=== PATIENT | male | born 1950 | race Caucasian/White ===

== ENCOUNTER 2019-08-01 14:54 | Emergency (ER) | payer MEDICARE, SELFPAY ==
[~2019-08-01] VITALS: Ht 182.9 cm; Wt 76.7 kg
--- OUTSIDE RECORDS SUMMARY | ~2019-08-01 | XMS | Encounter Summary ---
Demographics + + + | Address | [address] | | | [place] [address] | + + + | Home Phone | | + + + | Preferred Language | Unknown | + + + | Marital Status | | + + + | Latter Day Affiliation | Unknown | + + + | Race | Unknown | + + + | Ethnic Group | Unknown | + + + Author + + + | Author | [facility] | | | and Izaiahana | + + + | Organization | [facility] | | | and [place]za[place] | + + + | Address | Unknown | + + + | Phone | Unavailable | + + + Support + + +---------+ + | Name | Relationship | Address | Phone | + + +---------+ + | Elizabeth Hernández | ECON | Unknown | | + + +---------+ + Care Team Providers + +------+ + | Care Shipfitter Apprentice Name | Role | Phone | + +------+ + | Garland Caputo MD | PCP | | + +------+ + Encounter Details +--------+ + + + + | Date | Type | Department | Care Team | Description | +--------+ + + + + | 03/24/ | Documentati | [facility] | Rasheed Bello DO | | | 2019 | on | [facility] | [address] | | | | | [facility] CL[facility] [address] | [place] | | | | | [address] | [address] | | | | | [place] [address] | | | | | | [phone] | | | +--------+ + + + + Social History + +-------+ +--------+ + | Tobacco Use | Types | Packs/Day | Years | Date | | | | | Used | | + +-------+ +--------+ + | Former Smoker | | 1 | 41 | Quit: 2008 | + +-------+ +--------+ + + +---+---+---+ | Smokeless Tobacco: | | | | | Never Used | | | | + +---+---+---+ + + +---------+ + | Alcohol Use | Drinks/Week | oz/Week | Comments | + + +---------+ + | No | 0 Standard drinks | 0.0 | Drank 12 pk/wk from | | | or equivalent | | 5512-7438 | + + +---------+ + + + + | Sex Assigned at | Date Recorded | | | | + + + | Not on file | | + + + + + + + | Job Start Date | Occupation | Industry | + + + + | Not on file | Not on file | Not on file | + + + + + + + + | Travel History | Travel Start | Travel End | + + + + + + | No recent travel history available. | + + documented as of this encounter Progress Notes Alayna Strickland RN - 03/24/2019 3:42 PM PDTFormatting of this note might be different fro m the original. 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 Intent: Curative Treatment Technique: VMAT Treatment Site: Pancreas Prescription and Treatment Summary: Course: Abdomen Plan ID Energy Fractions Dose per Fraction (cGy) Dose Correction (cGy) Total Dose Delivered (cGy) Elapsed Days PTV 5040 6X 3 / 3 180 0 540 4 PTV_4500 6X 180 0 1,800 13 PTV45(15fxs) 6X 15 / 15 180 0 2,700 20 Chemotherapy: Concurrent systemic therapy Assessment: Anastacio Hernández completed the planned course of course of external beam radiation th erapy without without any unexpected complications or breaks. Treatment tolerance: Well overall. Disease response to treatment: No change in disease status and/or disease related symptoms . Disposition: 1. Follow-up in our clinic: as needed with care being returned to his primary medical oncol zainab byrnes. Labs: none b. Imaging: per Dr. Castro 2. Follow-up with Dr. Castro. Coordination of care will be arranged between providers for future visits. Anastacio Hernández was encouraged to call our clinic with any further questions or con cerns. Thank you for allowing me to participate in his care. If you should have any questio ns regarding this treatment summary, please do not hesitate to contact me. Rasheed Bello DO Radiation Oncologist Department of Radiation Oncology [facility] documented in this enco unter Plan of Treatment Not on filedocumented as of this encounter Visit Diagnoses Not on filedocumented in this encounter"
--- OUTSIDE RECORDS SUMMARY | ~2019-08-01 | XMS | Encounter Summary ---
Demographics + + + | Address | [address] | | | [place] [address] | + + + | Home Phone | | + + + | Preferred Language | Unknown | + + + | Marital Status | | + + + | Temple Affiliation | Unknown | + + + | Race | Unknown | + + + | Ethnic Group | Unknown | + + + Author + + + | Author | [facility] | | | and [place]zaiahana | + + + | Organization | [facility] | | | and [place]ana | [...] Team Providers + +------+ + | Care Guest Relations Executive Name | Role | Phone | + +------+ + | Garland Caputo MD | PCP | | + +------+ + Reason for Visit + + + | Reason | Comments | + + + | Medication Refill | | + + + Encounter Details +--------+--------+ + + + | Date | Type | Department | Care Team | Description | +--------+--------+ + + + | 03/14/ | Refill | [facility] | Gloria, | Medication Refill | | 2019 | | [facility] | Logan Madrid MD [address] | | | | | [facility] [facility] [address] | [address] [place] | | | | | [address] [place] | [place] [address] | | | | | [place] [address] | [phone] | | | | | [phone] | | | +--------+--------+ + + + Social History + +-------+ [...] | | | or equivalent | | 3694-7908 | + + +---------+ + + + [...] + + documented as of this encounter Plan of Treatment Not on filedocumented as of this encounter Visit Diagnoses + + | Diagnosis | + + | Malignant neoplasm of body of pancreas (HCC) - Primary Malignant neoplasm of body of | | pancreas | + + documented in this encounter"
--- OUTSIDE RECORDS SUMMARY | ~2019-08-01 | XMS | Encounter Summary ---
Demographics + + + | Address | [address] | | | [place] [address] | + + + | Home Phone | | + + + | Preferred Language | Unknown | + + + | Marital Status | | + + + | Zoroastrianism Affiliation | Unknown | + + + | Race | Unknown | + + + | Ethnic Group | Unknown | + + + Author + + + | Author | [facility] | | | and [place]zaiahana | + + + | Organization | [facility] | | | and [place]ana | [...] Team Providers + +------+ + | Care Senior Copywriter Name | Role | Phone | + +------+ + | Garland Caputo MD | PCP | | + +------+ + Reason for Visit +--------+ + | Reason | Comments | +--------+ + | Other | offered med | +--------+ + Encounter Details +--------+ + + + + | Date | Type | Department | Care Team | Description | +--------+ + + + + | 04/26/ | Telephone | [facility] | Dirk Saldivar MD | Other (offered med) | | 2016 | | GASTROENTEROLOGY | [address], [place] | | | | | [address] [place] | [address] [place], [place] | | | | | [address] [place], [place] | [address] | | | | | [address] | | | | | | [phone] | | | +--------+ + + + + Social History + +-------+ +--------+------+ | Tobacco Use | Types | Packs/Day | Years | Date | | | | | Used | | + +-------+ +--------+------+ | Former Smoker | | | | | + +-------+ +--------+------+ + +---+---+---+ | Smokeless Tobacco: | | | | | Never Used | | | | + +---+---+---+ + + +---------+ + | Alcohol Use | Drinks/Week | oz/Week | Comments | + + +---------+ + | No | 0 Standard drinks | 0.0 | | | | or equivalent | | | + + +---------+ + + + [...]
--- OUTSIDE RECORDS SUMMARY | ~2019-08-01 | XMS | Clinical Summary ---
Demographics + + + | Address | [address] | | | [place] [address] | + + + | Home Phone | | + + + | Preferred Language | Unknown | + + + | Marital Status | | + + + | Bahai Affiliation | Unknown | + + + | Race | Unknown | + + + | Ethnic Group | Unknown | + + + Author + + + | Author | [facility] (Historical as of | | | 05-02-19) | + + + | Organization | [facility] (Historical as of | | | 05-02-19) | + + + | Address | Unknown | + + + | Phone | Unavailable | + + + Support + + +---------+ + | Name | Relationship | Address | Phone | + + +---------+ + | Sarah Hernández | ECON | Unknown | | + + +---------+ + Care Team Providers + +------+ + | Care Aquarium Specialist Name | Role | Phone | + +------+ + | Garland Caputo MD | PP | | + +------+ + Allergies + + + + + + | Active Allergy | Reactions | Severity | Noted | Comments | | | | | Date | | + + + + + + | Penicillins | Rash | Medium | 02/18/20 | | | | | | 16 | | + + + + + + Current Medications + + +-------+---------+------+------+-------+ | Prescription | Sig. | Disp. | Refills | Star | End | Statu | | | | | | t | Date | s | | | | | | Date | | | + + +-------+---------+------+------+-------+ | GABAPENTIN, | Take by mouth. | | | | | Activ | | ONCE-DAILY, PO | | | | | | e | + + +-------+---------+------+------+-------+ Active Problems Not on file Social History + +-------+ +--------+------+ | Tobacco Use | Types | Packs/Day | Years | Date | | | | | Used | | + +-------+ +--------+------+ | Never Assessed | | | | | + +-------+ +--------+------+ + + + | Sex Assigned at | Date Recorded | | | | + + + | Not on file | | + + + Last Filed Vital Signs + + + + | Vital Sign | Reading | Time Taken | + + + + | Blood Pressure | 135/79 | 02/18/2016 11:41 PM PDT | + + + + | Pulse | 69 | 02/18/2016 11:41 PM PDT | + + + + | Temperature | 36.2 C (97.2 F) | 02/18/2016 11:41 PM PDT | + + + + | Respiratory Rate | 18 | 02/18/2016 11:41 PM PDT | + + + + | Oxygen Saturation | 98% | 02/18/2016 11:41 PM PDT | + + + + | Inhaled Oxygen | - | - | | Concentration | | | + + + + | Weight | 90.8 kg (200 lb 2.8 | 02/18/2016 10:23 PM PDT | | | oz) | | + + + + | Height | - | - | + + + + | Body Mass Index | - | - | + + + + Plan of Treatment Not on file Results Not on filefrom Last 3 Months Insurance +---------+--------+ +------+-------+ + | Payer | Benefi | Subscriber | Type | Phone | Address | | | t Plan | ID | | | | | | / | | | | | | | Group | | | | | +---------+--------+ +------+-------+ + | [employer]MER[employer] | PREMER | [id number] | | | [address] [address] | | | A | [address] | | | [place], [place] | | | [place] | | | | [address] | | | [place] | | | | | [place] | | | | | +---------+--------+ +------+-------+ + + +--------+ +--------+ + + | Guarantor Name | Accoun | Relation to | Date | Phone | Billing Address | | | t Type | Patient | of | | | | | | | | | | + +--------+ +--------+ + + | ANASTACIO HERNÁNDEZ | Person | Self [birth year] Home: | [address] | | | [place] | | 1950 | [phone] | [place] | | | [place] | | | [phone] | + +--------+ +--------+ + +"
--- OUTSIDE RECORDS SUMMARY | ~2019-08-01 | XMS | Encounter Summary ---
Demographics + + + | Address | [address] | | | [place] [address] | + + + | Home Phone | | + + + | Preferred Language | Unknown | + + + | Marital Status | | + + + | Anabaptism Affiliation | Unknown | + + + | Race | Unknown | + + + | Ethnic Group | Unknown | + + + Author + + + | Author | [facility] | | | and Izaiahana | + + + | Organization | [facility] | | | and Izaiahana [...] Team Providers + +------+ + | Care Mortician Supplies Sales Representative Name | Role | Phone | + +------+ + | Garland Caputo MD | PCP | | + +------+ + Reason for Visit Auth/Cert +--------+--------+ + + + + | Status | Reason | Specialty | Diagnoses / | Referred By | Referred To | | | | | Procedures | Contact | Contact | +--------+--------+ + + + + | | | | Diagnoses | | Renny, | | | | | Biliary | | Joaquin Ayala, | | | | | obstruction | | [address] | | | | | Migration | | [address] | | | | | of biliary | | [place], | | | | | stent, | | [place] [address] | | | | | subsequent | | Phone: | | | | | encounter | | [phone] | | | | | Procedures | | Fax: | | | | | [place] | | [phone] | | | | | ESOPHAGOSCOP | | | | | | | Y FLEXIBLE | | | | | | | GUIDE WIRE | | | | | | | DILATION UT | | | | | | | ERCP DX | | | | | | | COLLECTION | | | | | | | SPECIMEN | | | | | | | BRUSHING/WAS | | | | | | | GERI UT | | | | | | | ANESTHESIA | | | | | | | UPPER GI | | | | | | | ENDOSCOPIC | | | | | | | PX ERCP | | | | | | | ERCP | | | +--------+--------+ + + + + Encounter Details +--------+---------+ + + + | Date | Type | Department | Care Team | Description | +--------+---------+ + + + | 01/29/ | Surgery | [facility] | Joaquin [place]amo | ERCP | | 2018 | | [facility] OP | MD Jamie [address] | | | | | [address] | [facility] | | | | | [place] | [place] [address] | | | | | [address] | [phone] | | | | | [phone] | | | +--------+---------+ + + + Social History + +-------+ [...] | | | or equivalent | | [phone] | + + +---------+ + + + [...] + + documented as of this encounter Last Filed Vital Signs + + + + + | Vital Sign | Reading | Time Taken | Comments | + + + + + | Blood Pressure | 121/71 | 01/29/2019 12:15 PM | | | | | PDT | | + + + + + | Pulse | 79 | 01/29/2019 12:34 PM | | | | | PDT | | + + + + + | Temperature | 36.7 C (98.1 F) | 01/29/2019 10:30 AM | | | | | PDT | | + + + + + | Respiratory Rate | 15 | 01/29/2019 12:15 PM | | | | | PDT | | + + + + + | Oxygen Saturation | 96% | 01/29/2019 12:35 PM | | | | | PDT | | + + + + + | Inhaled Oxygen | - | - | | | Concentration | | | | + + + + + | Weight | 77.6 kg (171 lb 1.2 | 01/29/2019 8:03 AM | | | | oz) | PDT | | + + + + + | Height | 182.9 cm (6') | 01/29/2019 8:03 AM | | | | | PDT | | + + + + + | Body Mass Index | 23.2 | 01/29/2019 8:03 AM | | | | | PDT | | + + + + + documented in this encounter Discharge Instructions Instructions Maria D Jc RN - 01/29/2019Formatting of this note might be different fro m the original. Recovery After Procedural Sedation (Adult) You have been given medicine by vein to make you sleep during your procedure. This may have included both a pain medicine and sleeping medicine. Most of the effects have worn off. But you may still have some drowsiness for the next 6 to 8 hours. Home care Follow these guidelines when you get home: For the next 8 hours, you should be watched by a responsible adult. This person should m jemima sure your condition is not getting worse. Don't drink any alcoholfor the next [address], operate dangerous machinery,make important business or personal decisions , or sign legal documentsduring the next 24 hours. Note: Your healthcare provider may tell you not to take any medicine by mouth for pain or s leep in the next 4 hours. These medicines may react with the medicines you were given in the hospital. This could cause a much stronger response than usual. Follow-up care Follow up with your healthcare provider if you are not alert and back to your usual level o f activity within 12 hours. When to seek medical advice Call your healthcare provider right away if any of these occur: Drowsiness gets worse Weakness or dizziness gets worse Repeated vomiting You can't be awakened Date Last Reviewed: 07/03/201619999686-6162 [employer]. [address] [place] [address], [place] [address]. All righ ts reserved. This information is not intended as a substitute for professional medical care. Always follow your healthcare professional's instructions. ERCP (Endoscopic Retrograde Cholangiopancreatography) A balloon at the tip of a catheter opens above the stone. The stone is pulled out of the du ct and leaves your body through stool. ERCP stands forendoscopic retrograde cholangiopancreatography.This procedure is used to view the biliary and pancreatic ducts. It is used to evaluate diseases that affect the biliary and pancreaticducts andto help locate and treat blockages that may be present. How do I get ready for ERCP? Talk with your healthcare provider about any health problems or allergies you have. Ask your healthcare provider about the risks of ERCP, which include pancreatitis, infect ion, bleeding, and tearing the bowel. You may be asked to take antibiotics ahead of time. Avoid blood-thinning medicinesbefore ERCP,as recommended by your provider. Don't eat or drink for 8 to 12hours before ERCP. Have someone ready to take you home. Be sure your healthcare provider knows about all medicines you take. You may be told to stop taking some or all of them before the test. This includes: ? All prescription medicines ? Cpaf-bfw-wwmwctj medicines that don t need a prescription ? Any street drugs you may use ? Herbs, vitamins, kelp, seaweed, cough syrups, and other supplements What happens during the procedure? You may be given medicine through an IV to help you relax. Your throat is numbed. A thin tube (endoscope) is placed into your throat. It is advanced from the throat throu gh the upper digestive tract, to the common bile duct opening. The endoscope lets the health care providersee the common bile and pancreatic ductson a video screen. A cut may be made where the common bile duct opens to the duodenum to make it easier to remove stones. As blockages are located and removed, X-rays are taken. Contrast dye is injected through a catheter to make the duct show up better on the X-ray s. An imaging technique that uses X-rays to obtain real-time moving images of internal orga ns is called fluoroscopy. It is used to watch and guide progress of the procedure. In some cases, a plastic tube (stent) is placed to hold the ducts open. This stent may b e replaced or removed in 6 to 8weeks. Or it may be left to fall out on its own and be pass ed in the stool. What happens after ERCP? Your healthcare provider may discuss the test results right away or a return visit may be s cheduled.Depending on your medical condition and the test results,you may go home the day or spend the night in the hospital.If you are discharged home,follow theseguide lines: Unless told otherwise by your healthcare provider,you can return to a normal routine t he day after the ERCP. If a cut was made in the duct, avoid blood-thinning medicines such as aspirin for 5 to 7 days,or as advised by your healthcare provider. Call your healthcare provider right away if you have a fever or abdominal pain. These ma y be signs of an infection or torn bowel. Date Last Reviewed: 06/16/201719990991-8874 [employer]. [address] [place] [address]. All righ ts reserved. This information is not intended as a substitute for professional medical care. Always follow your healthcare professional's instructions. documented in this encounter Medications at Time of Discharge + + + +---------+ + + | Medication | Sig | Dispensed | Refills | Start | End Date | | | | | | Date | | + + + +---------+ + + | hydrOXYzine | Take 50 mg by mouth | | 0 | 07/24/20 | | | (VISTARIL) 50 MG | as needed. | | | 18 | | | capsule | | | | | | + + + +---------+ + + | metFORMIN | Take 1,000 mg by | | 0 | | | | (GLUCOPHAGE) 500 mg | mouth 2 times daily | | | | | | tablet | (with breakfast & | | | | | | | dinner). | | | | | + + + +---------+ + + | OLANZapine | Take 1 tablet by | | 4 | 12/04/19 | | | (ZYPREXA) 5 mg | mouth. 1 tab daily | | | 19 | | | tablet | for three days after | | | | | | | chemo | | | | | + + + +---------+ + + | ondansetron | Take 1 tablet by | 40 | 3 | 08/11/20 | | | (ZOFRAN) 8 MG tablet | mouth every 8 hours | tablet | | 18 | | | | as needed for | | | | | | | Nausea. May take | | | | | | | twice daily for two | | | | | | | days after chemo; or | | | | | | | one tab every eight | | | | | | | hours as needed for | | | | | | | nausea | | | | | + + + +---------+ + + | SENNOSIDES PO | Take 1 tablet by | | 0 | | | | | mouth as needed. | | | | | + + + +---------+ + + | tamsulosin | Take 0.4 mg by mouth | | 0 | 07/31/20 | | | (FLOMAX) 0.4 mg CAPS | Daily. | | | 18 | | + + + +---------+ + + | ciprofloxacin | Take 1 tablet by | 10 | 0 | 01/30/20 | | | (CIPRO) 500 mg | mouth 2 times daily | tablet | | 19 | 9 | | tablet | for 5 days. | | | | | + + + +---------+ + + | Docusate Calcium | Take by mouth as | | 0 | | | | (STOOL SOFTENER PO) | needed. | | | | 9 | + + + +---------+ + + | fentaNYL | Place 1 patch onto | | 0 | 08/25/20 | | | (DURAGESIC) 100 | the skin every 72 | | | 18 | 9 | | mcg/hr | hours. | | | | | + + + +---------+ + + | LORazepam (ATIVAN) | Take 1 mg by mouth | | 0 | 08/11/20 | | | 1 mg tablet | every 6 hours as | | | 18 | 9 | | | needed. | | | | | + + + +---------+ + + | oxyCODONE 20 MG | 1-2 tabs every four | 240 | 0 | 12/26/19 | | | TABS | hours as needed for | tablet | | 19 | 9 | | | pain | | | | | + + + +---------+ + + documented as of this encounter Plan of Treatment Not on filedocumented as of this encounter Procedures + +--------+ + + + | Procedure Name | Priori | Date/Time | Associated Diagnosis | Comments | | | ty | | | | + +--------+ + + + | FL ERCP | Routin | 01/29/2019 | | Results for this | | | e | 10:37 AM | | procedure are in the | | | | PDT | | results section. | + +--------+ + + + | ERCP | | 01/29/2019 | Biliary | | | | | 9:40 AM | obstruction | | | | | PDT | Migration of biliary | | | | | | stent, subsequent | | | | | | encounter | | + +--------+ + + + | ERCP | Routin | 01/29/2019 | | Results for this | | | e | 9:39 AM | | procedure are in the | | | | PDT | | results section. | + +--------+ + + + | PROTIME INR | STAT | 01/29/2019 | | Results for this | | | | 8:30 AM | | procedure are in the | | | | PDT | | results section. | + +--------+ + + + | CBC NO DIFFERENTIAL | STAT | 01/29/2019 | | Results for this | | | | 8:30 AM | | procedure are in the | | | | PDT | | results section. | + +--------+ + + + | COMPREHENSIVE | STAT | 01/29/2019 | | Results for this | | METABOLIC PANEL | | 8:30 AM | | procedure are in the | | | | PDT | | results section. | + +--------+ + + + documented in this encounter Results FL ERCP (01/29/2019 10:37 AM PDT) + + | Specimen | + + | | + + + + + | Narrative | Performed At | + + + | [place] ERCP 01/29/2019 10:37 AM HISTORY: intra op. COMPARISON: | [facility] | | None. FINDINGS: Multiple fluoroscopic images from an ERCP were | | | obtained. IMPRESSION - ERCP images. Please see the operative | | | report for further information. Dictated and Signed by: Dani | | | MD Talon Electronically signed: 01/29/2019 1:10 PM | | + + + + + | Procedure Note | + + | Servando Hoover Results In - 01/29/2019 1:14 PM PDT [place] ERCP 01/29/2019 10:37 AM | | | | HISTORY: intra op. | | | | COMPARISON: None. | | | | FINDINGS: | | Multiple fluoroscopic images from an ERCP were obtained. | | | | IMPRESSION - | | ERCP images. | | | | Please see the operative report for further information. | | | | Dictated and Signed by: Dani Hanley MD | | Electronically signed: 01/29/2019 1:10 PM | + + + +---------+ + + | Performing | Address | City/State/Zipcode | Phone Number | | Organization | | | | + +---------+ + + | [facility] | | | | + +---------+ + + ERCP (01/29/2019 9:39 AM PDT) + + | Specimen | + + | | + + + + -+ | Narrative | Performed At | + + -+ | | [facility] | | GastroenterologyPatient Name: Anastacio Micaela Date: 01/29/2019 | [facility] | | 9:39 AMMRN: [id number] #: [id number] of : | | | 1Admit Type: AmbulatoryAge: 68[place] [facility] [place]Gender: MaleNote | | | Status: FinalizedAttending MD: JOAQUIN ALAMO [facility]: | | | ERCPIndications: Jaundice, Elevated bilirubin, | | | Malignant tumor of the head of pancreas, | | | dislodged biliary stentProviders: JOAQUIN ALAMO MD, | | | Aimee Reece RN, Beau Avila RN, | | | Olimpia Jimenez, Urban Anthropologist, Alec | | | MD Chivo (Anesthesia Staff)Referring MD: Rasheed Bello | | | (Referring MD)Medicines: General Anesthesia, Indomethacin | | | 100 mg UT, Cipro 400 mg IVComplications: No immediate | | | complications.Procedure: Pre-Anesthesia Assessment: - | | | Prior to the procedure, a History and Physical was performed, and | | | patient medications and allergies were reviewed. The patient is | | | competent. The risks and benefits of the procedure and the | | | sedation options and risks were discussed with the patient. All | | | questions were answered and informed consent was obtained. | | | Patient identification and proposed procedure were verified by | | | the physician, the nurse and the anesthesiologist in the | | | pre-procedure area in the procedure room. Mental Status | | | Examination: alert and oriented. Airway Examination: Mallampati | | | Class II (the uvula but not tonsillar pillars visualized). | | | Respiratory Examination: clear to auscultation. CV Examination: | | | normal. Prophylactic Antibiotics: The patient does not require | | | prophylactic antibiotics. Prior Anticoagulants: The patient | | | has taken no previous anticoagulant or antiplatelet agents. ASA | | | Grade Assessment: III - A patient with severe systemic | | | disease. After reviewing the risks and benefits, the patient | | | was deemed in satisfactory condition to undergo the procedure. The | | | anesthesia plan was to use general anesthesia. Immediately prior | | | to administration of medications, the patient was re-assessed | | | for adequacy to receive sedatives. The heart rate, respiratory | | | rate, oxygen saturations, blood pressure, adequacy of pulmonary | | | ventilation, and response to care were monitored throughout | | | the procedure. The physical status of the patient was | | | re-assessed after the procedure. After obtaining informed | | | consent, the scope was passed under direct vision. Throughout | | | the procedure, the patient's blood pressure, pulse, and oxygen | | | saturations were monitored continuously. The endoscope was | | | introduced through the mouth, and advanced to the duodenum and used to | | | inject contrast into the bile duct. The ERCP was accomplished | | | without difficulty. The patient tolerated the procedure | | | well.Findings: A psychologist personnel film of the abdomen was obtained. | | | Surgical clips, consistent with a previous cholecystectomy, | | | were seen in the area of the right upper quadrant of the | | | abdomen. There was no biliary stent on the psychologist personnel film. The | | | esophagus was successfully intubated under direct vision. The | | | scope was advanced to the major papilla in the descending duodenum | | | without detailed examination of the pharynx, larynx and associated | | | structures, and upper GI tract. There was retained gastric | | | contents but not obvious gastric outlet obstruction. The | | | ampulla was grossly abnormal, it looks like there the is | | | extension of the malignancy around the ampulla. He had | | | previously had a sphincterotomy in Nov. Cannulation was | | | straightforward. The bile duct was deeply cannulated with the | | | short-nosed traction sphincterotome and 0.035" hydrawire on the first | | | touch and without the use of contrast. A pancreatogram was | | | neither attempted nor obtained. Contrast was injected. I | | | personally interpreted the bile duct images. There was brisk | | | flow of contrast through the ducts. Image quality was | | | excellent. Contrast extended to the entire biliary tree. The | | | distal common bile duct contained a single severe shelf like | | | stenosis 5 mm in length. The common bile duct, common hepatic | | | duct and left and right hepatic ducts and all intrahepatic branches | | | were markedly dilated, secondary to a stricture. The largest | | | diameter was 13 mm. A cholecystectomy had been performed. In | | | accordance with the preprocedure discussion with the patient, I | | | proceeded with metal stent placement. One 10 mm by 6 cm fully | | | covered metal stent was advanced across the stricture without | | | difficulty under endoscopic and fluoroscopic visualization. The | | | stent was then successfully deployed under endoscopic and | | | fluoroscopic visualization on the first attempt. Clear fluid | | | and pus flowed through the stent. There was excellent drainage | | | as seen endoscopically and fluoroscopically. The stent was in | | | excellent position. At this point the procedure was | | | complete.Impression: - The previously placed 10mm x 4cm covered | | | metal stent has passed. - A single severe biliary stricture was | | | found in the common bile duct. The stricture was malignant | | | appearing. - The left and right hepatic ducts and all | | | intrahepatic branches, common bile duct and common hepatic duct | | | were markedly dilated, secondary to a stricture. - The | | | patient has had a cholecystectomy. - One 10mm x 6cm covered | | | metal stent was placed into the common bile duct. - Pus | | | was seen draining from the bile duct consistent with cholangitis. | | | - Malignant appearing infiltration of the ampulla.Recommendation: | | | - The patient will be observed post-procedure, until all | | | discharge criteria are met. - Clear liquid diet for 1 | | | day, then advance as tolerated to resume previous diet. - | | | Cipro (ciprofloxacin) 500 mg PO BID for 5 days. - Return to | | | referring physician. - The findings and recommendations were | | | discussed with the patient's family. - Repeat ERCP in 6 | | | months to exchange stent.JOAQUIN ALAMO MD01/29/2019 10:41:59 | | | AMThis report has been signed electronically.Number of Addenda: 0Note | | | Initiated On: 01/29/2019 9:39 AMScope In: 9:58:40 AMScope Out: 10:20:59 | | | AM [facility], [address] [facility] [address] [facility] | | | [place] [address] | | | - Return to referring physician. | | | - The findings and recommendations were discussed with the patient's | | | family. | | | - Repeat ERCP in 6 months to exchange stent. | | |JOAQUIN ALAMO MD | | |01/29/2019 10:41:59 AM | | |This report has been signed electronically. | | |Number of Addenda: 0 | | |Note Initiated On: 01/29/2019 9:39 AM | | |Scope In: 9:58:40 AM | | |Scope Out: 10:20:59 AM | | | [facility], [address] [facility], [place] | | | [address] | | + + -+ + +---------+ + + | Performing | Address | City/State/Zipcode | Phone Number | | Organization | | | | + +---------+ + + | [facility] | | | | + +---------+ + + Martaime INR (01/29/2019 8:30 AM PDT) + + + + + + | Component | Value | Ref Range | Performed | Pathologist | | | | | At | Signature | + + + + + + | Prothrombin | 14.1 (H) | 11.3 - 13.9 | [facility] | | | Time | | seconds | [facility] | | | | | | MEDICAL | | | | | | CENTER - | | | | | | LABORATORY | | + + + + + + | INR | 1.1Comment: Usual Oral | 0.9 - 1.1 | [facility] | | | | Anticoagulation Range: | | [facility] | | | | 2.0 - 3.0High | | MEDICAL | | | | Level Oral | | CENTER - | | | | Anticoagulation Range: | | LABORATORY | | | | 2.5 - 3.5 | | | | + + + + + + + + | Specimen | + + | Blood | + + + + + + + | Performing | Address | City/State/Zipcode | Phone Number | | Organization | | | | + + + + + | [facility] | [address] | [place], [place] | [phone] | | [facility] | | [address] | | | - LABORATORY | | | | + + + + + Comprehensive Metabolic Panel (01/29/2019 8:30 AM PDT) + + + + + + | Component | Value | Ref Range | Performed | Pathologist | | | | | At | Signature | + + + + + + | Na | 137 | 136 - 145 | [facility] | | | | | mmol/L | [facility] | | | | | | MEDICAL | | | | | | CENTER - | | | | | | LABORATORY | | + + + + + + | K | 3.5 | 3.4 - 5.1 | [facility] | | | | | mmol/L | [facility] | | | | | | MEDICAL | | | | | | CENTER - | | | | | | LABORATORY | | + + + + + + | Cl | 102 | 98 - 107 mmol/L | [facility] | | | | | | [facility] | | | | | | MEDICAL | | | | | | CENTER - | | | | | | LABORATORY | | + + + + + + | CO2 | 28 | 20 - 31 mmol/L | [facility] | | | | | | [facility] | | | | | | MEDICAL | | | | | | CENTER - | | | | | | LABORATORY | | + + + + + + | Anion Gap | 7 | 3 - 16 mmol/L | [facility] | | | | | | [facility] | | | | | | MEDICAL | | | | | | CENTER - | | | | | | LABORATORY | | + + + + + + | Glucose | 119 (H) | 60 - 106 mg/dL | [facility] | | | | | | [facility] | | | | | | MEDICAL | | | | | | CENTER - | | | | | | LABORATORY | | + + + + + + | BUN | 10 | 9 - 23 mg/dL | [facility] | | | | | | [facility] | | | | | | MEDICAL | | | | | | CENTER - | | | | | | LABORATORY | | + + + + + + | Creatinine | 0.78 | 0.70 - 1.30 | [facility] | | | | | mg/dL | [facility] | | | | | | MEDICAL | | | | | | CENTER - | | | | | | LABORATORY | | + + + + + + | eGFR if not | >60Comment: GLOMERULAR | >=60 | [facility] | | | | FILTRATION | mL/min/1.73m2 | [facility] | | | THAI | RATE,ESTIMATED | | MEDICAL | | | | mL/min/1.52b0Nsjr than | | CENTER - | | | | 60 Chronic kidney | | LABORATORY | | | | disease,if found over a | | | | | | 3-month period.Less than | | | | | | 15 Kidney failureFor | | | | | | | | | | | | Americans,multiply the | | | | | | calculated GFR by 1.21. | | | | | | | | | | + + + + + + | Calcium | 9.0 | 8.7 - 10.4 | [facility] | | | | | mg/dL | [facility] | | | | | | MEDICAL | | | | | | CENTER - | | | | | | LABORATORY | | + + + + + + | Albumin | 3.4 | 3.2 - 4.8 g/dL | [facility] | | | | | | [facility] | | | | | | MEDICAL | | | | | | CENTER - | | | | | | LABORATORY | | + + + + + + | Bilirubin | 14.7 (H) | 0.3 - 1.2 mg/dL | [facility] | | | Total | | | [facility] | | | | | | MEDICAL | | | | | | CENTER - | | | | | | LABORATORY | | + + + + + + | Total | 6.4 | 5.7 - 8.2 g/dL | [facility] | | | Protein | | | [facility] | | | | | | MEDICAL | | | | | | CENTER - | | | | | | LABORATORY | | + + + + + + | AST | 100 (H) | 0 - 34 U/L | [facility] | | | | | | [facility] | | | | | | MEDICAL | | | | | | CENTER - | | | | | | LABORATORY | | + + + + + + | ALT | 64 (H) | 10 - 49 U/L | [facility] | | | | | | [facility] | | | | | | MEDICAL | | | | | | CENTER - | | | | | | LABORATORY | | + + + + + + | Alkaline | 947 (H) | 46 - 116 U/L | [facility] | | | Phosphatase | | | [facility] | | | | | | MEDICAL | | | | | | CENTER - | | | | | | LABORATORY | | + + + + + + | Globulin | 3.0 | 2.1 - 3.8 g/dL | [facility] | | | | | | [facility] | | | | | | MEDICAL | | | | | | CENTER - | | | | | | LABORATORY | | + + + + + + | Albumin/Sonia | 1.1 | 0.8 - 1.9 | [facility] | | | bulin Ratio | | | [facility] | | | | | | MEDICAL | | | | | | CENTER - | | | | | | LABORATORY | | + + + + + + | BUN/Creatin | 12.8 | | [facility] | | | ine Ratio | | | [facility] | | | | | | MEDICAL | | | | | | CENTER - | | | | | | LABORATORY | | + + + + + + + + | Specimen | + + | Blood | + + + + + + + | Performing | Address | City/State/Zipcode | Phone Number | | Organization | | | | + + + + + | [facility] | [address] | [place] | [phone] | | [facility] | | [address] | | | - LABORATORY | | | | + + + + + CBC no Differential (01/29/2019 8:30 AM PDT) + + + + + + | Component | Value | Ref Range | Performed | Pathologist | | | | | At | Signature | + + + + + + | WBC | 9.5 | 4.0 - 11.0 K/uL | [facility] | | | | | | [facility] | | | | | | MEDICAL | | | | | | CENTER - | | | | | | LABORATORY | | + + + + + + | RBC | 3.62 (L) | 4.30 - 5.70 | [facility] | | | | | M/uL | [facility] | | | | | | [facility] | | | | | | CENTER - | | | | | | LABORATORY | | + + + + + + | Hemoglobin | 11.0 (L) | 13.5 - 18.0 | [facility] | | | | | g/dL | [facility] | | | | | | [facility] | | | | | | CENTER - | | | | | | LABORATORY | | + + + + + + | Hematocrit | 31.2 (L) | 40.0 - 51.0 % | [facility] | | | | | | [facility] | | | [facility] | | [facility] | | | | | | CENTER - | | | | | | LABORATORY | | + + + + + + | MCV | 86.2 | 83.0 - 101.0 fL | [facility] | | | | | | [facility] | [facility] | [facility] | | | | | | CENTER - | | | | | | LABORATORY | | + + + + + + | MCH | 30.4 | 28.0 - 35.0 pg | [facility] | | | | | | [facility] | | | | | | [facility]ICAL | | | | | | CENTER - | | | | | | LABORATORY | | + + + + + + | MCHC | 35.3 | 32.0 - 36.0 | [facility] | | | | | g/dL | [facility] | | | | | | MEDICAL | | | | | | CENTER - | | | | | | LABORATORY | | + + + + + + | RDW-CV | 22.2 (H) | <15.0 % | [facility] | | | | | | [facility] | | | | | | [facility]ICAL | | | | | | CENTER - | | | | | | LABORATORY | | + + + + + + | RDW-SD | 67.2 (H) | 35.1 - 46.3 fL | [facility] | | | | | | [facility] | | | | | | MEDICAL | | | | | | CENTER - | | | | | | LABORATORY | | + + + + + + | Platelet | 389 | 140 - 440 K/uL | [facility] | | | Count | | | [facility] | | | | | | MEDICAL | | | | | | CENTER - | | | | | | LABORATORY | | + + + + + + | MPV | 11.5 | 6.5 - 12.4 fL | [facility] | | | | | | [facility] | | | | | | [facility] | | | | | | CENTER - | | | | | | LABORATORY | | + + + + + + | % nRBC | 0 | 0 - 2 per 100 | [facility] | | | | | WBCs | [facility] | | | | | | MEDICAL | | | | | | CENTER - | | | | | | LABORATORY | | + + + + + + | Absolute | 0.00 | 0.00 - 0.01 | [facility] | | | nRBC | | K/uL | [facility] | | | | | | MEDICAL | | | | | | CENTER - | | | | | | LABORATORY | | + + + + + + + + | Specimen | + + | Blood | + + + + + + + | Performing | Address | City/State/Zipcode | Phone Number | | Organization | | | | + + + + + | [facility] | [address] | [place], [place] | [phone] | | [facility] | | [address] | | | - LABORATORY | | | | + + + + + documented in this encounter Visit Diagnoses + + | Diagnosis | + + | Biliary obstruction Obstruction of bile duct | + + | Migration of biliary stent, subsequent encounter | + + documented in this encounter Admitting Diagnoses + + | Diagnosis | + + | Biliary obstruction Obstruction of bile duct | + + | Migration of biliary stent, subsequent encounter | + + documented in this encounter Administered Medications + +--------+---------+------+------+------+ | Medication Order | MAR | Action | Dose | Rate | Site | | | Action | Date | | | | + +--------+---------+------+------+------+ + +---+ | albuterol-ipratropium 2.5-0.5 | | | mg/3 mL nebulizer solution 3 mL | | | 3 mL, Nebulization, ONCE PRN, | | | Wheezing, Starting [facility] 01/29/19 at | | | 0815, For 1 dose, Pre-op | | + +---+ | | | + +---+ | albuterol-ipratropium 2.5-0.5 | | | mg/3 mL nebulizer solution 3 mL | | | 3 mL, Nebulization, ONCE PRN, | | | Wheezing, Shortness of Breath, | | | Starting [facility] 01/29/19 at 1014, For | | | 1 dose, Recovery/Phase I | | + +---+ | | | + +---+ + +---------+ +--------+-------+---+ | ciprofloxacin in dextrose | New Bag | 01/30/20 | 400 mg | 200 | | | (CIPRO) IVPB 400 mg 400 mg, | | 19 11:26 | | mL/hr | | | Intravenous, Administer over 1 | | AM PDT | | | | | Hours, ONCE, [facility] 01/29/19 at 1115, | | | | | | | For 1 dose, Recovery/Phase I, | | | | | | | Indications: Biliary Tract | | | | | | | Infection | | | | | | + +---------+ +--------+-------+---+ + +---+ | | | + +---+ | dextrose 50% injection 12.5-25 | | | g 12.5-25 g, Intravenous, EVERY | | | 15 MIN PRN, Low Blood Sugar, Give | | | 12.5g (25 mL) IV if blood | | | glucose 50-69 mg/dL. Give 25g | | | (50 mL) IV if blood glucose < 50, | | | Starting [facility] 01/29/19 at 0815, | | | Repeat in 15 min if blood glucose | | | remains < 70 mg/dL. Repeat | | | blood glucose in 30 min once | | | blood glucose > 70., Pre-op | | + +---+ | | | + +---+ | dextrose 50% injection 12.5-25 | | | g 12.5-25 g, Intravenous, EVERY | | | 15 MIN PRN, Low Blood Sugar, For | | | hypoglycemia. Give 12.5g (25ml) | | | IV if blood glucose 50-69 | | | mg/dL. Give 25g (50ml) IV if | | | blood glucose < 50, Starting [facility] | | | 01/29/19 at 1014, Give over 2 min. | | | Repeat in 15 min if blood | | | glucose remains < 70 mg/dL. | | | Repeat blood glucose in 30 min | | | once blood glucose > 70., | | | Recovery/Phase I | | + +---+ | | | + +---+ | ePHEDrine 50 mg/mL injection 5 | | | mg 5 mg, Intravenous, EVERY 5 | | | MIN PRN, if SBP <90., Starting | | | [facility] 01/29/19 at 1014, Hold if HR > | | | 100. Maximum total dose 20mg., | | | Recovery/Phase I | | + +---+ | | | + +---+ | fentaNYL (PF) injection 25-50 | | | mcg 25-50 mcg, Intravenous, | | | EVERY 5 MIN PRN, Pain, Starting | | | [facility] 01/29/19 at 1014, Maximum | | | total dose 250 mcg. PACU IV | | | Narcotic Priority: Only use | | | fentanyl for immediate post-op | | | pain (one dose) or breakthrough | | | pain when any other IV narcotics | | | ordered have been ineffective (if | | | ordered). If both morphine and | | | hydromorphone are ordered, use | | | morphine first, and use | | | hydromorphone if morphine | | | ineffective., Recovery/Phase I | | + +---+ | | | + +---+ | glycopyrrolate (ROBINUL) | | | injection 0.2 mg 0.2 mg, | | | Intravenous, PRN, Bradycardia, | | | For HR <50, Starting [facility] 01/29/19 | | | at 1014, For 2 doses, May repeat | | | one time after 1min, | | | Recovery/Phase I | | + +---+ | | | + +---+ | hydrALAZINE (APRESOLINE) | | | injection 5 mg 5 mg, | | | Intravenous, EVERY 20 MINUTES | | | PRN, For SBP > 180, DBP > 100, | | | Starting [facility] 01/29/19 at 1014, | | | Hold if HR > 100. Maximum total | | | dose 40 mg. Use labetalol first | | | if available., Recovery/Phase I | | + +---+ | | | + +---+ | HYDROmorphone (DILAUDID) | | | injection 0.2-0.5 mg 0.2-0.5 mg, | | | Intravenous, EVERY 5 MIN PRN, | | | Pain, Starting [facility] 01/29/19 at | | | 1014, Maximum total dose 4 mg. | | | PACU IV Narcotic Priority: Only | | | use fentanyl for immediate | | | post-op pain (one dose) or | | | breakthrough pain when any other | | | IV narcotics ordered have been | | | ineffective (if ordered). If | | | both morphine and hydromorphone | | | are ordered, use morphine first, | | | and use hydromorphone if morphine | | | ineffective., Recovery/Phase I | | + +---+ | | | + +---+ | labetalol (TRANDATE) 5 mg/mL | | | injection 5 mg 5 mg, | | | Intravenous, EVERY 5 MIN PRN, For | | | SBP > 180, DBP > 100, Starting | | | [facility] 01/29/19 at 1014, Hold if HR < | | | 60. Maximum total dose 300mg. | | | Notify anesthesia if patient | | | requires more than 50mg., | | | Recovery/Phase I | | + +---+ | | | + +---+ | lactated ringers (LR) infusion | | | at 100 mL/hr, Intravenous, | | | CONTINUOUS, Starting [facility] 01/29/19 | | | at 0845, Pre-op | | + +---+ | | | + +---+ + +---------+ +---+---+---+ | lactated ringers (LR) infusion | New Bag | 01/30/20 | | | | | at 10-100 mL/hr, Intravenous, | | 19 7:30 | | | | | CONTINUOUS, Starting [facility] 01/29/19 | | AM PDT | | | | | at 0845, TKO. Use unless patient | | | | | | | is on dialysis., Pre-op | | | | | | + +---------+ +---+---+---+ + +---+ | | | + +---+ | ondansetron (ZOFRAN) injection | | | 4 mg 4 mg, Intravenous, ONCE | | | PRN, Nausea, Starting [facility] 01/29/19 | | | at 1014, For 1 dose, | | | Recovery/Phase I | | + +---+ | | | + +---+ | sodium chloride 0.9% (NS) | | | infusion at 10-100 mL/hr, | | | Intravenous, CONTINUOUS, Starting | | | [facility] 01/29/19 at 0845, TKO. Use | | | this instead of LR if patient is | | | on dialysis., Pre-op | | + +---+ | | | + +---+ documented in this encounter
--- OUTSIDE RECORDS SUMMARY | ~2019-08-01 | XMS | Encounter Summary ---
Demographics + + + | Address | [address] | | | [place] [address] | + + + | Home Phone | | + + + | Preferred Language | Unknown | + + + | Marital Status | | + + + | Anabaptist Affiliation | Unknown | + + + | Race | Unknown | + + + | Ethnic Group | Unknown | + + + Author + + + | Author | [facility] | | | and Izaiahana | + + + | Organization | [facility] | | | and Izaiahana | + + + | Address | Unknown | + + + | Phone | Unavailable | + + + Support + + +---------+ + | Name | Relationship | Address | Phone | + + +---------+ + | Elizabeth Galvez | ECON | Unknown | | + + +---------+ + Care Team Providers + +------+ + | Care Hospital Account Liaison Name | Role | Phone | + +------+ + | Garland Caputo MD | PCP | | + +------+ + Reason for Visit + + + | Reason | Comments | + + + | Follow-up | | + + + Encounter Details +--------+ + + + + | Date | Type | Department | Care Team | Description | +--------+ + + + + | 02/26/ | Hospital [facility] | Gloria, | Malignant neoplasm | | 2019 | Encounter | [facility] | Logan Madrid MD [address] | of head of pancreas | | | | [facility] [address] [place] | (HCC) | | | | [address] [place] | [place] [address] | | | | | [place] [address] | [phone] | | | | | [phone] | | | +--------+ + + + [...] | | | or equivalent | | [phone] | + + +---------+ + + + [...] + + + | Blood Pressure | 128/75 | 02/26/2019 3:41 PM | | | | | PDT | | + + + + + | Pulse | 89 | 02/26/2019 3:41 PM | | | | | PDT | | + + + + + | Temperature | 37.3 C (99.1 F) | 02/26/2019 3:41 PM | | | | | PDT | | + + + + + | Respiratory Rate | 18 | 02/26/2019 3:41 PM | | | | | PDT | | + + + + + | Oxygen Saturation | 97% | 02/26/2019 3:41 PM | | | | | PDT | | + + + + + | Inhaled Oxygen | - | - | | | Concentration | | | | + + + + + | Weight | 76 kg (167 lb 8.8 | 02/26/2019 3:41 PM | | | | oz) | PDT | | + + + + + | Height | - | - | | + + + + + | Body Mass Index | 22.72 | 01/29/2019 8:03 AM | | | | | PDT | | + + + + + documented in this encounter Medications at Time [...] ondansetron | Take 1 tablet by | 12 | 0 | 02/27/20 | | | (ZOFRAN ODT) 8 mg | mouth every 8 hours | tablet | | 19 | | | disintegrating | as needed for | | | | | | tabletIndications: | Nausea. | | | | | | Malignant neoplasm | | | | | | | of head of pancreas | | | | | | | (HCC) | | | | | | + [...] + + + +---------+ + + | CAPECITABINE PO | Take by mouth. | | 0 | | | | | | | | | 9 | + [...] + +---------+ + + | fentaNYL | Apply skin patch | 10 | 0 | 02/20/20 | | | (DURAGESIC) 25 | every three days | patch | | 19 | 9 | | mcg/hr | with a 100 mcg/hr | | | | | | | patch for 125 | | | | | | | mcg/hour | | | | | + + + +---------+ + + | LORazepam (ATIVAN) | One tablet orally | 90 | 0 | 02/27/20 | | | 1 mg tablet | ever four hours as | tablet | | 19 | 9 | | | needed for nausea, | | | | | | | anxiety or | | | | | | | restlessness | | | | | + + + +---------+ + + | oxyCODONE 20 MG | 1-2 tabs every four | 240 | 0 | 02/13/20 | | | TABS | hours as needed for | tablet | | 19 | 9 | | | pain | | | | | + + + +---------+ + + documented as of this encounter Progress Notes Logan Castro MD - 02/26/2019 3:46 PM PDTFormatting of this note might be differe nt from the original. Hematology/Oncology Progress Note [facility] RICKI Lee Pt. Name/Age/: Anastacio Galvez 68 y.o. 1950 [facility]. Record Number: [id number] Date of admission: 02/26/2019 The patient's primary care provider is Garland Caputo MD. Identifying Statement: Anastacio Galvez is a 68 y.o. male from [address] [place] [address] with Stage IIA Pancreatic Cancer. The patient chart and medications were reviewed in detail and the patient was seen and exam ined. History of Present Illnesses, their Current Assessments and Plans: Problem List Malignant neoplasm of head of pancreas Overview ACTIVE DIAGNOSIS: Endoscopic stage IIA Pancreatic Cancer, deleterious germline PALB2 muta tion positive. The patient presented with upper abdominal pain which radiated to the upper back in a bandl lady distribution, jaundice and 40 pound weight loss in June 2018. CT scan of the abdomen/pelvis without contrast June 27, [address] [facility] demonstrated a 5 cm pancreatic mass in the uncinate process associated with a 12 mm retro-caval lymph node. Tumor marker CA 19-9 was 816.5 units per milliliter (upper limits of normal 37 units per milliliter). Surgical consultation with Dr. Mami Mcnamara ([facility]) on July 03, 2018. CT of the chest/abdomen/pelvis with contrast at [facility] on July 10, 2018 demonstrated a 3.3 cm x 3.7 cm x 5.17 m mass in the pancreatic head/uncina te process. The mass encases a few branches of the superior mesenteric artery arising supervisor frame assembly iorly and demonstrates slightly less than 180 of encasement of the superior mesenteric art daniel proper. Enlarged 1.1 cm lymph node inferior to the mass. Endoscopic ultrasound with biopsy and stent (10 mm x 40 mm metal ) placement July 25 (Dr. Leonel Song, [place], [place]): Pancreatic/uncinate mass, 4.5 cm close to but n ot touching major vessels, without endoscopic evidence of regional lymphadenopathy, PT3, PN0 , M0 stage IIA. Biopsy specimen # [id number] ([facility], [facility]). Fine-needle aspiration; adenocarcinoma. Biliary brushings; adenocarcinoma. Neoadjuvant therapy with Abraxane/Gemcitabine on August 15, 2018 through October 24, 2018 . 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 Repeat CT abdomen/pelvis on October 31, 2018 demonstrated a 60% volumetric reduction in pa ncreatic head mass. Consultation with Dr. Mami Mcnamara, [facility] on November 06, 2018; disease remains unresectable, continue with chemotherapy. Resume neoadjuvant Abraxane/gemcitabine on November 26, 2018. CT abdomen with contrast on January 14, 2019; grossly stable appearance of the 2.7 cm pancreatic head/uncinate process mass which demonstrates a similar degree of superior mesenteric arter y and vein abutment with persistent encasement of several superior mesenteric artery branche s. Consultation with Dr. Mami Mcnamara, [facility], who determined that the disease st ill remains unresectable, cross over to combined modality radiation + chemotherapy. Cross over to capecitabine 1500 mg orally twice a day, continuous, with daily radiation the [facility], Saturday-Saturday, on February 12, 2019. Current Assessment & Plan Anastacio Galvez returned to clinic on 02/26/2019 with his , Jamila for follow up and treatment of locally advanced pancreatic cancer. Interval history is notable for the fact lkuasz Anastacio crossed over to continuous capecitabine with external beam radiation on February 12, 2019. Review of systems is notable for nausea with one bout of emesis in the last week. Generally , upper abdominal pain is better. Clinical exam is notable for 2 kilogram weight gain. Laboratory exam is notable for progressive decrease in tumor marker CA15-3. There is grade 1 myelosuppression. Assessment; Anastacio's performance status has generally improved with combined modality therap y. Plan; continue capecitabine 1500 mg orally twice daily, continuous. Review of Systems: Constitutional: Reports ongoing nausea, taking prns. Vomiting last on Saturday. Reports poor activity tolerance, fatigue. Occasional night sweats. Denies high fevers, shaking chills, an orexia, nausea, vomiting, weight loss, or night sweats. Appetite without changes. Ear, Nose, Mouth, Throat: Denies odynophagia or dysphagia. Unchanged tinnitus. Cardiovascular: Reports SOB and CUELLO w/ walking. Reports unsteadiness w/ sitting to standing . Denies chest pain, palpitations or orthopnea. Respiratory: Denies cough, hemoptysis, or sputum production. Gastrointestinal: Reports semi-loose BMs. Reports occasional ABD pain. Denies constipation, melena, or bright red blood per rectum. Genitourinary: Reports urine color returning to normal. Denies hematuria or dysuria. Musculoskeletal: Reports ongoing knee joint pain. Neurologic: Reports R foot numbness. Denies headache, visual changes, or numbness/tingling of the extremities. Endocrine: Denies heat/cold intolerance. Reports R ankle edema, "about the same." Hematologic: Denies spontaneous bruising or bleeding. Integumentary: Denies rash, wounds or other skin concerns. Pain: Reports ongoing knee joint pain. Reports occasional ABD pain. Reports adequate pain c ontrol "this week." Note: here for labs and follow-up w/ Dr Castro My chart: Declined Scheduled Medications: Current Outpatient Medications Medication Sig Dispense Refill CAPECITABINE PO Take by mouth. Docusate Calcium (STOOL SOFTENER PO) Take by mouth as needed. fentaNYL (DURAGESIC) 100 mcg/hr Place 1 patch onto the skin every 72 hours. fentaNYL (DURAGESIC) 25 mcg/hr Apply skin patch every three days with a 100 mcg/hr patc h for 125 mcg/hour 10 patch 0 hydrOXYzine (VISTARIL) 50 MG capsule Take 50 mg by mouth as needed. LORazepam (ATIVAN) 1 mg tablet One tablet orally ever four hours as needed for nausea, anxiety or restlessness 90 tablet 0 metFORMIN (GLUCOPHAGE) 500 mg tablet Take 1,000 mg by mouth 2 times daily (with breakfa st & dinner). OLANZapine (ZYPREXA) 5 mg tablet Take 1 tablet by mouth. 1 tab daily for three days aft er chemo 4 ondansetron (ZOFRAN ODT) 8 mg disintegrating tablet Take 1 tablet by mouth every 8 hour s as needed for Nausea. 12 tablet 0 ondansetron (ZOFRAN) 8 MG tablet Take 1 tablet by mouth every 8 hours as needed for Lonnie sea. May take twice daily for two days after chemo; or one tab every eight hours as needed f or nausea 40 tablet 3 oxyCODONE 20 MG TABS 1-2 tabs every four hours as needed for pain 240 tablet 0 SENNOSIDES PO Take 1 tablet by mouth as needed. tamsulosin (FLOMAX) 0.4 mg CAPS Take 0.4 mg by mouth Daily. No current facility-administered medications for this encounter. Allergies: Allergy: Allergies Allergen Reactions Penicillins Rash Mom told me that from when I was a little kid Past Medical and Surgical History, Social History and Problems: Past Medical History: Diagnosis Date Abdominal pain, unspecified abdominal location Anxiety Back pain Colon polyp Depression Diabetes (HCC) Gastritis GERD (gastroesophageal reflux disease) High blood pressure High cholesterol Irritable bowel syndrome (IBS) Pancreas cancer (HCC) Weight loss Past Surgical History: Procedure Laterality Date APPENDECTOMY CATARACT REMOVAL Bilateral 2007 at [facility] CHOLECYSTECTOMY EGD AND COLONOSCOPY ERCP N/A 01/29/2019 Procedure: ERCP; Surgeon: Joaquin Lawson MD; Location: [facility] MAIN OR HERNIA REPAIR inguinal LAPAROSCOPY NASAL SEPTUM SURGERY TONSILLECTOMY torn cartilage Right [facility] Social History Socioeconomic History Marital status: Spouse name: Not on file Number of children: Not on file Years of education: Not on file Highest education level: Not on file Social Needs Financial resource strain: Not on file Food insecurity - worry: Not on file Food insecurity - inability: Not on file Transportation needs - medical: Not on file Transportation needs - non-medical: Not on file Occupational History Not on file Tobacco Use Smoking status: Former Smoker Packs/day: 1.00 Years: 40.00 Pack years: 40.00 Last attempt to quit: 2009 Years since quittin.4 Smokeless tobacco: Never Used Substance and Sexual Activity Alcohol use: No Alcohol/week: 0.0 oz Comment: Drank 12 pk/wk from [id number] Drug use: No Comment: 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 and quite in 1979 Sexual activity: Not on file Other Topics Concern Not on file Social History Narrative Not on file Patient Active Problem List Diagnosis Malignant neoplasm of head of pancreas Malignant neoplasm of head of pancreas Chronic anxiety Gastroesophageal reflux disease Hyperlipidemia Inguinal pain Osteoarthritis of spine with myelopathy, thoracic region Sensory neuropathy Type 2 diabetes mellitus Weight loss, abnormal Jaundice Biliary obstruction Migration of biliary stent, subsequent encounter Family History Problem Relation Age of Onset Broken bones Sister Cancer Child lymphoma Cancer Sister breast cancer Cancer Sister breast cancer Objectives: Temp: 37.3 C (99.1 F) BP: 128/75 Pulse: 89 Resp: 18 SpO2: 97 % on Min/Max Temp past 24 hours:No data recorded No intake or output data in the 24 hours ending 03/03/191946 Wt. Admission: Weight: 76 kg (167 lb 8.8 oz) Wt. Current: Weight: 76 kg (167 lb 8.8 oz) Wt Readings from Last 3 Encounters: 02/26/19 76 kg (167 lb 8.8 oz) 02/26/19 76 kg (167 lb 8.8 oz) 02/19/19 74 kg (163 lb 2.3 oz) Body mass index is 22.72 kg/m. Physical Exam: General: The patient is alert and oriented. No acute distress. Eyes: Conjunctiva clear. Sclera anicteric. ENMT: Oropharynx fee of lesions, mucous membranes moist. Cardiovascular: Regular rate and rhythm, no rubs, gallops, or murmurs. Lungs: Clear to auscultation and percussion. Chest: Patient does not have a port-a-cath. Abdomen: Soft, nontender, no hepatospenomegaly. No palpable masses. Bowel sounds present. Extremities: Nontender, no erythema, no edema. Skin: No rashes, bruising, or petechiae. Lymph: No palpable nodes in the neck, supraclavicular fossa, axilla or groin. Neurological: Cranial nerves are intact. Normal sensory and motor function, No focal defi cits noted. Muscular/Skeletal: No acute bony tenderness. No evidence of sarcopenia. Psychiatric: Depressed affect. ECOG Performance Status [] 0 [x] 1 [] 2 []3 [] 4 ECOG PERFORMANCE STATUS* Grade ECOG Karnofsky 0 Fully active, able to carry on all pre-disease performance without restriction. 90 - 100 1 Restricted in physically strenuous activity but ambulatory and able to carry out work of a light or sedentary nature, e.g., light house work, office work 70 - 80 2 Ambulatory and capable of all selfcare but unable to carry out any work activ ities. Up and about more than 50% of waking hours 50 - 60 3 Capable of only limited selfcare, confined to bed or chair more than 50% of w aking hours 30 - 40 4 Completely disabled. Cannot carry on any selfcare. Totally confined to bed or chair 10 - 20 * As published in Am. J. Clin. Oncol.: Meryl Montero., Trace Blancas., Partha Guido., Hedy Brizuela, Homar Ríos., Roslyn Khan., Yaquelin, P .P.: Toxicity And Response Criteria Of The Eastern Cooperative Oncology Group. Am J Clin Onc ol 5:649-655, 1982. The ECOG Performance Status is in the public domain therefore available for public use. To duplicate the scale, please cite the reference above and credit the Eastern Cooperative Onco logy Group, Logan Hernandez M.D., Group Chair Diagnostic studies: Available data and images were reviewed personally. See reports. Significant results and findings are addressed here or in the Assessment and Plan. Results for ANASTACIO GALVEZ ( ) as of 03/03/2019 19:40 Ref. Range 02/26/2019 14:48 WBC Latest Ref Range: 4.0 - 11.0 K/uL 3.2 (L) RBC COUNT Latest Ref Range: 4.30 - 5.70 M/uL 3.66 (L) Hemoglobin Latest Ref Range: 13.5 - 18.0 g/dL 11.3 (L) Hematocrit Latest Ref Range: 40.0 - 51.0 % 34.8 (L) MCV Latest Ref Range: 83.0 - 101.0 fL 95.1 MCH Latest Ref Range: 28.0 - 35.0 pg 30.9 MCHC Latest Ref Range: 32.0 - 36.0 g/dL 32.5 RDW-CV Latest Ref Range: <15.0 % 16.3 (H) RDW-SD Latest Ref Range: 35.1 - 46.3 fL 57.1 (H) Platelet Count Latest Ref Range: 140 - 440 K/uL 231 MPV Latest Ref Range: 6.5 - 12.4 fL 10.0 % nRBC Latest Ref Range: 0 - 2 per 100 WBCs 0 Absolute nRBC Latest Ref Range: 0.00 - 0.01 K/uL 0.00 Absolute Neutrophils Latest Ref Range: 1.80 - 8.50 K/uL 1.85 Absolute Lymphocytes Latest Ref Range: 0.60 - 3.20 K/uL 0.74 Absolute Monocytes Latest Ref Range: 0.00 - 1.00 K/uL 0.51 Absolute Eosinophils Latest Ref Range: 0.00 - 0.40 K/uL 0.10 Absolute Basophils Latest Ref Range: 0.00 - 0.10 K/uL 0.01 Absolute Immature Granulocytes Latest Ref Range: 0.00 - 0.03 K/uL 0.01 % Neutrophils Latest Ref Range: 45.0 - 82.0 % 57.5 % Lymphocytes Latest Ref Range: 20.0 - 45.0 % 23.0 % Monocytes Latest Ref Range: 4.0 - 12.0 % 15.8 (H) % Eosinophils Latest Ref Range: 0.0 - 5.0 % 3.1 % Basophils Latest Ref Range: 0.0 - 1.0 % 0.3 % Immature Granulocytes Latest Ref Range: 0.0 - 0.4 % 0.3 Na Latest Ref Range: 136 - 145 mmol/L 138 K Latest Ref Range: 3.4 - 5.1 mmol/L 3.8 Chloride Latest Ref Range: 98 - 107 mmol/L 103 Carbon dioxide Latest Ref Range: 20 - 31 mmol/L 30 Anion Gap Latest Ref Range: 3 - 16 mmol/L 5 Glucose Latest Ref Range: 60 - 106 mg/dL 240 (H) BUN Latest Ref Range: 9 - 23 mg/dL 8 (L) Creatinine Latest Ref Range: 0.70 - 1.30 mg/dL 0.76 BUN/Creatinine Ratio Unknown 10.5 Albumin Latest Ref Range: 3.2 - 4.8 g/dL 3.5 Albumin/Globulin Ratio Latest Ref Range: 0.8 - 1.9 1.5 Total Protein Latest Ref Range: 5.7 - 8.2 g/dL 5.9 EGFR IF NOT Latest Ref Range: >=60 mL/min/1.73m2 >60 Calcium Latest Ref Range: 8.7 - 10.4 mg/dL 8.7 ALK PHOS Latest Ref Range: 46 - 116 U/L 178 (H) ALT (SGPT) (REF) Latest Ref Range: 10 - 49 U/L 21 AST (SGOT) (REF) Latest Ref Range: 0 - 34 U/L 25 LDH TOTAL Latest Ref Range: 120 - 246 U/L 156 Bilirubin Total (Calculated) Latest Ref Range: 0.3 - 1.2 mg/dL 1.7 (H) Globulin Latest Ref Range: 2.1 - 3.8 g/dL 2.4 CA 19-9 Latest Ref Range: 0 - 35 U/mL 181 (H) Pharmacovigilance: Palliative Care: Patient's Medications New Prescriptions ONDANSETRON (ZOFRAN ODT) 8 MG DISINTEGRATING TABLET Take 1 tablet by mouth every 8 hour s as needed for Nausea. Modified Medications Modified Medication Previous Medication LORAZEPAM (ATIVAN) 1 MG TABLET LORazepam (ATIVAN) 1 mg tablet One tablet orally ever four hours as needed for nausea, anxiety or restlessness Take 1 tablet by mouth every 6 hours as needed. Discontinued Medications No medications on file Procedure: Logan Castro MD Portions of this chart may have been created with cafegive voice recognition software. Occasi onal wrong-word or sound-alike substitutions may have occurred due to the inherent trejo itations of voice recognition software. Please read the chart carefully and recognize, using context, where these substitutions have occurred. documented in this encounter Plan of Treatment Not on filedocumented as of this encounter Procedures + +--------+ + + + | Procedure Name | Priori | Date/Time | Associated Diagnosis | Comments | | | ty | | | | + +--------+ + + + | CBC W/AUTO | STAT | 02/26/2019 | Malignant neoplasm | Results for this | | DIFFERENTIAL | | 2:48 PM | of head of pancreas | procedure are in the | | | | PDT | ([facility]) | results section. | + +--------+ + + + | CA 19-9, QUANT | STAT | 02/26/2019 | Malignant neoplasm | Results for this | | | | 2:48 PM | of head of pancreas | procedure are in the | | | | PDT | ([facility]) | results section. | + +--------+ + + + | LACTATE | STAT | 02/26/2019 | Malignant neoplasm | Results for this | | DEHYDROGENASE | | 2:48 PM | of head of pancreas | procedure are in the | | | | PDT | ([facility]) | results section. | + +--------+ + + + | COMPREHENSIVE | STAT | 02/26/2019 | Malignant neoplasm | Results for this | | METABOLIC PANEL | | 2:48 PM | of head of pancreas | procedure are in the | | | | PDT | ([facility]) | results section. | + +--------+ + + + documented in this encounter Results CA 19-9, Quant (03/05/2019 12:56 PM PDT) + + + + + + | Component | Value | Ref Range | Performed | Pathologist | | | | | At | Signature | + + + + + + | CA 19-9 | 168 (H)Comment: Vik | 0 - 35 U/mL | REFERENCE | | | | Diagnostics | | LAB [facility] | | | | Electrochemiluminescence | | - [facility]KR | | | | Immunoassay | | | | | | (ECLIA)Values obtained | | | | | | with different assay | | | | | | methods or kits cannot | | | | | | beused interchangeably. | | | | | | Results cannot be | | | | | | interpreted as | | | | | | absoluteevidence of the | | | | | | presence or absence of | | | | | | malignant disease. | | | | + + + + + + + + | Specimen | + + | Blood | + + + + + | Narrative | Performed At | + + + | Performed at: [address] - [facility] [place] [address], | REFERENCE LAB | | [place], [place] [id number] Public Health Teacher: Evert Scanlon MD, Phone: | [facility] | | [phone] | | + + + + + + + + | Performing | Address | City/State/Zipcode | Phone Number | | Organization | | | | + + + + + | REFERENCE LAB | [address] | [place] [address] | [phone] | | [facility] | [address] | | | + + + + + Lactate Dehydrogenase (03/05/2019 12:56 PM PDT) + +-------+ + + + | Component | Value | Ref Range | Performed | Pathologist | | | | | At | Signature | + +-------+ + + + | LDH TOTAL | 181 | 120 - 246 U/L | [facility] | | | | | | [facility] | | | | | | [facility]ICAL | | | | | | CENTER - | | | | | | LABORATORY | | + +-------+ + + + + + | Specimen | + + | Blood | + + + + + + + | Performing | Address | City/State/Zipcode | Phone Number | | Organization | | | | + + + + + | [facility] | [address] | [place] | [phone] | | [facility] | | [address] | | | - LABORATORY | | | | + + + + + Comprehensive Metabolic Panel (03/05/2019 12:56 PM PDT) + + + + + + | Component | Value | Ref Range | Performed | Pathologist | | | | | At | Signature | + + + + + + | Na | 140 | 136 - 145 | [facility] | | | | | mmol/L | [facility] | | | | | | MEDICAL | | | | | | CENTER - | | | | | | LABORATORY | | + + + + + + | K | 3.7 | 3.4 - 5.1 | [facility] | | | | | mmol/L | [facility] | | | | | | MEDICAL | | | | | | CENTER - | | | | | | LABORATORY | | + + + + + + | Cl | 105 | 98 - 107 mmol/L | [facility] | | | | | | [facility] | | | | | | MEDICAL | | | | | | CENTER - | | | | | | LABORATORY | | + + + + + + | CO2 | 33 (H) | 20 - 31 mmol/L | [facility] | | | | | | [facility] | | | | | | MEDICAL | | | | | | CENTER - | | | | | | LABORATORY | | + + + + + + | Anion Gap | 2 (L) | 3 - 16 mmol/L | [facility] | | | | | | [facility] | | | | | | [facility] | | | | | | CENTER - | | | | | | LABORATORY | | + + + + + + | Glucose | 147 (H) | 60 - 106 mg/dL | [facility] | | | | | | [facility] | | | | | | [facility] | | | | | | CENTER - | | | | | | LABORATORY | | + + + + + + | BUN | 7 (L) | 9 - 23 mg/dL | [facility] | | | | | | [facility] | | | | | | MEDICAL | | | | | | CENTER - | | | | | | LABORATORY | | + + + + + + | Creatinine | 0.71 | 0.70 - 1.30 | [facility] | | | | | mg/dL | [facility] | | | | | | MEDICAL | | | | | | CENTER - | | | | | | LABORATORY | | + + + + + + | eGFR if not | >60Comment: GLOMERULAR | >=60 | [facility] | | | | FILTRATION | mL/min/1.73m2 | [facility] | | | [facility] | RATE,ESTIMATED | | MEDICAL | | | | mL/min/1.44u0Gspq than | | CENTER - | | [...] + + + + | Calcium | 8.9 | 8.7 - 10.4 | [facility] | | | | | mg/dL | [facility] | | | | | | MEDICAL | | | | | | CENTER - | | | | | | LABORATORY | | + + + + + + | Albumin | 3.5 | 3.2 - 4.8 g/dL | [facility] | | | | | | [facility] | | | | | | MEDICAL | | | | | | CENTER - | | | | | | LABORATORY | | + + + + + + | Bilirubin | 1.4 (H) | 0.3 - 1.2 mg/dL | [facility] | | | Total | | | [facility] | | | | | | MEDICAL | | | | | | CENTER - | | | | | | LABORATORY | | + + + + + + | Total | 5.8 | 5.7 - 8.2 g/dL | [facility] | | | Protein | | | [facility] | | | | | | MEDICAL | | | | | | CENTER - | | | | | | LABORATORY | | + + + + + + | AST | 25 | 0 - 34 U/L | [facility] | | | | | | [facility] | | | | | | MEDICAL | | | | | | CENTER - | | | | | | LABORATORY | | + + + + + + | ALT | 17 | 10 - 49 U/L | [facility] | | | | | | [facility] | | | | | | [facility] | | | | | | CENTER - | | | | | | LABORATORY | | + + + + + + | Alkaline | 147 (H) | 46 - 116 U/L | [facility] | | | Phosphatase | | | [facility] | | | | | | MEDICAL | | | | | | CENTER - | | | | | | LABORATORY | | + + + + + + | Globulin | 2.3 | 2.1 - 3.8 g/dL | [facility] | | | | | | [facility] | | | | | | [facility]ICAL | | | | | | CENTER - | | | | | | LABORATORY | | + + + + + + | Albumin/Sonia | 1.5 | 0.8 - 1.9 | [facility] | | | bulin Ratio | | | [facility] | | | | | | [facility] | | | | | | [facility] - | | | | | | LABORATORY | | + + + + + + | BUN/Creatin | 9.9 | | [facility] | | | ine [...] + | [facility] | [address] | [place] | [phone] | | [facility] | | [address] | | | - LABORATORY | | | | + + + + + CBC w/ Auto Differential (03/05/2019 12:56 PM PDT) + + + + + + | Component | Value | Ref Range | Performed | Pathologist | | | | | At | Signature | + + + + + + | WBC | 3.4 (L) | 4.0 - 11.0 K/uL | [facility] | | | | | | [facility] | | | | | | [facility] | | | | | | CENTER - | | | | | | LABORATORY | | + + + + + + | RBC | 3.91 (L) | 4.30 - 5.70 | [facility] | | | | | M/uL | [facility] | | | | | | [facility]ICAL | | | | | | CENTER - | | | | | | LABORATORY | | + + + + + + | Hemoglobin | 12.2 (L) | 13.5 - 18.0 | [facility] | | | | | g/dL | [facility] | | | | | | [facility]ICAL | | | | | | CENTER - | | | | | | LABORATORY | | + + + + + + | Hematocrit | 37.1 (L) | 40.0 - 51.0 % | [facility] | | | | | | [facility] | | | | | | [facility]ICAL | | | | | | CENTER - | | | | | | LABORATORY | | + + + + + + | MCV | 94.9 | 83.0 - 101.0 fL | [facility] | | | | | | [facility] | | | | | | [facility] | | | | | | CENTER - | | | | | | LABORATORY | | + + + + + + | MCH | 31.2 | 28.0 - 35.0 pg | [facility] | | | | | | [facility] | | | | | | [facility]ICAL | | | | | | CENTER - | | | | | | LABORATORY | | + + + + + + | MCHC | 32.9 | 32.0 - 36.0 | [facility] | | | | | g/dL | [facility] | | | | | | MEDICAL | | | | | | CENTER - | | | | | | LABORATORY | | + + + + + + | RDW-CV | 16.4 (H) | <15.0 % | [facility] | | | | | | [facility] | | | | | | [facility]ICAL | | | | | | CENTER - | | | | | | LABORATORY | | + + + + + + | RDW-SD | 57.6 (H) | 35.1 - 46.3 fL | [facility] | | | | | | [facility] | | | | | | [facility]ICAL | | | | | | CENTER - | | | | | | LABORATORY | | + + + + + + | Platelet | 209 | 140 - 440 K/uL | [facility] | | | Count | | | [facility] | | | | | | MEDICAL | | | | | | CENTER - | | | | | | LABORATORY | | + + + + + + | MPV | 9.6 | 6.5 - 12.4 fL | [facility] | | | | | | [facility] | | | | | | [facility]ICAL | | | | | | CENTER - | | | | | | LABORATORY | | + + + + + + | % | 60.1 | 45.0 - 82.0 % | [facility] | | | Neutrophils | | | [facility] | | | | | | MEDICAL | | | | | | CENTER - | | | | | | LABORATORY | | + + + + + + | % | 20.4 | 20.0 - 45.0 % | [facility] | | | Lymphocytes | | | [facility] | | | | | | MEDICAL | | | | | | CENTER - | | | | | | LABORATORY | | + + + + + + | % Monocytes | 14.2 (H) | 4.0 - 12.0 % | [facility] | | | | | | [facility] | | | | | | MEDICAL | | | | | | CENTER - | | | | | | LABORATORY | | + + + + + + | % | 4.7 | 0.0 - 5.0 % | [facility] | | | Eosinophils | | | [facility] | | | | | | MEDICAL | | | | | | CENTER - | | | | | | LABORATORY | | + + + + + + | % Basophils | 0.3 | 0.0 - 1.0 % | [facility] | | | | | | [facility] | | | | | | [facility]ICAL | | | | | | CENTER - | | | | | | LABORATORY | | + + + + + + | % Immature | 0.3 | 0.0 - 0.4 % | [facility] | | | Granulocyte | | | [facility] | | | s | | | MEDICAL | | | | | | CENTER - | | | | | | LABORATORY | | + + + + + + | Absolute | 2.03 | 1.80 - 8.50 | [facility] | | | Neutrophils | | K/uL | [facility] | | | | | | MEDICAL | | | | | | CENTER - | | | | | | LABORATORY | | + + + + + + | Absolute | 0.69 | 0.60 - 3.20 | [facility] | | | Lymphocytes | | K/uL | [facility] | | | | | | MEDICAL | | | | | | CENTER - | | | | | | LABORATORY | | + + + + + + | Absolute | 0.48 | 0.00 - 1.00 | [facility] | | | Monocytes | | K/uL | [facility] | | | | | | [facility]ICAL | | | | | | CENTER - | | | | | | LABORATORY | | + + + + + + | Absolute | 0.16 | 0.00 - 0.40 | [facility] | | | Eosinophils | | K/uL | [facility] | | | | | | MEDICAL | | | | | | CENTER - | | | | | | LABORATORY | | + + + + + + | Absolute | 0.01 | 0.00 - 0.10 | [facility] | | | Basophils | | K/uL | [facility] | | | | | | MEDICAL | | | | | | CENTER - | | | | | | LABORATORY | | + + + + + + | Absolute | 0.01 | 0.00 - 0.03 | [facility] | | | Immature | | K/uL | [facility] | | | Granulocyte | | | MEDICAL | | | s | | | CENTER - | | | | | | LABORATORY | | + + + + + + | % nRBC | 0 | 0 - 2 per 100 | [facility] | | | | | WBCs | [facility] | | | | | | MEDICAL | | | | | | CENTER - | | | | | | LABORATORY | | + + + + + + | Absolute | 0.00 | 0.00 - 0.01 | [facility] | | | nRBC | | K/uL | [facility] | | | | [...] | + + + + + | [facility] | [address] | [place] | [phone] | | [facility] | | [address] | | | - LABORATORY | | | | + + + + + Lactate Dehydrogenase (02/26/2019 2:48 PM PDT) + +-------+ + + + | Component | Value | Ref Range | Performed | Pathologist | | | | | At | Signature | + +-------+ + + + | LDH TOTAL | 156 | 120 - 246 U/L | [facility] | | | | | | [facility] | | | | | | MEDICAL | | | | | | CENTER - | | | | | | LABORATORY | | + +-------+ + + + + + | Specimen | + + | Blood | + + + + + + + | Performing | Address | City/State/Zipcode | Phone Number | | Organization | | | | + + + + + | [facility] | [address] | [place] | [phone] | | [facility] | | [address] | | | - LABORATORY | | | | + + + + + Comprehensive Metabolic Panel (02/26/2019 2:48 PM PDT) + + + + + + | Component | Value | Ref Range | Performed | Pathologist | | | | | At | Signature | + + + + + + | Na | 138 | 136 - 145 | [facility] | | | | | mmol/L | [facility] | | | | | | MEDICAL | | | | | | CENTER - | | | | | | LABORATORY | | + + + + + + | K | 3.8 | 3.4 - 5.1 | [facility] | | | | | mmol/L | [facility] | | | | | | MEDICAL | | | | | | CENTER - | | | | | | LABORATORY | | + + + + + + | Cl | 103 | 98 - 107 mmol/L | [facility] | | | | | | [facility] | | | | | | MEDICAL | | | | | | CENTER - | | | | | | LABORATORY | | + + + + + + | CO2 | 30 | 20 - 31 mmol/L | [facility] | | | | | | [facility] | | | | | | MEDICAL | | | | | | CENTER - | | | | | | LABORATORY | | + + + + + + | Anion Gap | 5 | 3 - 16 mmol/L | [facility] | | | | | | [facility] | | | | | | MEDICAL | | | | | | CENTER - | | | | | | LABORATORY | | + + + + + + | Glucose | 240 (H) | 60 - 106 mg/dL | [facility] | | | | | | [facility] | | | | | | MEDICAL | | | | | | CENTER - | | | | | | LABORATORY | | + + + + + + | BUN | 8 (L) | 9 - 23 mg/dL | [facility] | | | | | | [facility] | | | | | | MEDICAL | | | | | | CENTER - | | | | | | LABORATORY | | + + + + + + | Creatinine | 0.76 | 0.70 - 1.30 | [place] | | | | | mg/dL | [facility] | | | | | | MEDICAL | | | | | | CENTER - | | | | | | LABORATORY | | + + + + + + | eGFR if not | >60Comment: GLOMERULAR | >=60 | [facility] | | | | FILTRATION | mL/min/1.73m2 | [facility] | | | DJIBOUTIAN | RATE,ESTIMATED | | MEDICAL | | | | mL/min/1.16e4Mvqv than | | CENTER - | | [...] + + + + | Calcium | 8.7 | 8.7 - 10.4 | [facility] | | | | | mg/dL | [facility] | | | | | | MEDICAL | | | | | | CENTER - | | | | | | LABORATORY | | + + + + + + | Albumin | 3.5 | 3.2 - 4.8 g/dL | [facility] | | | | | | [facility] | | | | | | MEDICAL | | | | | | CENTER - | | | | | | LABORATORY | | + + + + + + | Bilirubin | 1.7 (H) | 0.3 - 1.2 mg/dL | [facility] | | | Total | | | [facility] | | | | | | MEDICAL | | | | | | CENTER - | | | | | | LABORATORY | | + + + + + + | Total | 5.9 | 5.7 - 8.2 g/dL | [facility] | | | Protein | | | [facility] | | | | | | MEDICAL | | | | | | CENTER - | | | | | | LABORATORY | | + + + + + + | AST | 25 | 0 - 34 U/L | [facility] | | | | | | [facility] | | | | | | MEDICAL | | | | | | CENTER - | | | | | | LABORATORY | | + + + + + + | ALT | 21 | 10 - 49 U/L | [facility] | | | | | | [facility] | | | | | | MEDICAL | | | | | | CENTER - | | | | | | LABORATORY | | + + + + + + | Alkaline | 178 (H) | 46 - 116 U/L | [facility] | | | Phosphatase | | | [facility] | | | | | | MEDICAL | | | | | | CENTER - | | | | | | LABORATORY | | + + + + + + | Globulin | 2.4 | 2.1 - 3.8 g/dL | [facility] | | | | | | [facility] | | | | | | MEDICAL | | | | | | CENTER - | | | | | | LABORATORY | | + + + + + + | Albumin/Sonia | 1.5 | 0.8 - 1.9 | [facility] | | | bulin Ratio | | | [facility] | | | | | | MEDICAL | | | | | | CENTER - | | | | | | LABORATORY | | + + + + + + | BUN/Creatin | 10.5 | | [facility] | | | ine [...] | + + + + + | [facility] | [address] | [place] | [phone] | | [facility] | | [address] | | | - LABORATORY | | | | + + + + + CBC w/ Auto Differential (02/26/2019 2:48 PM PDT) + + + + + + | Component | Value | Ref Range | Performed | Pathologist | | | | | At | Signature | + + + + + + | WBC | 3.2 (L) | 4.0 - 11.0 K/uL | [facility] | | | | | | [facility] | | | | | | MEDICAL | | | | | | CENTER - | | | | | | LABORATORY | | + + + + + + | RBC | 3.66 (L) | 4.30 - 5.70 | [facility] | | | | | M/uL | [facility] | | | | | | MEDICAL | | | | | | CENTER - | | | | | | LABORATORY | | + + + + + + | Hemoglobin | 11.3 (L) | 13.5 - 18.0 | [facility] | | | | | g/dL | [facility] | | | | | | MEDICAL | | | | | | CENTER - | | | | | | LABORATORY | | + + + + + + | Hematocrit | 34.8 (L) | 40.0 - 51.0 % | [facility] | | | | | | [facility] | | | | | | MEDICAL | | | | | | CENTER - | | | | | | LABORATORY | | + + + + + + | MCV | 95.1 | 83.0 - 101.0 fL | [facility] | | | | | | [facility] | | | | | | MEDICAL | | | | | | CENTER - | | | | | | LABORATORY | | + + + + + + | MCH | 30.9 | 28.0 - 35.0 pg | [facility] | | | | | | [facility] | | | | | | MEDICAL | | | | | | CENTER - | | | | | | LABORATORY | | + + + + + + | MCHC | 32.5 | 32.0 - 36.0 | [facility] | | | | | g/dL | [facility] | | | | | | MEDICAL | | | | | | CENTER - | | | | | | LABORATORY | | + + + + + + | RDW-CV | 16.3 (H) | <15.0 % | [facility] | | | | | | [facility] | | | | | | MEDICAL | | | | | | CENTER - | | | | | | LABORATORY | | + + + + + + | RDW-SD | 57.1 (H) | 35.1 - 46.3 fL | [facility] | | | | | | [facility] | | | | | | MEDICAL | | | | | | CENTER - | | | | | | LABORATORY | | + + + + + + | Platelet | 231 | 140 - 440 K/uL | [facility] | | | Count | | | [facility] | | | | | | MEDICAL | | | | | | CENTER - | | | | | | LABORATORY | | + + + + + + | MPV | 10.0 | 6.5 - 12.4 fL | [facility] | | | | | | [facility] | | | | | | MEDICAL | | | | | | CENTER - | | | | | | LABORATORY | | + + + + + + | % | 57.5 | 45.0 - 82.0 % | [facility] | | | Neutrophils | | | [facility] | | | | | | MEDICAL | | | | | | CENTER - | | | | | | LABORATORY | | + + + + + + | % | 23.0 | 20.0 - 45.0 % | [facility] | | | Lymphocytes | | | [facility] | | | | | | MEDICAL | | | | | | CENTER - | | | | | | LABORATORY | | + + + + + + | % Monocytes | 15.8 (H) | 4.0 - 12.0 % | [facility] | | | | | | [facility] | | | | | | MEDICAL | | | | | | CENTER - | | | | | | LABORATORY | | + + + + + + | % | 3.1 | 0.0 - 5.0 % | [facility] | | | Eosinophils | | | [facility] | | | | | | MEDICAL | | | | | | CENTER - | | | | | | LABORATORY | | + + + + + + | % Basophils | 0.3 | 0.0 - 1.0 % | [facility] | | | | | | [facility] | | | | | | MEDICAL | | | | | | CENTER - | | | | | | LABORATORY | | + + + + + + | % Immature | 0.3 | 0.0 - 0.4 % | [facility] | | | Granulocyte | | | [facility] | | | s | | | MEDICAL | | | | | | CENTER - | | | | | | LABORATORY | | + + + + + + | Absolute | 1.85 | 1.80 - 8.50 | [facility] | | | Neutrophils | | K/uL | [facility] | | | | | | MEDICAL | | | | | | CENTER - | | | | | | LABORATORY | | + + + + + + | Absolute | 0.74 | 0.60 - 3.20 | [facility] | | | Lymphocytes | | K/uL | [facility] | | | | | | MEDICAL | | | | | | CENTER - | | | | | | LABORATORY | | + + + + + + | Absolute | 0.51 | 0.00 - 1.00 | [facility] | | | Monocytes | | K/uL | [facility] | | | | | | MEDICAL | | | | | | CENTER - | | | | | | LABORATORY | | + + + + + + | Absolute | 0.10 | 0.00 - 0.40 | [facility] | | | Eosinophils | | K/uL | [facility] | | | | | | MEDICAL | | | | | | CENTER - | | | | | | LABORATORY | | + + + + + + | Absolute | 0.01 | 0.00 - 0.10 | [facility] | | | Basophils | | K/uL | [facility] | | | | | | MEDICAL | | | | | | CENTER - | | | | | | LABORATORY | | + + + + + + | Absolute | 0.01 | 0.00 - 0.03 | [facility] | | | Immature | | K/uL | [facility] | | | Granulocyte | | | MEDICAL | | | s | | | CENTER - | | | | | | LABORATORY | | + + + + + + | % nRBC | 0 | 0 - 2 per 100 | [facility] | | | | | WBCs | [facility] | | | | | | MEDICAL | | | | | | CENTER - | | | | | | LABORATORY | | + + + + + + | Absolute | 0.00 | 0.00 - 0.01 | [facility] | | | nRBC | | K/uL | [facility] | | | | [...] | + + + + + | [facility] | [address] | [place] | [phone] | | [facility] | | [address] | | | - LABORATORY | | | | + + + + + CA 19-9, Quant (02/26/2019 2:48 PM PDT) + + + + + + | Component | Value | Ref Range | Performed | Pathologist | | | | | At | Signature | + + + + + + | [place] 19-9 | 181 (H)Comment: Vik | 0 - 35 U/mL | [facility] | | | | Diagnostics | | LAB [facility] | | | | Electrochemiluminescence | | - BKR | | | | Immunoassay | | | | | | (ECLIA)Values obtained | | | | | | with different assay | | | | | | methods or kits cannot | | | | | | beused interchangeably. | | | | | | Results cannot be | | | | | | interpreted as | | | | | | absoluteevidence of the | | | | | | presence or absence of | | | | | | malignant disease. | | | | + + + + + + + + | Specimen | + + | Blood | + + + + + | Narrative | Performed At | + + + | Performed at: 01 - [facility] [place] [address], | REFERENCE LAB | | [place], [place] [id number] Public Health Teacher: Evert Scanlon MD, Phone: | [place]JAY MARTINEZ | | [phone] | | + + + + + + + + | Performing | Address | City/State/Zipcode | Phone Number | | Organization | | | | + + + + + | REFERENCE LAB | [address] | [place] [address] | [phone] | | [facility] | [address] | | | + + + + + documented in this encounter Visit Diagnoses + + | Diagnosis | + + | Malignant neoplasm of head of pancreas (HCC) Malignant neoplasm of head of pancreas | + + documented in this encounter
--- OUTSIDE RECORDS SUMMARY | ~2019-08-01 | XMS | Encounter Summary ---
Demographics + + + | Address | [address] | | | [place] [address] | + + + | Home Phone | | + + + | Preferred Language | Unknown | + + + | Marital Status | | + + + | Episcopalian Affiliation | Unknown | + + + | Race | Unknown | + + + | Ethnic Group | Unknown | + + + Author + + + | Author | [facility] | | | and Izaiahana | + + + | Organization | [facility] | | | and Izaiahana [...] Team Providers + +------+ + | Care Embedded Nurse Name | Role | Phone | + +------+ + | Garland Caputo MD | PCP | | + +------+ + Reason for Visit + + + | Reason | Comments | + + + | Under Treatment | | + + + Encounter Details +--------+ + + + + | Date | Type | Department | Care Team | Description | +--------+ + + + + | 03/05/ | Hospital | [facility] | Rasheed Bello DO | Malignant neoplasm | | 2019 | Encounter | [facility] | [address] | of head of pancreas | | | | ON[facility] CLIN[facility] [address] | [place], [place] | (HCC) (Primary Dx) | | | | [address] | [address] | | | | | [place] [address] | | | | | | [phone] | | | +--------+ + + + [...] | | | or equivalent | | 2305-8830 | + + +---------+ + + + [...] + + + | Blood Pressure | 122/74 | 03/05/2019 1:21 PM | | | | | PDT | | + + + + + | Pulse | 76 | 03/05/2019 1:21 PM | | | | | PDT | | + + + + + | Temperature | 36.8 C (98.2 F) | 03/05/2019 1:21 PM | | | | | PDT | | + + + + + | Respiratory Rate | 18 | 03/05/2019 1:21 PM | | | | | PDT | | + + + + + | Oxygen Saturation | 97% | 03/05/2019 1:21 PM | | | | | PDT | | + + + + + | Inhaled Oxygen | - | - | | | Concentration | | | | + + + + + | Weight | 75 kg (165 lb 5.5 | 03/05/2019 1:21 PM | | | | oz) | PDT | | + + + + + | Height | - | - | | + + + + + | Body Mass Index | 22.42 | 01/29/2019 8:03 AM | | | [...] + + | oxyCODONE 20 MG | 1-3 tabs every four | 280 | 0 | 03/05/20 | | | TABS | hours as needed for | tablet | | 19 | | | | pain | | | [...] + + + +---------+ + + | capecitabine | Take 3 tablets | 84 | 0 | 03/12/20 | | | (XELODA) 500 mg | (1,500 mg total) by | tablet | | 19 | 9 | | tablet | mouth 2 times daily | | | | | | | for 14 days. | | | | | + [...] documented as of this encounter Progress Notes Rasheed Bello DO - 03/05/2019 1:23 PM PDT Radiation Oncology Weekly On Treatment Note Diagnosis: ICD-10-CM ICD-9-CM 1. Malignant neoplasm of head of pancreas (HCC) C25.0 157.0 Reason for visit: On treatment evaluation Radiation technical factors: Dose Delivered Dose Planned Fractions Delivered 1980 cGy 0 cGy 4500 cGy 540 cGy 08/10 0 Images were reviewed this week and results of the review have been recorded in [facility]. Corre ctions were applied as necessary. Allergies Allergen Reactions Penicillins Rash Mom told me that from when I was a little kid Current Outpatient Medications on File Prior to Encounter Medication Sig Dispense Refill [START ON 03/12/2019] capecitabine (XELODA) 500 mg tablet Take 3 tablets (1,500 mg total ) by mouth 2 times daily for 14 days. 84 tablet 0 fentaNYL (DURAGESIC) 100 mcg/hr Place 1 patch [...] 40 tablet 3 oxyCODONE 20 MG TABS 1-3 tabs every four hours as needed for pain 280 tablet 0 SENNOSIDES PO Take 1 tablet by mouth as needed. tamsulosin (FLOMAX) 0.4 mg CAPS Take 0.4 mg by mouth Daily. No current facility-administered medications on file prior to encounter. Pain assessment: Location: stomach Pain Level: PAIN PROG PAIN LEVEL: 2 Pain Quality: Current pain regimen: fentanyl patch Wt Readings from Last 3 Encounters: 03/05/19 75 kg (165 lb 5.5 oz) 03/05/19 75.6 kg (166 lb 10.7 oz) 02/26/19 76 kg (167 lb 8.8 oz) Vitals: 03/05/19 1321 BP: 122/74 Pulse: 76 Resp: 18 Temp: 36.8 C (98.2 F) TempSrc: Temporal SpO2: 97% Weight: 75 kg (165 lb 5.5 oz) Physical Exam Constitutional: He is oriented to person, place, and time. Vital signs are normal. He appea rs well-developed and well-nourished. No distress. HENT: Head: Normocephalic and atraumatic. Eyes: EOM are normal. No scleral icterus. Cardiovascular: Normal rate. Pulmonary/Chest: Effort normal and breath sounds normal. No accessory muscle usage. No resp iratory distress. Musculoskeletal: Normal range of motion. Neurological: He is oriented to person, place, and time. He has normal strength. No cranial nerve deficit. Coordination normal. Psychiatric: He has a normal mood and affect. His behavior is normal. Cognition and memory are normal. Nursing note and vitals reviewed. Physician Assessment: Overall, he is tolerating treatment well. Nausea control has improved over the past week a nd weight is now stable. He uses Zofran 8 mg ODT every 12 hours when necessary with good ef fect. This week his overall appearance is improved over baseline. He will continue combine d modality treatment as planned. Toxicities reviewed in nursing note. Disposition: Continue radiation treatment as planned. Rasheed Bello DO Radiation Oncologist Alayna Miranda RN - 0 03/05/2019 1:23 PM PDT 03/05/19 1322 Gastrointestinal Diarrhea 1 - Grade 1 Nausea 0 - Grade 0 Vomiting 0 - Grade 0 Metabolism and Nutrition Anorexia 1 - Grade 1 Performance Status Karnofsky Performance Score 80% documented in this en counter Plan of Treatment Not on filedocumented as of this encounter Visit Diagnoses + + | Diagnosis | + + | Malignant neoplasm of head of pancreas (HCC) - Primary Malignant neoplasm of head of | | pancreas | + + documented in this encounter"
--- OUTSIDE RECORDS SUMMARY | ~2019-08-01 | XMS | Encounter Summary ---
Demographics + + + | Address | [address] | | | [place] [address] | + + + | Home Phone | | + + + | Preferred Language | Unknown | + + + | Marital Status | | + + + | Taoism Affiliation | Unknown | + + + | Race | Unknown | + + + | Ethnic Group | Unknown | + + + Author + + + | Author | [facility] | | | and Izaiahana | + + + | Organization | [facility] | | | and Izaiahana [...] Team Providers + +------+ + | Care Asphalt Patcher Name | Role | Phone | + +------+ + PCP | Unavailable | + +------+ + Encounter Details +--------+ + + + + | Date | Type | Department | Care Team | Description | +--------+ + + + + | 06/30/ | Hospital | [facility] | [facility] | | | 2009 | Encounter | HOSPITAL BUSINESS | [address] | | | | | OFF[address] | [address] | | | | | [address] | [place] [address] | | | | | [address] | [phone] | | | | | [phone] | | | +--------+ + + + [...]
--- OUTSIDE RECORDS SUMMARY | ~2019-08-01 | XMS | Encounter Summary ---
Demographics + + + | Address | [address] | | | [place] [address] | + + + | Home Phone | | + + + | Preferred Language | Unknown | + + + | Marital Status | | + + + | Orthodoxy Affiliation | Unknown | + + + | Race | Unknown | + + + | Ethnic Group | Unknown | + + + Author + + + | Author | [facility] | | | and Izaiahana | + + + | Organization | [facility] | | | and Izaiahana [...] Team Providers + +------+ + | Care Set Builder Name | Role | Phone | + [...] | | | stent, | | [place] [address] | | | | | subsequent | | Phone: | | | | | encounter | | [phone] | | | | | Procedures | | Fax: | | | | | [place] | | [phone] | | | | | ESOPHAGOSCOP | | | | | | | Y FLEXIBLE | | | | | | | GUIDE WIRE | | | | | | | DILATION [place] | | | | | | | ERCP DX | | | | | | | COLLECTION | | | | | | | SPECIMEN | | | | | | | BRUSHING/WAS | | | | | | | GERI [place] | | | | | | | ANESTHESIA | | | | | | | UPPER GI | | | | | | | ENDOSCOPIC | | | | | | | PX ERCP | | | | | | | ERCP | | | +--------+--------+ + + + + Encounter Details +--------+ + + + + | Date | Type | Department | Care Team | Description | +--------+ + + + + | 01/29/ | Hospital | [facility] | Joaquin Lawson | | | 2019 | Encounter | MED CTR XRAY [address] | MD Jamie [address] | | | | | [place] | [address] | | | | | [place] [address] | [place] [address] | | | | | [phone] | [phone] | | | | | | | | +--------+ + + + [...] + + documented as of this encounter Medications at Time of Discharge [...] | | | + +---------+ + + documented in this encounter Visit Diagnoses Not on filedocumented in this encounter"
--- OUTSIDE RECORDS SUMMARY | ~2019-08-01 | XMS | Encounter Summary ---
Demographics + + + | Address | [address] | | | [place] [address] | + + + | Home Phone | | + + + | Preferred Language | Unknown | + + + | Marital Status | | + + + | Faith Affiliation | Unknown | + + + | Race | Unknown | + + + | Ethnic Group | Unknown | + + + Author + + + | Author | [facility] | | | and [place] | + + + | Organization | [facility] | | | and [place] [...] Team Providers + +------+ + | Care Solderer Name | Role | Phone | + +------+ + | Garland Caputo MD | PCP | | + +------+ + Encounter Details +--------+ + + + + | Date | Type | Department | Care Team | Description | +--------+ + + + + | 02/19/ | [facility] | [facility] | Rasheed Bello DO | | | 2019 | Encounter | MED CTR RADIATION | [address] | | | | | ONCOLOGY [address] | [place] | | | | | [place], | [address] | | | | | [place] [address] | | | | | | [phone] | | | +--------+ + + + [...] | | | or equivalent | | [phone] | + + +---------+ + + + [...] + | LORazepam (ATIVAN) | Take 1 tablet by | 90 | 0 | 02/06/20 | | | 1 mg tablet | mouth every 6 hours | tablet | | 19 | 9 | | | as needed. | | | | | [...]
--- OUTSIDE RECORDS SUMMARY | ~2019-08-01 | XMS | Encounter Summary ---
Demographics + + + | Address | [address] | | | [place] [address] | + + + | Home Phone | | + + + | Preferred Language | Unknown | + + + | Marital Status | | + + + | Congregational Affiliation | Unknown | + + + | Race | Unknown | + + + | Ethnic Group | Unknown | + + + Author + + + | Author | [facility] | | | and [place] | + + + | Organization | [facility] | | | and [place]za[place]ana [...] Team Providers + +------+ + | Care Forensic Medical Examiner Name | Role | Phone | + +------+ + | Garland Caputo MD | PCP | | + +------+ + Encounter Details +--------+ + + + + | Date | Type | Department | Care Team | Description | +--------+ + + + + | 04/12/ | Abstract | [facility] | Dirk Saldivar MD | | | 2015 | | GASTROENTEROLOGY | [address], [place] | | | | | [address] [place] | [address] | | | | | [address] [place], [place] | [address] | | | | | [address] | | | | | | [phone] | | | +--------+ + + + + Social History + +-------+ +--------+------+ | Tobacco Use | Types | Packs/Day | Years | Date | | | | | Used | | + +-------+ +--------+------+ | Former Smoker | | | | | + +-------+ +--------+------+ + + +---------+ + | Alcohol Use [...] | + +--------+ + + + | EXTERNAL LAB: NORM | Routin | 02/11/2016 | | Results for this | | | e | | | procedure are in the | | | | | | results section. | + +--------+ + + + | EXTERNAL LAB: | Routin | 02/11/2016 | | Results for this | | GLUCOSE | e | | | procedure are in the | | | | | | results section. | + +--------+ + + + | EXTERNAL LAB: MILIND | Routin | 02/11/2016 | | Results for this | | | e | | | procedure are in the | | | | | | results section. | + +--------+ + + + | EXTERNAL LAB: ALT | Routin | 02/11/2016 | | Results for this | | | e | | | procedure are in the | | | | | | results section. | + +--------+ + + + | EXTERNAL LAB: AST | Routin | 02/11/2016 | | Results for this | | | e | | | procedure are in the | | | | | | results section. | + +--------+ + + + | EXTERNAL LAB: | Routin | 02/11/2016 | | Results for this | | ALKALINE PHOSPHATASE | e | | | procedure are in the | | | | | | results section. | + +--------+ + + + | EXTERNAL LAB: | Routin | 02/11/2016 | | Results for this | | BILIRUBIN, TOTAL | e | | | procedure are in the | | | | | | results section. | + +--------+ + + + | EXTERNAL LAB: | Routin | 02/11/2016 | | Results for this | | ALBUMIN | e | | | procedure are in the | | | | | | results section. | + +--------+ + + + | EXTERNAL LAB: | Routin | 02/11/2016 | | Results for this | | PROTEIN, TOTAL | e | | | procedure are in the | | | | | | results section. | + +--------+ + + + | EXTERNAL LAB: | Routin | 02/11/2016 | | Results for this | | CALCIUM | e | | | procedure are in the | | | | | | results section. | + +--------+ + + + | EXTERNAL LAB: CARBON | Routin | 02/11/2016 | | Results for this | | DIOXIDE | e | | | procedure are in the | | | | | | results section. | + +--------+ + + + | EXTERNAL LAB: | Routin | 02/11/2016 | | Results for this | | CHLORIDE | e | | | procedure are in the | | | | | | results section. | + +--------+ + + + | EXTERNAL LAB: | Routin | 02/11/2016 | | Results for this | | POTASSIUM | e | | | procedure are in the | | | | | | results section. | + +--------+ + + + | EXTERNAL LAB: SODIUM | Routin | 02/11/2016 | | Results for this | | | e | | | procedure are in the | | | | | | results section. | + +--------+ + + + | EXTERNAL LAB: CBC | Routin | 02/11/2016 | | Results for this | | | e | | | procedure are in the | | | | | | results section. | + +--------+ + + + | EXTERNAL LAB: EGFR | Routin | 02/11/2016 | | Results for this | | | e | | | procedure are in the | | | | | | results section. | + +--------+ + + + | EXTERNAL LAB: | Routin | 02/11/2016 | | Results for this | | CREATININE | e | | | procedure are in the | | | | | | results section. | + +--------+ + + + | CBC WITH | Routin | 02/11/2016 | | Results for this | | DIFFERENTIAL | e | | | procedure are in the | | | | | | results section. | + +--------+ + + + | HEMOGLOBIN A1C | Routin | 02/11/2016 | | Results for this | | | e | | | procedure are in the | | | | | | results section. | + +--------+ + + + | COMPREHENSIVE | Routin | 02/11/2016 | | Results for this | | METABOLIC PANEL | e | | | procedure are in the | | | | | | results section. | + +--------+ + + + | H. PYLORI ANTIBODY | Routin | 12/13/2015 | | Results for this | | SCREEN | e | | | procedure are in the | | | | | | results section. | + +--------+ + + + | CELIAC PANEL, IGA | Routin | 12/13/2015 | | Results for this | | AND IGG | e | | | procedure are in the | | | | | | results section. | + +--------+ + + + documented in this encounter Results Comprehensive Metabolic Panel (02/11/2016) + +-------+ + + + | Component | Value | Ref Range | Performed | Pathologist | | | | | At | Signature | + +-------+ + + + | BUN/Creatin | 14.9 | 6 - 28.6 | [facility] | | | ine Ratio | | | [facility] | | | | | [facility] | | | | | | [facility] - | | | | | | LABORATORY | | + +-------+ + + + | Anion Gap | 17 | 7 - 21 mmol/L | [facility] | | | | | | [facility] | | | | | | [facility] | | | | | | [facility] - | | | | | | LABORATORY | | + +-------+ + + + | Globulin | 2.5 | 1.8 - 3.5 | [facility] | | | | | | [facility] | | | | | | [facility] | | | | | | [facility] - | | | | | | LABORATORY | | + +-------+ + + + | Albumin/Sonia | 1.6 | 1.1 - 2.4 | [facility] | | | bulin Ratio | | | [facility] | | | | | | [facility]ICAL | | | | | | CENTER - | | | | | | LABORATORY | | + +-------+ + + + + + | Specimen | + + | Blood specimen | | (specimen) | + + + + + + + | Performing | Address | City/State/Zipcode | Phone Number | | Organization | | | | + + + + + | [facility] | [address] | [place] | [phone] | | [facility] | | [address] | | | - LABORATORY | | | | + + + + + CBC with Differential (02/11/2016) + +-------+ + + + | Component | Value | Ref Range | Performed | Pathologist | | | | | At | Signature | + +-------+ + + + | MCH | 30.0 | 26.0 - 33.0 pg | | | + +-------+ + + + | MCHC | 33.0 | 31.0 - 37.0 % | | | + +-------+ + + + | % Basophils | 0.3 | 1.0 % | | | + +-------+ + + + + + | Specimen | + + | Blood specimen | | (specimen) | + + Hemoglobin A1C (02/11/2016) + +-------+ + + + | Component | Value | Ref Range | Performed | Pathologist | | | | | At | Signature | + +-------+ + + + | Hemoglobin | 5.8 | 4.4 - 6.5 | EXTERNAL | | | A1c, | | | LAB | | | external | | | | | + +-------+ + + + + + | Specimen | + + | Blood specimen | | (specimen) | + + + + | Resulting Agency Comment | + + | [facility] | + + + +---------+ + + | Performing | Address | City/State/Zipcode | Phone Number | | Organization | | | | + +---------+ + + | EXTERNAL LAB | | | | + +---------+ + + External Lab: NORM (02/11/2016) + +-------+ + + + | Component | Value | Ref Range | Performed | Pathologist | | | | | At | Signature | + +-------+ + + + | BUN, | 14 | 6 - 23 | EXTERNAL | | | External | | | LAB | | + +-------+ + + + + + | Resulting Agency Comment | + + | [facility] | + + + +---------+ + + | Performing | Address | City/State/Zipcode | Phone Number | | Organization | | | | + +---------+ + + | EXTERNAL LAB | | | | + +---------+ + + External Lab: Glucose (02/11/2016) + +---------+ + + + | Component | Value | Ref Range | Performed | Pathologist | | | | | At | Signature | + +---------+ + + + | Glucose, | 114 (A) | 70 - 100 | EXTERNAL | | | External | | | LAB | | + +---------+ + + + + + | Resulting Agency Comment | + + | [facility] | + + + +---------+ + + | Performing | Address | City/State/Zipcode | Phone Number | | Organization | | | | + +---------+ + + | EXTERNAL LAB | | | | + +---------+ + + External Lab: PSA (02/11/2016) + +-------+ + + + | Component | Value | Ref Range | Performed | Pathologist | | | | | At | Signature | + +-------+ + + + | PSA, | 0.617 | 0 - 4 | EXTERNAL | | | External | | | LAB | | + +-------+ + + + + + | Resulting Agency Comment | + + | [facility] | + + + +---------+ + + | Performing | Address | City/State/Zipcode | Phone Number | | Organization | | | | + +---------+ + + | EXTERNAL LAB | | | | + +---------+ + + External Lab: ALT (02/11/2016) + +-------+ + + + | Component | Value | Ref Range | Performed | Pathologist | | | | | At | Signature | + +-------+ + + + | ALT, | 20 | 7 - 52 | EXTERNAL | | | External | | | LAB | | + +-------+ + + + + + | Resulting Agency Comment | + + | [facility] | + + + +---------+ + + | Performing | Address | City/State/Zipcode | Phone Number | | Organization | | | | + +---------+ + + | EXTERNAL LAB | | | | + +---------+ + + External Lab: AST (02/11/2016) + +-------+ + + + | Component | Value | Ref Range | Performed | Pathologist | | | | | At | Signature | + +-------+ + + + | AST, | 18 | 13 - 39 | EXTERNAL | | | External | | | LAB | | + +-------+ + + + + + | Resulting Agency Comment | + + | [facility] | + + + +---------+ + + | Performing | Address | City/State/Zipcode | Phone Number | | Organization | | | | + +---------+ + + | EXTERNAL LAB | | | | + +---------+ + + External Lab: Alkaline Phosphatase (02/11/2016) + +-------+ + + + | Component | Value | Ref Range | Performed | Pathologist | | | | | At | Signature | + +-------+ + + + | ALP, | 52 | 30 - 128 | EXTERNAL | | | External | | | LAB | | + +-------+ + + + + + | Resulting Agency Comment | + + | [facility] | + + + +---------+ + + | Performing | Address | City/State/Zipcode | Phone Number | | Organization | | | | + +---------+ + + | EXTERNAL LAB | | | | + +---------+ + + External Lab: Bilirubin, Total (02/11/2016) + +-------+ + + + | Component | Value | Ref Range | Performed | Pathologist | | | | | At | Signature | + +-------+ + + + | Bilirubin, | 0.6 | 0 - 1.2 | EXTERNAL | | | Total, | | | LAB | | | External | | | | | + +-------+ + + + + + | Resulting Agency Comment | + + | [facility] | + + + +---------+ + + | Performing | Address | City/State/Zipcode | Phone Number | | Organization | | | | + +---------+ + + | EXTERNAL LAB | | | | + +---------+ + + External Lab: Albumin (02/11/2016) + +-------+ + + + | Component | Value | Ref Range | Performed | Pathologist | | | | | At | Signature | + +-------+ + + + | Albumin, | 3.9 | 3.5 - 5 | EXTERNAL | | | External | | | LAB | | + +-------+ + + + + + | Resulting Agency Comment | + + | [facility] | + + + +---------+ + + | Performing | Address | City/State/Zipcode | Phone Number | | Organization | | | | + +---------+ + + | EXTERNAL LAB | | | | + +---------+ + + External Lab: Protein, Total (02/11/2016) + +-------+ + + + | Component | Value | Ref Range | Performed | Pathologist | | | | | At | Signature | + +-------+ + + + | Protein, | 6.4 | 6 - 8 | EXTERNAL | | | Total, | | | LAB | | | External | | | | | + +-------+ + + + + + | Resulting Agency Comment | + + | [facility] | + + + +---------+ + + | Performing | Address | City/State/Zipcode | Phone Number | | Organization | | | | + +---------+ + + | EXTERNAL LAB | | | | + +---------+ + + External Lab: Calcium (02/11/2016) + +-------+ + + + | Component | Value | Ref Range | Performed | Pathologist | | | | | At | Signature | + +-------+ + + + | Calcium, | 9.9 | 8.4 - 10.2 | EXTERNAL | | | External | | | LAB | | + +-------+ + + + + + | Resulting Agency Comment | + + | [facility] | + + + +---------+ + + | Performing | Address | City/State/Zipcode | Phone Number | | Organization | | | | + +---------+ + + | EXTERNAL LAB | | | | + +---------+ + + External Lab: Carbon Dioxide (02/11/2016) + +-------+ + + + | Component | Value | Ref Range | Performed | Pathologist | | | | | At | Signature | + +-------+ + + + | Carbon | 24 | 19 - 31 | EXTERNAL | | | Dioxide, | | | LAB | | | External | | | | | + +-------+ + + + + + | Resulting Agency Comment | + + | [facility] | + + + +---------+ + + | Performing | Address | City/State/Zipcode | Phone Number | | Organization | | | | + +---------+ + + | EXTERNAL LAB | | | | + +---------+ + + External Lab: Chloride (02/11/2016) + +-------+ + + + | Component | Value | Ref Range | Performed | Pathologist | | | | | At | Signature | + +-------+ + + + | Chloride, | 103 | 95 - 112 | EXTERNAL | | | External | | | LAB | | + +-------+ + + + + + | Resulting Agency Comment | + + | [facility] | + + + +---------+ + + | Performing | Address | City/State/Zipcode | Phone Number | | Organization | | | | + +---------+ + + | EXTERNAL LAB | | | | + +---------+ + + External Lab: Potassium (02/11/2016) + +-------+ + + + | Component | Value | Ref Range | Performed | Pathologist | | | | | At | Signature | + +-------+ + + + | Potassium, | 4.4 | 3.6 - 5.1 | EXTERNAL | | | External | | | LAB | | + +-------+ + + + + + | Resulting Agency Comment | + + | [facility] | + + + +---------+ + + | Performing | Address | City/State/Zipcode | Phone Number | | Organization | | | | + +---------+ + + | EXTERNAL LAB | | | | + +---------+ + + External Lab: Sodium (02/11/2016) + +-------+ + + + | Component | Value | Ref Range | Performed | Pathologist | | | | | At | Signature | + +-------+ + + + | Sodium, | 140 | 132 - 143 | EXTERNAL | | | External | | | LAB | | + +-------+ + + + + + | Resulting Agency Comment | + + | [facility] | + + + +---------+ + + | Performing | Address | City/State/Zipcode | Phone Number | | Organization | | | | + +---------+ + + | EXTERNAL LAB | | | | + +---------+ + + External Lab: CBC (02/11/2016) + +-------+ + + + | Component | Value | Ref Range | Performed | Pathologist | | | | | At | Signature | + +-------+ + + + | WBC, | 6.4 | 4.5 - 11 | EXTERNAL | | | External | | | LAB | | + +-------+ + + + | HGB, | 15.5 | 13.5 - 18 | EXTERNAL | | | External | | | LAB | | + +-------+ + + + | HCT, | 47.4 | 41 - 50 | EXTERNAL | | | External | | | LAB | | + +-------+ + + + | PLT, | 191 | 140 - 440 | EXTERNAL | | | External | | | LAB | | + +-------+ + + + | Neutrophils | 44.7 | 39 - 80 | EXTERNAL | | | %, | | | LAB | | | External | | | | | + +-------+ + + + | Lymphocytes | 44 | 24 - 44 | EXTERNAL | | | %, | | | LAB | | | External | | | | | + +-------+ + + + | Monocytes | 10.2 | 0 - 12 | EXTERNAL | | | %, External | | | LAB | | + +-------+ + + + | Eosinophils | 0.8 | 0 - 6 | EXTERNAL | | | %, | | | LAB | | | External | | | | | + +-------+ + + + | Neutrophils | 2.86 | 2 - 6.9 | EXTERNAL | | | , Absolute, | | | LAB | | | External | | | | | + +-------+ + + + | Lymphocytes | 2.82 | 0.6 - 3.4 | EXTERNAL | | | , Absolute, | | | LAB | | | External | | | | | + +-------+ + + + | Monocytes, | 0.65 | 0 - 1.1 | EXTERNAL | | | Absolute, | | | LAB | | | External | | | | | + +-------+ + + + | Eosinophils | 0.05 | 0 - 0.7 | EXTERNAL | | | , Absolute | | | LAB | | + +-------+ + + + | Basophils, | 0.02 | 0 - 0.2 | EXTERNAL | | | Absolute | | | LAB | | + +-------+ + + + | RBC, | 5.2 | 4.3 - 5.7 | EXTERNAL | | | External | | | LAB | | + +-------+ + + + | MCV, | 91 | 81 - 99 | EXTERNAL | | | External | | | LAB | | + +-------+ + + + | RDW, | 12.7 | 10.5 - 15 | EXTERNAL | | | External | | | LAB | | + +-------+ + + + + + | Resulting Agency Comment | + + | [facility] | + + + +---------+ + + | Performing | Address | City/State/Zipcode | Phone Number | | Organization | | | | + +---------+ + + | EXTERNAL LAB | | | | + +---------+ + + External Lab: eGFR (02/11/2016) + +-------+ + + + | Component | Value | Ref Range | Performed | Pathologist | | | | | At | Signature | + +-------+ + + + | eGFR, | 81 | 60 - 99,999 | EXTERNAL | | | External | | | LAB | | + +-------+ + + + + + | Specimen | + + | Blood specimen | | (specimen) | + + + + | Resulting Agency Comment | + + | [facility] | + + + +---------+ + + | Performing | Address | City/State/Zipcode | Phone Number | | Organization | | | | + +---------+ + + | EXTERNAL LAB | | | | + +---------+ + + External Lab: Creatinine (02/11/2016) + +-------+ + + + | Component | Value | Ref Range | Performed | Pathologist | | | | | At | Signature | + +-------+ + + + | Creatinine, | 0.94 | 0.7 - 1.25 | EXTERNAL | | | External | | | LAB | | + +-------+ + + + + + | Specimen | + + | Blood specimen | | (specimen) | + + + + | Resulting Agency Comment | + + | [facility] | + + + +---------+ + + | Performing | Address | City/State/Zipcode | Phone Number | | Organization | | | | + +---------+ + + | EXTERNAL LAB | | | | + +---------+ + + H. pylori Antibody Screen (12/13/2015) + + + + + + | Component | Value | Ref Range | Performed | Pathologist | | | | | At | Signature | + + + + + + | H. pylori | 0.5 | | [facility] | | | IgM | | | [facility] | | | | | | [facility]ICAL | | | | | | CENTER - | | | | | | LABORATORY | | + + + + + + | H PYLORI | 4.79 | | [facility] | | | AB,IGG | | | [facility] | | | | | | MEDICAL | | | | | | CENTER - | | | | | | LABORATORY | | + + + + + + | Results: | NOT DETECTEDComment: H | | [facility] | | | | [id number] | | [facility] | | | | | | MEDICAL | | | | | | CENTER - | | | | | | LABORATORY | | + + + + + + + + | Specimen | + + | Blood specimen | | (specimen) | + + + + + + + | Performing | Address | City/State/Zipcode | Phone Number | | Organization | | | | + + + + + | [facility] | [address] | [place] | [phone] | | [facility] | | [address] | | | - LABORATORY | | | | + + + + + Celiac Panel, IgA and IgG (12/13/2015) + +-------+ + + + | Component | Value | Ref Range | Performed | Pathologist | | | | | At | Signature | + +-------+ + + + | Anti | 1.3 | 0 - 7 | [facility] | | | Gliadin Ab, | | | [facility] | | | IgA | | | MEDICAL | | | | | | CENTER - | | | | | | LABORATORY | | + +-------+ + + + | Anti | 1.1 | 0 - 7 | [facility] | | | Gliadin Ab, | | | [facility] | | | IgG | | | MEDICAL | | | | | | CENTER - | | | | | | LABORATORY | | + +-------+ + + + | Tissue | 0.4 | 0 - 7 | [facility] | | | Transglutam | | | [facility] | | | inase IgA | | | MEDICAL | | | | | | CENTER - | | | | | | LABORATORY | | + +-------+ + + + + + | Specimen | + + | Blood specimen | | (specimen) | + + + + + + + | Performing | Address | City/State/Zipcode | Phone Number | | Organization | | | | + + + + + | [facility] | [address] | [place] | [phone] | | [facility] | | [address] | | | - LABORATORY | | | | + + + + + documented in this encounter Visit Diagnoses Not on filedocumented in this encounter"
--- OUTSIDE RECORDS SUMMARY | ~2019-08-01 | XMS | Encounter Summary ---
Demographics + + + | Address | [address] | | | [place] [address] | + + + | Home Phone | | + + + | Preferred Language | Unknown | + + + | Marital Status | | + + + | Hoahaoism Affiliation | Unknown | + + + | Race | Unknown | + + + | Ethnic Group | Unknown | + + + Author + + + | Author | [facility] | | | and [place] | + + + | Organization | [facility] | | | and [place] [...] Team Providers + +------+ + | Care Laser Beam Cutter Name | Role | Phone | + +------+ + | Garland Caputo MD | PCP | | + +------+ + Reason for Visit +--------+ + | Reason | Comments | +--------+ + | Other | | +--------+ + Encounter Details +--------+ + + + + | Date | Type | Department | Care Team | Description | +--------+ + + + + | 12// | Telephone | [facility] | [place], | Other | | 2018 | | [facility] | Logan Madrid MD [address] | | | | | [facility] [facility] [place] | | | | | [address] [place] | [place] [address] | | | | | [place] [address] | [phone] | | | | | [phone] | | | +--------+ + + + [...] | | | or equivalent | | 9580-4195 | + + +---------+ + + + [...]
--- OUTSIDE RECORDS SUMMARY | ~2019-08-01 | XMS | Encounter Summary ---
Demographics + + + | Address | [address] | | | [place] [address] | + + + | Home Phone | | + + + | Preferred Language | Unknown | + + + | Marital Status | | + + + | Hindu Affiliation | Unknown | + + + | Race | Unknown | + + + | Ethnic Group | Unknown | + + + Author + + + | Author | [facility] | | | and [place] | + + + | Organization | [facility] | | | and [place] | [...] Team Providers + +------+ + | Care Hand Alterations Seamstress Name | Role | Phone | + [...] | +--------+ + + + + | 05/05/ | Telephone | [facility] | [place], | Medication Refill | | 2019 | | [facility] | Logan Madrid MD [address] | | | | | [address] | [address] [place] | | | | | [address] [place] | [place] [address] | | | | | [place] [address] | [phone] | | | | | [phone] | | | +--------+ + + + [...] | | | or equivalent | | 2702-0753 | + + +---------+ + + + [...]
--- OUTSIDE RECORDS SUMMARY | ~2019-08-01 | XMS | Encounter Summary ---
Demographics + + + | Address | [address] | | | [place] [address] | + + + | Home Phone | | + + + | Preferred Language | Unknown | + + + | Marital Status | | + + + | Confucianism Affiliation | Unknown | + + + | Race | Unknown | + + + | Ethnic Group | Unknown | + + + Author + + + | Author | [facility] | | | and [place] | + + + | Organization | [facility] | | | and [place] [...] Team Providers + +------+ + | Care Host Name | Role | Phone | + +------+ + | Garland Caputo MD | PCP | | + +------+ + Encounter Details +--------+ + + + + | Date | Type | Department | Care Team | Description | +--------+ + + + + | 02/19/ | [facility] | [facility] | Rasheed Bello DO | | | 2019 | Encounter | [facility] | [address] | | | | | [address]OGY [address] | [place] | | | | | [place], | [address] | | | | | [place] [address] | | | | | | [phone] | | | +--------+ + + + [...] | | | or equivalent | | 5352-2539 | + + +---------+ + + + [...]
--- OUTSIDE RECORDS SUMMARY | ~2019-08-01 | XMS | Encounter Summary ---
Demographics + + + | Address | [address] | | | [place] [address] | + + + | Home Phone | | + + + | Preferred Language | Unknown | + + + | Marital Status | | + + + | Congregational Affiliation | Unknown | + + + | Race | Unknown | + + + | Ethnic Group | Unknown | + + + Author + + + | Author | [facility] | | | and [place] | + + + | Organization | [facility] | | | and [place] [...] Team Providers + +------+ + | Care Composite Boat Builder Name | Role | Phone | + +------+ + | Garland Caputo MD | PCP | | + +------+ + Reason for Visit + + + | Reason | Comments | + + + | Procedure | Urgent ERCP | + + + Encounter Details +--------+ + + + + | Date | Type | Department | Care Team | Description | +--------+ + + + + | 01/26/ | Telephone | [facility] | Joaquin Lawson | Procedure (Urgent | | 2019 | | GASTROENTEROLOGY | MD Jamie [address] | ERCP) | | | | [address] [place] | [address] [place] | | | | | [address] [place], [place] | [place] [address] | | | | | [address] | [phone] | | | | | [phone] | | | +--------+ + + + [...] | | | or equivalent | | 4835-6752 | + + +---------+ + + + [...] Diagnosis | + + | Biliary obstruction - Primary Obstruction of bile duct | + + | Migration of biliary stent, subsequent encounter | + + documented in this encounter"
--- OUTSIDE RECORDS SUMMARY | ~2019-08-01 | XMS | Encounter Summary ---
Demographics + + + | Address | [address] | | | [place] [address] | + + + | Home Phone | | + + + | Preferred Language | Unknown | + + + | Marital Status | | + + + | Faith Affiliation | Unknown | + + + | Race | Unknown | + + + | Ethnic Group | Unknown | + + + Author + + + | Author | [facility] | | | and Izaiahana | + + + | Organization | [facility] | | | and Izaiahana | [...] Team Providers + +------+ + | Care Classroom Monitor Name | Role | Phone | + +------+ + | Garland Caputo MD | PCP | | + +------+ + Encounter Details +--------+ + + + + | Date | Type | Department | Care Team | Description | +--------+ + + + + | 12/25/ | [facility] | [facility] | Rasheed Bello DO | | | 2019 | Encounter | [facility] | [address] | | | | | [address]COLOGY [address] | [place] | | | | | [place], | [address] | | | | | [place] [address] | | | | | | [phone] | | | +--------+ + + + [...] | | | or equivalent | | 6258-7901 | + + +---------+ + + + [...] + + + +---------+ + + | insulin glargine | Inject 5 Units under | | 0 | 07/24/20 | | | (YAW DONALDSONOSTAR) | the skin Daily. | | | 18 | 9 | | 300 units/mL | | | | | | | concentrated | | | | | | | injection (pen) | | | | | | + + + +---------+ + + | LORazepam (ATIVAN) | Take 1 mg by mouth | | 0 | 08/11/20 | | | 1 mg tablet | every 6 hours as | | | 18 | 9 | | | needed. | | | | | + + + +---------+ + + | lubiprostone | Take 24 mcg by mouth | | 0 | | | | (AMITIZA) 24 mcg | 2 times daily. | | | | 9 | | capsule | | | | [...] + + | oxyCODONE 20 MG | Take 1-2 tablets by | | 0 | 07/31/20 | | | TABS | mouth every 4 hours | | | 18 | 9 | | | as needed. | | | | | + + + +---------+ + + | sucralfate | Take 1 g by mouth 4 | | 0 | | | | (CARAFATE) 1 g | times daily. | | | | 9 | | tablet | | | | | | + + + +---------+ + + documented as of this encounter Plan of Treatment Not on filedocumented as of this encounter Visit Diagnoses Not on filedocumented in this encounter"
--- OUTSIDE RECORDS SUMMARY | ~2019-08-01 | XMS | Encounter Summary ---
Demographics + + + | Address | [address] | | | [place] [address] | + + + | Home Phone | | + + + | Preferred Language | Unknown | + + + | Marital Status | | + + + | Confucianism Affiliation | Unknown | + + + | Race | Unknown | + + + | Ethnic Group | Unknown | + + + Author + + + | Author | [facility] | | | and [place]zaiahana | + + + | Organization | [facility] | | | and [...] Team Providers + +------+ + | Care Metal Shaping Machine Operator Name | Role | Phone | + [...] | +--------+ + + + + | 03/12/ | Hospital | [facility] | Rasheed Bello DO | Malignant neoplasm | | 2019 | Encounter | MED CTR RADIATION | [address] | of head of pancreas | | | | ONCOLOGY CLINIC [address] | [place], [place] | (HCC) (Primary Dx) | | | | [address] | [address] | | | | | [place] [address] | | | | | | [phone] | | | +--------+ + + + [...] | | | or equivalent | | 5563-5541 | + + +---------+ + + + [...] + + + | Blood Pressure | 131/67 | 03/12/2019 3:27 PM | | | | | PDT | | + + + + + | Pulse | 76 | 03/12/2019 3:27 PM | | | | | PDT | | + + + + + | Temperature | 37.5 C (99.5 F) | 03/12/2019 3:27 PM | | | | | PDT | | + + + + + | Respiratory Rate | 16 | 03/12/2019 3:27 PM | | | | | PDT | | + + + + + | Oxygen Saturation | 99% | 03/12/2019 3:27 PM | | | | | PDT | | + + + + + | Inhaled Oxygen | - | - | | | Concentration | | | | + + + + + | Weight | 75.1 kg (165 lb 9.1 | 03/12/2019 3:27 PM | | | | oz) | PDT | | + + + + + | Height | - | - | | + + + + + | Body Mass Index | 22.45 | 01/29/2019 8:03 AM | | | [...] | | | | | | | ([facility]) | | | | | | + [...] encounter Progress Notes Rasheed Bello DO - 03/12/2019 3:33 PM PDT Radiation Oncology Weekly On Treatment Note Diagnosis: ICD-10-CM ICD-9-CM 1. Malignant neoplasm of head of pancreas (HCC) C25.0 157.0 Reason for visit: On treatment evaluation Radiation technical factors: Dose Delivered Dose Planned Fractions Delivered 3780 cGy 0 cGy 4500 cGy 540 cGy 0 Images were reviewed this week and results of the review have been recorded in [facility]. Corre ctions were applied as necessary. Allergies Allergen Reactions Penicillins Rash Mom told me that from when I was a little kid Current Outpatient Medications on File Prior to Encounter Medication Sig Dispense Refill capecitabine (XELODA) 500 mg tablet Take 3 tablets (1,500 mg total) by mouth 2 times da jose angel for 14 days. 84 tablet 0 fentaNYL [...] file prior to encounter. Pain assessment: Location: NA Pain Level: PAIN PROG PAIN LEVEL: 0 Wt Readings from Last 3 Encounters: 03/12/19 75.1 kg (165 lb 9.1 oz) 03/05/19 75 kg (165 lb 5.5 oz) 03/05/19 75.6 kg (166 lb 10.7 oz) Vitals: 03/12/19 1527 BP: 131/67 Pulse: 76 Resp: 16 Temp: 37.5 C (99.5 F) TempSrc: Temporal SpO2: 99% Weight: 75.1 kg (165 lb 9.1 oz) Physical Exam Constitutional: He is oriented to person, place, and time. He appears well-developed. No di stress. HENT: Head: Normocephalic. Eyes: No scleral icterus. Pulmonary/Chest: Effort normal. He has no wheezes. Neurological: He is alert and oriented to person, place, and time. Psychiatric: He has a normal mood and affect. His behavior is normal. Nursing note and vitals reviewed. Nurse Assessment and Toxicity Grading: Toxicity Flowsheet 03/12/2019 Diarrhea 1 - Grade 1 Nausea 0 - Grade 0 Vomiting 0 - Grade 0 Fatigue 2 - Grade 2 Anorexia 1 - Grade 1 Karnofsky Performance Score 70% Patient states that he has not had too much of an issue with diarrhea, states that sh e has noticed a change, and thinks he is having a lot more issues with diarrhea than reporte d. Anti-diarrheal medications discussed, currently not taking. Physician Assessment: Overall, he is tolerating chemoradiotherapy for pancreatic cancer very well. He states lukasz t he had an episode of diarrhea after eating approximately 2 pounds of cherries recently but otherwise has infrequent loose bowel movements. Weight is stable this week and his appetit e remains adequate. Toxicities of treatment were discussed. He will continue treatment as planned. Disposition: Continue radiation treatment as planned. Rasheed Bello DO Radiation Oncologist documented in this enco unter Plan of Treatment Not on filedocumented as of this encounter Visit Diagnoses + + | Diagnosis | + + | Malignant neoplasm of head of pancreas (HCC) - Primary Malignant neoplasm of head of | | pancreas | + + documented in this encounter"
--- OUTSIDE RECORDS SUMMARY | ~2019-08-01 | XMS | Encounter Summary ---
Demographics + + + | Address | [address] | | | [place] [address] | + + + | Home Phone | | + + + | Preferred Language | Unknown | + + + | Marital Status | | + + + | Cheondoism Affiliation | Unknown | + + + | Race | Unknown | + + + | Ethnic Group | Unknown | + + + Author + + + | Author | [facility] | | | and [place] | + + + | Organization | [facility] | | | and [...] Team Providers + +------+ + | Care Circulation Director Name | Role | Phone | + [...] | +--------+ + + + + | 03/18/ | Hospital | [facility] | Rasheed Bello DO | Malignant neoplasm | | 2019 | Encounter | MED CTR RAD[facility]ATION | [address] | of head of pancreas | | | | ONCOLOGY CLINIC [address] | [place], [place] | (HCC) (Primary Dx) | | | | [address] | [address] | | | | | [place] [address] | | | | | | [phone] | | | +--------+ + + + [...] | | | or equivalent | | 6149-3637 | + + +---------+ + + + [...] + + + | Blood Pressure | 104/70 | 03/18/2019 1:50 PM | | | | | PDT | | + + + + + | Pulse | 93 | 03/18/2019 1:50 PM | | | | | PDT | | + + + + + | Temperature | 37.1 C (98.8 F) | 03/18/2019 1:50 PM | | | | | PDT | | + + + + + | Respiratory Rate | 16 | 03/18/2019 1:50 PM | | | | | PDT | | + + + + + | Oxygen Saturation | 96% | 03/18/2019 1:50 PM | | | | | PDT | | + + + + + | Inhaled Oxygen | - | - | | | Concentration | | | | + + + + + | Weight | 73.3 kg (161 lb 9.6 | 03/18/2019 1:50 PM | | | | oz) | PDT | | + + + + + | Height | - | - | | + + + + + | Body Mass Index | 21.92 | 01/29/2019 8:03 AM | | | [...] | | | | | | | ([facility]) | | | | | | + [...] encounter Progress Notes Rasheed Bello DO - 03/18/2019 1:51 PM PDT Radiation Oncology Weekly On Treatment Note Diagnosis: ICD-10-CM ICD-9-CM 1. Malignant neoplasm of head of pancreas (HCC) C25.0 157.0 Reason for visit: On treatment evaluation Radiation technical factors: Dose Delivered Dose Planned Fractions Delivered 1800 cGy 0 cGy 4500 cGy 540 cGy 25/ 0/ Images were reviewed this week and results [...] 0 Wt Readings from Last 3 Encounters: 03/18/19 73.3 kg (161 lb 9.6 oz) 03/12/19 75.1 kg (165 lb 9.1 oz) 03/05/19 75 kg (165 lb 5.5 oz) Vitals: 03/18/19 1350 BP: 104/70 Pulse: 93 Resp: 16 Temp: 37.1 C (98.8 F) TempSrc: Temporal SpO2: 96% Weight: 73.3 kg (161 lb 9.6 oz) Physical Exam Constitutional: He is oriented [...] Nurse Assessment and Toxicity Grading: Toxicity Flowsheet 03/18/2019 Diarrhea 0 - Grade 0 Nausea 0 - Grade 0 Vomiting 0 - Grade 0 Fatigue 2 - Grade 2 Anorexia 2 - Grade 2 Karnofsky Performance Score 70% Patient states that he has not had too much of an issue with diarrhea, states that sh e has noticed a change, and thinks he is having a lot more issues with diarrhea than reporte d. Anti-diarrheal medications discussed, currently not taking. Physician Assessment: Overall, he is tolerating chemoradiotherapy for pancreatic cancer very well. Weight is sli ghtly decreased this week and his appetite remains adequate. Tumor boost sequence to begin on Saturday and he will complete treatment otherwise as planned on Saturday next week. Toxicit ies of treatment were discussed. He will continue [...]
--- OUTSIDE RECORDS SUMMARY | ~2019-08-01 | XMS | Encounter Summary ---
Demographics + + + | Address | [address] | | | [place] [address] | + + + | Home Phone | | + + + | Preferred Language | Unknown | + + + | Marital Status | | + + + | Sikh Affiliation | Unknown | + + + | Race | Unknown | + + + | Ethnic Group | Unknown | + + + Author + + + | Author | [facility] | | | and Izaiahana | + + + | Organization | [facility] | | | and Izaiahana [...] Team Providers + +------+ + | Care Cryogenics Repairer Name | Role | Phone | + +------+ + | Garland Caputo MD | PCP | | + +------+ + Reason for Visit Evaluate & Treat (Routine) +--------+--------+ + + + + | Status | Reason | Specialty | Diagnoses / | Referred By | Referred To | | | | | Procedures | Contact | Contact | +--------+--------+ + + + + | Closed | | Medical | Diagnoses | Naima | | | | | Oncology / | | Thai | Gloria | | | | Oncology | Adenocarcino | MD Ramona | Logan Madrid MD | | | | | vanessa (HCC) | [address] | [address] | | | | | URGENT | [address] | [address] [place] | | | | | Consult/Addy | [address] | [place], [place] | | | | | ocarcinoma/B | [place], [place] | [address] Phone: | | | | | fidencio, | [address] | [phone] | | | | | [place] | Phone: | Fax: | | | | | Clinic | [phone] | [phone] | | | | | (requested) | Fax: | | | | | | Procedures | [phone] | | | | | | PA OFFICE | | | | | | | OUTPATIENT | | | | | | | VISIT 40 | | | | | | | MINUTES [facility] | | | | | | | MED ONC NEW | | | | | | | PATIENT | | | +--------+--------+ + + + + Encounter Details +--------+ + + + + | Date | Type | Department | Care Team | Description | +--------+ + + + + | 08/11/ | Hospital | [facility] | [place], | Malignant neoplasm | | 2018 | Encounter | [facility] | Logan Madrid MD [address] | of head of pancreas | | | | ONCOLOGY CLINIC [address] | (HCC) | | | | [address] [place] | [place] [address] | | | | | [place] [address] | [phone] | | | | | [phone] | | | +--------+ + + + [...] + + + | Blood Pressure | 117/73 | 08/11/2018 3:28 PM | | | | | PST | | + + + + + | Pulse | 83 | 08/11/2018 3:28 PM | | | | | PST | | + + + + + | Temperature | 37.1 C (98.8 F) | 08/11/2018 3:28 PM | | | | | PST | | + + + + + | Respiratory Rate | 20 | 08/11/2018 3:28 PM | | | | | PST | | + + + + + | Oxygen Saturation | 95% | 08/11/2018 3:28 PM | | | | | PST | | + + + + + | Inhaled Oxygen | - | - | | | Concentration | | | | + + + + + | Weight | 83.8 kg (184 lb 11.9 | 08/11/2018 3:28 PM | | | | oz) | PST | | + + + + + | Height | 182.9 cm (6') | 08/11/2018 3:28 PM | | | | | PST | | + + + + + | Body Mass Index | 25.06 | 08/11/2018 3:28 PM | | | | | PST | | + + + + + [...] 1 patch onto | | 0 | 07/31/20 | | | (DURAGESIC) 25 | the skin every 72 | | | 18 | 9 | | mcg/hr | hours. | | | | | + + + +---------+ + + | HYDROmorphone | Take 1-2 tablets by | | 0 | 08/01/20 | | | (DILAUDID) 4 MG | mouth Daily. | | | 18 | 9 | | tablet | | | | | | + + + +---------+ + + | insulin glargine | Inject 5 Units under | | 0 | 07/24/20 | | | (TOLUCIANO SOLOSTAR) | the skin Daily. | | | [...] (ATIVAN) | Take 1 tablet by | 50 | 3 | 08/11/20 | | | 1 mg tablet | mouth every 6 hours | tablet | | 18 | 9 | | | as needed for | | | | | | | Anxiety (take for | | | | | | | either anxiety, | | | | | | | nauseas or sleep). | | | | | + + + +---------+ + + | lubiprostone | Take 24 mcg by mouth | | 0 | | | | (AMITIZA) 24 mcg | 2 times daily. | | | | 9 | | capsule | | | | | | + + + +---------+ + + | ondansetron | Take 4 mg by mouth | | 0 | 07/31/20 | | | (ZOFRAN ODT) 4 mg | as needed. | | | 18 | 9 | | disintegrating | | | | | | | tablet | | | | [...] documented as of this encounter Progress Notes Pattie Machado RN - 08/12/2018 10:05 AM PSTSpoke with Miguelina at [facility]. nidhi verifies that he is currently scheduled on Wednesday 08/15 for abraxane/gemzar. Electronicall y signed by Pattie Machado RN at 08/12/2018 10:06 AM Logan Perry MD - 07/18 2:59 PM PST REVIEW OF SYSTEMS Hematology/Oncology Progress Note [facility] [place] Pt. Name/Age/: Anastacio Hernández 67 y.o. 1950 Med. Record Number: [id number] Date of admission: 08/11/2018 The patient's primary care provider is Garland Caputo MD. Identifying Statement: Anastacio Hernández is a 67 y.o. male from [address] [facility] [address] with Stage IIA Pancreatic Cancer. The patient chart and medications were reviewed in detail and the patient was seen and exam ined. History of Present Illnesses, their Current Assessments and Plans: Problem List Malignant neoplasm of head of pancreas Overview ACTIVE DIAGNOSIS: Endoscopic stage IIA Pancreatic Cancer. 1. Presentation with upper abdominal pain which radiated to the upper back in a band-like d istribution, jaundice and 40 pound weight loss. 2. CT abdomen/pelvis without contrast on June 27, 2018 at [place], [place] demonstrate d 5 cm pancreatic mass in the uncinate process associated with a 12 mm retrocaval lymph node . CA 19-9 is 816.5 (ULN 37). 3. Surgical Consultation with Thai Mcneil ([facility]) July 03, 2018. 4. CT chest/abdomen/pelvis with contrast [place], [place]: 3.3 cm x 3.7 cm x 5.1 cm mass in the pancreatic head/uncinate process. The mass encases a few branches of the superior mes enteric artery arising posteriorly and demonstrates slightly less than 180 degrees of contac t with the SMA. Enlarged 1.1 cm lymph node inferior to the mass. 5. EUS, stent (10 mm x 40 mm metal) and biopsy July 25, 2018 (Leonel Song, [facility]). Pancreatic/uncinate mass, 4.5 cm close but not touching major vessels, without end oscopic evidence ro regional lymphadenopathy, pT3, pN0, M0. Specimen # [id number] ([facility], [place], [place]). Fine needle aspiration; adenocarcinoma. Biliary brushing s; adenocarcinoma. Current Assessment & Plan Anastacio Hernández is referred by Thai Mcnamara Md [address] [address] [place] [address] for consideration of neoadjuvant chemotherapy for borderline resect able Stage IIA pancreatic cancer. Review of systems is notable for progressive upper abdominal pain which radiates to the leyda k in a band-like distribution. Current pain management regimen is topical fentanyl 25 mcg/hr , oral oxycodone 20 mg and oral hydromorphone [address] Caputo. Clinical exam is notable for resolution of jaundice. Laboratory testing is in process. Assessment; Borderline resectable Stage IIA pancreatic cancer. There is limited evidence to support a specific neoadjuvant protocol. I recommended neoadju vant gemcitabine/Abraxane at 1000 mg/m and 100 mg/m respectively on days 1,8 and 15 ever y 28 days for four cycles followed by [address] with pancreas protocol and if favorable, proceeding with Whipple procedure with Dr. Mcnamara. INFORMED CONSENT: The nature and character of the proposed treatment with neoadjuvant gemci tabine and Abraxane chemotherapy for pancreatic cancer and the anticipated results of the pr oposed treatment with neoadjuvant gemcitabine and Abraxane chemotherapy for pancreatic cance r ;recognized alternative forms of treatment, including non-treatment; the risks benefits, a nd side effects of proposed treatment, alternative treatments and non-treatment were discuss ed with the patient who consents to proceed with treatment with neoadjuvant gemcitabine and Abraxane chemotherapy for pancreatic cancer . The treating provider has examined the patient and reviewed the diagnostic data, including laboratory data, and deems that it is safe and appropriate to proceed with treatment with neoadjuvant gemcitabine and Abraxane chemotherapy for pancreatic cancer. Anastacio is anxious to initiate therapy promptly, and therefore will follow up with me at [facility] in [place] on August 15, 2018 for cycle #1, day #1 of therapy. Given the strong family history of cancer; one sister with breast cancer at 30, another sis ter with breast cancer age 50 and his daughter with Hodgkin's Lymphoma, consider referral fo r BRCA 1/2 testing. Pancreas cancer Review of Systems: Constitutional: Reports energy level has been low for a few months. Reports night sweats a few nights ago. Reports approximately 18 lbs in the last 2-3 weeks. States over the last 6 m onths he has lost over 30 lbs. Reports nausea/vomiting. States comes and goes. Vomiting is n ew over the last few weeks. Reports low appetite, states recently has started to gain some o f this back. Denies high fevers, shaking chills, anorexia. Ear, Nose, Mouth, Throat: Denies odynophagia, dysphagia. Tinnitus is ongoing. Cardiovascular: Reports shortness of breath when bending over or with exertion. Reports pal pitations on occasion. Denies chest pain or orthopnea. Respiratory: Denies cough, hemoptysis, or sputum production. Gastrointestinal: Reports mid-abdominal pain, there most of the time, will decrease at time s. Reports constipation, takes stool softeners, prunes and amitzia. Reports bright red blood on paper after bowel movements at times. Denies diarrhea, melena. Genitourinary: Reports dark urine. Denies hematuria or dysuria. Musculoskeletal: Reports back ache. Denies joint pain or tenderness. Neurologic: Denies headache, visual changes, or numbness/tingling of the extremities. Endocrine: Denies peripheral edema or heat/cold intolerance. Hematologic: Denies spontaneous bruising or bleeding. Integumentary: Reports generalized itching. Denies rash, wounds or other skin concerns. Pain: 4/10 pain in mid- abdomen and back. Took percocet and hydromorphone today, makes this tolerable. Also has fentanyl patch. Note: Here for consultation with Dr. Castro, referred by Dr. Mcnamara. My chart: Pending Review of systems as above otherwise negative Scheduled Medications: Current Outpatient Prescriptions Medication Sig Dispense Refill Docusate Calcium (STOOL SOFTENER PO) Take by mouth as needed. fentaNYL (DURAGESIC) 25 mcg/hr Place 1 patch onto the skin every 72 hours. 0 HYDROmorphone (DILAUDID) 4 MG tablet Take 1-2 tablets by mouth Daily. hydrOXYzine (VISTARIL) 50 MG capsule Take 50 mg by mouth as needed. insulin glargine (TOUJEO SOLOSTAR) 300 units/mL concentrated injection (pen) Inject 5 U nits under the skin Daily. LORazepam (ATIVAN) 1 mg tablet Take 1 tablet by mouth every 6 hours as needed for Anxie ty (take for either anxiety, nauseas or sleep). 50 tablet 3 lubiprostone (AMITIZA) 24 mcg capsule Take 24 mcg by mouth 2 times daily. metFORMIN (GLUCOPHAGE) 500 mg tablet Take 500 mg by mouth 2 times daily (with breakfast & dinner). ondansetron (ZOFRAN ODT) 4 mg disintegrating tablet Take 4 mg by mouth as needed. ondansetron (ZOFRAN) 8 MG tablet Take 1 tablet by mouth every 8 hours as needed for Lonnie sea. May take twice daily for two days after chemo; or one tab every eight hours as needed f or nausea 40 tablet 3 oxyCODONE 20 MG TABS Take 1-2 tablets by mouth every 4 hours as needed. 0 SENNOSIDES PO Take by mouth. sucralfate (CARAFATE) 1 g tablet Take 1 g by mouth 4 times daily. tamsulosin (FLOMAX) 0.4 mg CAPS Take 0.4 mg by mouth Daily. No current facility-administered medications for this encounter. Allergies: Allergy: Allergies Allergen Reactions Penicillins Other (See Comments) unknown Past Medical and Surgical History, Social History and Problems: Past Medical History: Diagnosis Date Abdominal pain, unspecified abdominal location Anxiety Back pain Colon polyp Depression Diabetes (HCC) Gastritis GERD (gastroesophageal reflux disease) High blood pressure High cholesterol Irritable bowel syndrome (IBS) Pancreas cancer (HCC) Weight loss Past Surgical History: Procedure Laterality Date APPENDECTOMY CATARACT REMOVAL Bilateral 2007 at [facility] CHOLECYSTECTOMY EGD AND COLONOSCOPY HERNIA REPAIR inguinal LAPAROSCOPY NASAL SEPTUM SURGERY TONSILLECTOMY torn cartilage Right [facility] Social History Social History Marital status: Spouse name: N/A Number of children: N/A Years of education: N/A Occupational History Not on file. 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 Admission: Weight: 83.8 kg (184 lb 11.9 oz) Wt. Current: Weight: 83.8 kg (184 lb 11 .9 oz) Wt Readings from Last 3 Encounters: 08/11/18 83.8 kg (184 lb 11.9 oz) 04/16/16 88 kg (194 lb) Body mass index is 25.06 kg/m. Physical Exam: General: The patient is [...] bony tenderness. No evidence of sarcopenia. Psychiatric: Labile affect, with several episode of crying spells during the encounter. ECOG Performance Status [] 0 [x] 1 [...] in Am. J. Clin. Oncol.: Meryl Montero., Yonny, RRaheemH., Partha Guido., Patricio Brizuela., Michoacano TNaga., Bill, E.T., Yaquelin, P .P.: Toxicity And Response Criteria [...] here or in the Assessment and Plan. Pharmacovigilance: Palliative Care: Patient's Medications New Prescriptions LORAZEPAM (ATIVAN) 1 MG TABLET Take 1 tablet by mouth every 6 hours as needed for Anxie ty (take for either anxiety, nauseas or sleep). ONDANSETRON (ZOFRAN) 8 MG TABLET Take 1 tablet by mouth every 8 hours as needed for Lonnie sea. May take twice daily for two days after chemo; or one tab every eight hours as needed f or nausea Modified Medications No medications on file Discontinued Medications ASPIRIN 81 MG EC TABLET Take 81 mg by mouth Daily. GABAPENTIN (NEURONTIN) 100 MG CAPSULE Take 100-300 mg by mouth nightly as needed. NORTRIPTYLINE (PAMELOR) 50 MG CAPSULE Take 1 capsule by mouth nightly. OMEPRAZOLE (PRILOSEC) 20 MG CAPSULE Take 20 mg by mouth every morning (before breakfast ). OXYCODONE-ACETAMINOPHEN (PERCOCET) 7.5-325 MG PER TABLET Take 1 tablet by mouth every 6 hours as needed for Pain. PANTOPRAZOLE (PROTONIX) 40 MG TABLET Take 40 mg by mouth every morning (before breakfas t). Procedure: Day 1, Cycle 1 (28-day cycle) Planned for 08/15/2018 Other Chemotherapy Pre-Authorization Order Details OrderHistory Labs Comprehensive Metabolic Panel STAT, ONE TIME Starting when released OrderHistory CBC with Differential STAT, ONE TIME Starting when released OrderHistory Nursing Orders Treatment Decision Verify lab results prior to initiation of chemotherapy. Contact provider if conditions sage luated in ordered labs are not met. Ok to treat if: ANC greater than or equal to 1500/uL Platelets greater than or equal to 100,000/uL Hgb greater than or equal to 8 g/dL Serum creatinine less than 1.5 mg/dL T bili less than or equal to 1.5 times the ULN (upper limit of normal) AST and ALT less than 3 times ULN OrderHistory IV Flush SODIUM CHLORIDE 0.9 % IV BOLUS 250 mL, Intravenous, PRN, Flush before and after IV medication(s) and as needed with NS, S tarting when released, Until Discontinued OrderHistory HEPARIN LOCK FLUSH 100 UNIT/ML IV SOLN 5 mL, Intracatheter, PRN, Line Care, Starting when released, Until Discontinued OrderH istory Pre-Medications Premedication Selection Communication This treatment plan contains a premedication group. From Actions button on the right, javierbrooks verónica 'Add Orders' to access group and select desired medications. OrderHistory DEXAMETHASONE 4 MG PO TABS 12 mg, Oral, ONCE, Starting at treatment start time Administer prior to chemotherapy. OrderHistory CHEMOTHERAPY PACLITAXEL (PROTEIN BOUND) CHEMO INFUSION 125 mg/m2, Intravenous, Administer over 30 Minutes, ONCE, Starting at treatment start time Chemotherapy: Use appropriate handling precautions. Do not filter. OrderHistory GEMCITABINE CHEMO INFUSION 1,000 mg/m2, Intravenous, Administer over 30 Minutes, ONCE, Starting 30 minutes after darrel tment start time Chemotherapy: Use appropriate handling precautions. Do not refrigerate. OrderHistory Infusion Reaction Orders Stop infusion if: MILD REACTION: Localized pruitis, rhinitis, localized rash, fever greater than 38 degrees C. 1. Stop infusion and maintain IV access with NS line. 2. Notify MD of symptoms and infusion reaction orders initiated. MODERATE REACTION: Generalized pruritis, generalized flushing, rash, back pain, mild dyspne a, chills, hypotension with SBP less than 90 mmHg or greater than 20% decrease in SBP. 1. Stop infusion of chemotherapy/biotherapy, but do not discard infusion bag/bottl e unless instructed by MD that therapy is to be discontinued. 2. Maintain IV access with NS line. 3. Place patient in a supine position with lower extremities elevated unless respi ratory distress or nausea/vomiting. 4. Maintain airway. SEVERE REACTION: Respiratory distress (bronchospasm, stridor, wheezing, persistent cough, r espiratory depression, cardiac arrhythmia, chest pain, generalized urticaria (hives), syncop e, gastrointestinal symptoms (abdominal pain, N/V, diarrhea), hypotension SBP less than 80mm Hg, face/throat/tongue swelling, shock, loss of consciousness. 1. Stop infusion of chemotherapy/biotherapy, but do not discard bag/bottle unless instructed by MD that therapy is to be discontinued. 2. Stay with patient and have another nurse notify MD of symptoms and infusion conor ction orders initated. 3. Place patient in supine position with lower extremities elevated unless respira tory distress or nausea/vomiting. 4. Maintain airway. 5. Maintain IV access with NS line. 6. Inpatients: Activate code blue for loss of blood pressure, pulse or consciousne ss. OrderHistory Check vital signs FOR MILD REACTION: Monitor vital signs every 5 minutes until back to baseline, then every 15 minutes until resolution of symptoms. FOR MODERATE or SEVERE REACTION: Monitor vital signs every 2 minutes until patient is stabl e, then every 5 minutes for 30 minutes, then every 15 minutes until back to baseline. Orde rHistory EPINEPHRINE 1 MG/ML IJ SOLN (WRAPPER) 0.3 mg, Intramuscular, EVERY 5 MIN PRN, Anaphylaxis, Starting when released, for 3 doses Administer in the anterior lateral thigh using 1 - 1.5 inch needle for airway obstruction s ymptoms and/or hypotension. OrderHistory SODIUM CHLORIDE 0.9 % IV SOLN at 500 mL/hr, Intravenous, PRN, Anaphylaxis, Starting when released, Until Discontinued Run wide open to gravity. OrderHistory Start oxygen FOR SEVERE REACTION: Start continuous pulse oximetry. Administer 6 to 8 liters per minute (LPM) via face mask, or up to 100% oxygen to maintain oxygen saturation greater than 90%. OrderHistory DIPHENHYDRAMINE HCL 50 MG/ML IJ SOLN 25 mg, Intravenous, EVERY 15 MIN PRN, infusion reaction, may repeat x1, for 2 doses Orde rHistory METHYLPREDNISOLONE SODIUM SUCC 125 MG IJ SOLR 125 mg, Intravenous, ONCE PRN, Infusion reaction, Starting when released, for 1 dose Mix with 2 mL provided diluent to make 62.5 mg/mL. OrderHistory ALBUTEROL SULFATE HFA 108 (90 BASE) MCG/ACT IN AERS 2 puff, Inhalation, ONCE PRN, Bronchospasm or hypoxemia, Starting when released, Until Dis continued Shake well. May repeat x 1. OrderHistory FAMOTIDINE 20 MG/2ML IV SOLN 20 mg, Intravenous, ONCE PRN, Anaphylaxis, Starting when released, Until Discontinued Dilute 2 mL of famotidine with 8 mL of normal saline to a final concentration of 2 mg/mL. A dminister ordered dose over a period of at least 2 minutes. OrderHistory Resume infusion if: MILD REACTION: 1. Resume infusion when symptoms resolve at rate instructed by MD. 2. Notify MD for signs of recurrent infusion reaction for further instructions. MODERATE OR SEVERE REACTION: 1. Resume infusion when symptoms resolve at rate instructed by . 2. Monitor for signs and symptoms reaction closely, and monitor vital signs recomme nded as per the specific agent. 3. Notify MD for signs of recurrent infusion reactions for further instructions. Logan Castro MD Portions of this chart may have been created with Fredio recognition software. Occasi onal wrong-word or sound-alike [...] | + +--------+ + + + | LABS - EXTERNAL SCAN | | 08/20/2018 | | Results for this | | | | 12:00 AM | | procedure are in the | | | | PST | | results section. | + +--------+ + + + | PATHOLOGY - EXTERNAL | | 07/25/2018 | | Results for this | | SCAN | | 12:00 AM | | procedure are in the | | | | PST | | results section. | + +--------+ + + + | DIAGNOSTIC REPORT - | | 07/25/2018 | | Results for this | | EXTERNAL SCAN | | 12:00 AM | | procedure are in the | | | | PST | | results section. | + +--------+ + + + | IMAGING REPORT - | | 07/10/2018 | | Results for this | | EXTERNAL SCAN | | 12:00 AM | | procedure are in the | | | | PDT | | results section. | + +--------+ + + + | IMAGING REPORT - | | 06/27/2018 | | Results for this | | EXTERNAL SCAN | | 12:00 AM | | procedure are in the | | | | PDT | | results section. | + +--------+ + + + | IMAGING REPORT - | | 06/06/2018 | | Results for this | | EXTERNAL SCAN | | 12:00 AM | | procedure are in the | | | | PDT | | results section. | + +--------+ + + + | IMAGING REPORT - | | 03/13/2016 | | Results for this | | EXTERNAL SCAN | | 12:00 AM | | procedure are in the | | | | PDT | | results section. | + +--------+ + + + | IMAGING REPORT - | | 02/28/2016 | | Results for this | | EXTERNAL SCAN | | 12:00 AM | | procedure are in the | | | | PDT | | results section. | + +--------+ + + + | IMAGING REPORT - | | 02/26/2016 | | Results for this | | EXTERNAL SCAN | | 12:00 AM | | procedure are in the | | | | PDT | | results section. | + +--------+ + + + | IMAGING REPORT - | | 02/25/2016 | | Results for this | | EXTERNAL SCAN | | 12:00 AM | | procedure are in the | | | | PDT | | results section. | + +--------+ + + + | IMAGING REPORT - | | 01/16/2016 | | Results for this | | EXTERNAL SCAN | | 12:00 AM | | procedure are in the | | | | PDT | | results section. | + +--------+ + + + | IMAGING REPORT - | | 12/30/2014 | | Results for this | | EXTERNAL SCAN | | 12:00 AM | | procedure are in the | | | | PDT | | results section. | + +--------+ + + + | IMAGING REPORT - | | 10/05/2014 | | Results for this | | EXTERNAL SCAN | | 12:00 AM | | procedure are in the | | | | PST | | results section. | + +--------+ + + + documented in this encounter Results CBC with Differential (02/05/2019 12:05 PM PDT) + + + + + + | Component | Value | Ref Range | Performed | Pathologist | | | | | At | Signature | + + + + + + | WBC | 7.5 | 4.0 - 11.0 K/uL | [facility] | | | | | | [facility] | | [facility] - | | | | | | [facility]ORY | | + + + + + + | RBC | 3.74 (L) | 4.30 - 5.70 | [facility] | | | | | M/uL | [facility] | | | | | | [facility] | | | | | | [facility] - | | | | | | LABORATORY | | + + + + + + | Hemoglobin | 11.4 (L) | 13.5 - 18.0 | [facility] | | | | | g/dL | [facility] | | | | | | [facility] | | | | | | [facility] - | | | | | | LABORATORY | | + + + + + + | Hematocrit | 34.5 (L) | 40.0 - 51.0 % | [facility] | | | | | | [facility] | | | | | | [facility] | | | | | [facility] - | | | | | | LABORATORY | | + + + + + + | MCV | 92.2 | 83.0 - 101.0 fL | [facility] | | | | | | [facility] | | | | | | [facility] | | | | | [facility] - | | | | | | LABORATORY | | + + + + + + | MCH | 30.5 | 28.0 - 35.0 pg | [facility] | | | | | | [facility] | | | | | | [facility] | | | | | [facility] - | | | | | | LABORATORY | | + + + + + + | MCHC | 33.0 | 32.0 - 36.0 | [facility] | | | | | g/dL | [facility] | | | | | | [facility] | | | [facility] | | [facility] - | | | | | | LABORATORY | | + + + + + + | RDW-CV | 20.8 (H) | <15.0 % | [facility] | | | | | | [facility] | | [facility] | [facility] | | | | | | CENTER - | | | | | | LABORATORY | | + + + + + + | RDW-SD | 70.4 (H) | 35.1 - 46.3 fL | [facility] | | | | | | [facility] | | | | | | [facility]ICAL | | | | | | CENTER - | | | | | | LABORATORY | | + + + + + + | Platelet | 301 | 140 - 440 K/uL | [facility] | | | Count | | | [facility] | | | | | | [facility]ICAL | | | | | | CENTER - | | | | | | LABORATORY | | + + + + + + | MPV | 10.4 | 6.5 - 12.4 fL | [facility] | | | | | | [facility] | | | | | | [facility] | | | | | | CENTER - | | | | | | LABORATORY | | + + + + + + | % | 51.5 | 45.0 - 82.0 % | [facility] | | | Neutrophils | | | [facility] | | | | | | [facility]ICAL | | | | | | CENTER - | | | | | | LABORATORY | | + + + + + + | % | 32.5 | 20.0 - 45.0 % | [facility] | | | Lymphocytes | | | [facility] | | | | | | MEDICAL | | | | | | CENTER - | | | | | | LABORATORY | | + + + + + + | % Monocytes | 10.5 | 4.0 - 12.0 % | [facility] | | | | | | [facility] | | | | | | [facility]ICAL | | | | | | CENTER - | | | | | | LABORATORY | | + + + + + + | % | 5.0 | 0.0 - 5.0 % | [facility] | | | Eosinophils | | | [facility] | | | | | | MEDICAL | | | | | | CENTER - | | | | | | LABORATORY | | + + + + + + | % Basophils | 0.4 | 0.0 - 1.0 % | [facility] | | | | | | [facility] | | | | | | [facility] | | | | | | CENTER - | | | | | | LABORATORY | | + + + + + + | % Immature | 0.1 | 0.0 - 0.4 % | [facility] | | | Granulocyte | | | [facility] | | | s | | | MEDICAL | | | | | | CENTER - | | | | | | LABORATORY | | + + + + + + | Absolute | 3.88 | 1.80 - 8.50 | [facility] | | | Neutrophils | | K/uL | [facility] | | | | | | [facility]ICAL | | | | | | CENTER - | | | | | | LABORATORY | | + + + + + + | Absolute | 2.45 | 0.60 - 3.20 | [facility] | | | Lymphocytes | | K/uL | [facility] | | | | | | MEDICAL | | | | | | CENTER - | | | | | | LABORATORY | | + + + + + + | Absolute | 0.79 | 0.00 - 1.00 | [facility] | | | Monocytes | | K/uL | [facility] | | | | | | MEDICAL | | | | | | CENTER - | | | | | | LABORATORY | | + + + + + + | Absolute | 0.38 | 0.00 - 0.40 | [facility] | | | Eosinophils | | K/uL | [facility] | | | | | | MEDICAL | | | | | | CENTER - | | | | | | LABORATORY | | + + + + + + | Absolute | 0.03 | 0.00 - 0.10 | [facility] | [...] ST. | [address] | [place] | [phone] | | [facility] | | [address] | | | - LABORATORY | | | | + + + + + CA 19-9, Quant (02/05/2019 12:05 PM PDT) + + + + + + | Component | Value | Ref Range | Performed | Pathologist | | | | | At | Signature | + + + + + + | CA 19-9 | 602 (H)Comment: Vik | 0 - 35 U/mL [...] + + | Performed at: [address] [address], | REFERENCE LAB | | [place], [place] [id number] Sleeve Maker: Evert Scanlon MD, Phone: | VIJAY - JUAN | | [phone] | | + + + + + + + + | Performing | Address | City/State/Zipcode | Phone Number | | Organization | | | | + + + + + | REFERENCE LAB | [address] | [place] [address] | [phone] | | [facility] | [facility] | | | + + + + + Lactate Dehydrogenase (02/05/2019 12:05 PM PDT) + +-------+ + + + | Component | Value | Ref Range | Performed | Pathologist | | | | | At | Signature | + +-------+ + + + | LDH TOTAL | 187 | 120 - 246 U/L | [facility] | | | | [...] + | [facility] | [address] | [place] | [phone] | | [facility] | | [address] | | | - LABORATORY | | | | + + + + + Comprehensive Metabolic Panel (02/05/2019 12:05 PM PDT) + + + + + + | Component | Value | Ref Range | Performed | Pathologist | | | | | At | Signature | + + + + + + | Na | 138 | 136 - 145 | [facility] | | | | | mmol/L | [facility] | | | | [...] + + + + | Cl | 104 | 98 - 107 mmol/L | [facility] | | | | | | [facility] | | | | | | MEDICAL | | | | | | CENTER - | | | | | | LABORATORY | | + + + + + + | CO2 | 29 | 20 - 31 mmol/L | [facility] [...] + + + + | Glucose | 177 (H) | 60 - 106 mg/dL | [facility] | | | | | | [facility] | | | | | | MEDICAL | | | | | | CENTER - | | | | | | LABORATORY | | + + + + + + | BUN | 14 | 9 - 23 mg/dL | [facility] | | | | | | [facility] | | | | | | MEDICAL | | | | | | CENTER - | | | | | | LABORATORY | | + + + + + + | Creatinine | 0.69 (L) | 0.70 - 1.30 | [facility] | [...] mL/min/1.73m2 | [facility] | | | [place] | RATE,ESTIMATED | | MEDICAL | | | | mL/min/1.00h2Ssfi than | | CENTER - | | [...] 3.5 | 3.2 - 4.8 g/dL | [facility] | | | | | | [facility] | | | | | | MEDICAL | | | | | | CENTER - | | | | | | LABORATORY | | + + + + + + | Bilirubin | 4.9 (H) | 0.3 - 1.2 mg/dL | [facility] | | | Total | | | [facility] | | | | | | MEDICAL | | | | | | CENTER - | | | | | | LABORATORY | | + + + + + + | Total | 6.3 | 5.7 - 8.2 g/dL | [facility] | | | Protein | | | [facility] | | | | | | MEDICAL | | | | | | CENTER - | | | | | | LABORATORY | | + + + + + + | AST | 76 (H) | 0 - 34 U/L | [facility] | | | | | | [facility] | | | | | | MEDICAL | | | | | | CENTER - | | | | | | LABORATORY | | + + + + + + | ALT | 57 (H) | 10 - 49 U/L | [facility] | | | | | | [facility] | | | | | | MEDICAL | | | | | | CENTER - | | | | | | LABORATORY | | + + + + + + | Alkaline | 695 (H) | 46 - 116 U/L | [facility] | | | Phosphatase | | | [facility] | | | | | | MEDICAL | | | | | | CENTER - | | | | | | LABORATORY | | + + + + + + | Globulin | 2.8 | 2.1 - 3.8 g/dL | [facility] | | | | | | [facility] | | | | | | MEDICAL | | | | | | CENTER - | | | | | | LABORATORY | | + + + + + + | Albumin/Sonia | 1.3 | 0.8 - 1.9 | [facility] | | | bulin Ratio | | | [facility] | | | | | | MEDICAL | | | | | | CENTER - | | | | | | LABORATORY | | + + + + + + | BUN/Creatin | 20.3 | | [facility] | | | ine [...] + + + + + | [facility] | [address] | [place] | [phone] | | [facility] | | [address] | | | - LABORATORY | | | | + + + + + LABS - EXTERNAL SCAN (08/20/2018 12:00 AM PST) + + + | Narrative | Performed At | + + + | Ordered by an | | | unspecified provider. | | + + + DIAGNOSTIC REPORT - EXTERNAL SCAN (07/25/2018 12:00 AM PST) + + + | Narrative | Performed At | + + + | Ordered by an | | | unspecified provider. | | + + + PATHOLOGY - EXTERNAL SCAN (07/25/2018 12:00 AM PST) + + + | Narrative | Performed At | + + + | Ordered by an | | | unspecified provider. | | + + + IMAGING REPORT - EXTERNAL SCAN (07/10/2018 12:00 AM PDT) + + + | Narrative | Performed At | + + + | Ordered by an | | | unspecified provider. | | + + + IMAGING REPORT - EXTERNAL SCAN (06/27/2018 12:00 AM PDT) + + + | Narrative | Performed At | + + + | Ordered by an | | | unspecified provider. | | + + + IMAGING REPORT - EXTERNAL SCAN (06/06/2018 12:00 AM PDT) + + + | Narrative | Performed At | + + + | Ordered by an | | | unspecified provider. | | + + + IMAGING REPORT - EXTERNAL SCAN (03/13/2016 12:00 AM PDT) + + + | Narrative | Performed At | + + + | Ordered by an | | | unspecified provider. | | + + + IMAGING REPORT - EXTERNAL SCAN (02/28/2016 12:00 AM PDT) + + + | Narrative | Performed At | + + + | Ordered by an | | | unspecified provider. | | + + + IMAGING REPORT - EXTERNAL SCAN (02/26/2016 12:00 AM PDT) + + + | Narrative | Performed At | + + + | Ordered by an | | | unspecified provider. | | + + + IMAGING REPORT - EXTERNAL SCAN (02/25/2016 12:00 AM PDT) + + + | Narrative | Performed At | + + + | Ordered by an | | | unspecified provider. | | + + + IMAGING REPORT - EXTERNAL SCAN (01/16/2016 12:00 AM PDT) + + + | Narrative | Performed At | + + + | Ordered by an | | | unspecified provider. | | + + + IMAGING REPORT - EXTERNAL SCAN (12/30/2014 12:00 AM PDT) + + + | Narrative | Performed At | + + + | Ordered by an | | | unspecified provider. | | + + + IMAGING REPORT - EXTERNAL SCAN (10/05/2014 12:00 AM PST) + + + | Narrative | Performed At | + + + | Ordered by an | | | unspecified provider. | | + + + documented in this encounter Visit Diagnoses + + | Diagnosis | + + | Malignant neoplasm of head of pancreas (HCC) Malignant neoplasm of head of pancreas | + + documented in this encounter"
--- OUTSIDE RECORDS SUMMARY | ~2019-08-01 | XMS | Encounter Summary ---
Demographics + + + | Address | [address] | | | [place] [address] | + + + | Home Phone | | + + + | Preferred Language | Unknown | + + + | Marital Status | | + + + | Baptism Affiliation | Unknown | + + + | Race | Unknown | + + + | Ethnic Group | Unknown | + + + Author + + + | Author | [facility] | | | and Izaiahana | + + + | Organization | [facility] | | | and Izaihaana | + + + | Address | Unknown | + + + | Phone | Unavailable | + + + Support + + +---------+ + | Name | Relationship | Address | Phone | + + +---------+ + | Elizabeth Hernández | ECON | Unknown | | + + +---------+ + Care Team Providers + +------+ + | Care Work Ticket Distributor Name | Role | Phone | + [...] + + + + | 02/19/ | Hospital | [facility] | Rasheed Bello DO | Malignant neoplasm | | 2019 | Encounter | [facility] | [address] | of head of pancreas | | | | [facility] [address] | [place], [place] | (HCC) (Primary Dx) | | | | [address] | [address] | | | | | [place] [address] | | | | | | [phone] | | | +--------+ + + + [...] | | | or equivalent | | 6317-1159 | + + +---------+ + + + [...] + + + | Blood Pressure | 108/69 | 02/19/2019 1:58 PM | | | | | PDT | | + + + + + | Pulse | 83 | 02/19/2019 1:58 PM | | | | | PDT | | + + + + + | Temperature | 37.2 C (99 F) | 02/19/2019 1:58 PM | | | | | PDT | | + + + + + | Respiratory Rate | 18 | 02/19/2019 1:58 PM | | | | | PDT | | + + + + + | Oxygen Saturation | 98% | 02/19/2019 1:58 PM | | | | | PDT | | + + + + + | Inhaled Oxygen | - | - | | | Concentration | | | | + + + + + | Weight | 74 kg (163 lb 2.3 | 02/19/2019 1:58 PM | | | | oz) | PDT | | + + + + + | Height | - | - | | + + + + + | Body Mass Index | 22.13 | 01/29/2019 8:03 AM | | | [...] encounter Progress Notes Rasheed Bello DO - 02/19/2019 2:01 PM PDT Radiation Oncology Weekly On Treatment Note Diagnosis: ICD-10-CM ICD-9-CM 1. Malignant neoplasm of head of pancreas (HCC) C25.0 157.0 Reason for visit: On treatment evaluation Radiation technical factors: Dose Delivered Dose Planned Fractions Delivered 1080 cGy 0 cGy 4500 cGy 540 cGy 03/10 0 Images were reviewed this week and results of the review have been recorded in [facility]. Corre ctions were applied as necessary. Allergies Allergen Reactions Penicillins Rash Mom told me that from when I was a little kid Current Outpatient Medications on File Prior to Encounter Medication Sig Dispense Refill CAPECITABINE PO Take by mouth. Docusate Calcium (STOOL SOFTENER PO) Take by mouth as needed. fentaNYL (DURAGESIC) 100 mcg/hr Place 1 patch onto the skin every 72 hours. hydrOXYzine (VISTARIL) 50 MG capsule Take 50 mg by mouth as needed. LORazepam (ATIVAN) 1 mg tablet Take 1 tablet by mouth every 6 hours as needed. 90 table t 0 metFORMIN (GLUCOPHAGE) 500 mg tablet Take 1,000 mg by mouth 2 times daily (with breakfa st & dinner). OLANZapine (ZYPREXA) 5 mg tablet Take 1 tablet by mouth. 1 tab daily for three days aft er chemo 4 ondansetron (ZOFRAN) 8 MG tablet Take 1 [...] file prior to encounter. Pain assessment: Location: back Pain Level: PAIN PROG PAIN LEVEL: 2 Pain Quality: Throbbing Current pain regimen: fentanyl patch Wt Readings from Last 3 Encounters: 02/19/19 74 kg (163 lb 2.3 oz) 02/17/19 71.7 kg (158 lb 1.1 oz) 02/12/19 73.9 kg (162 lb 14.7 oz) Vitals: 02/19/19 1358 BP: 108/69 Pulse: 83 Resp: 18 Temp: 37.2 C (99 F) TempSrc: Temporal SpO2: 98% Weight: 74 kg (163 lb 2.3 oz) Physical Exam Constitutional: He is oriented to person, place, and time. Vital signs are normal. He appea rs well-developed and well-nourished. No distress. HENT: Head: Normocephalic and atraumatic. Eyes: Conjunctivae and EOM are normal. No scleral icterus. Neck: Trachea normal. Cardiovascular: Normal rate. Pulmonary/Chest: Effort normal and [...] Assessment: Overall, he is tolerating treatment well. Anti-emetic timing discussed and he is currentl y having excellent control of his nausea symptoms that were precipitated by noncompliance at the onset of treatment. This week his overall appearance is improved also with improved we ight. He will continue combined modality treatment as planned. Toxicities reviewed in nursing note. Disposition: Continue radiation treatment as planned. Rasheed Bello DO Radiation Oncologist Alayna Miranda RN - 0 02/19/2019 2:00 PM PDT 02/19/19 1359 Gastrointestinal Constipation 0 - Grade 0 Diarrhea 0 - Grade 0 Nausea 1 - Grade 1 Vomiting 0 - Grade 0 General Disorders and Administration Site Conditions Fatigue 2 - Grade 2 Performance Status Karnofsky Performance Score 60% documented in this en counter Plan of Treatment Not on filedocumented as of this encounter Visit Diagnoses + + | Diagnosis | + + | Malignant neoplasm of head of pancreas (HCC) - Primary Malignant neoplasm of head of | | pancreas | + + documented in this encounter"
--- OUTSIDE RECORDS SUMMARY | ~2019-08-01 | XMS | Encounter Summary ---
Demographics + + + | Address | [address] | | | [place] [address] | + + + | Home Phone | | + + + | Preferred Language | Unknown | + + + | Marital Status | | + + + | Spiritism Affiliation | Unknown | + + + | Race | Unknown | + + + | Ethnic Group | Unknown | + + + Author + + + | Author | [facility] | | | and Izaiahana | + + + | Organization | [facility] | | | and Izaiahana [...] Team Providers + +------+ + | Care Electrician Front Name | Role | Phone | + +------+ + | Garland Caputo MD | PCP | | + +------+ + Reason for Visit + + + | Reason | Comments | + + + | Gastroesophageal | | | Reflux | | + + + | Abdominal Pain | | + + + Evaluate & Treat (Routine) +--------+--------+ + + + + | Status | Reason | Specialty | Diagnoses / | Referred By | Referred To | | | | | Procedures | Contact | Contact | +--------+--------+ + + + + | Closed | | Gastroenterol | Diagnoses | [place], | [facility] | | | [facility] | GERD | Christopher | Gastroenterol | | | | | (gastroesoph | MD [address] | [address] | | | | | ageal reflux | [address] | [address] | | | | | disease) | [address] | [address] [place] | | | | | Unspecified | [place], | [place], [place] | | | | | abdominal | [place] | [address] | | | | | pain | [address] | Phone: | | | | | Abnormal | Phone: | [phone] | | | | | weight loss | [phone] | Fax: | | | | | | Fax: | [phone] | | | | | | [phone] | | +--------+--------+ + + + + Encounter Details +--------+---------+ + + + | Date | Type | Department | Care Team | Description | +--------+---------+ + + + | 04/16/ | Office | [facility] [place] | Dirk Saldivar MD | Chronic abdominal | | 2016 | Visit | GASTROENTEROLOGY | [address], [place] | pain (Primary Dx); | | | | [address] [place] | [address] [place], [place] | Irritable bowel | | | | [address] [place], [place] | [address] | syndrome without | | | | [address] | | diarrhea; Weight | | | | [phone] | | loss, | | | | | | non-intentional | +--------+---------+ + + + Social History [...] + + + | Blood Pressure | 114/72 | 04/16/2016 4:16 PM | | | | | PDT | | + + + + + | Pulse | 74 | 04/16/2016 4:16 PM | | | | | PDT | | + + + + + | Temperature | - | - | | + + + + + | Respiratory Rate | 16 | 04/16/2016 4:16 PM | | | | | PDT | | + + + + + | Oxygen Saturation | 97% | 04/16/2016 4:16 PM | | | | | PDT | | + + + + + | Inhaled Oxygen | - | - | | | Concentration | | | | + + + + + | Weight | 88 kg (194 lb) | 04/16/2016 4:16 PM | | | | | PDT | | + + + + + | Height | 182.9 cm (6') | 04/16/2016 4:16 PM | | | | | PDT | | + + + + + | Body Mass Index | 26.31 | 04/16/2016 4:16 PM | | | | | PDT | | + + + + + documented in this encounter Progress Notes Dirk Saldivar MD - 04/18/2016 6:31 AM PDT Subjective: Patient ID: Anastacio Hernández is a 65 y.o. male. HPI Comments: The patient is seen for evaluation of abdominal symptoms. Outside records tanvi terrell reviewed although incomplete a ship brings multiple procedure and radiographic reports whi ch are reviewed Patient reports that beginning in September 2015 he began to have abdominal symptoms. The carlie yen does not remember specifically the precipitating symptoms H. pylori serum antibody te st was positive. He was treated with unknown type of antibiotics and apparently by breath t est H. pylori was cleared. The patient since that time has had abdominal pain which seems t o be migrating. It's in the right mid section of his back underneath both ribs and in the r ight and left rib cage. It's a crampy pain. It seems to migrate from the upper abdomen to the lower abdomen. He complains of constant belching with or without by mouth intake. He h ears increased borigmy within his stomach. Patient has a retrosternal burning sensation in the epigastric area. Patient denies dysphagia or odontaphagia. He has had a weight loss of 50 pounds in 5 months but his weight according to him has been recently maintained. The pa yovana reports that he is fearful of eating due to the fact that it may precipitate his abdom inal symptoms The patient's who accompanies the patient states that his symptoms really began in 2010 when he had a right inguinal hernia repair. He has continued to have pain in the right lower quadrant and in the testicular area. Apparently evaluation by urologist [facility] ultrasounds have been negative. The patient cannot report any precipitating cause of his pain except he moved to wash her in September and there was pressure on his lower chest area. The patient denies any blood or mucus in the stool denies any alternation between constipa tion or diarrhea has been on an acid simulation tech and Carafate for presumed reflux. Workup has been extensive and thorough and unrevealing. Plain films and right rib films we re negative in January 2016 small bowel follow-through negative gastric emptying study within no rmal limits in February. CT scan 02/25/2016 by report is normal. Ultrasound of the aorta negativ e TTG antibody negative CBC and profile normal in January. Upper endoscopy 02/26/2016 showed a s mall hiatal hernia without endoscopic evidence of esophagitis apparently biopsy ofthe ampull a was done which was normal. Colonoscopy was within normal limits done 02/26 when he was ho spitalized in [place]. Patient recently underwent laparoscopy with appendectomy with norm al pathology. Patient is status post cholecystectomy in 2009. Colonoscopy done 2012 was negative except for 3 small polyps. Patient has noticed no improvement on a FODMAP diet. T he patient gets some relief with oxycodone. Has noticed no improvement of his symptoms on P rilosec pantoprazole sucralfate. The patient denies any previous gastrointestinal tract sym ptomatology, denies prior pyschological difficulties The patient and his are obviously frustrated with his continued symptoms failure to r espond to various medications and negative workup and in fact both became tearful during the interview. Gastroesophageal Reflux Associated symptoms include anxiety, arthralgias and constipation. His past medical history is significant for GERD. Abdominal Pain Associated symptoms include arthralgias and constipation. His past medical history is signi ficant for GERD. Filed Vitals: 04/16/16 1616 BP: 114/72 Pulse: 74 Resp: 16 PainSc: 0 - No pain Allergies Allergen Reactions Penicillins Other (See Comments) unknown Past Medical History Diagnosis Date GERD (gastroesophageal reflux disease) Abdominal pain, unspecified abdominal location Weight loss Gastritis High blood pressure Past Surgical History Procedure Laterality Date Cholecystectomy Laparoscopy Egd and colonoscopy Appendectomy Hernia repair inguinal Family History Problem Relation Age of Onset Broken bones Sister Breast cancer Other History Social History Marital Status: Spouse Name: N/A Number of Children: N/A Years of Education: N/A Social History Main Topics Smoking status: Former Smoker Smokeless tobacco: Never Used Alcohol Use: No Drug Use: No Sexual Activity: Not on file Other Topics Concern None Social History Narrative Review of Systems Constitutional: Positive for unexpected weight change. HENT: Positive for hearing loss. Gastrointestinal: Positive for abdominal pain and constipation. Musculoskeletal: Positive for back pain and arthralgias. Neurological: Positive for numbness. Psychiatric/Behavioral: Positive for dysphoric mood. The patient is nervous/anxious. All other systems reviewed and are negative. Objective: Physical Exam Constitutional: He is oriented to person, place, and time. He appears well-developed and we ll-nourished. No distress. Anxious at times almost tearful middle-aged male HENT: Head: Normocephalic and atraumatic. Right Ear: External ear normal. Left Ear: External ear normal. Nose: Nose normal. Mouth/Throat: Oropharynx is clear and moist. No oropharyngeal exudate. Eyes: Conjunctivae and EOM are normal. Pupils are equal, round, and reactive to light. Righ t eye exhibits no discharge. Left eye exhibits no discharge. No scleral icterus. Neck: Normal range of motion. Neck supple. No JVD present. No tracheal deviation present. Cardiovascular: Normal rate, regular rhythm, normal heart sounds and intact distal pulses. Exam reveals no gallop and no friction rub. No murmur heard. Pulmonary/Chest: Effort normal and breath sounds normal. No stridor. No respiratory distres s. He has no wheezes. He has no rales. He exhibits no tenderness. Abdominal: Soft. Bowel sounds are normal. He exhibits no distension and no mass. There is n o tenderness. There is no rebound and no guarding. Tympany to percussion in the upper abdomen no abdominal bruits heard Musculoskeletal: Normal range of motion. He exhibits no edema or tenderness. Lymphadenopathy: He has no cervical adenopathy. Neurological: He is alert and oriented to person, place, and time. No cranial nerve deficit . He exhibits normal muscle tone. Coordination normal. Skin: Skin is warm and dry. No rash noted. He is not diaphoretic. No erythema. No pallor. Psychiatric: His behavior is normal. Judgment and thought content normal. Anxious appearing depressed Nursing note and vitals reviewed. Assessment: Migratory abdominal pains with extensive and thorough negative workup suspect GI motility d isturbance with strong central component Involuntary weight loss secondary to the same stabilized Frustration and depression given continued symptoms Errudication probably due to air swallowing given tympany to percussion on physical exam in the upper abdomen Plan: The patient and his were reassured that given the extensive negative workup that we dangelo ve no evidence for an ongoing malignant process. I suspect that the migratory pains that he is feeling is increased visceral sensation of normal peristaltic activity which may be heig htened by by mouth intake and strong central component As the patient has noticed no improvement on acid reductive therapy and sucralfate and no o bjective evidence of esophagitis was noted on EGD discontinuation of those medications would be appropriate and desired by the patient Hugo discussion was held with the patient and the patient's . They have multiple conc erns about possible ongoing disease process outside of the gastrointestinal tract contributi ng to the patient's symptoms. He was told that I'm certainly not an expert with respect to the same but they're specific concerns about MS I feel do not really fit the patient's sympt omatology. Due to the thorough negative evaluation, continued symptomatology I recommended referral to a tertiary center with where concerns about other disease processes can be addressed more r eadily as I feel both the patient and the patient's are both uncomfortable with the di agnosis of simply a gastrointestinal motility disorder. Begin the patient on nortriptyline 50 mg at bedtime to help with presumed GI motility disor rubio depression. Side effects were discussed with the patient and the patient's . If th at is unsuccessful in controlling the patient's symptoms perhaps SSRIs would be appropriate next therapeutic maneuver. Portions of this report were transcribed using voice recognition software. Every effort wa s made to ensure accuracy; however, inadvertent computerized shop director errors may be pre sent. documented in this enc ounter Plan of Treatment Not on filedocumented as of this encounter Visit Diagnoses + + | Diagnosis | + + | Chronic abdominal pain - Primary Abdominal pain, unspecified site | + + | Irritable bowel syndrome without diarrhea Irritable bowel syndrome | + + | Weight loss, non-intentional Loss of weight | + + documented in this encounter"
--- OUTSIDE RECORDS SUMMARY | ~2019-08-01 | XMS | Encounter Summary ---
Demographics + + + | Address | [address] | | | [place] [address] | + + + | Home Phone | | + + + | Preferred Language | Unknown | + + + | Marital Status | | + + + | Synagogue Affiliation | Unknown | + + + | Race | Unknown | + + + | Ethnic Group | Unknown | + + + Author + + + | Author | [facility] | | | and Izaiahana | + + + | Organization | [facility] | | | and Izaiahana [...] Team Providers + +------+ + | Care Fsr Name | Role | Phone | + +------+ + | Garland Caputo MD | PCP | | + +------+ + Encounter Details +--------+ + + + + | Date | Type | Department | Care Team | Description | +--------+ + + + + | 06/19/ | Transcribed | [facility] | Thai Mcnamara | Mass of pancreas | | 2019 | Orders | [facility] | MD [address] | (Primary Dx) | | | | [address] [place] | [address] | | | | | [place] | [place], [place] | | | | | [address] | [address] | | | | | [phone] | [phone] | | | | | | | [...] | | | or equivalent | | 4669-2175 | + + +---------+ + + + [...] Not on filedocumented as of this encounter Results Creatinine (06/25/2019 1:21 PM PDT) + + + + + + | Component | Value | Ref Range | Performed | Pathologist | | | | | At | Signature | + + + + + + | Creatinine | 0.90 | 0.70 - 1.30 | [facility] | [...] mL/min/1.73m2 | [facility] | | | [facility] | RATE,ESTIMATED | | MEDICAL | | | | mL/min/1.17i8Yaye than | | CENTER - | | [...] + | [facility] | [address] | [place] | [phone] | | [facility] | | [address] | | | - LABORATORY | | | | + + + + + BUN (06/25/2019 1:21 PM PDT) + +-------+ + + + | Component | Value | Ref Range | Performed | Pathologist | | | | | At | Signature | + +-------+ + + + | BUN | 10 | 9 - 23 mg/dL | [facility] | | | | | | [facility] | | | | | [...] + + | [facility] | [address] | [place] | [phone] | | [facility] | | [address] | | | - LABORATORY | | | | + + + + + documented in this encounter Visit Diagnoses + + | Diagnosis | + + | Mass of pancreas - Primary Unspecified disease of pancreas | + + documented in this encounter"
--- OUTSIDE RECORDS SUMMARY | ~2019-08-01 | XMS | Encounter Summary ---
Demographics + + + | Address | [address] | | | [place] [address] | + + + | Home Phone | | + + + | Preferred Language | Unknown | + + + | Marital Status | | + + + | Anabaptism Affiliation | Unknown | + + + | Race | Unknown | + + + | Ethnic Group | Unknown | + + + Author + + + | Author | [facility] | | | and Izaiahana | + + + | Organization | [facility] | | | and Izaiahana | [...] Team Providers + +------+ + | Care Laboratory Tech Name | Role | Phone | + +------+ + | Garland Caputo MD | PCP | | + +------+ + Encounter Details +--------+ + + + + | Date | Type | Department | Care Team | Description | +--------+ + + + + | 08/05/ | Imaging | [facility] | Provider, | | | 2018 | Exam | [facility] | MD [address] | | | | | IMAGING | [place] | | | | | [phone] | [place] [address] | | +--------+ + + + + [...] | + +--------+ + + + | US EXTREMITY | Routin | 10/05/2014 | | Results for this | | NONVASCULAR LIMITED | e | 1:05 PM | | procedure are in the | | LEFT | | PST | | results section. | + +--------+ + + + documented in this encounter Results US Extremity Nonvascular Limited Left (10/05/2014 1:05 PM PST) + + | Specimen | + + | | + + + + + | Narrative | Performed At | + + + | External films for comparison only | [facility] | | | | | No results will be in the chart. | | + + + + +---------+ + + | Performing | Address | City/State/Zipcode | Phone Number | | Organization | | | | + +---------+ + + | [facility] | | | | + +---------+ + + documented in this encounter Visit Diagnoses Not on filedocumented in this encounter"
--- OUTSIDE RECORDS SUMMARY | ~2019-08-01 | XMS | Encounter Summary ---
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 | Role | Phone | [...] + + | 03/05/ | Hospital | [facility] | Gloria, | Malignant neoplasm | | 2019 | Encounter | [facility] | Logan Madrid MD [address] | of head of pancreas | | | | [facility] [address] [place] | (HCC); Biliary | | | | [address] [place] | [place] [address] | obstruction; | | | | [place] [address] | [phone] | Gastroesophageal | | | | [phone] | | reflux disease, | | | | | | esophagitis presence | | | | | | not specified; | | | | | | Jaundice; Migration | | | | | | of biliary stent, | | | | | | subsequent | | | | | | encounter; | | | | | | Osteoarthritis of | | | | | | spine with | | | | | | myelopathy, thoracic | | | | | | region; Sensory | | | | | | neuropathy | +--------+ + + + + Social [...] | | | or equivalent | | [phone] | + + +---------+ + + + [...] | Blood Pressure | 122/74 | 03/05/2019 1:30 PM | | | | | PDT | | + + + + + | Pulse | 76 | 03/05/2019 1:30 PM | | | | | PDT | | + + + + + | Temperature | 36.8 C (98.2 F) | 03/05/2019 1:30 PM | | | | | PDT | | + + + + + | Respiratory Rate | 18 | 03/05/2019 1:30 PM | | | | | PDT | | + + + + + | Oxygen Saturation | 97% | 03/05/2019 1:30 PM | | | | | PDT | | + + + + + | Inhaled Oxygen | - | - | | | Concentration | | | | + + + + + | Weight | 75.6 kg (166 lb 10.7 | 03/05/2019 1:30 PM | | | | oz) | PDT | | + + + + + | Height | - | - | | + + + + + | Body Mass Index | 22.6 | 01/29/2019 8:03 AM | | | | | PDT | | + + + + + documented in this encounter Discharge Instructions Patient Instructions Logan Castro MD - 03/05/2019 2:06 PM PDTContinue on capecit abine three pills twice a day. documented in this encounter Medications at Time [...] encounter Progress Notes Logan Castro MD - 03/05/2019 1:31 PM PDTFormatting of this note might be differe nt from the original. Hematology/Oncology Progress Note Merged With [facility] [place] Pt. Name/Age/: Anastacio Galvez 68 y.o. 1950 Med. Record Number: [id number] Date of admission: 03/05/2019 The patient's primary care provider is Garland Caputo MD. Identifying Statement: Anastacio Galvez is a 68 y.o. male from [address] [place] [address] with Stage IIA Pancreatic Cancer. The patient chart and medications were reviewed in detail and the patient was seen and exam ined. History of Present Illnesses, their Current Assessments and Plans: Problem List Biliary obstruction Overview Added automatically from request for surgery [id number] Gastroesophageal reflux disease Jaundice Malignant neoplasm of head of pancreas Overview ACTIVE DIAGNOSIS: Endoscopic stage IIA Pancreatic Cancer, deleterious germline PALB2 muta tion positive. The patient presented with upper abdominal pain which radiated to the upper back in a bandl lady distribution, jaundice and 40 pound weight loss in June 2018. CT scan of the abdomen/pelvis without contrast June 27, 2018 at [facility] in [facility] demonstrated a 5 cm pancreatic mass in the uncinate process associated with a 12 mm retro-caval lymph node. Tumor marker CA 19-9 was 816.5 units per milliliter (upper limits of normal 37 units per milliliter). Surgical consultation with Dr. Mami Mcnamara ([facility]) on July 03, 2018. CT of the chest/abdomen/pelvis with contrast at [facility] on July 10, 2018 demonstrated a 3.3 cm x 3.7 cm x 5.17 m mass in the pancreatic head/uncina te process. The mass encases a few branches of the superior mesenteric artery arising merchandise support associate iorly and demonstrates slightly less than 180 of encasement of the superior mesenteric art daniel proper. Enlarged 1.1 cm lymph node inferior to the mass. Endoscopic ultrasound with biopsy and stent (10 mm x 40 mm metal ) placement July 25 (Dr. Leonel Song, [place], [place]): Pancreatic/uncinate mass, 4.5 cm close to but n ot touching major vessels, without endoscopic evidence of regional lymphadenopathy, PT3, PN0 , M0 stage IIA. Biopsy specimen # [id number] ([facility]). Fine-needle aspiration; adenocarcinoma. Biliary brushings; adenocarcinoma. Neoadjuvant therapy with Abraxane/Gemcitabine on August 15, 2018 through October 24, 2018 . 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 Repeat CT abdomen/pelvis on October 31, 2018 demonstrated a 60% volumetric reduction in pa ncreatic head mass. Consultation with Dr. Mami Mcnamara, [facility] on November 06, 2018; disease remains [...] branche s. Consultation with Dr. Mami Mcnamara, [facility], who determined that the disease st ill remains unresectable, cross over to combined modality radiation + chemotherapy. Cross over to capecitabine 1500 mg orally twice a day, continuous, with [facility], Saturday-Saturday, on February 12, 2019. Current Assessment & Plan Anastacio Galvez returned to clinic on 03/05/2019 with his , Jamila, for follow up and management of surgically unresectable, locally advanced pancreatic cancer. Interval history is notable for the fact that Anastacio continues on continuous capecitabine 15 00 mg orally twice a day and external beam radiation therapy. Review of systems is notable for persistent nausea, but no emesis. Upper abdominal pain is improved. Clinical exam is notable for stable body weight. Laboratory exam is notable for grade 1 leukopenia and grade 1 anemia without neutropenia. T umor marker CA 19-9 continues to decrease incrementally. Assessment; locally advanced pancreatic cancer, with malignant neoplasm related pain, sympt omatically improved on combined modality therapy. Plan; continue capecitabine 1500 mg orally twice a day continuously, through the end of his radiation therapy treatment plan, then discontinue and recover with repeat CT scan and re-c onsultation with Dr. Mcnamara regarding suitability for surgery. Capecitabine fill for one mo re week. One month fill of oxycodone 20 mg IR. Clinical and laboratory follow up in one week. Migration of biliary stent, subsequent encounter Overview Added automatically from request for surgery [id number] Osteoarthritis of spine with myelopathy, thoracic region Sensory neuropathy Review of Systems: Constitutional: Reports intermittent nausea, taking prns. Reports poor activity tolerance , fatigue. Occasional night sweats. Denies high fevers, shaking chills, anorexia, nausea, vo miting, weight loss, or night sweats. Appetite without changes. Weight dec'd 2 lbs, since visit. Ear, Nose, Mouth, Throat: Denies odynophagia or dysphagia. Unchanged tinnitus. Cardiovascular: Reports SOB and CUELLO w/ walking. Reports unsteadiness w/ sitting to standing . Denies chest pain, palpitations or orthopnea. Respiratory: Denies cough, hemoptysis, or sputum production. Gastrointestinal: Reports semi-loose BMs. Reports occasional ABD pain. Denies constipation, melena, or bright red blood per rectum. Genitourinary: Denies hematuria or dysuria. Urine seems dark even after the stent being pl aced, not as it was before. Musculoskeletal: Reports ongoing knee joint pain. Neurologic: [...] Current Outpatient Medications Medication Sig Dispense Refill capecitabine (XELODA) 500 [...] Date APPENDECTOMY CATARACT REMOVAL Bilateral 2007 at [facility] CHOLECYSTECTOMY EGD AND COLONOSCOPY ERCP N/A 01/29/2019 Procedure: ERCP; Surgeon: Joaquin Lawson MD; Location: [facility] MAIN OR HERNIA REPAIR inguinal LAPAROSCOPY NASAL SEPTUM SURGERY TONSILLECTOMY torn cartilage Right [facility] Social History Socioeconomic History Marital status: [...] Last attempt to quit: 2009 Years since quittin.5 Smokeless tobacco: Never Used Substance and Sexual Activity Alcohol use: No Alcohol/week: 0.0 oz Comment: Drank 12 pk/wk from [id number] Drug use: No Comment: Has used marijauna [...] cancer Cancer Sister breast cancer Objectives: Temp: 36.8 C (98.2 F) BP: 122/74 Pulse: 76 Resp: 18 SpO2: 97 % on Min/Max Temp past 24 hours:No data recorded No intake or output data in the 24 hours ending 03/17/19 0808 Wt. Admission: Weight: 75.6 kg (166 lb 10.7 oz) Wt. Current: Weight: 75.6 kg (166 lb 10 .7 oz) Wt Readings from Last 3 Encounters: 03/05/19 75 kg (165 lb 5.5 oz) 03/05/19 75.6 kg (166 lb 10.7 oz) Body mass index is 22.6 kg/m. Physical Exam: General: The patient is [...] Am. J. Clin. Oncol.: Meryl Montero., Yonny, R.Michael., Partha Guido., Patriico Brizuela., Michoacano TNaga., Bill, E.T., Yaquelin, P [...] for ANASTACIO GALVEZ ( ) as of 03/17/2019 07:57 Ref. Range 03/05/2019 12:56 WBC Latest Ref Range: 4.0 - 11.0 K/uL 3.4 (L) RBC COUNT Latest Ref Range: 4.30 - 5.70 M/uL 3.91 (L) Hemoglobin Latest Ref Range: 13.5 - 18.0 g/dL 12.2 (L) Hematocrit Latest Ref Range: 40.0 - 51.0 % 37.1 (L) MCV Latest Ref Range: 83.0 - 101.0 fL 94.9 MCH Latest Ref Range: 28.0 - 35.0 pg 31.2 MCHC Latest Ref Range: 32.0 - 36.0 g/dL 32.9 RDW-CV Latest Ref Range: <15.0 % 16.4 (H) RDW-SD Latest Ref Range: 35.1 - 46.3 fL 57.6 (H) Platelet Count Latest Ref Range: 140 - 440 K/uL 209 MPV Latest Ref Range: 6.5 - 12.4 fL 9.6 % nRBC Latest Ref Range: 0 - 2 per 100 WBCs 0 Absolute nRBC Latest Ref Range: 0.00 - 0.01 K/uL 0.00 Absolute Neutrophils Latest Ref Range: 1.80 - 8.50 K/uL 2.03 Absolute Lymphocytes Latest Ref Range: 0.60 - 3.20 K/uL 0.69 Absolute Monocytes Latest Ref Range: 0.00 - 1.00 K/uL 0.48 Absolute Eosinophils Latest Ref Range: 0.00 - 0.40 K/uL 0.16 Absolute Basophils Latest Ref Range: 0.00 - 0.10 K/uL 0.01 Absolute Immature Granulocytes Latest Ref Range: 0.00 - 0.03 K/uL 0.01 % Neutrophils Latest Ref Range: 45.0 - 82.0 % 60.1 % Lymphocytes Latest Ref Range: 20.0 - 45.0 % 20.4 % Monocytes Latest Ref Range: 4.0 - 12.0 % 14.2 (H) % Eosinophils Latest Ref Range: 0.0 - 5.0 % 4.7 % Basophils Latest Ref Range: 0.0 - 1.0 % 0.3 % Immature Granulocytes Latest Ref Range: 0.0 - 0.4 % 0.3 Na Latest Ref Range: 136 - 145 mmol/L 140 K Latest Ref Range: 3.4 - 5.1 mmol/L 3.7 Chloride Latest Ref Range: 98 - 107 mmol/L 105 Carbon dioxide Latest Ref Range: 20 - 31 mmol/L 33 (H) Anion Gap Latest Ref Range: 3 - 16 mmol/L 2 (L) Glucose Latest Ref Range: 60 - 106 mg/dL 147 (H) BUN Latest Ref Range: 9 - 23 mg/dL 7 (L) Creatinine Latest Ref Range: 0.70 - 1.30 mg/dL 0.71 BUN/Creatinine Ratio Unknown 9.9 Albumin Latest Ref Range: 3.2 - 4.8 g/dL 3.5 Albumin/Globulin Ratio Latest Ref Range: 0.8 - 1.9 1.5 Total Protein Latest Ref Range: 5.7 - 8.2 g/dL 5.8 EGFR IF NOT Latest Ref Range: >=60 mL/min/1.73m2 >60 Calcium Latest Ref Range: 8.7 - 10.4 mg/dL 8.9 ALK PHOS Latest Ref Range: 46 - 116 U/L 147 (H) ALT (SGPT) (REF) Latest Ref Range: 10 - 49 U/L 17 AST (SGOT) (REF) Latest Ref Range: 0 - 34 U/L 25 LDH TOTAL Latest Ref Range: 120 - 246 U/L 181 Bilirubin Total (Calculated) Latest Ref Range: 0.3 - 1.2 mg/dL 1.4 (H) Globulin Latest Ref Range: 2.1 - 3.8 g/dL 2.3 CA 19-9 Latest Ref Range: 0 - 35 U/mL 168 (H) Pharmacovigilance: Palliative Care: Patient's Medications New Prescriptions CAPECITABINE (XELODA) 500 MG TABLET Take 3 tablets (1,500 mg total) by mouth 2 times da jose angel for 14 days. Modified Medications Modified Medication Previous Medication OXYCODONE 20 MG TABS oxyCODONE 20 MG TABS 1-3 tabs every four hours as needed for pain 1-2 tabs every four hours as needed for pain Discontinued Medications CAPECITABINE PO Take by mouth. Procedure: Logan Castro MD Portions of this chart may have been created with saperatec voice recognition software. Occasi onal wrong-word or [...] + | CBC W/AUTO | STAT | 03/05/2019 | Malignant neoplasm | Results for this | | DIFFERENTIAL | | 12:56 PM | of head of pancreas | procedure are in the | | | | PDT | ([facility]) | results section. | + +--------+ + + + | CA 19-9, QUANT | STAT | 03/05/2019 | Malignant neoplasm | Results for this | | | | 12:56 PM | of head of pancreas | procedure are in the | | | | PDT | (HCC) | results section. | + +--------+ + + + | LACTATE | STAT | 03/05/2019 | Malignant neoplasm | Results for this | | DEHYDROGENASE | | 12:56 PM | of head of pancreas | procedure are in the | | | | PDT | (HCC) | results section. | + +--------+ + + + | COMPREHENSIVE | STAT | 03/05/2019 | Malignant neoplasm | Results for this | | METABOLIC PANEL | | 12:56 PM | of head of pancreas | procedure are in the | | | | PDT | (HCC) | results section. | + +--------+ + + + documented in this encounter Results CA 19-9, Quant (03/12/2019 3:02 PM PDT) + + + + + + | Component | Value | Ref Range | Performed | Pathologist | | | | | At | Signature | + + + + + + | CA 19-9 | 129 (H)Comment: Vik | 0 - 35 U/mL [...] | + + + | Performed at: - [place] [address], | REFERENCE LAB | | [place], [place] [id number] Internal Review And Audit Compliance: Evert Scanlon MD, Phone: | [facility] | | [phone] | | + + + + + + + + | Performing | Address | City/State/Zipcode | Phone Number | | Organization | | | | + + + + + | REFERENCE LAB | [address] | [place] [address] | [phone] | | [facility] | [address] | | | + + + + + Lactate Dehydrogenase (03/12/2019 3:02 PM PDT) + + + + + + | Component | Value | Ref Range | Performed | Pathologist | | | | | At | Signature | + + + + + + | LDH TOTAL | 200Comment: New method | 120 - 246 U/L | [facility] | | | | in use as of October | | [facility] | | | | 2018. Check | | MEDICAL | | | | reference range for | | CENTER - | | | | changes.Some analytes | | LABORATORY | | | | show significant | | | | | | variation from the | | | | | | previous method.It may | | | | | | be necessary to set a | | | | | | new baseline for this | | | | | | analyte. | | | | + + + + + + + + | Specimen | + + | Blood | + + + + + + + | Performing | Address | City/State/Zipcode | Phone Number | | Organization | | | | + + + + + | [facility] | [address] | [place] | [phone] | | [facility] | | [address] | | | - LABORATORY | | | | + + + + + Comprehensive Metabolic Panel (03/12/2019 3:02 PM PDT) + + + + + + | Component | Value | Ref Range | Performed | Pathologist | | | | | At | Signature | + + + + + + | Na | 139 | 136 - 145 | [facility] | | | | | mmol/L | [facility] | | | | | | MEDICAL | | | | | | CENTER - | | | | | | LABORATORY | | + + + + + + | K | 4.3 | 3.4 - 5.1 | [facility] | [...] + + + | Anion Gap | 6 | 3 - 16 mmol/L | [facility] | | | | | | [facility] | | | | | | MEDICAL | | | | | | CENTER - | | | | | | LABORATORY | | + + + + + + | Glucose | 256 (H) | 60 - 106 mg/dL | [facility] | | | | | | [facility] | | | | | | MEDICAL | | | | | | CENTER - | | | | | | LABORATORY | | + + + + + + | BUN | 8 (L) | 9 - 23 mg/dL | [facility] | | | | | | [facility] [...] mL/min/1.73m2 | [facility] | | | [place] | RATE,ESTIMATED | | MEDICAL | | | | mL/min/1.28m1Icbd than | | CENTER - | | [...] | 8.7 | 8.7 - 10.4 | [facility] | | | | | mg/dL | [facility] | | | | | | MEDICAL | | | | | | CENTER - | | | | | | LABORATORY | | + + + + + + | Albumin | 3.3 | 3.2 - 4.8 g/dL | [facility] | | | | | | [facility] | | | | | | MEDICAL | | | | | | CENTER - | | | | | | LABORATORY | | + + + + + + | Bilirubin | 1.0 | 0.3 - 1.2 mg/dL | [facility] | | | Total | | | [facility] | | | | | | MEDICAL | | | | | | CENTER - | | | | | | LABORATORY | | + + + + + + | Total | 5.4 (L) | 5.7 - 8.2 g/dL | [facility] | | | Protein | | | [facility] | | | | | | MEDICAL | | | | | | CENTER - | | | | | | LABORATORY | | + + + + + + | AST | 31 | 0 - 34 U/L | [facility] [...] + + + + | Alkaline | 116 | 46 - 116 U/L | [facility] | | | Phosphatase | | | [facility] | | | | | | MEDICAL | | | | | | CENTER - | | | | | | LABORATORY | | + + + + + + | Globulin | 2.1 | 2.1 - 3.8 g/dL | [facility] | | | | | | [facility] | | | | | | MEDICAL | | | | | | CENTER - | | | | | | LABORATORY | | + + + + + + | Albumin/Sonia | 1.6 | 0.8 - 1.9 | [facility] | | | bulin Ratio | | | [facility] | | | | | | MEDICAL | | | | | | CENTER - | | | | | | LABORATORY | | + + + + + + | BUN/Creatin | 10.3 | | [facility] | | | ine [...] [address] | [place] | [phone] | | [facility] | | [address] | | | - LABORATORY | | | | + + + + + CBC w/ Auto Differential (03/12/2019 3:02 PM PDT) + + + + + + | Component | Value | Ref Range | Performed | Pathologist | | | | | At | Signature | + + + + + + | WBC | 2.8 (L) | 4.0 - 11.0 K/uL | [facility] | | | | | | [facility] | | | | | | MEDICAL | | | | | | CENTER - | | | | | | LABORATORY | | + + + + + + | RBC | 3.58 (L) | 4.30 - 5.70 | [facility] | | | | | M/uL | [facility] | | | | | | MEDICAL | | | | | | CENTER - | | | | | | LABORATORY | | + + + + + + | Hemoglobin | 11.5 (L) | 13.5 - 18.0 | [facility] | | | | | g/dL | [facility] | | | | | | MEDICAL | | | | | | CENTER - | | | | | | LABORATORY | | + + + + + + | Hematocrit | 34.7 (L) | 40.0 - 51.0 % | [facility] | | | | | | [facility] | | | | | | MEDICAL | | | | | | CENTER - | | | | | | LABORATORY | | + + + + + + | MCV | 96.9 | 83.0 - 101.0 fL | [facility] | | | | | | [facility] | | | | | | MEDICAL | | | | | | CENTER - | | | | | | LABORATORY | | + + + + + + | MCH | 32.1 | 28.0 - 35.0 pg | [facility] | | | | | | [facility] | | | | | | MEDICAL | | | | | | CENTER - | | | | | | LABORATORY | | + + + + + + | MCHC | 33.1 | 32.0 - 36.0 | [facility] | | | | | g/dL | [facility] | | | | | | MEDICAL | | | | | | CENTER - | | | | | | LABORATORY | | + + + + + + | RDW-CV | 16.7 (H) | <15.0 % | [facility] | | | | | | [facility] | | | | | | MEDICAL | | | | | | CENTER - | | | | | | LABORATORY | | + + + + + + | RDW-SD | 59.4 (H) | 35.1 - 46.3 fL | [facility] | | | | | | [facility] | | | | | | MEDICAL | | | | | | CENTER - | | | | | | LABORATORY | | + + + + + + | Platelet | 150 | 140 - 440 K/uL | [facility] | | | Count | | | [facility] | | | | | | MEDICAL | | | | | | CENTER - | | | | | | LABORATORY | | + + + + + + | MPV | 9.5 | 6.5 - 12.4 fL | [facility] | | | | | | [facility] | | | | | | MEDICAL | | | | | | CENTER - | | | | | | LABORATORY | | + + + + + + | % | 60.7 | 45.0 - 82.0 % | [facility] | | | Neutrophils | | | [facility] | | | | | | MEDICAL | | | | | | CENTER - | | | | | | LABORATORY | | + + + + + + | % | 14.9 (L) | 20.0 - 45.0 % | [facility] | | | Lymphocytes | | | [facility] | | | | | | MEDICAL | | | | | | CENTER - | | | | | | LABORATORY | | + + + + + + | % Monocytes | 19.6 (H) | 4.0 - 12.0 % | [facility] | | | | | | [facility] | | | | | | MEDICAL | | | | | | CENTER - | | | | | | LABORATORY | | + + + + + + | % | 4.0 | 0.0 - 5.0 % | [facility] [...] [facility] | | | | | | [facility] | | | | | | MEDICAL | | | | | | CENTER - | | | | | | LABORATORY | | + + + + + + | % Immature | 0.4 | 0.0 - 0.4 % | [facility] | | | Granulocyte | | | [facility] | | | s | | | MEDICAL | | | | | | CENTER - | | | | | | LABORATORY | | + + + + + + | Absolute | 1.67 (L) | 1.80 - 8.50 | [facility] | | | Neutrophils | | K/uL | [facility] | | | | | | MEDICAL | | | | | | CENTER - | | | | | | LABORATORY | | + + + + + + | Absolute | 0.41 (L) | 0.60 - 3.20 | [facility] | | | Lymphocytes | | K/uL | [facility] | | | | | | MEDICAL | | | | | | CENTER - | | | | | | LABORATORY | | + + + + + + | Absolute | 0.54 | 0.00 - 1.00 | [facility] | | | Monocytes | | K/uL | [facility] | | | | | | MEDICAL | | | | | | CENTER - | | | | | | LABORATORY | | + + + + + + | Absolute | 0.11 | 0.00 - 0.40 | [facility] | [...] | | | | WBCs | [facility] | | | | | | MEDICAL | | | | | | CENTER - | | | | | | LABORATORY | | + + + + + + | Absolute | 0.00 | 0.00 - 0.01 | [facility] | | | nRBC | | K/uL | [facility] | [...] [address] | [place] | [phone] | | [facility] | | [address] | | | - LABORATORY | | | | + + + + + Lactate Dehydrogenase (03/05/2019 12:56 PM PDT) + +-------+ + + + | Component | Value | Ref Range | Performed | Pathologist | | | | | At | Signature | + +-------+ + + + | LDH TOTAL | 181 | 120 - 246 U/L | [facility] [...] [address] | [place] | [phone] | | [facility] | | [address] | | | - LABORATORY | | [...] | | Granulocyte | | | [facility] | | | s | | | [...] | Eosinophils | | K/uL | [facility] | [...] | | Immature | | K/uL | [facility] | | | Granulocyte | | [...] | nRBC | | K/uL | [facility] | [...] + | [facility] | [address] | [place] | [phone] | | [facility] | | [address] | | | - LABORATORY | | | | + + + + + CA 19-9, Quant (03/05/2019 12:56 PM PDT) [...] + | Performed at: 01 - [facility] [place] [address], | REFERENCE LAB | | [place], [place] [id number] Internal Review And Audit Compliance: Evert Scanlon MD, Phone: | [facility] | | [phone] | | + + + + + + + + | Performing | Address | City/State/Zipcode | Phone Number | | Organization | | | | + + + + + | REFERENCE LAB | [address] | [place] [address] | [phone] | | [facility] | Drive [...] mL/min/1.73m2 | [facility] | | | [place] | RATE,ESTIMATED | | MEDICAL | | | | mL/min/1.17f2Icfk than | | CENTER - | | [...] | | | | | mg/dL | [facility] | | | | | | MEDICAL | | | | | | CENTER - | | | | | | LABORATORY | | + + + + + + | Albumin | 3.5 | 3.2 - 4.8 g/dL | [facility] | | | | | | [facility] [...] | | ine Ratio | | | [facility] | | [...] [address] | [place] | [phone] | | [facility] | | [address] | | | - LABORATORY | | | | + + + + + documented in this encounter Visit Diagnoses + + | Diagnosis | + + | Malignant neoplasm of head of pancreas (HCC) Malignant neoplasm of head of pancreas | + + | Biliary obstruction Obstruction of bile duct | + + | Gastroesophageal reflux disease, esophagitis presence not specified | + + | Jaundice Jaundice, unspecified, not of | + + | Migration of biliary stent, subsequent encounter | + + | Osteoarthritis of spine with myelopathy, thoracic region | + + | Sensory neuropathy Unspecified hereditary and idiopathic peripheral neuropathy | + + documented in this encounter
--- OUTSIDE RECORDS SUMMARY | ~2019-08-01 | XMS | Encounter Summary ---
Demographics + + + | Address | [address] | | | [place] [address] | + + + | Home Phone [...] | Organization | [facility] | | | and [...] Team Providers + +------+ + | Care Denier Control Operator Name | Role | Phone | [...] + + | 02/26/ | Hospital | [facility] | Rasheed Bello DO | Malignant neoplasm | | 2019 | Encounter | [facility] | [address] | of head of pancreas | | | | ONCOLOGY CLINIC [address] | [place], [place] | (HCC) (Primary Dx) | | | | [address] | [address] | | | | | [place] [address] | | | | | | [phone] | | | +--------+ + + + [...] | | | or equivalent | | 6741-7022 | + + +---------+ + + + [...] | Blood Pressure | 128/75 | 02/26/2019 3:22 PM | | | | | PDT | | + + + + + | Pulse | 89 | 02/26/2019 3:22 PM | | | | | PDT | | + + + + + | Temperature | 37.3 C (99.1 F) | 02/26/2019 3:22 PM | | | | | PDT | | + + + + + | Respiratory Rate | 18 | 02/26/2019 3:22 PM | | | | | PDT | | + + + + + | Oxygen Saturation | 97% | 02/26/2019 3:22 PM | | | | | PDT | | + + + + + | Inhaled Oxygen | - | - | | | Concentration | | | | + + + + + | Weight | 76 kg (167 lb 8.8 | 02/26/2019 3:22 PM | | | | oz) | [...] documented as of this encounter Progress Notes Lord Rasheed DO Julius - 02/26/2019 3:29 PM PDT Radiation Oncology Weekly On Treatment Note Diagnosis: ICD-10-CM ICD-9-CM 1. Malignant neoplasm of head of pancreas (HCC) C25.0 157.0 Reason for visit: On treatment evaluation Radiation technical factors: Dose Delivered Dose Planned Fractions Delivered 1800 cGy 0 cGy 4500 cGy 540 cGy 07/10 Images were reviewed this week and results [...] back Pain Level: PAIN PROG PAIN LEVEL: 0 Pain Quality: Throbbing intermittent Current pain regimen: fentanyl patch Wt Readings from Last 3 Encounters: 02/26/19 76 kg (167 lb 8.8 oz) 02/26/19 76 kg (167 lb 8.8 oz) 02/19/19 74 kg (163 lb 2.3 oz) Vitals: 02/26/19 1522 BP: 128/75 Pulse: 89 Resp: 18 Temp: 37.3 C (99.1 F) TempSrc: Temporal SpO2: 97% Weight: 76 kg (167 lb 8.8 oz) Physical Exam Constitutional: He is oriented [...] treatment well. Anti-emetic timing discussed and he recently dangelo d breakthrough nausea symptoms on Saturday. Zofran 8 mg ODT every 12 hours when necessary was prescribed today. This week his overall appearance is improved over baseline also with imp roved weight. He will continue combined modality treatment as planned. Toxicities reviewed in nursing note. Disposition: Continue radiation treatment as planned. Rasheed Bello DO Radiation Oncologist Yumiko Foster RN - 02/26/2019 3:28 PM PDT 02/26/19 1526 Gastrointestinal Constipation 0 - Grade 0 Diarrhea 0 - Grade 0 (loose stools, c/o of throbbing pain at rectum after bowel movement) Nausea 1 - Grade 1 (taking anti nausea medications as ordered) Vomiting 1 - Grade 1 General Disorders and Administration Site Conditions Fatigue 2 - Grade 2 Metabolism and Nutrition Anorexia 2 - Grade 2 (due to nausea) Performance Status Karnofsky Performance Score 60% documented in this encounter Plan of Treatment Not on filedocumented as of this encounter Visit Diagnoses + + | Diagnosis | + + | Malignant neoplasm of head of pancreas (HCC) - Primary Malignant neoplasm of head of | | pancreas | + + documented in this encounter"
--- OUTSIDE RECORDS SUMMARY | ~2019-08-01 | XMS | Encounter Summary ---
Demographics + + + | Address | [address] | | | [place] [address] | + + + | Home Phone | | + + + | Preferred Language | Unknown | + + + | Marital Status | | + + + | Muslim Affiliation | Unknown | + + + | Race | Unknown | + + + | Ethnic Group | Unknown | + + + Author + + + | Author | [facility] | | | and [place] | + + + | Organization | [facility] | | | and [place] [...] Team Providers + +------+ + | Care Yard Goods Salesperson Name | Role | Phone | + +------+ + | Garland Caputo MD | PCP | | + +------+ + Encounter Details +--------+ + + + + | Date | Type | Department | Care Team | Description | +--------+ + + + + | 03/21/ | [facility] | [facility] | Rasheed Bello DO | | | 2019 | Encounter | [facility] | [address] | | | | | ONCOLOGY [address] | [place] | | | | | [place], | [address] | | | | | [place] [address] | | | | | | [phone] | | | +--------+ + + + [...] | | | or equivalent | | 1438-0037 | + + +---------+ + + + [...]
--- OUTSIDE RECORDS SUMMARY | ~2019-08-01 | XMS | Encounter Summary ---
Demographics + + + | Address | [address] | | | [place] [address] | + + + | Home Phone | | + + + | Preferred Language | Unknown | + + + | Marital Status | Unknown | + + + | Latter-Day Affiliation | Unknown | + + + | Race | Unknown | + + + | Ethnic Group | Unknown | + + + Author + + + | Author | [facility] | + + + | Organization | [facility] | + + + | Address | Unknown | + + + | Phone | Unavailable | + + + Care Team Providers + +------+ + | Care Big Data Developer Name | Role | Phone | + +------+ + PCP | Unavailable | + +------+ + Encounter Details +--------+ + + + + | Date | Type | Department | Care Team | Description | +--------+ + + + + | 06/16/ | Abstract | [facility] | Clinic, | | | 2017 | | [place] [facility] [address] | Gastroenterology | | | | | [address] | | | | | | Mailcode: [place] | | | | | | [facility] and | | | | | | [facility] [address] | | | | | | [place], [place] | | | | | | [address] | | | | | | [phone] | | | +--------+ + + + [...]
--- OUTSIDE RECORDS SUMMARY | ~2019-08-01 | XMS | Encounter Summary ---
Demographics + + + | Address | [address] | | | [place] [address] | + + + | Home Phone | | + + + | Preferred Language | Unknown | + + + | Marital Status | | + + + | Evangelical Affiliation | Unknown | + + + | Race | Unknown | + + + | Ethnic Group | Unknown | + + + Author + + + | Author | [facility] | | | and [place] | + + + | Organization | [facility] | | | and [...] Team Providers + +------+ + | Care Research Hydraulic Engineer Name | Role | Phone | + +------+ + | Garland Caputo MD | PCP | | + +------+ + Reason for Visit +--------+ + | Reason | Comments | +--------+ + | Other | | +--------+ + Encounter Details +--------+ + + + + | Date | Type | Department | Care Team | Description | +--------+ + + + + | 05// | Telephone | [facility] | Stephenie Hurtado | Other | | 2019 | | [facility] | MD Jessica [address] | | | | | ONCOLOGY CLINIC [address] | [place], [place] | | | | | [address] | [address] | | | | | [place] [address] | | | | | | [phone] | | | +--------+ + + + [...] | | | or equivalent | | 1606-4367 | + + +---------+ + + + [...]
--- OUTSIDE RECORDS SUMMARY | ~2019-08-01 | XMS | Clinical Summary ---
Demographics + + + | Address | [address] | | | [place] [address] | + + + | Home Phone | | + + + | Preferred Language | Unknown | + + + | Marital Status | Unknown | + + + | Temple Affiliation | Unknown | + + + | Race | Unknown | + + + | Ethnic Group | Unknown | + + + Author + + + | Author | [facility] | + + + | Organization | [facility] | + + + | Address | Unknown | + + + | Phone | Unavailable | + + + Care Team Providers + +------+ + | Care Public Policy Manager Name | Role | Phone | + +------+ + PCP | Unavailable | + +------+ + Source Comments [facility] is fully live on both [facility] and [facility] InPatient.[facility] Allergies Not on File Medications Not on file Active Problems Not on file Social History [...] recent travel history available. | + + Last Filed Vital Signs Not on file Plan of Treatment + + + + + | Health Maintenance | Due Date | Last Done | Comments | + + + + + | Pneumococcal | | | | | vaccination (1 of 2 | 6 | | | | - PCV13) | | | | + + + + + | Influenza (Flu) | | | | | vaccination (#1) | 9 | | | + + + + + Results Not on filefrom Last 3 Months"
--- OUTSIDE RECORDS SUMMARY | ~2019-08-01 | XMS | Encounter Summary ---
Demographics + + + | Address | [address] | | | [place] [address] | + + + | Home Phone | | + + + | Preferred Language | Unknown | + + + | Marital Status | | + + + | Congregational Affiliation | Unknown | + + + | Race | Unknown | + + + | Ethnic Group | Unknown | + + + Author + + + | Author | [facility] | | | and [place] | + + + | Organization | [facility] | | | and [...] Team Providers + +------+ + | Care Community Resource Consultant Name | Role | Phone | + [...] | +--------+ + + + + | 02/05/ | Hospital | [facility] | [place], | Malignant neoplasm | | 2019 | Encounter | [facility] | Logan Madrid MD [address] | of head of pancreas | | | | [facility] CLIN[facility] [address] | [address] [place] | (HCC); | | | | [address] [place] | [facility] [place] [address] | Osteoarthritis of | | | | [place] [address] | [phone] | spine with | | | | [phone] | | myelopathy, thoracic | | | | | | region | +--------+ + + + + Social [...] | | | or equivalent | | [phone] | + + +---------+ + + + [...] + + + | Blood Pressure | 133/75 | 02/05/2019 12:27 PM | | | | | PDT | | + + + + + | Pulse | 77 | 02/05/2019 12:27 PM | | | | | PDT | | + + + + + | Temperature | 36.8 C (98.2 F) | 02/05/2019 12:27 PM | | | | | PDT | | + + + + + | Respiratory Rate | 18 | 02/05/2019 12:27 PM | | | | | PDT | | + + + + + | Oxygen Saturation | 97% | 02/05/2019 12:27 PM | | | | | PDT | | + + + + + | Inhaled Oxygen | - | - | | | Concentration | | | | + + + + + | Weight | 75.5 kg (166 lb 7.2 | 02/05/2019 12:27 PM | | | | oz) | PDT | | + + + + + | Height | - | - | | + + + + + | Body Mass Index | 22.57 | 01/29/2019 8:03 AM | | | [...] encounter Progress Notes Logan Castro MD - 02/05/2019 12:30 PM PDTFormatting of this note might be differe nt from the original. Hematology/Oncology Progress Note [facility] [place] Pt. Name/Age/: Anastacio Galvez 68 y.o. 1950 Med. Record Number: [id number] Date of admission: 02/05/2019 The patient's primary care provider is Garland Caputo MD. Identifying Statement: Anastacio Galvez is a 68 y.o. male from [address] [place] [address] with Stage IIA Pancreatic Cancer. The patient [...] abdomen/pelvis without contrast June 27, 2018 at [facility] in [facility] demonstrated a 5 cm pancreatic mass in the uncinate process associated with a 12 mm retro-caval lymph node. Tumor marker CA 19-9 was 816.5 units per milliliter (upper limits of normal 37 units per milliliter). Surgical consultation with Dr. Mami Mcnamara ([facility]) on July 03, 2018. CT of the chest/abdomen/pelvis with contrast at [facility] on July 10, 2018 demonstrated a 3.3 cm x 3.7 cm x 5.17 m mass in the pancreatic head/uncina te process. The mass encases a few branches of the superior mesenteric artery arising director professional services iorly and demonstrates slightly less than 180 of encasement of the superior mesenteric art daniel proper. Enlarged 1.1 cm lymph node inferior to the mass. Endoscopic ultrasound with biopsy and stent (10 mm x 40 mm metal ) placement July 25 (Dr. Leonel Song, [place]): Pancreatic/uncinate mass, 4.5 cm close to but n ot touching major vessels, without endoscopic evidence of regional lymphadenopathy, PT3, PN0 , M0 stage IIA. Biopsy specimen # [id number] ([facility]). Fine-needle aspiration; adenocarcinoma. Biliary brushings; adenocarcinoma. Neoadjuvant therapy with Abraxane/Gemcitabine on August 15, 2018 through October 24, 2018 . 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 Repeat CT abdomen/pelvis on October 31, 2018 demonstrated a 60% volumetric reduction in pa ncreatic head mass. Consultation with Dr. Mami Mcnamara, [facility] on November 06, 2018; disease remains unresectable, [...] branche s. Consultation with Dr. Mami Mcnamara, [facility], who determined that the disease st ill remains unresectable, cross over to combined modality radiation + chemotherapy. Current Assessment & Plan Anastacio Galvez returned to clinic on 02/05/2019 with his , Jamila, for follow up and management of locally advanced pancreatic cancer, deemed to be unresectable by his s urgical oncologist, Dr. Mami Mcnamara at the [facility]. Interval history is notable for the fact that Anastacio developed jaundice, and underwent ERCP by Dr. Lawson on January 29, 2019 who discovered that his previous metal stent had passed, and wa s able to insert a new stent without complications. Review of systems is notable for fatigue, anorexia and weight loss. Clinic exam is notable for mild sclera icterus. Laboratory exam is notable for decreasing bilirubin and alkaline phosphorous. CA 19-9 january e false elevated by recent instrumenting of the common bile duct. Assessment; locally advanced pancreatic cancer, surgically unresectable. Plan; Anastacio will initiate oral capecitabine at 1500 mg twice daily, continuous, once ski patrol officer al beam radiation is initiated. I will follow up with Anastacio weekly while on treatment. Osteoarthritis of spine with myelopathy, thoracic region Review of Systems: Constitutional: Pt reports moderate-severe fatigue. Positive for night sweats - 1-2 times w eekly. Pt down 9 lbs since last visit. Pt reports poor appetite. Denies high fevers, shaking chills, anorexia, nausea or vomiting. Ear, Nose, Mouth, Throat: Denies odynophagia, dysphagia, or tinnitus. Cardiovascular: Pt reports dyspnea on exertion "when I'm moving". Denies shortness of breat h, chest pain, palpitations or orthopnea. Respiratory: Denies cough, hemoptysis, or sputum production. Gastrointestinal: Pt reports continued abdominal pain. Pt reports occasional gas and losoe stool. Denies constipation, diarrhea, melena, or bright red blood per rectum. Genitourinary: Denies hematuria or dysuria. Musculoskeletal: Pt reports pain in lower back. Neurologic: Denies headache, visual changes, or numbness/tingling of the extremities. Endocrine: Minor peripheral edema of the LE (below knee). Denies heat/cold intolerance. Hematologic: Denies spontaneous bruising or bleeding. Integumentary: Pt reports rash surrounding stent placed in R back recently. Denies wounds o r other skin concerns. Pain: Pt reports pain of 4/10 in lower back. ROS otherwise negative. Note: Pt here for follow-up with Dr. Castro. My chart: Active Scheduled Medications: Current Outpatient Medications Medication Sig [...] Date APPENDECTOMY CATARACT REMOVAL Bilateral 2007 at [facility] CHOLECYSTECTOMY EGD AND COLONOSCOPY ERCP N/A 01/29/2019 Procedure: ERCP; Surgeon: Joaquin Lawson MD; Location: [facility] MAIN OR HERNIA REPAIR inguinal LAPAROSCOPY NASAL SEPTUM SURGERY TONSILLECTOMY torn cartilage Right [facility] Social History Socioeconomic History Marital status: [...] 0.0 oz Comment: Drank 12 pk/wk from [id number] Drug use: No Comment: Has used marijauna [...] Objectives: Temp: 36.8 C (98.2 F) BP: 133/75 Pulse: 77 Resp: 18 SpO2: 97 % on Min/Max Temp past 24 hours:Temp Av.1 C (98.8 F) Min: 37 C (98.6 F) Max: 37. 2 C (99 F) No intake or output data in the 24 hours ending 02/12/192001 Wt. Admission: Weight: 75.5 kg (166 lb 7.2 oz) Wt. Current: Weight: 75.5 kg (166 lb 7.2 oz) Wt Readings from Last 3 Encounters: 02/12/19 73.9 kg (162 lb 14.7 oz) 02/12/19 74.1 kg (163 lb 5.8 oz) 02/05/19 75.5 kg (166 lb 7.2 oz) Body mass index is 22.57 kg/m. Physical Exam: General: The patient is alert and oriented. No acute distress. Eyes: Conjunctiva clear. Sclera are slightly icteric. ENMT: Oropharynx fee of lesions, mucous membranes [...] tenderness. No evidence of sarcopenia. Psychiatric: Depressed affect, only minimally engaged during the encounter. ECOG Performance Status [] [...] for ANASTACIO GALVEZ ( ) as of 02/12/2019 19:58 Ref. Range 02/05/2019 12:05 WBC Latest Ref Range: 4.0 - 11.0 K/uL 7.5 RBC COUNT Latest Ref Range: 4.30 - 5.70 M/uL 3.74 (L) Hemoglobin Latest Ref Range: 13.5 - 18.0 g/dL 11.4 (L) Hematocrit Latest Ref Range: 40.0 - 51.0 % 34.5 (L) MCV Latest Ref Range: 83.0 - 101.0 fL 92.2 MCH Latest Ref Range: 28.0 - 35.0 pg 30.5 MCHC Latest Ref Range: 32.0 - 36.0 g/dL 33.0 RDW-CV Latest Ref Range: <15.0 % 20.8 (H) RDW-SD Latest Ref Range: 35.1 - 46.3 fL 70.4 (H) Platelet Count Latest Ref Range: 140 - 440 K/uL 301 MPV Latest Ref Range: 6.5 - 12.4 fL 10.4 % nRBC Latest Ref Range: 0 - 2 per 100 WBCs 0 Absolute nRBC Latest Ref Range: 0.00 - 0.01 K/uL 0.00 Absolute Neutrophils Latest Ref Range: 1.80 - 8.50 K/uL 3.88 Absolute Lymphocytes Latest Ref Range: 0.60 - 3.20 K/uL 2.45 Absolute Monocytes Latest Ref Range: 0.00 - 1.00 K/uL 0.79 Absolute Eosinophils Latest Ref Range: 0.00 - 0.40 K/uL 0.38 Absolute Basophils Latest Ref Range: 0.00 - 0.10 K/uL 0.03 Absolute Immature Granulocytes Latest Ref Range: 0.00 - 0.03 K/uL 0.01 % Neutrophils Latest Ref Range: 45.0 - 82.0 % 51.5 % Lymphocytes Latest Ref Range: 20.0 - 45.0 % 32.5 % Monocytes Latest Ref Range: 4.0 - 12.0 % 10.5 % Eosinophils Latest Ref Range: 0.0 - 5.0 % 5.0 % Basophils Latest Ref Range: 0.0 - 1.0 % 0.4 % Immature Granulocytes Latest Ref Range: 0.0 - 0.4 % 0.1 Na Latest Ref Range: 136 - 145 mmol/L 138 K Latest Ref Range: 3.4 - 5.1 mmol/L 3.8 Chloride Latest Ref Range: 98 - 107 mmol/L 104 Carbon dioxide Latest Ref Range: 20 - 31 mmol/L 29 Anion Gap Latest Ref Range: 3 - 16 mmol/L 5 Glucose Latest Ref Range: 60 - 106 mg/dL 177 (H) BUN Latest Ref Range: 9 - 23 mg/dL 14 Creatinine Latest Ref Range: 0.70 - 1.30 mg/dL 0.69 (L) BUN/Creatinine Ratio Unknown 20.3 Albumin Latest Ref Range: 3.2 - 4.8 g/dL 3.5 Albumin/Globulin Ratio Latest Ref Range: 0.8 - 1.9 1.3 Total Protein Latest Ref Range: 5.7 - 8.2 g/dL 6.3 EGFR IF NOT Latest Ref Range: >=60 mL/min/1.73m2 >60 Calcium Latest Ref Range: 8.7 - 10.4 mg/dL 8.9 ALK PHOS Latest Ref Range: 46 - 116 U/L 695 (H) ALT (SGPT) (REF) Latest Ref Range: 10 - 49 U/L 57 (H) AST (SGOT) (REF) Latest Ref Range: 0 - 34 U/L 76 (H) LDH TOTAL Latest Ref Range: 120 - 246 U/L 187 Bilirubin Total (Calculated) Latest Ref Range: 0.3 - 1.2 mg/dL 4.9 (H) Globulin Latest Ref Range: 2.1 - 3.8 g/dL 2.8 CA 19-9 Latest Ref Range: 0 - 35 U/mL 602 (H) Pharmacovigilance: Palliative Care: Patient's Medications New Prescriptions No medications on file Modified Medications Modified Medication Previous Medication LORAZEPAM (ATIVAN) 1 MG TABLET LORazepam (ATIVAN) 1 mg tablet Take 1 tablet by mouth every 6 hours as needed. Take 1 mg by mouth every 6 hours as needed. Discontinued Medications No medications on file Procedure: Logan Castro MD Portions of this chart may have been created with MEDSEEK voice recognition software. Occasi onal wrong-word or [...] | CA 19-9, QUANT | STAT | 02/05/2019 | Malignant neoplasm | Results for this | | | | 12:05 PM | of head of pancreas | procedure are in the | | | | PDT | ([facility]) | results section. | + +--------+ + + + | CBC WITH | Routin | 02/05/2019 | Malignant neoplasm | Results for this | | DIFFERENTIAL | e | 12:05 PM | of head of pancreas | procedure are in the | | | | PDT | ([facility]) | results section. | + +--------+ + + + | LACTATE | STAT | 02/05/2019 | Malignant neoplasm | Results for this | | DEHYDROGENASE | | 12:05 PM | of head of pancreas | procedure are in the | | | | PDT | ([facility]) | results section. | + +--------+ + + + | COMPREHENSIVE | STAT | 02/05/2019 | Malignant neoplasm | Results for this | | METABOLIC PANEL | | 12:05 PM | of head of pancreas | procedure are in the | | | | PDT | ([facility]) | results section. | + +--------+ + + + documented in this encounter Results CA 19-9, Quant (02/12/2019 11:59 AM PDT) + + + + + + | Component | Value | Ref Range | Performed | Pathologist | | | | | At | Signature | + + + + + + | CA 19-9 | 290 (H)Comment: Vik | 0 - 35 U/mL [...] + + | Performed at: 01 - [facility] [address], | REFERENCE LAB | | [place], [place] [id number] Channel Director: Evert Scanlon MD, Phone: | [facility] | | [phone] | | + + + + + + + + | Performing | Address | City/State/Zipcode | Phone Number | | Organization | | | | + + + + + | REFERENCE LAB | [address] | [place] [address] | [phone] | | [facility] | [address] | | | + + + + + Lactate Dehydrogenase (02/12/2019 11:59 AM PDT) + +-------+ + + + | Component | Value | Ref Range | Performed | Pathologist | | | | | At | Signature | + +-------+ + + + | LDH TOTAL | 169 | 120 - 246 U/L | [facility] [...] [address] | [place] | [phone] | | [facility] | | [address] | | | - LABORATORY | | | | + + + + + Comprehensive Metabolic Panel (02/12/2019 11:59 AM PDT) + + + + + [...] + + + + | Glucose | 164 (H) | 60 - 106 mg/dL | [facility] | | | | | [facility] | | | | | | MEDICAL | | | | | | CENTER - | | | | | | LABORATORY | | + + + + + + | BUN | 22 | 9 - 23 mg/dL | [facility] | | | | | | [facility] | | | | | | MEDICAL | | | | | | CENTER - | | | | | | LABORATORY | | + + + + + + | Creatinine | 0.79 | 0.70 - 1.30 | [facility] | [...] mL/min/1.73m2 | [facility] | | | [facility] | RATE,ESTIMATED | | MEDICAL | | | | mL/min/1.20b3Kniw than | | CENTER - | | [...] + + + + | Calcium | 9.1 | 8.7 - 10.4 | [facility] | [...] + + + + | Bilirubin | 3.2 (H) | 0.3 - 1.2 mg/dL | [facility] | | | Total | | | [facility] | | | | | | MEDICAL | | | | | | CENTER - | | | | | | LABORATORY | | + + + + + + | Total | 6.2 | 5.7 - 8.2 g/dL | [facility] | | | Protein | | | [facility] | | | | | | MEDICAL | | | | | | CENTER - | | | | | | LABORATORY | | + + + + + + | AST | 74 (H) | 0 - 34 U/L | [facility] | | | | | | [facility] | | | | | | MEDICAL | | | | | | CENTER - | | | | | | LABORATORY | | + + + + + + | ALT | 65 (H) | 10 - 49 U/L | [facility] | | | | | | [facility] | | | | | | MEDICAL | | | | | | CENTER - | | | | | | LABORATORY | | + + + + + + | Alkaline | 447 (H) | 46 - 116 U/L | [facility] | | | Phosphatase | | | [facility] | | | | | | MEDICAL | | | | | | CENTER - | | | | | | LABORATORY | | + + + + + + | Globulin | 2.7 | 2.1 - 3.8 g/dL | [facility] [...] + + + + | BUN/Creatin | 27.8 | | [facility] | | | ine [...] + | [facility] | [address] | [place] | [phone] | | [facility] | | [address] | | | - LABORATORY | | | | + + + + + CBC w/ Auto Differential (02/12/2019 11:59 AM PDT) + + + + + + | Component | Value | Ref Range | Performed | Pathologist | | | | | At | Signature | + + + + + + | WBC | 5.9 | 4.0 - 11.0 K/uL | [facility] | | | | | | [facility] | | | | | | MEDICAL | | | | | | CENTER - | | | | | | LABORATORY | | + + + + + + | RBC | 3.65 (L) | 4.30 - 5.70 | [facility] | | | | | M/uL | [facility] | | | | | | MEDICAL | | | | | | CENTER - | | | | | | LABORATORY | | + + + + + + | Hemoglobin | 11.1 (L) | 13.5 - 18.0 | [facility] [...] + + + + | MCHC | 32.0 | 32.0 - 36.0 | [facility] | | | | | g/dL | [facility] | | | | | | MEDICAL | | | | | | CENTER - | | | | | | LABORATORY | | + + + + + + | RDW-CV | 18.2 (H) | <15.0 % | [facility] | | | | | | [facility] | | | | | | MEDICAL | | | | | | CENTER - | | | | | | LABORATORY | | + + + + + + | RDW-SD | 63.5 (H) | 35.1 - 46.3 fL | [facility] | | | | | | [facility] | | | | | | MEDICAL | | | | | | CENTER - | | | | | | LABORATORY | | + + + + + + | Platelet | 230 | 140 - 440 K/uL | [facility] | | | Count | | | [facility] | | | | | | MEDICAL | | | | | | CENTER - | | | | | | LABORATORY | | + + + + + + | MPV | 10.5 | 6.5 - 12.4 fL | [facility] | | | | | | [facility] | | | | | | MEDICAL | | | | | | CENTER - | | | | | | LABORATORY | | + + + + + + | % | 50.5 | 45.0 - 82.0 % | [facility] | | | Neutrophils | | | [facility] | | | | | | MEDICAL | | | | | | CENTER - | | | | | | LABORATORY | | + + + + + + | % | 37.9 | 20.0 - 45.0 % | [facility] | | | Lymphocytes | | | [facility] | | | | | | MEDICAL | | | | | | CENTER - | | | | | | LABORATORY | | + + + + + + | % Monocytes | 9.0 | 4.0 - 12.0 % | [facility] | | | | | | [facility] | | | | | | MEDICAL | | | | | | CENTER - | | | | | | LABORATORY | | + + + + + + | % | 2.0 | 0.0 - 5.0 % | [facility] [...] + + + + | Absolute | 2.96 | 1.80 - 8.50 | [facility] | | | Neutrophils | | K/uL | [facility] | | | | | | MEDICAL | | | | | | CENTER - | | | | | | LABORATORY | | + + + + + + | Absolute | 2.23 | 0.60 - 3.20 | [facility] | | | Lymphocytes | | K/uL | [facility] | | | | | | MEDICAL | | | | | | CENTER - | | | | | | LABORATORY | | + + + + + + | Absolute | 0.53 | 0.00 - 1.00 | [facility] | | | Monocytes | | K/uL | [facility] | | | | | | MEDICAL | | | | | | CENTER - | | | | | | LABORATORY | | + + + + + + | Absolute | 0.12 | 0.00 - 0.40 | [facility] | | | Eosinophils | | K/uL | [facility] | | | | | | MEDICAL | | | | | | CENTER - | | | | | | LABORATORY | | + + + + + + | Absolute | 0.02 | 0.00 - 0.10 | [facility] | | | Basophils | | K/uL | [facility] | | | | | | MEDICAL | | | | | | CENTER - | | | | | | LABORATORY | | + + + + + + | Absolute | 0.02 | 0.00 - 0.03 | [facility] | [...] + | [facility] | [address] | [place] | [phone] | | [facility] | | [address] | | | - LABORATORY | | | | + + + + + Lactate Dehydrogenase (02/05/2019 12:05 PM PDT) + +-------+ + + + | Component | Value | Ref Range | Performed | Pathologist | | | | | At | Signature | + +-------+ + + + | LDH TOTAL | 187 | 120 - 246 U/L | [facility] [...] + + | [facility] | [address] | [place] | [phone] | | [facility] | | [address] | | | - LABORATORY | | [...] 14 | 9 - 23 mg/dL | [facility] | | | | | | [facility] | | | | | | MEDICAL | | | | | | CENTER - | | | | | | LABORATORY | | + + + + + + | Creatinine | 0.69 (L) | 0.70 - 1.30 | [facility] | | | | | mg/dL | [facility] | | | | | | MEDICAL | | | | | | CENTER - | | | | | | LABORATORY | | + + + + + + | eGFR if not | >60Comment: GLOMERULAR | >=60 | [facility] | | | | FILTRATION | mL/min/1.73m2 | [facility] | | | [facility] | RATE,ESTIMATED | | MEDICAL | | | | mL/min/1.63g4Xtyd than | | CENTER - | | [...] | | | | mg/dL | [facility] | | | | [...] ST. | [address] | [place] | [phone] | | [facility] | | [address] | | | - LABORATORY | | | | + + + + + CBC with Differential (02/05/2019 12:05 PM PDT) [...] | + + + + + | [facility] | [address] | [place] | [phone] | | [facility] | | [address] | | | - LABORATORY | | [...] + | Performed at: 01 - [facility] [place] [address], | REFERENCE LAB | | [place], [place] [id number] Channel Director: Evert Scanlon MD, Phone: | [place] | | [phone] | | + + + + + + + + | Performing | Address | City/State/Zipcode | Phone Number | | Organization | | | | + + + + + | [facility] | [address] | [place] [address] | [phone] | | [facility] | [place] | | | + + + + + documented in this encounter Visit Diagnoses + + | Diagnosis | + + | Malignant neoplasm of head of pancreas (HCC) Malignant neoplasm of head of pancreas | + + | Osteoarthritis of spine with myelopathy, thoracic region | + + documented in this encounter
--- OUTSIDE RECORDS SUMMARY | ~2019-08-01 | XMS | Encounter Summary ---
Demographics + + + | Address | [address] | | | [place] [address] | + + + | Home Phone | | + + + | Preferred Language | Unknown | + + + | Marital Status | | + + + | Methodist Affiliation | Unknown | + + + | Race | Unknown | + + + | Ethnic Group | Unknown | + + + Author + + + | Author | [facility] | | | and [place] | + + + | Organization | [facility] | | | and [...] Team Providers + +------+ + | Care Carpenter Helper Maintenance Name | Role | Phone | + +------+ + | Garland Caputo MD | PCP | | + +------+ + Encounter Details +--------+ + + + + | Date | Type | Department | Care Team | Description | +--------+ + + + + | 12/23/ | Orders Only | [facility] | [place], | Malignant neoplasm | | 2019 | | [facility] | Logan Madrid MD [address] | of body of pancreas | | | | [facility] [address] [place] | (HCC) (Primary Dx) | | | | [address] [place] | [place] [address] | | | | | [place] [address] | [phone] | | | | | [phone] | | | +--------+ + + + [...] | | | or equivalent | | [phone] | + + +---------+ + + + [...]
--- OUTSIDE RECORDS SUMMARY | ~2019-08-01 | XMS | Encounter Summary ---
Demographics + + + | Address | [address] | | | [place] [address] | + + + | Home Phone | | + + + | Preferred Language | Unknown | + + + | Marital Status | | + + + | Scientologist Affiliation | Unknown | + + + | Race | Unknown | + + + | Ethnic Group | Unknown | + + + Author + + + | Author | [facility] | | | and [place]za[place]ana | + + + | Organization | [facility] | | | and [place] | + + + | Address | Unknown | + + + | Phone | Unavailable | + + + Support + + +---------+ + | Name | Relationship | Address | Phone | + + +---------+ + | Elizabteh Hernández | ECON | Unknown | | + + +---------+ + Care Team Providers + +------+ + | Care Sole Trimmer Name | Role | Phone | + [...] [place] | | | | | [phone] | [place] [address] | | +--------+ + + + + [...] | + +--------+ + + + | CT ABDOMEN WO | Routin | 06/27/2018 | | Results for this | | CONTRAST | e | 10:30 AM | | procedure are in the | | | | PDT | | results section. | + +--------+ + + + documented in this encounter Results CT Abdomen wo Contrast (06/27/2018 10:30 AM PDT) + + | Specimen | [...]
--- OUTSIDE RECORDS SUMMARY | ~2019-08-01 | XMS | Encounter Summary ---
Demographics + + + | Address | [address] | | | [place] [address] | + + + | Home Phone | | + + + | Preferred Language | Unknown | + + + | Marital Status | | + + + | Roman Catholic Affiliation | Unknown | + + + | Race | Unknown | + + + | Ethnic Group | Unknown | + + + Author + + + | Author | [facility] | | | and Izaiahana | + + + | Organization | [facility] | | | and Izaiahana [...] Team Providers + +------+ + | Care Core Microarchitect Name | Role | Phone | + +------+ + | Garland Caputo MD | PCP | | + +------+ + Reason for Referral Diagnostic/Screening (Routine) +--------+--------+ + + + + | Status | Reason | Specialty | Diagnoses / | Referred By | Referred To | | | | | Procedures | Contact | Contact | +--------+--------+ + + + + | Closed | | Radiology | Diagnoses | Lord, | [address] | | | | | Malignant | Rasheed Madrid DO | [address] | | | | | neoplasm of | [address] | [place], | | | | | head of | [address] | [place] [address] | | | | | pancreas | [place], | Phone: | | | | | (HCC) | [place] [address] | [phone] | | | | | Procedures | Phone: | Fax: | | | | | CT Treatment | [phone] | [phone] | | | | | Plan | Fax: | | | | | | Complex CT | [phone] | | | | | | [place] PLAN | | | +--------+--------+ + + + + Encounter Details +--------+ + + + + | Date | Type | Department | Care Team | Description | +--------+ + + + + | 01/29/ | Orders Only | [facility] | Rasheed Bello DO | Malignant neoplasm | | 2019 | | [facility] | [address] | of head of pancreas | | | | ONCOLOGY CLINIC [address] | [place], [place] | (HCC) (Primary Dx) | | | | [address] [place] | [address] | | | | | [place] [address] | | | | | | [phone] | | | +--------+ + + + + Social History + +-------+ +--------+ + | Tobacco Use | Types | Packs/Day | Years | Date | | | | | Used | | + +-------+ +--------+ + | Former Smoker | | 1 | 40 | Quit: 2009 | + +-------+ +--------+ + + +---+---+---+ | Smokeless Tobacco: | | | | | Never Used | | | | + +---+---+---+ + + +---------+ + | Alcohol Use | Drinks/Week | oz/Week | Comments | + + +---------+ + | No | 0 Standard drinks | 0.0 | Drank 12 pk/wk from | | | or equivalent | | 6273-9150 | + + +---------+ + + + [...] + +--------+ + + + | CT TREATMENT PLAN | Routin | 02/04/2019 | Malignant neoplasm | Results for this | | COMPLEX | e | 1:34 PM | of head of pancreas | procedure are in the | | | | PDT | (HCC) | results section. | + +--------+ + + + documented in this encounter Results CT Treatment Plan Complex (02/04/2019 1:34 PM PDT) + + | Specimen | + + | | + + + + + | Narrative | Performed At | + + + | This exam has been auto-finalized and the interpretation may exist | [facility] | | elsewhere in the chart. | | + + [...]
--- OUTSIDE RECORDS SUMMARY | ~2019-08-01 | XMS | Encounter Summary ---
Demographics + + + | Address | [address] | | | [place] [address] | + + + | Home Phone | | + + + | Preferred Language | Unknown | + + + | Marital Status | | + + + | Buddhism Affiliation | Unknown | + + + | Race | Unknown | + + + | Ethnic Group | Unknown | + + + Author + + + | Author | [facility] | | | and Izaiahana | + + + | Organization | [facility] | | | and Izaiahana [...] Team Providers + +------+ + | Care Resource Recovery Engineer Name | Role | Phone | [...] [place] | | | | | [phone] | [place] [address] | | +--------+ + + + + [...] +--------+ + + + | CT ABDOMEN PELVIS W | Routin | 02/25/2016 | | Results for this | | CONTRAST | e | 2:10 AM | | procedure are in the | | | | PDT | | results section. | + +--------+ + + + documented in this encounter Results CT Abdomen Pelvis w Contrast (02/25/2016 2:10 AM PDT) + + | Specimen | [...]
--- OUTSIDE RECORDS SUMMARY | ~2019-08-01 | XMS | Encounter Summary ---
Demographics + + + | Address | [address] | | | [place] [address] | + + + | Home Phone | | + + + | Preferred Language | Unknown | + + + | Marital Status | | + + + | Restorationism Affiliation | Unknown | + + + | Race | Unknown | + + + | Ethnic Group | Unknown | + + + Author + + + | Author | [facility] | | | and Izaiahana | + + + | Organization | [facility] | | | and Izaiahana | [...] Team Providers + +------+ + | Care Geophysical Drafter Name | Role | Phone | + +------+ + | Garland Caputo MD | PCP | | + +------+ + Encounter Details +--------+ + + + + | Date | Type | Department | Care Team | Description | +--------+ + + + + | 02/26/ | [facility] | [facility] | Stephenie Hurtado | Cancer (HCC) | | 2019 | Encounter | [facility] | MD Jessica [address] | (Primary Dx) | | | | ONCOLOGY CLINIC [address] | [facility] [address] | | | | | [address] | [address] | | | | | [place] [address] | | | | | | [phone] | | | +--------+ + + + [...] by mouth. | | 0 | | 06/20/201 | | | | | | | [...] + | Diagnosis | + + | Cancer (HCC) - Primary Other malignant neoplasm without specification of site | + + documented in this encounter"
--- OUTSIDE RECORDS SUMMARY | ~2019-08-01 | XMS | Encounter Summary ---
Demographics + + + | Address | [address] | | | [place] [address] | + + + | Home Phone | | + + + | Preferred Language | Unknown | + + + | Marital Status | | + + + | Moravian Affiliation | Unknown | + + + | Race | Unknown | + + + | Ethnic Group | Unknown | + + + Author + + + | Author | [facility] | | | and Izaiahana | + + + | Organization | [facility] | | | and Izaiahana [...] Team Providers + +------+ + | Care Fish Seiner Name | Role | Phone | + [...] [place] | | | | | [phone] | [place] [address] | | +--------+ + + + + [...] + +--------+ + + + | US SCROTUM AND | Routin | 12/30/2014 | | Results for this | | TESTICLES | e | 3:55 PM | | procedure are in the | | | | PDT | | results section. | + +--------+ + + + documented in this encounter Results US Scrotum And Testicles (12/30/2014 3:55 PM PDT) + + | Specimen | [...]
--- OUTSIDE RECORDS SUMMARY | ~2019-08-01 | XMS | Encounter Summary ---
Demographics + + + | Address | [address] | | | [place] [address] | + + + | Home Phone | | + + + | Preferred Language | Unknown | + + + | Marital Status | | + + + | Presybeterian Affiliation | Unknown | + + + | Race | Unknown | + + + | Ethnic Group | Unknown | + + + Author + + + | Author | [facility] | | | and Izaiahana | + + + | Organization | [facility] | | | and [...] Team Providers + +------+ + | Care Fabrication And Assembly Supervisor Name | Role | Phone | + +------+ + | Garland Caputo MD | PCP | | + +------+ + Reason for Visit + + + | Reason | Comments | + + + | IDT Note | | + + + Encounter Details +--------+ + + + + | Date | Type | Department | Care Team | Description | +--------+ + + + + | 01/21/ | Telephone | [facility] | Enedina Marquez RN | PATRICIO Note | | 2018 | | [facility] | | | | | | ONCOLOGY CLINIC [address] | | | | | | [address] | | | | | | [place] [address] | | | | | | [phone] | | | +--------+ + + + [...] | | | or equivalent | | 8108-5378 | + + +---------+ + + + [...]
--- OUTSIDE RECORDS SUMMARY | ~2019-08-01 | XMS | Encounter Summary ---
Demographics + + + | Address | [address] | | | [place] [address] | + + + | Home Phone | | + + + | Preferred Language | Unknown | + + + | Marital Status | | + + + | Samaritan Affiliation | Unknown | + + + | Race | Unknown | + + + | Ethnic Group | Unknown | + + + Author + + + | Author | [facility] | | | and Izaiahana | + + + | Organization | [facility] | | | and [...] Team Providers + +------+ + | Care Outside Sales Professional Name | Role | Phone | + [...] | Consult/Addy | [address] | [place], [place] | | | | | ocarcinoma/B | [place] | [address] Phone: | | | | | [place], | [address] | [phone] | | | | | [place] | Phone: | Fax: | | | | | Clinic | [phone] | [phone] | | | | | (requested) | Fax: | | | | | | Procedures | [phone] | | | | | | [place] OFFICE | | | | | | [...] + + | 08/11/ | Hospital | [facility] | Gloria, | Malignant neoplasm | | 2018 | Encounter | [facility] MED[facility] | Logan Madrid MD [address] | of head of pancreas | | | | ONCOLOGY CLINIC [address] | [address] [place] | (HCC) | | | | [address] [place] | [place] [address] | | | | | [place] [address] | [phone] | | | | | [phone] | | | +--------+ + + + [...] 08/12/2018 10:05 AM PSTSpoke with Miguelina at [facility]. nidhi verifies that he is currently scheduled on Wednesday 08/15 for abraxane/gemzar. Electronicall y signed by Pattie Machado RN at 08/12/2018 10:06 AM Logan Perry MD - 07/18 2:59 PM PST REVIEW OF SYSTEMS Hematology/Oncology Progress Note [facility] [place] Pt. Name/Age/: Anastacio Hernández 67 y.o. 1950 Med. Record Number: [id number] Date of admission: 08/11/2018 The patient's primary care provider is Garland Caputo MD. Identifying Statement: Anastacio Hernández is a 67 y.o. male from [address] [facility] [address] with Stage IIA Pancreatic Cancer. The patient [...] without contrast on June 27, 2018 at [place] demonstrate d 5 cm pancreatic mass in the uncinate process associated with a 12 mm retrocaval lymph node . CA 19-9 is 816.5 (ULN 37). 3. Surgical Consultation with Thai Mcneil ([facility]) July 03, 2018. 4. CT chest/abdomen/pelvis with contrast [place]: 3.3 cm x 3.7 cm x [...] and biopsy July 25, 2018 (Leonel Song, [facility]). Pancreatic/uncinate mass, 4.5 cm close but not touching major vessels, without end oscopic evidence ro regional lymphadenopathy, pT3, pN0, M0. Specimen # [id number] ([facility], [place], [place]). Fine needle aspiration; adenocarcinoma. Biliary brushing s; adenocarcinoma. Current Assessment & Plan Anastacio Hernández is referred by Thai Mcnamara Md [address] [facility] [address] [place] [address] for consideration of neoadjuvant chemotherapy for borderline [...] therefore will follow up with me at [facility] in [place] on August 15, 2018 for cycle [...] Date APPENDECTOMY CATARACT REMOVAL Bilateral 2007 at [facility] CHOLECYSTECTOMY EGD AND COLONOSCOPY HERNIA REPAIR inguinal LAPAROSCOPY NASAL SEPTUM SURGERY TONSILLECTOMY torn cartilage Right [facility] Social History Social History Marital status: Spouse name: N/A Number of children: N/A Years of education: N/A Occupational History Not on file. Social History Main Topics Smoking status: Former Smoker Packs/day: 1.00 Years: 40.00 Quit date: 2008 Smokeless tobacco: Never Used Alcohol use No Comment: Drank 12 pk/wk from [id number] Drug use: No Comment: Has used marijauna [...] this chart may have been created with Chi2gel recognition software. Occasi onal wrong-word or sound-alike [...] | + + + + + | [address] | [address] | [place] | [phone] | | [facility] | | [address] | | | - LABORATORY | | [...] + + | Performed at: [address] [place] [place] [address], | REFERENCE LAB | | [place], [place] [id number] Aircraft Metalsmith: Evert Scanlon MD, Phone: | VIJAY - JUAN | | [phone] | | + + + + + + + + | Performing | Address | City/State/Zipcode | Phone Number | | Organization | | | | + + + + + | REFERENCE LAB | [address] | [place] [address] | [phone] | | LAB[facility] - JU[facility] | [facility] | | | + + + [...] + | [facility] | [address] | [place] | [phone] | | [facility] | | [address] | | | - LABORATORY | | [...] mL/min/1.73m2 | [facility] | | | [place] | RATE,ESTIMATED | | MEDICAL | | | | mL/min/1.83n6Ffpx than | | CENTER - | | [...] [address] | [place] | [phone] | | [facility] | | [address] | | | - LABORATORY | | [...]
--- OUTSIDE RECORDS SUMMARY | ~2019-08-01 | XMS | Encounter Summary ---
Demographics + + + | Address | [address] | | | [place] [address] | + + + | Home Phone | | + + + | Preferred Language | Unknown | + + + | Marital Status | | + + + | Samaritan Affiliation | Unknown | + + + | Race | Unknown | + + + | Ethnic Group | Unknown | + + + Author + + + | Author | [facility] | | | and Izaiahana | + + + | Organization | [facility] | | | and Izaiahana [...] Team Providers + +------+ + | Care Pump Installer Name | Role | Phone | + [...] + + | 03/12/ | Hospital | [facility] | Rasheed Bello DO | Malignant neoplasm | | 2019 | Encounter | [facility] | [address] | of head of pancreas | | | | ONCOLOGY CLINIC [address] | [place], [place] | (HCC) (Primary Dx) | | | | [address] [place] | [address] | | | | | [place] [address] | | | | | | [phone] | | | +--------+ + + + [...] | | | or equivalent | | 3014-6996 | + + +---------+ + + + [...] | | | | | | | ([facility]) | | | | | | + [...]
--- OUTSIDE RECORDS SUMMARY | ~2019-08-01 | XMS | Encounter Summary ---
Demographics + + + | Address | [address] | | | [place] [address] | + + + | Home Phone | | + + + | Preferred Language | Unknown | + + + | Marital Status | | + + + | Baptist Affiliation | Unknown | + + + | Race | Unknown | + + + | Ethnic Group | Unknown | + + + Author + + + | Author | [facility] | | | and Izaiahana | + + + | Organization | [facility] | | | and [...] Team Providers + +------+ + | Care Printing Press Machinist Name | Role | Phone | + [...] [place] | | | | | [phone] | [place] [address] | | +--------+ + + + + [...] | | NONVASCULAR LIMITED | e | 1:00 PM | | procedure are in the | | RIGHT | | PST | | results section. | + +--------+ + + + documented in this encounter Results US Extremity Nonvascular Limited Right (10/05/2014 1:00 PM PST) + + | Specimen | [...]
--- OUTSIDE RECORDS SUMMARY | ~2019-08-01 | XMS | Encounter Summary ---
Demographics + + + | Address | [address] | | | [place] [address] | + + + | Home Phone [...] | [facility] | | | and Izaiahana | + + + | Address | Unknown | + + + | Phone | Unavailable | + + + Support + + +---------+ + | Name | Relationship | Address | Phone | + + +---------+ + | Elizabeth Heránndez | ECON | Unknown | | + + +---------+ + Care Team Providers + +------+ + | Care Cut Out Press Operator Name | Role | Phone | [...] [place] | | | | | [phone] | [place] [address] | | +--------+ + + + + [...]
--- OUTSIDE RECORDS SUMMARY | ~2019-08-01 | XMS | Encounter Summary ---
Demographics + + + | Address | [address] | | | [place] [address] | + + + | Home Phone | | + + + | Preferred Language | Unknown | + + + | Marital Status | | + + + | Taoist Affiliation | Unknown | + + + | Race | Unknown | + + + | Ethnic Group | Unknown | + + + Author + + + | Author | [facility] | | | and Izaiahana | + + + | Organization | [facility] | | | and [...] Team Providers + +------+ + | Care Case Picker Name | Role | Phone | + [...] Exam | MED CTR EXTERNAL | [address] | | | | | IMAGING | [place] | | | | | [phone] | [place] [address] | | +--------+ + + + + [...]
--- OUTSIDE RECORDS SUMMARY | ~2019-08-01 | XMS | Encounter Summary ---
Demographics + + + | Address | [address] | | | [place] [address] | + + + | Home Phone | | + + + | Preferred Language | Unknown | + + + | Marital Status | | + + + | Buddhism Affiliation | Unknown | + + + | Race | Unknown | + + + | Ethnic Group | Unknown | + + + Author + + + | Author | [facility] | | | and Izaiahana | + + + | Organization | [facility] [...] Team Providers + +------+ + | Care Poly Area Supervisor Name | Role | Phone | + +------+ + | Garland Caputo MD | PCP | | + +------+ + Encounter Details +--------+ + + + + | Date | Type | Department | Care Team | Description | +--------+ + + + + | 01/23/ | Orders Only | [facility] | Stephenie Hurtado | Malignant neoplasm | | 2019 | | [facility] | MD Jessica [address] | of head of pancreas | | | | ONCOLOGY CLINIC [address] | [place] | (HCC) (Primary Dx) | | | | [address] | [address] | | | | | [place] [address] | | | | | | [phone] | | | +--------+ + + + [...] | | | or equivalent | | 4762-8031 | + + +---------+ + + + [...] on filedocumented as of this encounter Results CBC with Differential (01/23/2019 4:11 PM PDT) + + + + + + | Component | Value | Ref Range | Performed | Pathologist | | | | | At | Signature | + + + + + + | WBC | 9.4 | 4.0 - 11.0 K/uL | [facility] | | | | | | MEDICAL | | | | | | CENTER - | | | | | | LABORATORY | | + + + + + + | RBC | 3.70 (L) | 4.30 - 5.70 | [facility] | | | | | M/uL | [facility] | | | | | | [...] + + + + | Hematocrit | 32.9 (L) | 40.0 - 51.0 % | [facility] | | | [facility] | | | | | | MEDICAL | | | | | | CENTER - | | | | | | LABORATORY | | + + + + + + | MCV | 88.9 | 83.0 - 101.0 fL | [facility] | | | | | [facility] | | | | | | MEDICAL | | | | | | CENTER - | | | | | | LABORATORY | | + + + + + + | MCH | 30.8 | 28.0 - 35.0 pg | [facility] | | | | | | [facility] | | | | | | MEDICAL | | | | | | CENTER - | | | | | | LABORATORY | | + + + + + + | MCHC | 34.7 | 32.0 - 36.0 | [facility] | | | | | g/dL | [facility] | | | | | | MEDICAL | | | | | | CENTER - | | | | | | LABORATORY | | + + + + + + | RDW-CV | 19.9 (H) | <15.0 % | [facility] | | | | | | [facility] | | | | | | MEDICAL | | | | | | CENTER - | | | | | | LABORATORY | | + + + + + + | RDW-SD | 63.9 (H) | 35.1 - 46.3 fL | [facility] | | | | | | [facility] | | | | | | MEDICAL | | | | | | CENTER - | | | | | | LABORATORY | | + + + + + + | Platelet | 556 (H) | 140 - 440 K/uL | [facility] | | | Count | | | [facility] | | | | | | MEDICAL | | | | | | CENTER - | | | | | | LABORATORY | | + + + + + + | MPV | 10.8 | 6.5 - 12.4 fL | [facility] | | | | | | [facility] | | | | | | MEDICAL | | | | | | CENTER - | | | | | | LABORATORY | | + + + + + + | % | 63.7 | 45.0 - 82.0 % | [facility] | | | Neutrophils | | | [facility] | | | | | | MEDICAL | | | | | | CENTER - | | | | | | LABORATORY | | + + + + + + | % | 24.1 | 20.0 - 45.0 % | [facility] | | | Lymphocytes | | | [facility] | | | | | | MEDICAL | | | | | | CENTER - | | | | | | LABORATORY | | + + + + + + | % Monocytes | 11.2 | 4.0 - 12.0 % | [facility] | | | | | | [facility] | | | | | | MEDICAL | | | | | | CENTER - | | | | | | LABORATORY | | + + + + + + | % | 0.2 | 0.0 - 5.0 % | [facility] [...] + + + | % Immature | 0.5 (H)Comment: | 0.0 - 0.4 % | [facility] | | | Granulocyte | Preliminary studies have | | [facility] | | | s | indicated the IG% | | MEDICAL | | | | and/or IG# show promise | | CENTER - | | | | as an early indicator | | LABORATORY | | | | for infection. | | | | + + + + + + | Absolute | 5.95 | 1.80 - 8.50 | [facility] | | | Neutrophils | | K/uL | [facility] | | | | | | MEDICAL | | | | | | CENTER - | | | | | | LABORATORY | | + + + + + + | Absolute | 2.26 | 0.60 - 3.20 | [facility] | | | Lymphocytes | | K/uL | [facility] | | | | | | MEDICAL | | | | | | CENTER - | | | | | | LABORATORY | | + + + + + + | Absolute | 1.05 (H) | 0.00 - 1.00 | [facility] | | | Monocytes | | K/uL | [facility] | | | | | | MEDICAL | | | | | | CENTER - | | | | | | LABORATORY | | + + + + + + | Absolute | 0.02 | 0.00 - 0.40 | [facility] | [...] + + + + | Absolute | 0.05 (H) | 0.00 - 0.03 | [facility] | [...] ST. | [address] | [place], [place] | [phone] | | [facility] | | [address] | | | - LABORATORY | | | | + + + + + Comprehensive Metabolic Panel (01/23/2019 4:11 PM PDT) + + + + + + | Component | Value | Ref Range | Performed | Pathologist | | | | | At | Signature | + + + + + + | Na | 136 | 136 - 145 | [facility] | | | | | mmol/L | [facility] | | | | | | MEDICAL | | | | | | CENTER - | | | | | | LABORATORY | | + + + + + + | K | 3.3 (L) | 3.4 - 5.1 | [facility] | | | | | mmol/L | [facility] | | | | | | MEDICAL | | | | | | CENTER - | | | | | | LABORATORY | | + + + + + + | Cl | 99 | 98 - 107 mmol/L | [facility] [...] + + + | Anion Gap | 9 | 3 - 16 mmol/L | [facility] | | | | | | [facility] | | | | | | MEDICAL | | | | | | CENTER - | | | | | | LABORATORY | | + + + + + + | Glucose | 132 (H) | 60 - 106 mg/dL | [...] + + + + | Creatinine | 0.67 (L) | 0.70 - 1.30 | [facility] | | | | | mg/dL | [facility] | | | | | | MEDICAL | | | | | | CENTER - | | | | | | LABORATORY | | + + + + + + | eGFR if not | >60Comment: GLOMERULAR | >=60 | [facility] | | | | FILTRATION | mL/min/1.73m2 | [facility] | | | [place] | RATE,ESTIMATED | | MEDICAL | | | | mL/min/1.30g7Owup than | | CENTER - | | [...] + + + + | Bilirubin | 9.7 (H) | 0.3 - 1.2 mg/dL | [...] + + + + | AST | 84 (H) | 0 - 34 U/L | [facility] | | | | | | [facility] | | | | | | MEDICAL | | | | | | CENTER - | | | | | | LABORATORY | | + + + + + + | ALT | 55 (H) | 10 - 49 U/L | [facility] | | | | | | [facility] | | | | | | MEDICAL | | | | | | CENTER - | | | | | | LABORATORY | | + + + + + + | Alkaline | 1,197 (H) | 46 - 116 U/L | [facility] | | | Phosphatase | | | [facility] | | | | | | MEDICAL | | | | | | CENTER - | | | | | | LABORATORY | | + + + + + + | Globulin | 2.9 | 2.1 - 3.8 g/dL | [facility] | | | | | | [facility] | | | | | | MEDICAL | | | | | | CENTER - | | | | | | LABORATORY | | + + + + + + | Albumin/Sonia | 1.2 | 0.8 - 1.9 | [facility] | | | bulin Ratio | | | [facility] | | | | | | MEDICAL | | | | | | CENTER - | | | | | | LABORATORY | | + + + + + + | BUN/Creatin | 11.9 | | [facility] | | | ine [...] ST. | [address] | [place], [place] | [phone] | | [facility] | | [address] | | | - LABORATORY | | | | + + + + + documented in this encounter Visit Diagnoses + + | Diagnosis | + + | Malignant neoplasm of head of pancreas (HCC) - Primary Malignant neoplasm of head of | | pancreas | + + documented in this encounter"
--- OUTSIDE RECORDS SUMMARY | ~2019-08-01 | XMS | Encounter Summary ---
Demographics + + + | Address | [address] | | | [place] [address] | + + + | Home Phone | | + + + | Preferred Language | Unknown | + + + | Marital Status | | + + + | Jain Affiliation | Unknown | + + + | Race | Unknown | + + + | Ethnic Group | Unknown | + + + Author + + + | Author | [facility] | | | and Izaiahana | + + + | Organization | [facility] | | | and [...] Team Providers + +------+ + | Care Mixed Animal Veterinarian Name | Role | Phone | + +------+ + | Garland Caputo MD | PCP | | + +------+ + Encounter Details +--------+ + + + + | Date | Type | Department | Care Team | Description | +--------+ + + + + | 01/29/ | Orders Only | [facility] | Joaquin Lawson | | | 2018 | | GASTROENTEROLOGY | MD Jamie [address] | | | | | [address] [place] | [address] [place] | | | | | [address] [place] [address] | [place] [address] | | | | | [address] | [phone] | | | | | [phone] | | | +--------+ + + + [...] | | | or equivalent | | 5574-9140 | + + +---------+ + + + [...]
--- OUTSIDE RECORDS SUMMARY | ~2019-08-01 | XMS | Encounter Summary ---
Demographics + + + | Address | [address] | | | [place] [address] | + + + | Home Phone | | + + + | Preferred Language | Unknown | + + + | Marital Status | | + + + | Holiness Affiliation | Unknown | + + + | Race | Unknown | + + + | Ethnic Group | Unknown | + + + Author + + + | Author | [facility] | | | and Izaiahana | + + + | Organization | [facility] | | | and [...] Team Providers + +------+ + | Care Cableway Operator Name | Role | Phone | [...] + + | 02/19/ | Hospital | [facility] | Gloria, | Malignant neoplasm | | 2019 | Encounter | [facility] | Logan Madrid MD [address] | of head of pancreas | | | | ONCOLOGY CLINIC [address] [place] | (HCC) (Primary Dx) | | | | [address] [place] | [place] [address] | | | | | [place] [address] | [phone] | | | | | [phone] | | | +--------+ + + + [...] | | | or equivalent | | 2027-4107 | + + +---------+ + + + [...] | Blood Pressure | 108/69 | 02/19/2019 2:00 PM | | | | | PDT | | + + + + + | Pulse | 83 | 02/19/2019 2:00 PM | | | | | PDT | | + + + + + | Temperature | 37.2 C (99 F) | 02/19/2019 2:00 PM | | | | | PDT | | + + + + + | Respiratory Rate | 18 | 02/19/2019 2:00 PM | | | | | PDT | | + + + + + | Oxygen Saturation | 98% | 02/19/2019 2:00 PM | | | | | PDT | | + + + + + | Inhaled Oxygen | - | - | | | Concentration | | | | + + + + + | Weight | - | - | | + + + + + | Height | - | - | | + + + + + | Body Mass Index | - | - | | + [...] encounter Progress Notes Logan Castro MD - 02/19/2019 2:25 PM PDTFormatting of this note might be differe nt from the original. Hematology/Oncology Progress Note [place], [place] Pt. Name/Age/: Anastacio Galvez 68 y.o. 1950 Med. Record Number: [id number] Date of admission: 02/19/2019 The patient's primary care provider is Garland Caputo MD. Identifying Statement: Anastacio Galvez is a 68 y.o. male from [address] [place] [address] with Stage IIA Pancreatic Cancer. The patient [...] without contrast on June 27, 2018 at [place] demonstrate d 5 cm pancreatic mass in the uncinate process associated with a 12 mm retrocaval lymph node . CA 19-9 is 816.5 (ULN 37). 3. Surgical Consultation with Thai Mcneil ([facility]) July 03, 2018. 4. CT chest/abdomen/pelvis with contrast [place]: 3.3 cm x 3.7 cm x [...] and biopsy July 25, 2018 (Leonel Song, [facility]). Pancreatic/uncinate mass, 4.5 cm close but not touching major vessels, without end oscopic evidence ro regional lymphadenopathy, pT3, pN0, M0. Specimen # [id number] ([facility], [place], [place]). Fine needle aspiration; adenocarcinoma. Biliary brushing s; adenocarcinoma. Malignant neoplasm of head of pancreas Overview ACTIVE DIAGNOSIS: Endoscopic stage IIA Pancreatic Cancer, deleterious germline PALB2 muta tion positive. The patient presented with upper abdominal pain which radiated to the upper back in a bandl lady distribution, jaundice and 40 pound weight loss in June 2018. CT scan of the abdomen/pelvis without contrast June 27, [address] [facility] in [facility] demonstrated a 5 cm pancreatic mass in the uncinate process associated with a 12 mm retro-caval lymph node. Tumor marker CA 19-9 was 816.5 units per milliliter (upper limits of normal 37 units per milliliter). Surgical consultation with Dr. Mami Mcnamara ([facility]) on July 03, 2018. CT of the chest/abdomen/pelvis with contrast at [facility] on July 10, 2018 demonstrated a 3.3 cm x 3.7 cm x 5.17 m mass in the pancreatic head/uncina te process. The mass encases a few branches of the superior mesenteric artery arising ground crew supervisor iorly and demonstrates slightly less than 180 of encasement of the superior mesenteric art daniel proper. Enlarged 1.1 cm lymph node inferior to the mass. Endoscopic ultrasound with biopsy and stent (10 mm x 40 mm metal ) placement July 25 (Dr. Leonel Song, [place], [place]): Pancreatic/uncinate mass, 4.5 cm close to but n ot touching major vessels, without endoscopic evidence of regional lymphadenopathy, PT3, PN0 , M0 stage IIA. Biopsy specimen # [id number] ([facility] Fine-needle aspiration; adenocarcinoma. Biliary brushings; adenocarcinoma. Neoadjuvant therapy with Abraxane/Gemcitabine on August 15, 2018 through October 24, 2018 . 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 Repeat CT abdomen/pelvis on October 31, 2018 demonstrated a 60% volumetric reduction in pa ncreatic head mass. Consultation with Dr. Mami Mcnamara, [facility] on November 06, 2018; disease remains unresectable, [...] branche s. Consultation with Dr. Mami Mcnamara, [facility], who determined that the disease st ill remains unresectable, cross over to combined modality radiation + chemotherapy. Cross over to capecitabine 1500 mg orally twice a day, continuous, with [facility], Saturday-Saturday, on February 12, 2019. Current Assessment & Plan Anastacio Galvez returned to clinic on 02/19/2019 with his , Jamila, for follow up and management of locally advanced pancreatic cancer. Interval history is notable for the fact that Anastacio crossed over to combined modality thera py with oral capecitabine at 1500 mg orally twice a day on February 12, 2019, given concurrently with external beam radiation. Review of systems is notable for nausea with vomiting. Abdominal pain is now rated at 2/10 and is manageable on the current regimen of topical duragesic and PRN oxycodone. Clinical exam is notable for weight gain of 5 pounds. Laboratory exam is notable for grade 1 anemia, without other evidence for myelosuppression. Tumor marker CA19-9 is trending down. Assessment; locally advanced pancreatic cancer, surgically unresectable. Malignant neoplasm related pain. Plan; Continue capecitabine 1500 mg orally twice a day, continuous. Radiation therapy per Dr. Lord. Delgado of topical Duragesic. Review of Systems: Constitutional: Denies high fevers, shaking chills, anorexia, nausea, vomiting, weight los s, or night sweats. Appetite without changes. States energy remains low. States after rxtx, he felt extreme nausea w/bouts of emesis. States appetite has been good for the last few days. Ear, Nose, Mouth, Throat: Denies odynophagia or dysphagia. Unchanged tinnitus, lasting for a short time goes away after a few minutes per pt. Cardiovascular: Denies chest pain, palpitations or orthopnea. States dyspnea with any phys ical activity. Respiratory: Denies cough, hemoptysis, or sputum production. Gastrointestinal: Denies constipation, diarrhea, melena, or bright red blood per rectum. Oc casional epigastric pains reported. Genitourinary: Denies hematuria or dysuria. Musculoskeletal: States occasional pain in the knees caused from old sports injuries. Neurologic: Denies headache, visual changes, or numbness/tingling of the extremities. Endocrine: Denies heat/cold intolerance. Slight swelling in the right ankle. Intermittent tingling in the finger tips. Hematologic: Denies spontaneous bruising or bleeding. Integumentary: Denies rash, wounds or other skin concerns. Pain: Mid back pain at a 1/10, abd pain at a 2/10. Pt is currently on regiment for pain bot h fentanyl abd oxycodone, states this is tolerable. Note: Here for tx and labs. My chart: Declined Review of systems as above otherwise negative Scheduled Medications: Current Outpatient Medications Medication Sig [...] Date APPENDECTOMY CATARACT REMOVAL Bilateral 2007 at [facility] CHOLECYSTECTOMY EGD AND COLONOSCOPY ERCP N/A 01/29/2019 Procedure: ERCP; Surgeon: Joaquin Lawson MD; Location: [facility] MAIN OR HERNIA REPAIR inguinal LAPAROSCOPY NASAL SEPTUM SURGERY TONSILLECTOMY torn cartilage Right [facility] Social History Socioeconomic History Marital [...] Pack years: 40.00 Last attempt to quit: 2008 Years since quittin.4 Smokeless tobacco: Never Used Substance and Sexual Activity Alcohol use: No Alcohol/week: 0.0 oz Comment: Drank 12 pk/wk from [id number] Drug use: No Comment: Has used marijauna [...] cancer Cancer Sister breast cancer Objectives: Temp: 37.2 C (99 F) BP: 108/69 Pulse: 83 Resp: 18 SpO2: 98 % on Min/Max Temp past 24 hours:No data recorded No intake or output data in the 24 hours ending 02/26/19 1458 Wt. Admission: Wt. Current: Wt Readings from Last 3 Encounters: 02/19/19 74 kg (163 lb 2.3 oz) 02/17/19 71.7 kg (158 lb 1.1 oz) 02/12/19 73.9 kg (162 lb 14.7 oz) There is no height or weight on file to calculate BMI. Physical Exam: General: The patient is alert [...] Montero., Trace Blancas., Partha Guido., Hedy Brizuela, [place]oac[place] TNaga., Gini KhanT., Yaquelin, P .P.: Toxicity And Response Criteria [...] for ANASTACIO GALVEZ ( ) as of 02/26/2019 14:51 Ref. Range 02/18/2019 13:24 WBC Latest Ref Range: 4.0 - 11.0 K/uL 4.6 RBC COUNT Latest Ref Range: 4.30 - 5.70 M/uL 3.82 (L) Hemoglobin Latest Ref Range: 13.5 - 18.0 g/dL 11.8 (L) Hematocrit Latest Ref Range: 40.0 - 51.0 % 36.2 (L) MCV Latest Ref Range: 83.0 - 101.0 fL 94.8 MCH Latest Ref Range: 28.0 - 35.0 pg 30.9 MCHC Latest Ref Range: 32.0 - 36.0 g/dL 32.6 RDW-CV Latest Ref Range: <15.0 % 16.7 (H) RDW-SD Latest Ref Range: 35.1 - 46.3 fL 57.7 (H) Platelet Count Latest Ref Range: 140 - 440 K/uL 279 MPV Latest Ref Range: 6.5 - 12.4 fL 10.7 % nRBC Latest Ref Range: 0 - 2 per 100 WBCs 0 Absolute nRBC Latest Ref Range: 0.00 - 0.01 K/uL 0.00 Absolute Neutrophils Latest Ref Range: 1.80 - 8.50 K/uL 2.49 Absolute Lymphocytes Latest Ref Range: 0.60 - 3.20 K/uL 1.38 Absolute Monocytes Latest Ref Range: 0.00 - 1.00 K/uL 0.56 Absolute Eosinophils Latest Ref Range: 0.00 - 0.40 K/uL 0.15 Absolute Basophils Latest Ref Range: 0.00 - 0.10 K/uL 0.01 Absolute Immature Granulocytes Latest Ref Range: 0.00 - 0.03 K/uL 0.01 % Neutrophils Latest Ref Range: 45.0 - 82.0 % 54.1 % Lymphocytes Latest Ref Range: 20.0 - 45.0 % 30.0 % Monocytes Latest Ref Range: 4.0 - 12.0 % 12.2 (H) % Eosinophils Latest Ref Range: 0.0 - 5.0 % 3.3 % Basophils Latest Ref Range: 0.0 - 1.0 % 0.2 % Immature Granulocytes Latest Ref Range: 0.0 - 0.4 % 0.2 Na Latest Ref Range: 136 - 145 mmol/L 139 K Latest Ref Range: 3.4 - 5.1 mmol/L 3.8 Chloride Latest Ref Range: 98 - 107 mmol/L 104 Carbon dioxide Latest Ref Range: 20 - 31 mmol/L 30 Anion Gap Latest Ref Range: 3 - 16 mmol/L 5 Glucose Latest Ref Range: 60 - 106 mg/dL 236 (H) BUN Latest Ref Range: 9 - 23 mg/dL 11 Creatinine Latest Ref Range: 0.70 - 1.30 mg/dL 0.79 BUN/Creatinine Ratio Unknown 13.9 Albumin Latest Ref Range: 3.2 - 4.8 g/dL 3.5 Albumin/Globulin Ratio Latest Ref Range: 0.8 - 1.9 1.3 Total Protein Latest Ref Range: 5.7 - 8.2 g/dL 6.2 EGFR IF NOT Latest Ref Range: >=60 mL/min/1.73m2 >60 Calcium Latest Ref Range: 8.7 - 10.4 mg/dL 8.9 ALK PHOS Latest Ref Range: 46 - 116 U/L 312 (H) ALT (SGPT) (REF) Latest Ref Range: 10 - 49 U/L 36 AST (SGOT) (REF) Latest Ref Range: 0 - 34 U/L 34 LDH TOTAL Latest Ref Range: 120 - 246 U/L 171 Bilirubin Total (Calculated) Latest Ref Range: 0.3 - 1.2 mg/dL 2.4 (H) Globulin Latest Ref Range: 2.1 - 3.8 g/dL 2.7 CA 19-9 Latest Ref Range: 0 - 35 U/mL 236 (H) Pharmacovigilance: Palliative Care: Patient's Medications New Prescriptions FENTANYL (DURAGESIC) 25 MCG/HR Apply skin patch every three days with a 100 mcg/hr patc h for 125 mcg/hour Modified Medications No medications on file Discontinued Medications No medications on file Procedure: Logan Castro MD Portions of this chart may have been created with Sensser voice recognition software. Occasi onal wrong-word or sound-alike substitutions may have occurred due to the inherent trejo itations of voice recognition software. Please read the chart carefully and recognize, using context, where these substitutions have occurred. documented in this encounter Plan of Treatment Not on filedocumented as of this encounter Results CA 19-9, Quant (02/26/2019 2:48 PM PDT) [...] + + | Performed at: 01 - [facility] [address], | REFERENCE LAB | | [place], [place] [id number] Labor Arbitrator Hearing Office: Evert Scanlon MD, Phone: | [facility] | | [phone] | | + + + + + + + + | Performing | Address | City/State/Zipcode | Phone Number | | Organization | | | | + + + + + | REFERENCE LAB | [address] | [place] [address] | [phone] | | [facility] | [address] | | | + + + + + Lactate Dehydrogenase (02/26/2019 2:48 PM PDT) + +-------+ + + + | Component | Value | Ref Range | Performed | Pathologist | | | | | At | Signature | + +-------+ + + + | LDH TOTAL | 156 | 120 - 246 U/L | [facility] | | | | | | [facility] [...] [address] | [place] | [phone] | | [facility] | | [address] | | | - LABORATORY | | [...] (L) | 9 - 23 mg/dL | [facility] | | | | | | [facility] | | | | | | MEDICAL | | | | | | CENTER - | | | | | | LABORATORY | | + + + + + + | Creatinine | 0.76 | 0.70 - 1.30 | [place] | | | | | mg/dL | [...] | | MEDICAL | | | | mL/min/1.25t0Luso than | | CENTER - | | [...] 3.5 | 3.2 - 4.8 g/dL | [facility] | | | | | [...] | | bulin Ratio | | | [facility] | | [...] + | [address] | [address] | [place] | [phone] | | [facility] | | [address] | | | - LABORATORY | | [...] | | | Granulocyte | | | [facility] | | | s | | | MEDICAL | | | | | | CENTER - | | | | | | LABORATORY | | + + + + + + | Absolute | 1.85 | 1.80 - 8.50 | [facility] | | | Neutrophils | | K/uL | [facility] | [...] [address] | [place] | [phone] | | [facility] | | [address] | | | - LABORATORY | | | | + + + + + documented in this encounter Visit Diagnoses + + | Diagnosis | + + | Malignant neoplasm of head of pancreas (HCC) - Primary Malignant neoplasm of head of | | pancreas | + + documented in this encounter"
--- OUTSIDE RECORDS SUMMARY | ~2019-08-01 | XMS | Encounter Summary ---
Demographics + + + | Address | [address] | | | [place] [address] | + + + | Home Phone | | + + + | Preferred Language | Unknown | + + + | Marital Status | | + + + | Gnosticist Affiliation | Unknown | + + + | Race | Unknown | + + + | Ethnic Group | Unknown | + + + Author + + + | Author | [facility] | | | and Izaiahana | + + + | Organization | [facility] | | | and [...] Team Providers + +------+ + | Care Birth Attendant Name | Role | Phone | + [...] | [address] [place] | [place] [address] | | | | | [address] | [phone] | | | | | [phone] | | | +--------+ + + + [...]
--- OUTSIDE RECORDS SUMMARY | ~2019-08-01 | XMS | Encounter Summary ---
Demographics + + + | Address | [address] | | | [place] [address] | + + + | Home Phone | | + + + | Preferred Language | Unknown | + + + | Marital Status | | + + + | Church Affiliation | Unknown | + + + | Race | Unknown | + + + | Ethnic Group | Unknown | + + + Author + + + | Author | [facility] | | | and Izaiahana | + + + | Organization | [facility] | | | and Izaiahana [...] Team Providers + +------+ + | Care Veterinarian Laboratory Animal Care Name | Role | Phone | + +------+ + | Garland Caputo MD | PCP | | + +------+ + Reason for Visit Diagnostic/Screening (Routine) +--------+--------+ + + + + | Status | Reason | Specialty | Diagnoses / | Referred By | Referred To | | | | | Procedures | Contact | Contact | +--------+--------+ + + + + | Closed | | Radiology | Diagnoses | [place], | [address] | | | | | Malignant | Rasheed Madrid DO | [address] | | | | | neoplasm of | [address] | [place], | | | | | head of | [address] | [place] [address] | | | | | pancreas | [place], | Phone: | | | | | (HCC) | [place] [address] | [phone] | | | | | Procedures | Phone: | Fax: | | | | | CT Treatment | [phone] | [phone] | | | | | Plan | Fax: | | | | | | Complex CT | [phone] | | | | | | [place] PLAN | | | +--------+--------+ + + + + Encounter Details +--------+ + + + + | Date | Type | Department | Care Team | Description | +--------+ + + + + | 02/04/ | Hospital | [facility] | Rasheed Bello DO | | | 2019 | Encounter | MED CTR [address] | [address] | | | | | [place], | [place], [place] | | | | | [place] [address] | [address] | | | | | [phone] | | | +--------+ + + + [...] | | | or equivalent | | 7204-1943 | + + +---------+ + + + [...] Visit Diagnoses Not on filedocumented in this encounter Administered Medications + +--------+ +--------+------+------+ | Medication Order | MAR | Action | Dose | Rate | Site | | | Action | Date | | | | + +--------+ +--------+------+------+ | iohexol (OMNIPAQUE 350) 350 | Given | 02/05/20 | 85 mLs | | | | mg/mL injection 85 mL 85 mL, | | 19 1:35 | | | | | Intravenous, ONCE PRN, Other, | | PM PDT | | | | | Starting 02/04/19 at 1335, For | | | | | | | 1 dose, Cat Scanner | | | | | | + +--------+ +--------+------+------+ +---+---+ | | | +---+---+ documented in this encounter"
--- OUTSIDE RECORDS SUMMARY | ~2019-08-01 | XMS | Encounter Summary ---
Demographics + + + | Address | [address] | | | [place] [address] | + + + | Home Phone [...] | [facility] | | | and [...] Team Providers + +------+ + | Care Precision Aircraft Systems Assembler Name | Role | Phone | + +------+ + | Garland Caputo MD | PCP | | + +------+ + Encounter Details +--------+ + + + + | Date | Type | Department | Care Team | Description | +--------+ + + + + | 01/19/ | [facility] | [facility] | Rasheed Bello DO | | | 2019 | Encounter | MED CTR RADIATION | [address] | | | | | ONCOLOGY [address] | [place] | | | | | [place], | [address] | | | | | [place] [address] | | | | | | [phone] | | | +--------+ + + + [...] | | | or equivalent | | 8744-2921 | + + +---------+ + + + [...]
--- OUTSIDE RECORDS SUMMARY | ~2019-08-01 | XMS | Encounter Summary ---
Demographics + + + | Address | [address] | | | [place] [address] | + + + | Home Phone | | + + + | Preferred Language | Unknown | + + + | Marital Status | | + + + | Scientology Affiliation | Unknown | + + + | Race | Unknown | + + + | Ethnic Group | Unknown | + + + Author + + + | Author | [facility] | | | and Izaiahana | + + + | Organization | [facility] | | | and zIaiahana | + + + | Address | Unknown | + + + | Phone | Unavailable | + + + Support + + +---------+ + | Name | Relationship | Address | Phone | + + +---------+ + | Elizabeth Hernández | ECON | Unknown | | + + +---------+ + Care Team Providers + +------+ + | Care Bank Courier Name | Role | Phone | + [...] Malignant | Rasheed Madrid DO | [address] [place] | | | | | neoplasm of | [address] | [place], | | | | | head of | [address] | [place] [address] | | | | | pancreas | [place], | Phone: | | | | | (HCC) | [place] [address] | [phone] | | | | | Procedures | Phone: | Fax: | | | | | CT Treatment | [phone] | [phone] | | | | | Plan | Fax: | | | | | | Complex CT | [phone] | | | | | | [place] PLAN | | | +--------+--------+ + + + + Encounter Details +--------+ + + + + | Date | Type | Department | Care Team | Description | +--------+ + + + + | 02/04/ | Hospital | [facility] | Rasheed Bello DO | | | 2019 | Encounter | MED CTR [address] | [address] | | | | | [place], | [place], [place] | | | | | [place] [address] | [address] | | | | | [phone] | | | +--------+ + + + [...] | | | or equivalent | | 8704-9919 | + + +---------+ + + + [...]
--- OUTSIDE RECORDS SUMMARY | ~2019-08-01 | XMS | Encounter Summary ---
Demographics + + + | Address | [address] | | | [place] [address] | + + + | Home Phone | | + + + | Preferred Language | Unknown | + + + | Marital Status | | + + + | Confucianism Affiliation | Unknown | + + + | Race | Unknown | + + + | Ethnic Group | Unknown | + + + Author + + + | Author | [facility] | | | and Izaiahana | + + + | Organization | [facility] | | | and Izaiahana [...] Team Providers + +------+ + | Care Returned Case Inspector Name | Role | Phone | + [...] [place] | | | | | [phone] | [place] [address] | | +--------+ + + + + [...] | US SCROTUM AND | Routin | 03/13/2016 | | Results for this | | TESTICLES | e | 3:55 PM | | procedure are in the | | | | PDT | | results section. | + +--------+ + + + documented in this encounter Results US Scrotum And Testicles (03/13/2016 3:55 PM PDT) + + | Specimen [...]
--- OUTSIDE RECORDS SUMMARY | ~2019-08-01 | XMS | Encounter Summary ---
Demographics + + + | Address | [address] | | | [place] [address] | + + + | Home Phone | | + + + | Preferred Language | Unknown | + + + | Marital Status | | + + + | Methodist Affiliation | Unknown | + + + | Race | Unknown | + + + | Ethnic Group | Unknown | + + + Author + + + | Author | [facility] | | | and Izaiahana | + + + | Organization | [facility] | | | and Izaiahana | [...] Team Providers + +------+ + | Care Head Pumper Name | Role | Phone | + +------+ + | Garland Caputo MD | PCP | | + +------+ + Reason for Referral Diagnostic/Screening (Routine) + +--------+ + + + + | Status | Reason | Specialty | Diagnoses / | Referred By | Referred To | | | | | Procedures | Contact | Contact | + +--------+ + + + + | Pending | | Radiology | Diagnoses | Naima | [facility]ITA | | Review | | | Malignant | Thai | [facility] | | | | | neoplasm of | MD Ramona | [facility] | | | | | pancreas, | [address] | MEDICAL | | | | | unspecified | [address] | CENTER [address] | | | | | location of | [address] | [place] | | | | | malignancy | [place], [place] | [place], | | | | | (HCC) | [address] | [place] [address] | | | | | Procedures | Phone: | Phone: | | | | | CT Chest w | [phone] | [phone] | | | | | Abdomen w wo | Fax: | Fax: | | | | | Pelvis w | [phone] | [phone] | | | | | Cont | | | + +--------+ + + + + Reason for Visit Diagnostic/Screening (Routine) + +--------+ + + + + | Status | Reason | Specialty | Diagnoses / | Referred By | Referred To | | | | | Procedures | Contact | Contact | + +--------+ + + + + | Pending | | Radiology | Diagnoses | Babicky, | [facility] | | Review | | | Malignant | Thai | ÁNGEL | | | | | neoplasm of | MD Ramona | [facility] | | | | | pancreas, | [address] | MEDICAL | | | | | unspecified | [address] | CENTER [address] | | | | | location of | [address] | [place] | | | | | malignancy | [place], [place] | [place], | | | | | (HCC) | [address] | [place] [address] | | | | | Procedures | Phone: | Phone: | | | | | CT Chest w | [phone] | [phone] | | | | | Abdomen w wo | Fax: | Fax: | | | | | Pelvis w | [phone] | [phone] | | | | | Cont | | | + +--------+ + + + + Encounter Details +--------+ + + + + | Date | Type | Department | Care Team | Description | +--------+ + + + + | 06/25/ | Hospital | [facility] | Thai Mcnamara | Malignant neoplasm | | 2019 | Encounter | MED CTR [address] | MD Ramona [address] | of pancreas, | | | | [place], | [address] | unspecified location | | | | [place] [address] | [place], [place] | of malignancy (HCC) | | | | [phone] | [address] | | | | | | [phone] | | | | | | | [...] | | | or equivalent | | 9112-7306 | + + +---------+ + + + [...] +---------+ + + | fentaNYL | Place one patch on | 10 | 0 | // | | | (DURAGESIC) 100 | skin with a 25 mcg | patch | | 19 | | | mcg/hr | patch for 125 mcg | | | | | | | topically every 72 | | | | | | | hrs. | | | | | + + + +---------+ + + | fentaNYL | Apply skin patch | 10 | 0 | 03/23/20 | | | (DURAGESIC) 25 | every three days | patch | | 19 | | | mcg/hr | with a 100 [...] tablet orally | 90 | 0 | 03/23/20 | | | 1 mg tablet | ever four hours as | tablet | | 19 | | | | needed for nausea, | [...] + +--------+ + + + | CT CHEST W ABDOMEN W | Routin | 06/25/2019 | Malignant neoplasm | Results for this | | WO PELVIS W | e | 3:06 PM | of pancreas, | procedure are in the | | CONTRAST | | PDT | unspecified location | results section. | | | | | of malignancy (HCC) | | + +--------+ + + + documented in this encounter Results CT Chest w Abdomen w wo Pelvis w Cont (06/25/2019 3:06 PM PDT) + + | Specimen | + + | | + + + + + | Impressions | Performed At | + + + | Grossly similar size of the pancreatic head neoplasm with extensive | [facility] | | local invasion as detailed above and on prior examinations. | | | Inferior migration of the CBD stent with the majority of the stent now | | | within the duodenum. Mildly worsening enhancement and | | | significant wall thickening along the extrahepatic biliary ducts | | | compatible with neoplastic progression No evidence of new | | | significant lymphadenopathy. Dictated and Signed by: Shon | | | MD Pawel Electronically signed: 06/25/2019 4:21 PM | | + + + + + + | Narrative | Performed At | + + + | CT CHEST W ABDOMEN W WO PELVIS W CONTRAST 06/25/2019 2:55 PM | [facility] | | HISTORY: Malignant neoplasm of pancreas. COMPARISON: 02/05/2019 and | | | 10/31/2018 as well as multiple priors PROTOCOL: Axial images of | | | the chest, abdomen, and pelvis were obtained before and after | | | uneventful administration of 90 mL Omnipaque 350. Coronal and sagittal | | | reformations were acquired. CHEST FINDINGS: Heart is normal in | | | size. No suspicious mediastinal, hilar, or axillary lymphadenopathy. | | | Somewhat of a necrotic appearing 2.1 x 2.0 cm enlarged and apparently | | | centrally necrotic left supraclavicular lymph node which appears new | | | since 2018 (series 7, image 9). Normal caliber of the pulmonary | | | arteries and aorta. Thyroid is unremarkable. No evidence of | | | pneumothorax or pleural effusion. Trachea and central bronchi are | | | patent. Mild centrilobular emphysematous disease. No new or | | | suspicious nodule identified. Small triangular 2.7 mm nodule in the | | | right lower lobe is unchanged. Chest wall soft tissues demonstrate | | | subtle areas of fat stranding without other acute abnormality. No | | | suspicious lytic or blastic lesion within the thoracic spine or rib | | | osseous structures. ABDOMEN FINDINGS: Similar extensive | | | pneumobilia. Mild inferior migration of the CBD stent with a | | | significant portion of the stent now terminating within the duodenum. | | | Extensive paraduodenal soft tissue inflammatory changes. Confluent | | | hypodense/hypoenhancing soft tissue mass is grossly stable in size | | | involving the pancreatic head now measuring up to a maximal diameter | | | of 4.9 x 3.3 cm on single by axial dimension. There appears to be | | | direct invasion/involvement of the second through fourth portions of | | | the duodenum. Pancreatic head mass abuts the inferior superior | | | mesenteric artery without encasement. Mass abuts the inferior aspects | | | and possibly involves superior mesenteric vein and the portal | | | confluence. Mild soft tissue hypodensity once again extends into the | | | carl hepatis which is similar. Mild circumferential enhancing tissue | | | is seen along the extrahepatic common hepatic and common bile ducts | | | which is similar to minimally worsened since prior examination. Mild | | | dilatation of the pancreatic duct. Unremarkable appearance of the | | | spleen. Nodular thickening of the adrenal glands which is chronic and | | | likely benign. No suspicious enhancing lesion involving both kidneys. | | | No evidence of hydronephrosis or hydroureter bilaterally. Portions | | | of the transverse colon are not adequately distended for evaluation | | | but appears normal on prior imaging. Fluid-filled appearance of the | | | small bowel without other suspicious findings. Multilevel | | | degenerative changes of the thoracic and lumbar spine. No | | | convincingly suspicious lytic or blastic lesion identified. | | + + + + + | Procedure Note | + + | Kiko, Rad Results In - 06/25/2019 4:[address] CHEST W ABDOMEN W WO PELVIS W | | CONTRAST 06/25/2019 2:55 PMHISTORY: Malignant neoplasm of pancreas.COMPARISON: 02/05/2019 | | and 10/31/2018 as well as multiple priorsPROTOCOL: Axial images of the chest, abdomen, | | and pelvis were obtained beforeand after uneventful administration of 90 mL Omnipaque | | 350. Coronal and sagittalreformations were acquired.CHEST FINDINGS:Heart is normal in | | size. No suspicious mediastinal, hilar, or axillarylymphadenopathy. Somewhat of a | | necrotic appearing 2.1 x 2.0 cm enlarged andapparently centrally necrotic left | | supraclavicular lymph node which appears newsince 2018 (series 7, image 9). Normal | | caliber of the pulmonary arteries andaorta. Thyroid is unremarkable. No evidence of | | pneumothorax or pleural effusion.Trachea and central bronchi are patent.Mild | | centrilobular emphysematous disease. No new or suspicious noduleidentified. Small | | triangular 2.7 mm nodule in the right lower lobe is unchanged.Chest wall soft tissues | | demonstrate subtle areas of fat stranding without otheracute abnormality. No suspicious | | lytic or blastic lesion within the thoracicspine or rib osseous structures.ABDOMEN | | FINDINGS:Similar extensive pneumobilia. Mild inferior migration of the CBD stent with | | asignificant portion of the stent now terminating within the duodenum. | | Extensiveparaduodenal soft tissue inflammatory changes. Confluent | | hypodense/hypoenhancingsoft tissue mass is grossly stable in size involving the | | pancreatic head nowmeasuring up to a maximal diameter of 4.9 x 3.3 cm on single by axial | | dimension.There appears to be direct invasion/involvement of the second through | | fourthportions of the duodenum. Pancreatic head mass abuts the inferior | | superiormesenteric artery without encasement. Mass abuts the inferior aspects | | andpossibly involves superior mesenteric vein and the portal confluence. Mild softtissue | | hypodensity once again extends into the carl hepatis which is similar.Mild | | circumferential enhancing tissue is seen along the extrahepatic commonhepatic and common | | bile ducts which is similar to minimally worsened since priorexamination. Mild | | dilatation of the pancreatic duct. Unremarkable appearance ofthe spleen. Nodular | | thickening of the adrenal glands which is chronic and likelybenign. No suspicious | | enhancing lesion involving both kidneys. No evidence ofhydronephrosis or hydroureter | | bilaterally. Portions of the transverse colon arenot adequately distended for evaluation | | but appears normal on prior imaging.Fluid-filled appearance of the small bowel without | | other suspicious findings.Multilevel degenerative changes of the thoracic and lumbar | | spine. Noconvincingly suspicious lytic or blastic lesion identified.IMPRESSION: Grossly | | similar size of the pancreatic head neoplasm with extensive localinvasion as detailed | | above and on prior examinations.Inferior migration of the CBD stent with the majority of | | the stent now withinthe duodenum.Mildly worsening enhancement and significant wall | | thickening along theextrahepatic biliary ducts compatible with neoplastic progressionNo | | evidence of new significant lymphadenopathy.Dictated and Signed by: Shon Armas MD | | Electronically signed: 06/25/2019 4:21 PM | |hydronephrosis or hydroureter bilaterally. Portions of the transverse colon are | |not adequately distended for evaluation but appears normal on prior imaging. | |Fluid-filled appearance of the small bowel without other suspicious findings. | | | |Multilevel degenerative changes of the thoracic and lumbar spine. No | |convincingly suspicious lytic or blastic lesion identified. | | | |IMPRESSION: | |Grossly similar size of the pancreatic head neoplasm with extensive local | |invasion as detailed above and on prior examinations. | | | |Inferior migration of the CBD stent with the majority of the stent now within | |the duodenum. | | | |Mildly worsening enhancement and significant wall thickening along the | |extrahepatic biliary ducts compatible with neoplastic progression | | | |No evidence of new significant lymphadenopathy. | | | |Dictated and Signed by: Shon Armas MD | | Electronically signed: 06/25/2019 4:21 PM | + + + +---------+ + + | Performing | Address | City/State/Zipcode | Phone Number | | Organization | | | | + +---------+ + + | [facility] | | | | + +---------+ + + documented in this encounter Visit Diagnoses + + | Diagnosis | + + | Malignant neoplasm of pancreas, unspecified location of malignancy (HCC) | + + documented in this encounter Administered Medications + +--------+ +--------+------+------+ | Medication Order | MAR | Action | Dose | Rate | Site | | | Action | Date | | | | + +--------+ +--------+------+------+ | iohexol (OMNIPAQUE 350) 350 | Given | 06/25/20 | 90 mLs | | | | mg/mL injection 90 mL 90 mL, | | 19 3:00 | | | | | Intravenous, ONCE PRN, Other, for | | PM PDT | | | | | imaging CT study, Starting Alana | | | | | | | 06/25/19 at 1506, For 1 dose, | | | | | | | Radiology | | | | | | + +--------+ +--------+------+------+ +---+---+ | | | +---+---+ documented in this encounter"
--- OUTSIDE RECORDS SUMMARY | ~2019-08-01 | XMS | Encounter Summary ---
Demographics + + + | Address | [address] | | | [place] [address] | + + + | Home Phone | | + + + | Preferred Language | Unknown | + + + | Marital Status | | + + + | Scientology Affiliation | Unknown | + + + | Race | Unknown | + + + | Ethnic Group | Unknown | + + + Author + + + | Author | [facility] | | | and Izaiahana | + + + | Organization | [facility] | | | and [...] Team Providers + +------+ + | Care Automotive Brake Adjuster Name | Role | Phone | + +------+ + | Garland Caputo MD | PCP | | + +------+ + Reason for Visit +---------+ + | Reason | Comments | +---------+ + | Consult | | +---------+ + Evaluate & Treat (Routine) +--------+--------+ + + + + | Status | Reason | Specialty | Diagnoses / | Referred By | Referred To | | | | | Procedures | Contact | Contact | +--------+--------+ + + + + | Closed | | Radiation | Diagnoses | | Rasheed Bello | | | | Oncology | Pancreatic | Gloria, Rebecca [place], DO [address] | | | | | cancer (HCC) | [place], | [address] | | | | | | MD [address] | [place], | | | | | Consult/Panc | [address] | [place] [address] | | | | | reas/[place] | [place], | Phone: | | | | | [address] | [place] [address] | [phone] | | | | | (dates/time | Phone: | Fax: | | | | | ok'd by | [phone] | [phone] | | | | | ) | Fax: | | | | | | Procedures | [phone] | | | | | | AR OFFICE | | | | | | | OUTPATIENT | | | | | | | NEW 60 | | | | | | | MINUTES NEW | | | | | | | PATIENT | | | +--------+--------+ + + + + Encounter Details +--------+ + + + + | Date | Type | Department | Care Team | Description | +--------+ + + + + | 12/25/ | Hospital | [facility] | Rasheed Bello DO | Malignant neoplasm | | 2019 | Encounter | MED CTR RADIATION | [address] | of head of pancreas | | | | [facility]Y CL[facility] [address] | [place], [place] | (HCC) (Primary Dx) | | | | [address] | [address] | | | | | [place] [address] | | | | | | [phone] | | | +--------+ + + + [...] | | | or equivalent | | [phone] | + + +---------+ + + + [...] + + + | Blood Pressure | 140/78 | 12/25/2018 9:47 AM | | | | | PDT | | + + + + + | Pulse | 70 | 12/25/2018 9:47 AM | | | | | PDT | | + + + + + | Temperature | 37.3 C (99.1 F) | 12/25/2018 9:47 AM | | | | | PDT | | + + + + + | Respiratory Rate | 16 | 12/25/2018 9:47 AM | | | | | PDT | | + + + + + | Oxygen Saturation | 95% | 12/25/2018 9:47 AM | | | | | PDT | | + + + + + | Inhaled Oxygen | - | - | | | Concentration | | | | + + + + + | Weight | 85.8 kg (189 lb 2.5 | 12/25/2018 9:47 AM | | | | oz) | PDT | | + + + + + | Height | - | - | | + + + + + | Body Mass Index | 25.65 | 08/11/2018 3:28 PM | | | | | PST | | + + + + + documented in this encounter Discharge Instructions Patient Instructions Rasheed Bello DO - 12/26/2018 11:59 AM PDTFormatting of this note braden ht be different from the original. Radiation Therapy Team Radiation therapy uses high-energy X-rays or particles to kill cancer cells. This therapy c an help you in your fight against cancer. Your radiation therapy team will work with you dur ing your treatment. The team will help you set goals and make a treatment plan. Then they wi ll carry out the treatment. Ask questions when you don t understand what is happening. And let your team know how you re doing. Treatment goals These can include: Curing cancer Killing cancer cells that remain after surgery, chemotherapy, or both Controlling cancer for a period of time Reducing symptoms of cancer, such as pain Treatment plan Your healthcare provider will evaluate you to make a treatment plan. You will be asked abou t your health history. You will be examined. Tests may be performed. Then your healthcare pr ovider and the radiation therapy team can pick the exact treatment site. The team decides th e amount of radiation to be given and the best way to give it. The team also decides the num perez of treatments you ll need. Team members Members of your radiation team include the following: Radiation oncologist. This is a healthcare provider who specializes in using radiation t o treat cancer. He or she leads your radiation treatment and follow-up, working closely with your other healthcare providers. Radiation physicist and cocktail waitress. These people assist with the technical aspects of y our care. They calculate the exact dose of radiation you ll receive. They also help decide the best shape and angles for the treatment beams. Radiation therapist. This person works closely with the radiation oncologist. He or she puts you into position and aligns the machine to make sure the radiation is aimed correctly. Then he or she operates the machine that sends the radiation to the cancer site. Radiation oncology nurse. This nurse answers your questions and gives you information ab out your treatment. He or she also helps you manage side effects. Other healthcare professionals might be part of your team during your treatment as well, bell ch as social workers, patient navigators, dietitians/tooth grinder, dentists, and physical t herapists. Date Last Reviewed: 01/15/201619991606-8166 The [employer]. [address] [place] [address], [place] [address]. All righ ts reserved. This information is not intended as a substitute for professional medical care. Always follow your healthcare professional's instructions. Understanding Radiation Therapy Radiation therapy can help you in your fight against cancer. Radiation therapy uses high-en ergy X-rays or particlesto kill cancer cells. What is cancer? Normally, cells in the body grow and divide the way they should. In some cases, cells larsen e in abnormal ways. They then begin to grow and divide out of control. These are cancer cell s. These cells multiply to form a lump called a tumor. Cancer cells can sometimes spread to other parts of the body, a process called metastasis. How radiation therapy works Radiation destroys cancer cells gradually, over time. The goal of therapy is to focus on an d kill as many cancer cells as possible. Radiation can also damage or kill some of the kyle l cells that are closest to the tumor. But damaged normal cells are more likely to be able t o repair themselves than cancer cells. Types of radiation therapy Different types of radiation therapy can be used to treat cancer. External radiation With external radiation, a machine directs beams of high-energy X-rays or radioactive parti cles at the tumor. The goal of treatment is to kill all of the cancer cells, while affecting few normal cells. The machine can change position so the X-ray beams can enter your body fr om any angle. Newer types of external radiation therapy, such as 3-D conformal radiation the rapy (3D-REGIONAL DIRECTOR OF FINANCE), intensity modulated radiation therapy (IMRT). Stereotactic radiation therapy allows the radiation to be focused more precisely at the tumor. This can help spare nearby n ormal cells. Internal radiation (brachytherapy) With internal radiation, one or more implants are placed in or around the cancer tumor. The implants put the radiation as close to the cancer as possible. This type of radiation trave ls only a short distance. This helps spare nearby normal cells. Implants can be temporary or permanent. Systemic radiation therapy Some types of radiation therapy are given as an injection of tiny particles into a vein (IV ). The particles travel through the blood to reach tumors anywhere in the body. Once they ge t to where they are needed, they give off small amounts of radiation to kill the cancer cell s. Date Last Reviewed: 01/15/201619992005-7513 The [employer]. [address] [place] [address]. All righ ts reserved. This information is not intended as a substitute for professional medical care. Always follow your healthcare professional's instructions. Radiation Therapy Treatment Radiation therapy uses high-energy X-rays to kill cancer cells. Radiation therapy can help you in your fight against cancer. It begins with a session to discuss treatment with your he althcare provider. If you and your provider decide on radiation, you will return for a treat ment planning visit called a simulation. Then you will start treatment. The simulation is a planning session that helps your healthcare provider target your cancer . He or she will design a radiation plan to protect your healthy tissues from radiation. You r radiation therapy team uses a special machine called a simulator to map out your treatment . The simulator isusually an X-ray machine (fluoroscopy), CT scanner, MRI scanner, or PET- CT scannermachine. Laser lights act as guides to help position your body accurately. Sofia combs this visit: The team figures out the best position for your body. They make notesin your chart so you ll be placed the same way each time. They may use special devicesto keep your body correctly positioned and still during tr eatment. These may include molds, masks, rests, and blocks. The team makes ink markson your skin.These will help you get in the same position fo r each treatment. Tiny permanent tattoos may also be used. These tattoos may be removed late r with laser treatments. Markers such as metal balls or wires may be put on or in your body. Sometime these are t aped to the skin to help with the imaging process. These work with the X-rays to position yo ur body. The markers are removed when the visit is over. After the team has the imaging and data, the information is sent into the computer planning system. Your doctor and the team of physicists and dosimetrists design a treatment field. T he field will best target your cancer and how it mightspread.It will alsohelp limit ra diation to nearby normal tissues. Your treatments When the simulation and plan are completed, you will begin your daily treatments. Treatment is usually once daily, Saturday through Saturday, for 5 to 7 weeks. It takes less than 30 minut es. Sometimes you may need radiation twice a day, with about 6 hours between treatments. You may need to change into a hospital gown. The radiation therapist puts you in the correc t position on the treatment table, then leaves the room. Sometimes you may need more imaging before each treatment. The machine may take digital X-rays or a CT scan to help make sure y ou are lined up correctly. During treatment, lie as still as you can and breathe normally. Y ou will hear noises coming from the machine. You can talk to the radiation therapist, who wa tches you from the control room on a TV monitor. After treatment, the therapist will help yo u off the table. You can then get dressed and go back to your normal activities. After treatment After your radiation treatments are done, you will have follow-up appointments. These are t o make sure the cancer is under control. Tell your healthcare team about any side effects fr om the treatment. The team will help you manage them. Date Last Reviewed: 02/14/201819992657-8681 The [employer]. [address] [place] [address], [place] [address]. All righ ts reserved. This information is [...] 0 | 07/24/20 | | | (YAW MENDOZAJORGE L) | the skin Daily. | | | [...] | 240 | 0 | 12/26/19 | 05/30/201 | | TABS | hours as needed [...]
--- OUTSIDE RECORDS SUMMARY | ~2019-08-01 | XMS | Encounter Summary ---
Demographics + + + | Address | [address] | | | [place] [address] | + + + | Home Phone | | + + + | Preferred Language | Unknown | + + + | Marital Status | | + + + | Anabaptist Affiliation | Unknown | + + + | Race | Unknown | + + + | Ethnic Group | Unknown | + + + Author + + + | Author | [facility] | | | and Izaiahana | + + + | Organization | [facility] | | | and Izaiahana [...] Team Providers + +------+ + | Care Lock Corner Machine Operator Name | Role | Phone | + +------+ + | Garland Caputo MD | PCP | | + +------+ + Reason for Referral Evaluate & Treat (Urgent) +--------+ + + + + + | Status | Reason | Specialty | Diagnoses / | Referred By | Referred To | | | | | Procedures | Contact | Contact | +--------+ + + + + + | Closed | Specialty | Gastroenterol | Diagnoses | Bryant, | Renny | | | Services | ogy | Malignant | Stephenie Lopez, | Joaquin Ayala, | | | Required | | neoplasm of | [address] | | | | | head of | [address] | [address] | | | | | pancreas | [place], | | | | | (HCC) | [place] [address] | [place] [address] | | | | | Jaundice | Phone: | Phone: | | | | | | [phone] | [phone] | | | | | | Fax: | Fax: | | | | | | [phone] | [phone] | +--------+ + + + + + Encounter Details +--------+ + + + + | Date | Type | Department | Care Team | Description | +--------+ + + + + | 01/23/ | Orders Only | [facility] | Stephenie Hurtado | Malignant neoplasm | | 2019 | | [facility] | MD Jessica [address] | of head of pancreas | | | | [facility]IN[facility] [address] | [address] [place], [place] | ([facility]); Jaundice | | | | [address] [place] | [address] | | | | | [place] [address] | | | | | | [phone] | | | +--------+ + + + [...] | | | or equivalent | | 9313-8446 | + + +---------+ + + + [...] as of this encounter Plan of Treatment + + +--------+ + + | Name | Type | Priori | Associated Diagnoses | Order Schedule | | | | ty | | | + + +--------+ + + | * [facility] [place] | Outpatient | Routin | Malignant neoplasm | Ordered: 01/23/2019 | | Gastroenterology - | Referral | e | of head of pancreas | | | AMB Referral | | | (HCC) Jaundice | | + + +--------+ + + documented as of this encounter Procedures + +--------+ + + + | Procedure Name | Priori | Date/Time | Associated Diagnosis | Comments | | | ty | | | | + +--------+ + + + | CBC WITH | Routin | 01/23/2019 | Malignant neoplasm | Results for this | | DIFFERENTIAL | e | 4:11 PM | of head of pancreas | procedure are in the | | | | PDT | (HCC) | results section. | + +--------+ + + + | COMPREHENSIVE | Routin | 01/23/2019 | Malignant neoplasm | Results for this | | METABOLIC PANEL | e | 4:11 PM | of head of pancreas | procedure are in the | | | | PDT | (HCC) | results section. | + +--------+ + + + documented in this encounter Results Comprehensive Metabolic Panel (01/23/2019 4:11 PM PDT) [...] (L) | 9 - 23 mg/dL | [facility] | | | | | | [facility] | | | | | | [facility] | | | | | | CENTER - | | | | | | LABORATORY | | + + + + + + | Creatinine | 0.67 (L) | 0.70 - 1.30 | [facility] | | | | | mg/dL | [facility] | | | | | | MEDICAL | | | | | | CENTER - | | | | | | LABORATORY | | + + + + + + | eGFR if not | >60Comment: GLOMERULAR | >=60 | [facility] | | | | FILTRATION | mL/min/1.73m2 | [facility] | | | [facility] | RATE,ESTIMATED | | MEDICAL | | | | mL/min/1.80r0Aisc than | | CENTER - | | [...] | + + + + + | [address] | [address] | [place] | [phone] | | [facility] | | [address] | | | - LABORATORY | | | | + + + + + CBC with Differential (01/23/2019 4:11 PM PDT) [...] + | [facility] | [address] | [place] | [phone] | | [facility] | | [address] | | | - LABORATORY | | | | + + + + + documented in this encounter Visit Diagnoses + + | Diagnosis | + + | Malignant neoplasm of head of pancreas (HCC) Malignant neoplasm of head of pancreas | + + | Jaundice Jaundice, unspecified, not of | + + documented in this encounter"
--- OUTSIDE RECORDS SUMMARY | ~2019-08-01 | XMS | Clinical Summary ---
Demographics + + + | Address | [address] | | | [place] [address] | + + + | Home Phone | | + + + | Preferred Language | Unknown | + + + | Marital Status | | + + + | Restoration Affiliation | Unknown | + + + | Race | Unknown | + + + | Ethnic Group | Unknown | + + + Author + + + | Author | [facility] | | | and Izaiahana | + + + | Organization | [facility] | | | and Izaiahana [...] Team Providers + +------+ + | Care Boot And Shoe Laborer Name | Role | Phone | + +------+ + | Garland Caputo MD | PCP | | + +------+ + Allergies + + + + + + | Active Allergy | Reactions | Severity | Noted | Comments | | | | | Date | | + + + + + + | Penicillins | Rash | Low | 04/12/20 | Mom told me that | | | | | 17 | from when I was a | | | | | | little kid | + + + + + + Medications + + + +---------+------+------+-------+ | Medication | Sig | Dispensed | Refills | Star | End | Statu | | | | | | t | Date | s | | | | | | Date | | | + + + +---------+------+------+-------+ | metFORMIN | Take 1,000 mg by | | 0 | | | Activ | | (GLUCOPHAGE) 500 mg | mouth 2 times daily | | | | | e | | tablet | (with breakfast & | | | | | | | | dinner). | | | | | | + + + +---------+------+------+-------+ | hydrOXYzine | Take 50 mg by mouth | | 0 | 11/0 | | Activ | | (VISTARIL) 50 MG | as needed. | | | 8/20 | | e | | capsule | | | | 18 | | | + + + +---------+------+------+-------+ | tamsulosin | Take 0.4 mg by mouth | | 0 | 11/1 | | Activ | | (FLOMAX) 0.4 mg CAPS | Daily. | | | 02/02 | | e | | | | | | 18 | | | + + + +---------+------+------+-------+ | SENNOSIDES PO | Take 1 tablet by | | 0 | | | Activ | | | mouth as needed. | | | | | e | + + + +---------+------+------+-------+ | ondansetron | Take 1 tablet by | 40 | 3 | 11/2 | | Activ | | (ZOFRAN) 8 MG tablet | mouth every 8 hours | tablet | | 03/05 | | e | | | as needed for | | | 18 | | | | | Nausea. May [...] | nausea | | | | | | + + + +---------+------+------+-------+ | OLANZapine | Take 1 tablet by | | 4 | 03/2 | | Activ | | (ZYPREXA) 5 mg | mouth. 1 tab daily | | | 0/20 | | e | | tablet | for three days after | | | 19 | | | | | chemo | | | | | | + + + +---------+------+------+-------+ | ondansetron | Take 1 tablet by | 12 | 0 | 06/1 | | Activ | | (ZOFRAN ODT) 8 mg | mouth every 8 hours | tablet | | 3/20 | | e | | disintegrating | as needed for | | | 19 | | | | tabletIndications: | Nausea. | | | | | | | Malignant neoplasm | | | | | | | | of head of pancreas | | | | | | | | (HCC) | | | | | | | + + + +---------+------+------+-------+ | oxyCODONE 20 MG | 1-3 tabs every four | 280 | 0 | 06/2 | | Activ | | TABS | hours as needed for | tablet | | 0/20 | | e | | | pain | | | 19 | | | + + + +---------+------+------+-------+ | fentaNYL | Place one patch on | 10 | 0 | 07/0 | | Activ | | (DURAGESIC) 100 | skin with a 25 mcg | patch | | 8/20 | | e | | mcg/hr | patch for 125 mcg | | | 19 | | | | | topically every 72 | | | | | | | | hrs. | | | | | | + + + +---------+------+------+-------+ | fentaNYL | Apply skin patch | 10 | 0 | 07/0 | | Activ | | (DURAGESIC) 25 | every three days | patch | | 8/20 | | e | | mcg/hr | with a 100 mcg/hr | | | 19 | | | | | patch for 125 | | | | | | | | mcg/hour | | | | | | + + + +---------+------+------+-------+ | LORazepam (ATIVAN) | One tablet orally | 90 | 0 | 07/0 | | Activ | | 1 mg tablet | ever four hours as | tablet | | 8/20 | | e | | | needed for nausea, | | | 19 | | | | | anxiety or | | | | | | | | restlessness | | | | | | + + + +---------+------+------+-------+ Active Problems + + + | Problem | Noted Date | + + + | Biliary obstruction | 01/26/2019 | + + + + + | Overview: Added automatically from request for surgery | | [id number] | + + + + + | Migration of biliary stent, subsequent encounter | 01/26/2019 | + + + + + | Overview: Added automatically from request for surgery | | [id number] | + + + + + | Jaundice | 01/23/2019 | + + + | Chronic anxiety | 08/14/2018 | + + + | Inguinal pain | 08/14/2018 | + + + | Malignant neoplasm of head of pancreas | 08/11/2018 | + + + + + | Overview: ACTIVE DIAGNOSIS: Endoscopic stage IIA Pancreatic | | Cancer.1. Presentation with upper abdominal pain which radiated | | to the upper back in a band-like distribution, jaundice and 40 | | pound weight loss.2. CT abdomen/pelvis without contrast on | | June 27, 2018 at [place], [place] demonstrated 5 cm | | pancreatic mass in the uncinate process associated with a 12 mm | | retrocaval lymph node. CA 19-9 is 816.5 (ULN 37).3. Surgical | | Consultation with Thai Mcneil ([facility]) July 03 | | 2017.4. CT chest/abdomen/pelvis with contrast [place], [place]: | | 3.3 cm x 3.7 cm x 5.1 cm mass in the pancreatic head/uncinate | | process. The mass encases a few branches of the superior | | mesenteric artery arising posteriorly and demonstrates slightly | | less than 180 degrees of contact with the SMA. Enlarged 1.1 cm | | lymph node inferior to the mass. 5. EUS, stent (10 mm x 40 mm | | metal) and biopsy July 25, 2018 (Leonel Song, [facility], | | [facility]). Pancreatic/uncinate mass, 4.5 cm close but not | | touching major vessels, without endoscopic evidence ro regional | | lymphadenopathy, pT3, pN0, M0. Specimen # [id number] ([facility] | | [facility], [place], [place]). Fine needle aspiration; | | adenocarcinoma. Biliary brushings; adenocarcinoma. | + + + + + | Malignant neoplasm of head of pancreas | 08/11/2018 | + + + + + | Overview: ACTIVE DIAGNOSIS: Endoscopic stage IIA Pancreatic | | Cancer, deleterious germline PALB2 mutation positive.The patient | | presented with upper abdominal pain which radiated to the upper | | back in a bandlike distribution, jaundice and 40 pound weight | | loss in June 2018.CT scan of the abdomen/pelvis without | | contrast June 27, 2018 at [facility] in [place] | | [place] demonstrated a 5 cm pancreatic mass in the uncinate | | process associated with a 12 mm retro-caval lymph node. Tumor | | marker CA 19-9 was 816.5 units per milliliter (upper limits of | | normal 37 units per milliliter).Surgical consultation with . | | Mami Mcnamara ([facility]) on July 03, 2018.CT of the | | chest/abdomen/pelvis with contrast at [facility] | [facility] onJuly 10, 2018 demonstrated a 3.3 cm x 3.7 | | cm x 5.17 m mass in the pancreatic head/uncinate process. The | | mass encases a few branches of the superior mesenteric artery | | arising posteriorly and demonstrates slightly less than 180 of | | encasement of the superior mesenteric artery proper. Enlarged 1.1 | | cm lymph node inferior to the mass.Endoscopic ultrasound with | | biopsy and stent (10 mm x 40 mm metal ) placement July 25 | | 2017 (Dr. Leonel Song, [place], [place]): | | Pancreatic/uncinate mass, 4.5 cm close to but not touching major | | vessels, without endoscopic evidence of regional lymphadenopathy, | | PT3, PN0, M0 stage IIA. Biopsy specimen # [id number] ([facility] | | [facility], [facility]). Fine-needle | | aspiration; adenocarcinoma. Biliary brushings; | | adenocarcinoma.Neoadjuvant therapy with Abraxane/Gemcitabine on | | August 15, 2018 through October 24, 2018.Deleterious germline | | PALB2 mutation revealed October 09, 2018.Repeat CT abdomen/pelvis | | on October 31, 2018 demonstrated a 60% volumetric reduction in | | pancreatic head mass.Consultation with Dr. Mami Mcnamara, | | [facility] on November 06, 2018; disease remains unresectable, | | continue with chemotherapy.Resume neoadjuvant | | Abraxane/gemcitabine on November 26, 2018.CT abdomen with contrast | | on January 14, 2019; grossly stable appearance of the 2.7 cm | | pancreatic head/uncinate process mass which demonstrates a | | similar degree of superior mesenteric artery and vein abutment | | with persistent encasement of several superior mesenteric artery | | branches. Consultation with Dr. Mami Mcnamara, [facility], | | who determined that the disease still remains unresectable, cross | | over to combined modality radiation + chemotherapy.Cross over to | | capecitabine 1500 mg orally twice a day, continuous, with daily | | radiation therapy, Saturday-Saturday, on February 12, 2019. Last | | Assessment & Plan: Anastacio Hernández returned to clinic on | | 03/23/2019 with his Jamila, for follow up of his locally | | advanced pancreatic cancer, currently at the end of his combined | | modality treatment plan with continuous oral capecitabine and | | external beam radiation.Interval history is notable for the fact | | that Anastacio's last radiation therapy treatment will be | | tomorrow.Review of systems is notable for fatigue, nausea, night | | sweats, dyspnea on exertion, semi-formed stools, joint pain, and | | upper abdominal pain which is rated at 3/10 and relieved with a | | combination of topical fentanyl on a continuous basis and | | oxycodone IR on an as-needed basis.Clinical exam is notable for | | an additional 3 pound weight loss in 1 week, cumulatively 7 | | pounds down in 2 weeks.Laboratory exam is notable for grade 2 | | leukopenia and neutropenia, grade 1 anemia and no | | thrombocytopenia. Both the alkaline phosphatase and the CA 19-9 | | are decreasing incrementally.Assessment: Endoscopic stage IIA | | pancreatic cancer, not amenable to surgery.Plan: Anastacio will | | continue on oral capecitabine 1500 mg twice a day for today and | | tomorrow, then discontinue therapy.He will follow-up with me on | | April 17, 2019 including laboratory evaluation at the [facility] cancer clinic in [facility].In 2 to 3 months we | | will repeat his imaging and if favorable consult with Dr. Mcnamara | | again regarding Anastacio's suitability for surgical resection. | + + + + + | Osteoarthritis of spine with myelopathy, thoracic region | 05/13/2018 | + + + | Type 2 diabetes mellitus | 04/07/2018 | + + + | Hyperlipidemia | 02/07/2018 | + + + | Sensory neuropathy | 07/10/2017 | + + + | Weight loss, abnormal | 02/10/2016 | + + + | Gastroesophageal reflux disease | 12/13/2015 | + + + Encounters +--------+ + + + + | Date | Type | Specialty | Care Team | Description | +--------+ + + + + | 06/25/ | Hospital | Radiology | Thai Mcnamara | Malignant neoplasm | | 2019 | Encounter | | MD Ramona | of pancreas, | | | | | | unspecified location | | | | | | of malignancy (HCC) | +--------+ + + + + | 06/19/ | Transcribed | Lab | Thai Mcnamara | Mass of pancreas | | 2018 | Orders | | MD Ramona | (Primary Dx) | +--------+ + + + + | 05/05/ | Telephone | Oncology | Gloria, | Medication Refill | | 2018 | | | Logan Madrid MD | | +--------+ + + + + from Last 3 Months Immunizations + + + + | Name | Administration Dates | Next Due | + + + + | INFLUENZA PF | 06/09/2015 | | | TRIVALENT(PED/ADOL/A | | | | JOSE RAMON LENNON | | | + + + + Family History + + +------+ + | Medical History | Relation | Name | Comments | + + +------+ + | Cancer | Child | | lymphoma | + + +------+ + | Broken bones | Sister | | | + + +------+ + | Cancer | Sister | | breast cancer | + + +------+ + | Cancer | Sister | | breast cancer | + + +------+ + + +------+--------+ + | Relation | Name | Status | Comments | + +------+--------+ + | Brother | | Alive | | + +------+--------+ + | Child | | | | + +------+--------+ + | Mother | | Alive | | + +------+--------+ + | Sister | | Alive | | + +------+--------+ + | Sister | | | | + +------+--------+ + | Sister | | | | + +------+--------+ + Social History + +-------+ +--------+ + [...] | | | or equivalent | | [phone] | + + +---------+ + + + [...] | + + Last Filed Vital Signs + + + + + | Vital Sign | Reading | Time Taken | Comments | + + + + + | Blood Pressure | 107/70 | 03/23/2019 3:43 PM | | | | | PDT | | + + + + + | Pulse | 88 | 03/23/2019 3:43 PM | | | | | PDT | | + + + + + | Temperature | 37 C (98.6 F) | 03/23/2019 3:43 PM | | | | | PDT | | + + + + + | Respiratory Rate | 16 | 03/23/2019 3:43 PM | | | | | PDT | | + + + + + | Oxygen Saturation | 97% | 03/23/2019 3:43 PM | | | | | PDT | | + + + + + | Inhaled Oxygen | - | - | | | Concentration | | | | + + + + + | Weight | 72.1 kg (158 lb 15.2 | 03/23/2019 3:43 PM | | | | oz) | PDT | | + + + + + | Height | 182.9 cm (6') | 01/29/2019 8:03 AM | | | | | PDT | | + + + + + | Body Mass Index | 21.56 | 01/29/2019 8:03 AM | | | | | PDT | | + + + + + Plan of Treatment + + + + + | Health Maintenance | Due Date | Last Done | Comments | + + + + + | Hepatitis C | | | | | Screening | 1 | | | + + + + + | Diabetic Eye Exam | | | | | | 9 | | | + + + + + | Diabetic Foot Exam | | | | | | 9 | | | + + + + + | Vaccine: | | | | | Dtap/Tdap/Td (1 - | 0 | | | | Tdap) | | | | + + + + + | Colorectal Cancer | | | | | Screening | 1 | | | | (Colonoscopy) | | | | + + + + + | Vaccine: Zoster (1 | | | | | of 2) | 1 | | | + + + + + | Hemoglobin A1c | | 02/11/2016 | | | Screening | 6 | | | + + + + + | Vaccine: | | | | | Pneumococcal 65+ (1 | 6 | | | | of 2 - PCV13) | | | | + + + + + | Adult Annual | | | | | Wellness Visit | 8 | | | + + + + + | Microalbumin | | | | | Screening | 8 | | | + + + + + | Statin Therapy | | | | | (optimal intensity) | 8 | | | + + + + + | Vaccine: Influenza | | 06/09/2015 | | | (#1) | 9 | | | + + + + + | Lung Cancer | | 06/25/2019, 07/10/2018 | | | Screening | 0 | | | + + + + + | AAA Screening | Completed | 10/31/2018, 07/10/2018, | | | | | 06/27/2018, Additional history | | | | | exists | | + + + + + Implants + +-------+------+ +--------+--------+--------+ | Implanted | Type | Area | Manufacture | Device | Shelf | Model | | | | | r | | Expira | / | | | | | | Identi | tion | Serial | | | | | | fier | Date | / Lot | + +-------+------+ +--------+--------+--------+ | Stent Bili Wstnt Uncvr | Stent | | [employer] | | 08/08/ | [id number] | | [id number] - | | | SCIENTIFIC | | 2019 | 640 / | | [id number]: Qty: 1 | | | RAFY - BSCI | | | /[id number] | | on 01/29/2019 by Renny, | | | | | | 280 | | Joaquin Ayala MD at [facility] | | | | | | | | [facility] | | [facility] | | | | | | | + +-------+------+ +--------+--------+--------+ Procedures + +--------+ + + + | [...] | + +--------+ + + + | BUN | Routin | 06/25/2019 | Mass of pancreas | Results for this | | | e | 1:21 PM | | procedure are in the | | | | PDT | | results section. | + +--------+ + + + | CREATININE | Routin | 06/25/2019 | Mass of pancreas | Results for this | | | e | 1:21 PM | | procedure are in the | | | | PDT | | results section. | + +--------+ + + + | IMAGING REPORT - | | 05/08/2019 | | Results for this | | EXTERNAL SCAN | | 12:00 AM | | procedure are in the | | | | PDT | | results section. | + +--------+ + + + from Last [address] Chest w Abdomen w wo [...] + + | Performing | Address | City/State[facility] | Phone Number | | Organization | | | | + +---------+ + + | [facility] | | | | + +---------+ + + BUN (06/25/2019 1:21 PM PDT) [...] + | [facility] | [address] | [place] | [phone] | | [facility] | | [address] | | | - LABORATORY | | | | + + + + + Creatinine (06/25/2019 1:21 PM PDT) + + [...] not | >60Comment: GLOMERULAR | >=60 | [place] | | | | FILTRATION | mL/min/1.73m2 | [facility] | | | [facility] | RATE,ESTIMATED | | MEDICAL | | | | mL/min/1.15x4Oqso than | | CENTER - | | [...] [address] | [place] | [phone] | | [facility] | | [address] | | | - LABORATORY | | | | + + + + + IMAGING REPORT - EXTERNAL SCAN (05/08/2019 12:00 AM PDT) + + + | Narrative | Performed At | + + + | Ordered by an | | | unspecified provider. | | + + + from Last 3 Months Insurance + +--------+ +--------+ +---------+--------+ | Payer | Benefi | Subscriber | Effect | Phone | Address | Type | | | t Plan | ID | marcial | | | | | | / | | Dates | | | | | | Group | | | | | | + +--------+ +--------+ +---------+--------+ | MEDICARE | MEDICA | [id number] | | [phone] | | Medica | | | RE | | 016-Pr | 5 | | re | | | PART A | | esent | | | | | | AND B | | | | | | + +--------+ +--------+ +---------+--------+ + +--------+ +--------+ + + | Guarantor Name | Accoun | Relation to | Date | Phone | Billing Address | | | t Type | Patient | of | | | | | | | | | | + +--------+ +--------+ + + | Anastacio Hernández | Person | Self [birth year] | [address] | | [place] | al/[place]omas[place] | | 1950 | [phone] | [place] | | | [place] | | | [address] (Home) | [phone] | + +--------+ +--------+ + + Advance Directives + + + + + | Type | Date Recorded | Patient | Explanation | | | | Customer Support Analyst | | + + + + + | Power of | | | | | | | | | + + + + + | Advance | 01/29/2019 8:08 | | | | Directive | AM | | | + + + + +"
--- OUTSIDE RECORDS SUMMARY | ~2019-08-01 | XMS | Encounter Summary ---
Demographics + + + | Address | [address] | | | [place] [address] | + + + | Home Phone | | + + + | Preferred Language | Unknown | + + + | Marital Status | | + + + | Adventist Affiliation | Unknown | + + + | Race | Unknown | + + + | Ethnic Group | Unknown | + + + Author + + + | Author | [facility] | | | and Izaiahana | + + + | Organization | [facility] | | | and [...] Team Providers + +------+ + | Care Kennel Staff Member Name | Role | Phone | + [...] [place] | | | | | [phone] | [place] [address] | | +--------+ + + + + [...]
--- OUTSIDE RECORDS SUMMARY | ~2019-08-01 | XMS | Clinical Summary ---
Demographics + + + | Address | [address] | | | [place] [address] | + + + | Home Phone | | + + + | Preferred Language | Unknown | + + + | Marital Status | | + + + | Religion Affiliation | Unknown | + + + | Race | Unknown | + + + | Ethnic Group | Unknown | + + + Author + + + | Author | [facility] [employer] (Historical as of | | | 05-02-19) | + + + | Organization | [facility] [employer] (Historical as of | | | 05-02-19) [...] Team Providers + +------+ + | Care Event Operations Manager Name | Role | Phone | [...] +------+-------+ + | PREMERA | PREMER | [id number] | | | [address] [address] | | | A | [address] | | | [place], [place] | | | [place] | | | | [phone] | | | [address] OF | | [...] [place] | | | [phone] | [phone] | + +--------+ +--------+ + +"
--- OUTSIDE RECORDS SUMMARY | ~2019-08-01 | XMS | Encounter Summary ---
Demographics + + + | Address | [address] | | | [place] [address] | + + + | Home Phone | | + + + | Preferred Language | Unknown | + + + | Marital Status | | + + + | Christianity Affiliation | Unknown | + + + | Race | Unknown | + + + | Ethnic Group | Unknown | + + + Author + + + | Author | [facility] | | | and [place] | + + + | Organization | [facility] | | | and [...] Providers + +------+ + | Care Resource Agent Name | Role | Phone | + +------+ + | Garland Caputo MD | PCP | | + +------+ + Reason for Visit Service/Procedure (Routine) + +--------+ + + + + | Status | Reason | Specialty | Diagnoses / | Referred By | Referred To | | | | | Procedures | Contact | Contact | + +--------+ + + + + | Authorized | | Infusion | Diagnoses | | [facility] | | | | Therapy | Malignant | Gloria, | 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 | [place], | [address] | | | | | head of | MD [address] | [place], | | | | | pancreas | [address], | [place] [address] | | | | | (HCC) | [address] | Phone: | | | | | Procedures | KATTY, | [phone] | | | | | [place] | [place] [address] | Fax: | | | | | DEXAMETHASON | | [phone] | | | | | E SODIUM | | | | | | | PHOS, 1 MG | | | | | | | NH | | | | | | | DIPHENHYDRAM | | | | | | | INE HCL | | | | | | | INJECTIO, 50 | | | | | | | MG NH | | | | | | | PACLITAXEL | | | | | | | PROTEIN | | | | | | | BOUND, 1 MG | | | | | | | NH | | | | | | | GEMCITABINE | | | | | | | HCL | | | | | | | INJECTION, | | | | | | | 200 MG NH | | | | | | | NORMAL | | | | | | | SALINE | | | | | | | SOLUTION | | | | | | | INFUS, 500 | | | | | | | ML NH | | | | | | | NORMAL | | | | | | | SALINE | | | | | | | SOLUTION | | | | | | | INFUS, 250 | | | | | | | ML NH | | | | | | | STERILE | | | | | | | WATER/SALINE | | | | | | | , 10 ML NH | | | | | | | CHEMOTHER, | | | | | | | IV PUSH,EA | | | | | | | ADD DRUG NH | | | | | | | CHEMOTHER, | | | | | | | IV INFUSION, | | | | | | | 1 HR NH | | | | | | | CHEMOTHER, | | | | | | | IV INFUSION, | | | | | | | EA HR NH | | | | | | | CHEMOTHER,NO | | | | | | | N-HORMONE | | | | | | | ANTI-NEOPL, | | | | | | | SUB-Q/IM NH | | | | | | | CHEMOTHER | | | | | | | HORMON | | | | | | | ANTINEOPL | | | | | | | SUB-Q/IM NH | | | | | | | ADRENALIN | | | | | | | EPINEPHRINE | | | | | | | INJECT, .1 | | | | | | | MG NH | | | | | | | METHYLPREDNI | | | | | | | SOLONE | | | | | | | INJECTION, | | | | | | | 125 MG NH | | | | | | | ALBUTEROL | | | | | | | COMP CON, 1 | | | | | | | MG NH | | | | | | | ALBUTEROL | | | | | | | NON-COMP | | | | | | | CON, 1 MG | | | | | | | NH | | | | | | | INJECTION, | | | | | | | FAMOTIDINE, | | | | | | | 20 MG | | | + +--------+ + + + + Encounter Details +--------+ + + + + | Date | Type | Department | Care Team | Description | +--------+ + + + + | 12/25/ | Hospital | [facility] | Gloria, | 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 | | [...] + documented as of this encounter Progress Valeria Sun RN - 12/25/2018 9:25 AM PDTViewed chart for weight, vital signs and lab r esults. Also viewed chart for completion of medication and allergy review prior to treatmen t.Valeria Javed RN DATE/TIME: 12/25/2018 9:25 documented in this en counter Plan of [...] | | | + +--------+ +--------+------+------+ | acetaminophen (TYLENOL) tablet | Given | 12/26/19 | 650 mg | | | | 650 mg 650 mg, Oral, ONCE, Alana | | 19 9:39 | | | | | 12/25/18 at 0945, For 1 dose | | AM PDT | | | | + +--------+ +--------+------+------+ +---+---+ | | | +---+---+ + +-------+ +-------+---+---+ | diphenhydrAMINE (BENADRYL) | Given | 12/26/19 | 25 mg | | | | injection 25 mg 25 mg, | | 19 9:39 | | | | | Intravenous, ONCE, Alana 12/25/18 at | | AM PDT | | | | | 0945, For 1 dose | | | | | | + +-------+ +-------+---+---+ +---+---+ | | | +---+---+ + + + + +-------+---+ | gemcitabine (GEMZAR) 2,000 mg | Restarte | 12/26/19 | 2,000 mg | 500 | | | in sodium chloride 0.9% 197.4 mL | d | 19 11:44 | | mL/hr | | | infusion 2,000 mg, Intravenous, | | AM PDT | | | | | Administer over 30 Minutes, ONCE, | | | | | | | Alana 12/25/18 at 1015, For 1 dose, | | | | | | | 1000 mg/m2= 1980 mg; rounded to | | | | | | | 2000 mg per rounding protocol | | | | | | | Chemotherapy: Use appropriate | | | | | | | handling precautions. Do not | | | | | | | refrigerate., | | | | | | + + + + +-------+---+ +---------+ + +-------+---+ | New Bag | 12/26/19 | 2,000 mg | 500 | | | | 19 10:56 | | mL/hr | | | | AM PDT | | | | +---------+ + +-------+---+ +---+---+ | | | +---+---+ + +-------+ +------+---+---+ | ondansetron (ZOFRAN ODT) | Given | 12/26/19 | 8 mg | | | | disintegrating tablet 8 mg 8 mg, | | 19 9:39 | | | | | Oral, ONCE, [facility] 12/25/18 at 0945, | | AM PDT | | | | | For 1 dose | | | | | | + +-------+ +------+---+---+ +---+---+ | | | +---+---+ + +---------+ +--------+ +---+ | PACLitaxel (protein bound) | New Bag | 12/26/19 | 200 mg | 80 mL/hr | | | (ABRAXANE) 200 mg in 40 mL | | 19 10:20 | | | | | infusion 200 mg (rounded from | | AM PDT | | | | | 198 mg = 100 mg/m2 | | | | | | | 1.98 m2 Order-specific BSA), | | | | | | | Intravenous, Administer over 30 | | | | | | | Minutes, ONCE, [facility] 12/25/18 at | | | | | | | 1000, For 1 dose, Chemotherapy: | | | | | | | Use appropriate handling | | | | | | | precautions. Do not filter., | | | | | | + +---------+ +--------+ +---+ +---+---+ | | | +---+---+ documented in this encounter"
--- OUTSIDE RECORDS SUMMARY | ~2019-08-01 | XMS | Encounter Summary ---
Demographics + + + | Address | [address] | | | [place] [address] | + + + | Home Phone [...] | Organization | [facility] | | | and [place]za[place]ana [...] Team Providers + +------+ + | Care Workshop Manager Name | Role | Phone | + +------+ + | Garland Caputo MD | PCP | | + +------+ + Encounter Details +--------+ + + + + | Date | Type | Department | Care Team | Description | +--------+ + + + + | 02/17/ | Emergency | [facility] | Alejandro Sandoval | Chronic generalized | | 2016 - | | [facility] | MD Jose Nolen | abdominal pain; | | | | [facility] | BRADLY SIX MILE RUNRICKI | Chronic pain in | | 02/18/ | | [address] | [address] | testicle | | 2015 | | C[place], [place] | [phone] | | | | | [address] | | | | | | [phone] | | | +--------+ + + + [...] | Blood Pressure | 135/79 | 02/18/2016 11:42 PM | | | | | PDT | | + + + + + | Pulse | 69 | 02/18/2016 11:42 PM | | | | | PDT | | + + + + + | Temperature | 36.2 C (97.2 F) | 02/18/2016 11:42 PM | | | | | PDT | | + + + + + | Respiratory Rate | 18 | 02/18/2016 11:42 PM | | | | | PDT | | + + + + + | Oxygen Saturation | - | - | | + + + + + | Inhaled Oxygen | - | - | | | Concentration | | | | + + + + + | Weight | 90.8 kg (200 lb 2.9 | 02/18/2016 11:42 PM | | | | oz) | PDT | | + + + + + | Height | - | - | | + + + + + | Body Mass Index | - | - | | + + + + + documented in this encounter Plan of Treatment Not on filedocumented as of this encounter Procedures + +--------+ + + + | Procedure Name | Priori | Date/Time | Associated Diagnosis | Comments | | | ty | | | | + +--------+ + + + | GC/CHLAM APTIMA | Routin | 02/19/2016 | | Results for this | | | e | 12:27 AM | | procedure are in the | | | | PDT | | results section. | + +--------+ + + + | URINALYSIS, REFLEX | Routin | 02/18/2016 | | Results for this | | MICROSCOPIC AND/OR | e | 11:29 PM | | procedure are in the | | CULTURE | | PDT | | results section. | + +--------+ + + + | EXTERNAL LAB: CBC | Routin | 02/18/2016 | | Results for this | | | e | 12:07 AM | | procedure are in the | | | | PDT | | results section. | + +--------+ + + + | C-REACTIVE PROTEIN | Routin | 02/18/2016 | | Results for this | | | e | 12:07 AM | | procedure are in the | | | | PDT | | results section. | + +--------+ + + + | LIPASE | Routin | 02/18/2016 | | Results for this | | | e | 12:07 AM | | procedure are in the | | | | PDT | | results section. | + +--------+ + + + | COMPREHENSIVE | Routin | 02/18/2016 | | Results for this | | METABOLIC PANEL | e | 12:07 AM | | procedure are in the | | | | PDT | | results section. | + +--------+ + + + documented in this encounter Results GC/Janiceam Shruthiima (02/19/2016 12:27 AM PDT) + + + + + + | Component | Value | Ref Range | Performed | Pathologist | | | | | At | Signature | + + + + + + | Source | URINEComment: Testing | | EXTERNAL | | | | performed at [facility];[address] | | LAB | | | | [address];[place] | | | | | | [address] | | | | + + + + + + | Chlamydia | Not DetectedComment: | | EXTERNAL | | | Trachomatis | Testing performed at | | LAB | | | [facility] | [facility], [address] | | | | | | [place] | | | | | | [address] | | | | + + + + + + | Result | Not DetectedComment: | | EXTERNAL | | | | Testing performed at | | LAB | | | | TCL, [address] | | | | | | [place] | | | | | | [address] | | | | + + + + + + + + | Specimen | + + | Urine specimen | | (specimen) | + + + +---------+ + + | Performing | Address | City/State/Zipcode | Phone Number | | Organization | | | | + +---------+ + + | EXTERNAL LAB | | | | + +---------+ + + Urinalysis, Reflex Microscopic and/or Culture (02/18/2016 11:29 PM PDT) + + + + + + | Component | Value | Ref Range | Performed | Pathologist | | | | | At | Signature | + + + + + + | Color | YELLOWComment: Testing | | EXTERNAL | | | | performed at [facility];[address] | | LAB | | | [address];[place] | | | | | | [address] | | | | + + + + + + | Clarity | CLEARComment: Testing | | EXTERNAL | | | | performed at [facility];[address] | | LAB | | | | [address];[place] | | | | | | [address] | | | | + + + + + + | Specific | 1.016Comment: Testing | 1.002 - 1.030 | EXTERNAL | | | [place] | performed at [facility];[address] | | LAB | | | | [address];[place] | | | | | | [address] | | | | + + + + + + | Leukocyte | NEGATIVEComment: Testing | | EXTERNAL | | | Esterase, | performed at [facility];[address] | | LAB | | | Urine | [address];[place] | | | | | | [address] | | | | + + + + + + | Nitrite, | NEGATIVEComment: Testing | | EXTERNAL | | | Urine | performed at [facility];[address] | | LAB | | | | [address];[place] | | | | | | [address] | | | | + + + + + + | Urobilinoge | NORMALComment: Testing | mg/dL | EXTERNAL | | | n, Urine | performed at [facility];[address] | | LAB | | | | [address];[place] | | | | | | [address] | | | | + + + + + + | Protein, | NEGATIVEComment: Testing | mg/dL | EXTERNAL | | | Urine | performed at [facility];[address] | | LAB | | | | [address];[place] | | | | | | [address] | | | | + + + + + + | pH, Urine | 7.0Comment: Testing | 5.0 - 8.0 | EXTERNAL | | | | performed at [facility];[address] | | LAB | | | | [address];[place] | | | | | | [address] | | | | + + + + + + | Blood, | NEGATIVEComment: Testing | | EXTERNAL | | | Urine | performed at [facility];[address] | | LAB | | | | [address];[place] | | | | | | [address] | | | | + + + + + + | Ketones | NEGATIVEComment: Testing | mg/dL | EXTERNAL | | | | performed at [facility];[address] | | LAB | | | | [address];[place] | | | | | | [address] | | | | + + + + + + | Bilirubin, | NEGATIVEComment: Testing | | EXTERNAL | | | Urine | performed at [facility];[address] | | LAB | | | | [address];[place] | | | | | | [address] | | | | + + + + + + | Glucose, | NEGATIVEComment: Testing | mg/dL | EXTERNAL | | | Urine | performed at [facility];[address] | | LAB | | | | [address];[place] | | | | | | [address] | | | | + + + + + + + + | Specimen | + + | | + + + +---------+ + + | Performing | Address | City/State/Zipcode | Phone Number | | Organization | | | | + +---------+ + + | EXTERNAL LAB | | | | + +---------+ + + External Lab: CBC (02/18/2016 12:07 AM PDT) + + + + + + | Component | Value | Ref Range | Performed | Pathologist | | | | | At | Signature | + + + + + + | WBC | 6.66Comment: Testing | 3.80 - 11.00 | EXTERNAL | | | | performed at [facility];[address] | K/uL | LAB | | | | [address];[place] | | | | | | [address] | | | | + + + + + + | RED CELL | 4.93Comment: Testing | 4.20 - 5.70 | EXTERNAL | | | COUNT | performed at [facility];[address] | M/uL | LAB | | | | [address];[place] | | | | | | [address] | | | | + + + + + + | Hgb | 15.0Comment: Testing | 13.2 - 17.0 | EXTERNAL | | | | performed at [facility];[address] | g/dL | LAB | | | | [address];[place] | | | | | | [address] | | | | + + + + + + | Hematocrit, | 44.8Comment: Testing | 39.0 - 50.0 % | EXTERNAL | | | POC | performed at [facility];[address] | | LAB | | | | [address];[place] | | | | | | [address] | | | | + + + + + + | MCV | 90.9Comment: Testing | 80.0 - 100.0 fl | EXTERNAL | | | | performed at [facility];[address] | | LAB | | | | [address];[place] | | | | | | [address] | | | | + + + + + + | MCH | 30.4Comment: Testing | 27.0 - 34.0 pg | EXTERNAL | | | | performed at [facility];[address] | | LAB | | | | [address];[place] | | | | | | [address] | | | | + + + + + + | MCHC | 33.5Comment: Testing | 32.0 - 35.5 | EXTERNAL | | | | performed at [facility];[address] | g/dL | LAB | | | | [address];[place] | | | | | | [address] | | | | + + + + + + | RDW-CV | 42.9Comment: Testing | 37 - 53 fl | EXTERNAL | | | | performed at [facility];[address] | | LAB | | | | [address];[place] | | | | | | [address] | | | | + + + + + + | Platelet | 219Comment: Testing | 150 - 400 K/uL | EXTERNAL | | | Count | performed at [facility];[address] | | LAB | | | Plasma | [address];[place] | | | | | | [address] | | | | + + + + + + | MPV | 8.3Comment: Testing | fl | EXTERNAL | | | | performed at [facility];[address] | | LAB | | | | [address];[place] | | | | | | [address] | | | | + + + + + + | Differentia | AUTOMATEDComment: | | EXTERNAL | | | l Type | Testing performed at | | LAB | | | | [facility];[address] | [address];[place] [address] | | | | + + + + + + | % Segmented | 49.93Comment: Testing | % | EXTERNAL | | | | performed at [facility];[address] | | LAB | | | Neutrophils | [address];[place] | | | | | | [address] | | | | + + + + + + | % | 39.72Comment: Testing | % | EXTERNAL | | | Lymphocytes | performed at [facility];[address] | | LAB | | | | [address];[place] | | | | | | [address] | | | | + + + + + + | % Monocytes | 9.25Comment: Testing | % | EXTERNAL | | | | performed at [facility];[address] | | LAB | | | | [address];[place] | | | | | | [address] | | | | + + + + + + | % | 0.72Comment: Testing | % | EXTERNAL | | | Eosinophils | performed at [facility];[address] | | LAB | | | | [address];[place] | | | | | | [address] | | | | + + + + + + | % Basophils | 0.38Comment: Testing | % | EXTERNAL | | | | performed at [facility];[address] | | LAB | | | | [address];[place] | | | | | | [address] | | | | + + + + + + | Absolute | 3.32Comment: Testing | 1.90 - 7.40 | EXTERNAL | | | Segmented | performed at [facility];[address] | K/uL | LAB | | | Neutrophils | [address];[place] | | | | | | [address] | | | | + + + + + + | Absolute | 2.64Comment: Testing | 1.00 - 3.90 | EXTERNAL | | | Lymphocytes | performed at [facility];[address] | K/uL | LAB | | | | [address];[place] | | | | | | [address] | | | | + + + + + + | Absolute | 0.62Comment: Testing | 0.00 - 0.80 | EXTERNAL | | | Monocytes | performed at [facility];[address] | K/uL | LAB | | | | [address];[place] | | | | | | [address] | | | | + + + + + + | Absolute | 0.05Comment: Testing | 0.00 - 0.50 | EXTERNAL | | | Eosinophils | performed at [facility];[address] | K/uL | LAB | | | | [address] | | | | | | [address] | | | | + + + + + + | Absolute | 0.03Comment: Testing | 0.00 - 0.10 | EXTERNAL | | | Basophils | performed at [facility];[address] | K/uL | LAB | | | | [address] | | | | | | [address] | | | | + + + + + + + + | Specimen | + + | Blood specimen | | (specimen) | + + + +---------+ + + | Performing | Address | City/State/Zipcode | Phone Number | | Organization | | | | + +---------+ + + | EXTERNAL LAB | | | | + +---------+ + + C-Reactive Protein (02/18/2016 12:07 AM PDT) + + + + + + | Component | Value | Ref Range | Performed | Pathologist | | | | | At | Signature | + + + + + + | CRP | <0.3Comment: Testing | mg/dL | EXTERNAL | | | | performed at [facility];[address] | | LAB | | | | [address];[place], [place] | | | | | | [address] | | | | + + + + + + + + | Specimen | + + | Blood specimen | | (specimen) | + + + +---------+ + + | Performing | Address | City/State/Zipcode | Phone Number | | Organization | | | | + +---------+ + + | EXTERNAL LAB | | | | + +---------+ + + Lipase (02/18/2016 12:07 AM PDT) + + + + + + | Component | Value | Ref Range | Performed | Pathologist | | | | | At | Signature | + + + + + + | Lipase | 222Comment: Testing | 73 - 393 U/L | EXTERNAL | | | | performed at [facility];[address] | | LAB | | | | [address];[place] | | | | | | [address] | | | | + + + + + + + + | Specimen | + + | Blood specimen | | (specimen) | + + + +---------+ + + | Performing | Address | City/State/Zipcode | Phone Number | | Organization | | | | + +---------+ + + | EXTERNAL LAB | | | | + +---------+ + + Comprehensive Metabolic Panel (02/18/2016 12:07 AM PDT) + + + + + + | Component | Value | Ref Range | Performed | Pathologist | | | | | At | Signature | + + + + + + | Na | 140Comment: Testing | 135 - 143 | EXTERNAL | | | | performed at [facility];[address] | mmol/L | LAB | | | | [address];[place] | | | | | | [address] | | | | + + + + + + | K | 3.9Comment: Testing | 3.5 - 4.9 | EXTERNAL | | | | performed at [facility];[address] | mmol/L | LAB | | | | [address] | | | | | | [address] | | | | + + + + + + | Cl | 106Comment: Testing | 99 - 109 mmol/L | EXTERNAL | | | | performed at [facility];[address] | | LAB | | | | [address] | | | | | | [address] | | | | + + + + + + | CO2 | 29Comment: Testing | 23 - 32 mmol/L | EXTERNAL | | | | performed at [facility];[address] | | LAB | | | | [address] | | | | | | [address] | | | | + + + + + + | Anion Gap | 8Comment: Testing | 5 - 20 mmol/L | EXTERNAL | | | | performed at [facility];[address] | | LAB | | | | [address];[place] | | | | | | [address] | | | | + + + + + + | Glucose, | 109 (H)Comment: Testing | 65 - 99 mg/dL | EXTERNAL | | | Fasting | performed at [facility];[address] | | LAB | | | | [address];[place] | | | | | | [address] | | | | + + + + + + | BUN | 16Comment: Testing | 8 - 25 mg/dL | EXTERNAL | | | | performed at [facility];[address] | | LAB | | | | [address];[place] | | | | | | [address] | | | | + + + + + + | Creatinine | 0.98Comment: Testing | 0.70 - 1.30 | EXTERNAL | | | | performed at [facility];[address] | mg/dL | LAB | | | | [address];[place] | | | | | | [address] | | | | + + + + + + | BUN/Creatin | 16Comment: Testing | | EXTERNAL | | | ine Ratio | performed at [facility];[address] | | LAB | | | | [address];[place] | | | | | | [address] | | | | + + + + + + | Calcium | 8.4 (L)Comment: Testing | 8.5 - 10.5 | EXTERNAL | | | | performed at [facility];[address] | mg/dL | LAB | | | | [address];[place] | | | | | | [address] | | | | + + + + + + | Protein, | 6.9Comment: Testing | 6.3 - 8.2 g/dL | EXTERNAL | | | Total | performed at [facility];[address] | | LAB | | | | [address] | | | | | | [address] | | | | + + + + + + | Albumin | 3.5Comment: Testing | 3.3 - 4.8 g/dL | EXTERNAL | | | | performed at [facility];[address] | | LAB | | | | [address] | | | | | | [address] | | | | + + + + + + | Globulin | 3.4Comment: Testing | 1.3 - 4.9 g/dL | EXTERNAL | | | | performed at [facility];[address] | | LAB | | | | [address] | | | | | | [address] | | | | + + + + + + | A/G Ratio | 1.0Comment: Testing | 1.0 - 2.4 | EXTERNAL | | | | performed at [facility];[address] | | LAB | | | | [address] | | | | | | [address] | | | | + + + + + + | Bilirubin | 0.4Comment: Testing | 0.1 - 1.5 mg/dL | EXTERNAL | | | Total | performed at [facility];[address] | | LAB | | | | [address] | | | | | | [address] | | | | + + + + + + | ALP, | 61Comment: Testing | 35 - 115 U/L | EXTERNAL | | | External | performed at [facility];[address] | | LAB | | | [address];[place] | | | | | | [address] | | | | + + + + + + | AST | 14Comment: Testing | 10 - 45 U/L | EXTERNAL | | | | performed at [facility];[address] | | LAB | | | [address];[place] | | | | | | [id number] | | | | + + + + + + | ALT | 23Comment: Testing | 10 - 65 U/L | EXTERNAL | | | | performed at [facility];[address] | | LAB | | | | [facility];[place] | | | | | | [address] | | | | + + + + + + | Estimated | >60Comment: GFR <60: | mL/min/1.73m2 | EXTERNAL | | | GFR | CHRONIC KIDNEY DISEASE, | | LAB | | | | IF FOUND OVER A 3 MONTH | | | | | | PERIOD.GFR <15: KIDNEY | | | | | | FAILURE.FOR | | | | | | AMERICANS, MULTIPLY THE | | | | | | CALCULATED GFR BY | | | | | | 1.210.Testing performed | | | | | | at [facility];[address] [place] [address] | | | | | | [place] [id number] | | | | + + + + + + + + | Specimen | + + | Blood specimen | | (specimen) | + + + +---------+ + + | Performing | Address | City/State/Zipcode | Phone Number | | Organization | | | | + +---------+ + + | EXTERNAL LAB | | | | + +---------+ + + documented in this encounter Visit Diagnoses + + | Diagnosis | + + | Chronic generalized abdominal pain Abdominal pain, generalized | + + | Chronic pain in testicle Unspecified disorder of male genital organs | + + documented in this encounter"
--- OUTSIDE RECORDS SUMMARY | ~2019-08-01 | XMS | Encounter Summary ---
Demographics + + + | Address | [address] | | | [place] [address] | + + + | Home Phone | | + + + | Preferred Language | Unknown | + + + | Marital Status | | + + + | Gnosticism Affiliation | Unknown | + + + | Race | Unknown | + + + | Ethnic Group | Unknown | + + + Author + + + | Author | [facility] | | | and Izaiahana | + + + | Organization | [facility] | | [...] Team Providers + +------+ + | Care Lockstitch Waistline Joiner Name | Role | Phone | + [...] | | | stent, | | [place] [address] | | | | | subsequent | | Phone: | | | | | encounter | | [phone] | | | | | Procedures | | Fax: | | | | | [place] | | [phone] | | | | | ESOPHAGOSCOP | | | | | | | Y FLEXIBLE | | | | | | | GUIDE WIRE | | | | | | | DILATION [place] | | | | | | | ERCP DX | | | | | | | COLLECTION | | | | | | | SPECIMEN | | | | | | | BRUSHING/WAS | | | | | | | GERI [place] | | | | | | | [...] + + | 01/29/ | Hospital | [facility] | Joaquin Alamo | Biliary obstruction; | | 2019 | Encounter | [facility] | MD Jamie [address] | Migration of | | | | [address] | [address] [place] | biliary stent, | | | | [place], [place] | [place] [address] | subsequent | | | | [address] | [phone] | encounter; Malignant | | | | [phone] | | neoplasm of head of | | | | | | pancreas (HCC); | | | | | | Jaundice | +--------+ + + + + Social [...] | | | or equivalent | | [phone] | + + +---------+ + + + [...] You can't be awakened Date Last Reviewed: 07/03/201619995331-38[address] [employer] [place] [address], [place] [id number]. All righ ts reserved. This information is [...] This includes: ? All prescription medicines ? Iqoc-jjv-fdegcif medicines that don t need a prescription [...] infection or torn bowel. Date Last Reviewed: 06/16/201719990239-1183 [employer]. [address] [place] [address]. All righ ts reserved. This information is [...] + | Kiko, Rad Results In - 01/29/2019 1:14 PM PDT [...] | [facility] | | GastroenterologyPatient Name: Anastacio HernándezProcedure Date: 01/29/2019 | [facility] | | 9:39 AMMRN: [id number] #: [id number] of : | | | 1Admit Type: AmbulatoryAge: 68[facility]: [facility] 05Gender: MaleNote | | | Status: FinalizedAttending MD: EDY CHENrocedure: | | | ERCPIndications: Jaundice, Elevated bilirubin, | | | Malignant tumor of the head of pancreas, | | | dislodged biliary stentProviders: JOAQUIN ALAMO MD, | | | Aimee Reece RN, Beau Avila RN, | | | Olimpia Jimenez, Willower, Alec | | | MD Chivo (Anesthesia Staff)Referring MD: Rasheed Bello | | | (Referring MD)Medicines: General Anesthesia, Indomethacin | | | 100 mg [place], Cipro 400 mg IVComplications: No immediate | [...] the procedure | | | well.Findings: A plastic tubing insulation supervisor film of the abdomen was obtained. | | | Surgical clips, consistent with a previous cholecystectomy, | | | were seen in the area of the right upper quadrant of the | | | abdomen. There was no biliary stent on the plastic tubing insulation supervisor film. The | | | esophagus was [...] AMScope Out: 10:20:59 | | | AM [facility], [address] [facility] | | | [place] [address] | | | - Return to referring [...] |Scope Out: 10:20:59 AM | | | [facility], [address] [facility], [place], [place] | | | [address] | | + + -+ + +---------+ + + | Performing | Address | City/State[facility] | Phone Number | | Organization | | | | + +---------+ + + | [facility] | | | | + +---------+ + + Protime INR (01/29/2019 8:30 AM PDT) + + + + + + | Component | Value | Ref Range | Performed | Pathologist | | | | | At | Signature | + + + + + + | Prothrombin | 14.1 (H) | 11.3 - 13.9 | [facility] | | | Time | | seconds | [facility] | | | | | | MEDICAL [...] ST. | [address] | [place], [place] | [phone] | | [facility] | | [address] | | | - LABORATORY | | [...] | | | | | mg/dL | [facility] | | | | | | MEDICAL | | | | | | CENTER - | | | | | | LABORATORY | | + + + + + + | eGFR if not | >60Comment: GLOMERULAR | >=60 | [facility] | | | | FILTRATION | mL/min/1.73m2 | [facility] | | | JORDANIAN | RATE,ESTIMATED | | MEDICAL | | | | mL/min/1.70p1Nhel than | | CENTER - | | [...] | | | | | mg/dL | [facility] | | | | | | MEDICAL [...] | | Total | | | [facility] | | | | | | MEDICAL [...] + | [facility] | [address] | [place] | [phone] | | [facility] | | [address] | | | - LABORATORY | | | | + + + + + CBC no Differential (01/29/2019 8:30 AM PDT) + + + + + + | Component | Value | Ref Range | Performed | Pathologist | | | | | At | Signature | + + + + + + | WBC | 9.5 | 4.0 - 11.0 K/uL | [facility] [...] ST. | [address] | [place] | [phone] | | [facility] | | [address] | | | - LABORATORY | | | | + + + + + documented in this encounter Visit Diagnoses + + | Diagnosis | + + | Biliary obstruction Obstruction of bile duct | + + | Migration of biliary stent, subsequent encounter | + + | Malignant neoplasm of head of pancreas (HCC) Malignant neoplasm of head of pancreas | + + | Jaundice Jaundice, unspecified, not of | + + documented in this encounter [...] ONCE PRN, | | | Wheezing, Starting [facility] 01/29/19 at | | | 0815, For 1 dose, Pre-op | | + +---+ | | | + +---+ | albuterol-ipratropium 2.5-0.5 | | | mg/3 mL nebulizer solution 3 mL | | | 3 mL, Nebulization, ONCE PRN, | | | Wheezing, Shortness of Breath, | | | Starting [facility] 01/29/19 at 1014, For | | | [...] | | | | | Hours, ONCE, [facility] 01/29/19 at 1115, | | | | [...] DBP > 100, | | | Starting [facility] 01/29/19 at 1014, | | | Hold if HR > 100. Maximum total | | | dose 40 mg. Use labetalol first | | | if available., Recovery/Phase I | | + +---+ | | | + +---+ | HYDROmorphone (DILAUDID) | | | injection 0.2-0.5 mg 0.2-0.5 mg, | | | Intravenous, EVERY 5 MIN PRN, | | | Pain, Starting [facility] 01/29/19 at | | | 1014, Maximum [...]
--- OUTSIDE RECORDS SUMMARY | ~2019-08-01 | XMS | Encounter Summary ---
Demographics + + + | Address | [address] | | | [place] [address] | + + + | Home Phone | | + + + | Preferred Language | Unknown | + + + | Marital Status | | + + + | Hindu Affiliation | Unknown | + + + | Race | Unknown | + + + | Ethnic Group | Unknown | + + + Author + + + | Author | [facility] | | | and Izaiahana | + + + | Organization | [facility] | | | and Izaiahana [...] Team Providers + +------+ + | Care Fiberglasser Name | Role | Phone | + [...] + + | 12/25/ | Hospital | [facility] | Gloria, | Malignant neoplasm | | 2019 | Encounter | [facility] | Logan Madrid MD [address] | of head of pancreas | | | | [facility] CLIN[facility] [address] | [address] [place] | (HCC) (Primary Dx) | | | | [address] [place] | [place] [address] | | | | | [place] [address] | [phone] | | | | | [phone] | | | +--------+ + + + [...] | | | or equivalent | | [phone] | + + +---------+ + + + [...] | Blood Pressure | 140/78 | 12/25/2018 8:46 AM | | | | | PDT | | + + + + + | Pulse | 70 | 12/25/2018 8:46 AM | | | | | PDT | | + + + + + | Temperature | 37.3 C (99.2 F) | 12/25/2018 8:46 AM | | | | | PDT | | + + + + + | Respiratory Rate | 16 | 12/25/2018 8:46 AM | | | | | PDT | | + + + + + | Oxygen Saturation | 95% | 12/25/2018 8:46 AM | | | | | PDT | | + + + + + | Inhaled Oxygen | - | - | | | Concentration | | | | + + + + + | Weight | 85.8 kg (189 lb 2.5 | 12/25/2018 8:46 AM | | | | oz) | [...] 0 | 07/24/20 | | | ([place]) | the skin Daily. | | | [...] encounter Progress Notes Logan Castro MD - 12/25/2018 8:51 AM PDTFormatting of this note might be differe nt from the original. Hematology/Oncology Progress Note [facility] [place] Pt. Name/Age/: Anastacio Galvez 68 y.o. 1950 [facility]. Record Number: [id number] Date of admission: 12/25/2018 The patient's primary care provider is Garland Caputo MD. Identifying Statement: Anastacio Galvez is a 68 y.o. male from [address] [place] [address] with Stage IIA Pancreatic Cancer. The patient [...] abdomen/pelvis without contrast June 27, 2018 at [facility] in [facility] demonstrated a 5 cm pancreatic mass in the uncinate process associated with a 12 mm retro-caval lymph node. Tumor marker CA 19-9 was 816.5 units per milliliter (upper limits of normal 37 units per milliliter). Surgical consultation with Dr. Mami Mcnamara ([facility]) on July 03, 2018. CT of the chest/abdomen/pelvis with contrast at [facility] on July 10, 2018 demonstrated a 3.3 cm x 3.7 cm x 5.17 m mass in the pancreatic head/uncina te process. The mass encases a few branches of the superior mesenteric artery arising rat farmer iorly and demonstrates slightly less than 180 of encasement of the superior mesenteric art daniel proper. Enlarged 1.1 cm lymph node inferior to the mass. Endoscopic ultrasound with biopsy and stent (10 mm x 40 mm metal ) placement July 25 (Dr. Leonel Song, [place], [place]): Pancreatic/uncinate mass, 4.5 cm close to but n ot touching major vessels, without endoscopic evidence of regional lymphadenopathy, PT3, PN0 , M0 stage IIA. Biopsy specimen # [id number] ([facility]). Fine-needle aspiration; adenocarcinoma. Biliary brushings; adenocarcinoma. Neoadjuvant therapy with Abraxane/Gemcitabine on August 15, 2018 through October 24, 2018 . 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 Repeat CT abdomen/pelvis on October 31, 2018 demonstrated a 60% volumetric reduction in pa ncreatic head mass. Consultation with Dr. Mami Mcnamara, [facility] on November 06, 2018; disease remains unresectable, continue with chemotherapy. Resume neoadjuvant Abraxane/gemcitabine on November 26, 2018. Current Assessment & Plan Anastacio Galvez returned to clinic on 12/25/2018 with his , Jamila, for follow -up and initiation of cycle #5 day #1 of gemcitabine/Abraxane for locally advanced pancreati c cancer. Review of systems is notable for the fact that his upper abdominal pain is now radiating to the left sub-scapular area. Clinical exam is notable for the fact that the patient does not have a port-a-cath. Laboratory exam is notable for elevation of liver enzymes with normal bilirubin and albumin . Local progression of disease is suspected versus stent occlusion. Assessment; Locally advanced pancreatic cancer. Malignant neoplasm related pain. Plans; proceed with cycle #5 day #1 of Abraxane/gemcitabine chemotherapy. Patient receive a prescription for oxycodone for malignant-neoplasm related pain. Return to [facility] in [place] on December 31, 2018 for cycle #5 day #8 of t herapy. Repeat imaging after cycle #5 day # 15, with reconsult with Dr. Mcnamara regarding Whipple r esection. If Whipple resection technically unfeasable, then cross over to combined modality therapy with oral capecitabine; Anastacio Galvez met with Dr. Rasheed Bello in radiation oncology today to get more information regarding this option. Review of Systems: Constitutional: Denies high fevers, shaking chills, anorexia, nausea, vomiting, weight los s, or night sweats. Appetite without changes. States energy remains low. Appetite reported about 60%, has been better since taking CBD oils per pt. Ear, Nose, Mouth, Throat: Denies odynophagia or dysphagia. Unchanged tinnitus, lasting for a short time goes away after a few minutes per pt. Cardiovascular: Denies chest pain, palpitations or orthopnea. States dyspnea with any phys ical activity. Respiratory: Denies cough, hemoptysis, or sputum production. Gastrointestinal: Denies constipation, diarrhea, melena, or bright red blood per rectum. Oc casional epigastric pains reported, pain at a 2/10 Genitourinary: Denies hematuria or dysuria. Musculoskeletal: States occasional pain in the knees caused from old sports injuries. Neurologic: Denies headache, visual changes, or numbness/tingling of the extremities. Endocrine: Denies peripheral edema or heat/cold intolerance. Hematologic: Denies spontaneous bruising or bleeding. Integumentary: Denies rash, wounds or other skin concerns. Pain: Mid back pain at a 6/10, abd pain at a 2/10. Pt is currently on regiment for pain bot h fentanyl abd oxycodone, states this is tolerable. Note: Here for tx and labs My chart: Declined Review of systems as above otherwise negative Scheduled Medications: Current Outpatient Medications Medication Sig Dispense Refill Docusate Calcium (STOOL SOFTENER PO) Take by mouth as needed. fentaNYL (DURAGESIC) 50 mcg/hr Place 1 patch onto the skin every 72 hours. hydrOXYzine (VISTARIL) 50 MG capsule Take 50 mg by mouth as needed. insulin glargine (TOUJEO SOLOSTAR) 300 units/mL concentrated injection (pen) Inject 5 U nits under the skin Daily. LORazepam (ATIVAN) 1 mg tablet Take 1 mg by mouth. lubiprostone (AMITIZA) 24 mcg capsule Take 24 mcg by mouth 2 times daily. metFORMIN (GLUCOPHAGE) 500 mg tablet Take 1,000 [...] mouth every 4 hours as needed. 0 oxyCODONE 20 MG TABS 1-2 tabs every four hours as needed for pain 240 tablet 0 SENNOSIDES PO Take by mouth. sucralfate [...] Date APPENDECTOMY CATARACT REMOVAL Bilateral 2007 at [facility] CHOLECYSTECTOMY EGD AND COLONOSCOPY HERNIA REPAIR inguinal LAPAROSCOPY NASAL SEPTUM SURGERY TONSILLECTOMY torn cartilage Right [facility] Social History Socioeconomic History Marital status: [...] Last attempt to quit: 2008 Years since quittin.2 Smokeless tobacco: Never Used Substance and Sexual Activity Alcohol use: No Alcohol/week: 0.0 oz Comment: Drank 12 pk/wk from [id number] Drug use: No Comment: Has used marijauna [...] Sister breast cancer Objectives: Temp: 37.3 C (99.2 F) BP: 140/78 Pulse: 70 Resp: 16 SpO2: 95 % on Min/Max Temp past 24 hours:Temp Av.3 C (99.2 F) Min: 37.3 C (99.1 F) Max: 3 7.3 C (99.2 F) No intake or output data in the 24 hours ending 12/25/18 1827 Wt. Admission: Weight: 85.8 kg (189 lb 2.5 oz) Wt. Current: Weight: 85.8 kg (189 lb 2.5 oz) Wt Readings from Last 3 Encounters: 12/25/18 85.8 kg (189 lb 2.5 oz) 12/25/18 85.8 kg (189 lb 2.5 oz) 08/11/18 83.8 kg (184 lb 11.9 oz) Body mass index is 25.65 kg/m. Physical Exam: General: The patient is [...] in Am. J. Clin. Oncol.: Meryl Montero., Yonny RJaime., Partha Guido., Hedy Brizuela, Homar Ríos., Bill ERaheemT., Yaquelin, P .P.: Toxicity And Response Criteria [...] for ANASTACIO GALVEZ ( ) as of 12/25/2018 18:09 Ref. Range 12/25/2018 08:22 WBC Latest Ref Range: 4.0 - 11.0 K/uL 8.3 RBC COUNT Latest Ref Range: 4.30 - 5.70 M/uL 3.35 (L) Hemoglobin Latest Ref Range: 13.5 - 18.0 g/dL 10.4 (L) Hct, Final Latest Ref Range: 40.0 - 51.0 % 31.4 (L) MCV Latest Ref Range: 83.0 - 101.0 fL 93.7 MCH Latest Ref Range: 28.0 - 35.0 pg 31.0 MCHC Latest Ref Range: 32.0 - 36.0 g/dL 33.1 RDW-SD Latest Ref Range: 35.1 - 46.3 fL 55.7 (H) RDW-CV Latest Ref Range: <15.0 % 16.4 (H) Platelet Count Latest Ref Range: 140 - 440 K/uL 382 MPV Latest Ref Range: 6.5 - 12.4 fL 10.0 % nRBC Latest Ref Range: 0 - 2 per 100 WBCs 0 Absolute nRBC Latest Ref Range: 0.00 - 0.01 K/uL 0.00 Absolute Neutrophils Latest Ref Range: 1.80 - 8.50 K/uL 5.05 Absolute Lymphocytes Latest Ref Range: 0.60 - 3.20 K/uL 2.17 Absolute Monocytes Latest Ref Range: 0.00 - 1.00 K/uL 0.92 Absolute Eosinophils Latest Ref Range: 0.00 - 0.40 K/uL 0.11 Absolute Basophils Latest Ref Range: 0.00 - 0.10 K/uL 0.02 Absolute Immature Granulocytes Latest Ref Range: 0.00 - 0.03 K/uL 0.01 % Neutrophils Latest Ref Range: 45.0 - 82.0 % 61.1 % Lymphocytes Latest Ref Range: 20.0 - 45.0 % 26.2 % Monocytes Latest Ref Range: 4.0 - 12.0 % 11.1 % Eosinophils Latest Ref Range: 0.0 - 5.0 % 1.3 % Basophils Latest Ref Range: 0.0 - 1.0 % 0.2 % Immature Granulocytes Latest Ref Range: 0.0 - 0.4 % 0.1 Na Latest Ref Range: 136 - 145 mmol/L 140 K Latest Ref Range: 3.4 - 5.1 mmol/L 3.4 Chloride Latest Ref Range: 98 - 107 mmol/L 108 (H) Carbon dioxide Latest Ref Range: 20 - 31 mmol/L 29 Anion Gap Latest Ref Range: 3 - 16 mmol/L 3 Glucose Latest Ref Range: 60 - 106 mg/dL 116 (H) BUN Latest Ref Range: 9 - 23 mg/dL 11 Creatinine Latest Ref Range: 0.70 - 1.30 mg/dL 0.70 BUN/Creatinine Ratio Unknown 15.7 Albumin Latest Ref Range: 3.2 - 4.8 g/dL 3.4 Albumin/Globulin Ratio Latest Ref Range: 0.8 - 1.9 1.7 Total Protein Latest Ref Range: 5.7 - 8.2 g/dL 5.4 (L) EGFR IF NOT Latest Ref Range: >=60 mL/min/1.73m2 >60 Calcium Latest Ref Range: 8.7 - 10.4 mg/dL 8.9 ALK PHOS Latest Ref Range: 46 - 116 U/L 693 (H) ALT (SGPT) (REF) Latest Ref Range: 10 - 49 U/L 153 (H) AST (SGOT) (REF) Latest Ref Range: 0 - 34 U/L 128 (H) LDH TOTAL Latest Ref Range: 120 - 246 U/L 242 Bilirubin Total (Calculated) Latest Ref Range: 0.3 - 1.2 mg/dL 0.4 Globulin Latest Ref Range: 2.1 - 3.8 g/dL 2.0 (L) Pharmacovigilance: Palliative Care: Patient's Medications New Prescriptions OXYCODONE 20 MG TABS 1-2 tabs every four hours as needed for pain Modified Medications No medications on file Discontinued Medications FENTANYL (DURAGESIC) 25 MCG/HR Place 1 patch onto the skin every 72 hours. HYDROMORPHONE (DILAUDID) 4 MG TABLET Take 1-2 tablets by mouth Daily. LORAZEPAM (ATIVAN) 1 MG TABLET Take 1 tablet by mouth every 6 hours as needed for Anxie ty (take for either anxiety, nauseas or sleep). ONDANSETRON (ZOFRAN ODT) 4 MG DISINTEGRATING TABLET Take 4 mg by mouth as needed. OXYCODONE 20 MG TABS Take 20-40 mg by mouth. TAMSULOSIN (FLOMAX) 0.4 MG CAPS TAKE ONE CAPSULE BY MOUTH EVERY DAY Procedure: Day 1, Cycle 5 (28-day cycle) Planned for 08/15/2018 Other Chemotherapy [...] group. From Actions button on the right, kem sanches 'Add Orders' to access group and select [...] resolve at rate instructed by MD. 2. Monitor for signs and symptoms reaction closely, and monitor vital signs recomme nded as per the specific agent. 3. Notify MD for signs of recurrent infusion reactions for further instructions. Logan Castro MD Portions of this chart may have been created with Ne[employer] recognition software. Occasi onal wrong-word or sound-alike [...] + + | CA 19-9, QUANT | Routin | 12/25/2018 | Malignant neoplasm | Results for this | | | e | 8:22 AM | of head of pancreas | procedure are in the | | | | PDT | (HCC) | results section. | + +--------+ + + + | CBC WITH | STAT | 12/25/2018 | Malignant neoplasm | Results for this | | DIFFERENTIAL | | 8:22 AM | of head of pancreas | procedure are in the | | | | PDT | ([facility]) | results section. | + +--------+ + + + | LACTATE | Routin | 12/25/2018 | Malignant neoplasm | Results for this | | DEHYDROGENASE | e | 8:22 AM | of head of pancreas | procedure are in the | | | | PDT | ([facility]) | results section. | + +--------+ + + + | COMPREHENSIVE | STAT | 12/25/2018 | Malignant neoplasm | Results for this | | METABOLIC PANEL | | 8:22 AM | of head of pancreas | procedure are in the | | | | PDT | ([facility]) | results section. | + +--------+ + + + documented in this encounter Results Comprehensive Metabolic Panel (12/25/2018 8:22 AM PDT) + +---------+ + + + | Component | Value | Ref Range | Performed | Pathologist | | | | | At | Signature | + +---------+ + + + | Na | 140 | 136 - 145 | [facility] | | | | | mmol/L | [facility] | | | | | | [facility] | | | | | | CENTER - | | | | | | LABORATORY | | + +---------+ + + + | K | 3.4 | 3.4 - 5.1 | [facility] | | | | | mmol/L | [facility] | | | | | | MEDICAL | | | | | | CENTER - | | | | | | LABORATORY | | + +---------+ + + + | Cl | 108 (H) | 98 - 107 mmol/L | [facility] | | | | | | [facility] | | | | | | MEDICAL | | | | | | CENTER - | | | | | | LABORATORY | | + +---------+ + + + | CO2 | 29 | 20 - 31 mmol/L | [facility] | | | | | | [facility] | | | | | | MEDICAL | | | | | | CENTER - | | | | | | LABORATORY | | + +---------+ + + + | Anion Gap | 3 | 3 - 16 mmol/L | [facility] | | | | | | [facility] | | | | | | MEDICAL | | | | | | CENTER - | | | | | | LABORATORY | | + +---------+ + + + | Glucose | 116 (H) | 60 - 106 mg/dL | [facility] | | | | | | [facility] | | | | | | MEDICAL | | | | | | CENTER - | | | | | | LABORATORY | | + +---------+ + + + | BUN | 11 | 9 - 23 mg/dL | [facility] | | | | | | [facility] | | | | | | MEDICAL | | | | | | CENTER - | | | | | | LABORATORY | | + +---------+ + + + | Creatinine | 0.70 | 0.70 - 1.30 | [facility] | | | | | mg/dL | [facility] | | | | | | MEDICAL | | | | | | CENTER - | | | | | | LABORATORY | | + +---------+ + + + | eGFR if not | >60 | >=60 | [facility] | | | | | mL/min/1.73m2 | [facility] | | | [facility] | | | MEDICAL | | | | | | CENTER - | | | | | | LABORATORY | | + +---------+ + + + | Calcium | 8.9 | 8.7 - 10.4 | [facility] | | | | | mg/dL | [facility] | | | | | | MEDICAL | | | | | | CENTER - | | | | | | LABORATORY | | + +---------+ + + + | Albumin | 3.4 | 3.2 - 4.8 g/dL | [facility] | | | | | | [facility] | | | | | | MEDICAL | | | | | | CENTER - | | | | | | LABORATORY | | + +---------+ + + + | Bilirubin | 0.4 | 0.3 - 1.2 mg/dL | [facility] | | | Total | | | [facility] | | | | | | MEDICAL | | | | | | CENTER - | | | | | | LABORATORY | | + +---------+ + + + | Total | 5.4 (L) | 5.7 - 8.2 g/dL | [facility] | | | Protein | | | [facility] | | | | | | MEDICAL | | | | | | CENTER - | | | | | | LABORATORY | | + +---------+ + + + | AST | 128 (H) | 0 - 34 U/L | [facility] | | | | | | [facility] | | | | | | MEDICAL | | | | | | CENTER - | | | | | | LABORATORY | | + +---------+ + + + | ALT | 153 (H) | 10 - 49 U/L | [facility] | | | | | | [facility] | | | | | | MEDICAL | | | | | | CENTER - | | | | | | LABORATORY | | + +---------+ + + + | Alkaline | 693 (H) | 46 - 116 U/L | [facility] | | | Phosphatase | | | [facility] | | | | | | MEDICAL | | | | | | CENTER - | | | | | | LABORATORY | | + +---------+ + + + | Globulin | 2.0 (L) | 2.1 - 3.8 g/dL | [facility] | | | | | | [facility] | | | | | | MEDICAL | | | | | | CENTER - | | | | | | LABORATORY | | + +---------+ + + + | Albumin/Sonia | 1.7 | 0.8 - 1.9 | [facility] | | | bulin Ratio | | | [facility] | | | | | | MEDICAL | | | | | | CENTER - | | | | | | LABORATORY | | + +---------+ + + + | BUN/Creatin | 15.7 | | [facility] | | | ine Ratio | | | [facility] | | | | | | MEDICAL | | | | | | CENTER - | | | | | | LABORATORY | | + +---------+ + + + + + | Specimen | + + | Blood | + + + + + + + | Performing | Address | City/State/Zipcode | Phone Number | | Organization | | | | + + + + + | [facility] | [address] | [place] | [phone] | | [facility] | | [address] | | | - LABORATORY | | | | + + + + + CBC with Differential (12/25/2018 8:22 AM PDT) + + + + + + | Component | Value | Ref Range | Performed | Pathologist | | | | | At | Signature | + + + + + + | WBC | 8.3 | 4.0 - 11.0 K/uL | [facility] | | | | | | [facility] | | | | | | MEDICAL | | | | | | CENTER - | | | | | | LABORATORY | | + + + + + + | RBC | 3.35 (L) | 4.30 - 5.70 | [facility] | | | | | M/uL | [facility] | | | | | | MEDICAL | | | | | | CENTER - | | | | | | LABORATORY | | + + + + + + | Hemoglobin | 10.4 (L) | 13.5 - 18.0 | [facility] | | | | | g/dL | [facility] | | | | | | MEDICAL | | | | | | CENTER - | | | | | | LABORATORY | | + + + + + + | Hematocrit | 31.4 (L) | 40.0 - 51.0 % | [facility] | | | | | | [facility] | | | | | | MEDICAL | | | | | | CENTER - | | | | | | LABORATORY | | + + + + + + | MCV | 93.7 | 83.0 - 101.0 fL | [facility] | | | | | | [facility] | | | | | | MEDICAL | | | | | | CENTER - | | | | | | LABORATORY | | + + + + + + | MCH | 31.0 | 28.0 - 35.0 pg | [facility] [...] + + + + | RDW-SD | 55.7 (H) | 35.1 - 46.3 fL | [facility] | | | | | | [facility] | | | | | | MEDICAL | | | | | | CENTER - | | | | | | LABORATORY | | + + + + + + | Platelet | 382 | 140 - 440 K/uL | [facility] [...] + + + + | % | 61.1 | 45.0 - 82.0 % | [facility] | | | Neutrophils | | | [facility] | | | | | | MEDICAL | | | | | | CENTER - | | | | | | LABORATORY | | + + + + + + | % | 26.2 | 20.0 - 45.0 % | [facility] | | | Lymphocytes | | | [facility] | | | | | | MEDICAL | | | | | | CENTER - | | | | | | LABORATORY | | + + + + + + | % Monocytes | 11.1 | 4.0 - 12.0 % | [facility] | | | | | | [facility] | | | | | | MEDICAL | | | | | | CENTER - | | | | | | LABORATORY | | + + + + + + | % | 1.3 | 0.0 - 5.0 % | [facility] | | | Eosinophils | | | [facility] | | | | | | MEDICAL | | | | | | CENTER - | | | | | | LABORATORY | | + + + + + + | % Basophils | 0.2 | 0.0 - 1.0 % | [facility] [...] + + + + | Absolute | 5.05 | 1.80 - 8.50 | [facility] | | | Neutrophils | | K/uL | [facility] | | | | | | MEDICAL | | | | | | CENTER - | | | | | | LABORATORY | | + + + + + + | Absolute | 2.17 | 0.60 - 3.20 | [facility] | | | Lymphocytes | | K/uL | [facility] | | | | | | MEDICAL | | | | | | CENTER - | | | | | | LABORATORY | | + + + + + + | Absolute | 0.92 | 0.00 - 1.00 | [facility] | [...] [address] | [place] | [phone] | | [facility] | | [address] | | | - LABORATORY | | | | + + + + + Lactate Dehydrogenase (12/25/2018 8:22 AM PDT) + +-------+ + + + | Component | Value | Ref Range | Performed | Pathologist | | | | | At | Signature | + +-------+ + + + | LDH TOTAL | 242 | 120 - 246 U/L | [facility] | | | | | | [facility] | | | | | | MEDICAL | | | | | | FLUSH[facility] - | | | | | | [...] [address] | [place] | [phone] | | [facility] | | [address] | | | - LABORATORY | | | | + + + + + CA 19-9, Quant (12/25/2018 8:22 AM PDT) + + + + + + | Component | Value | Ref Range | Performed | Pathologist | | | | | At | Signature | + + + + + + | CA 19-9 | 73 (H)Comment: Vik | 0 - 35 U/mL [...] + + | Performed at: [address] [place] [id number], | REFERENCE LAB | | [place], [place] [id number] Information Resources Director: Evert Scanlon MD, Phone: | [facility] | | [phone] | | + + + + + + + + | Performing | Address | City/State/Zipcode | Phone Number | | Organization | | | | + + + + + | REFERENCE LAB | [address] | [place] [address] | [phone] | | [facility] | [address] | | | + + + + + documented in this encounter Visit Diagnoses + + | Diagnosis | + + | Malignant neoplasm of head of pancreas (HCC) - Primary Malignant neoplasm of head of | | pancreas | + + documented in this encounter"
--- OUTSIDE RECORDS SUMMARY | ~2019-08-01 | XMS | Encounter Summary ---
Demographics + + + | Address | [address] | | | [place] [address] | + + + | Home Phone | | + + + | Preferred Language | Unknown | + + + | Marital Status | | + + + | Yazdanism Affiliation | Unknown | + + + | Race | Unknown | + + + | Ethnic Group | Unknown | + + + Author + + + | Author | [facility] | | | and Izaiahana | + + + | Organization | [facility] [...] Team Providers + +------+ + | Care Magnetic Resonance Technologist Name | Role | Phone | + [...] | | | | (HCC) | [place] [address] | [place] [address] | | | | | [place] | Phone: | Phone: | | | | | | [phone] | [phone] | | | | | | Fax: | Fax: | | | | | | [phone] | [phone] | +--------+ + + + + + [...] | ON[facility]OGY CLINIC [address] [place], [place] | ([facility]); [place] | | | | [address] [place] | [address] | | | | | [place] [address] | | | | | | [phone] | | | +--------+ + + + [...] | | | or equivalent | | 6904-3041 | + + +---------+ + + + [...] 0.67 (L) | 0.70 - 1.30 | [facility] | | | | | mg/dL | [facility] | | | | | | MEDICAL | | | | | | CENTER - | | | | | | LABORATORY | | + + + + + + | eGFR if not | >60Comment: GLOMERULAR | >=60 | [facility] | | | | FILTRATION | mL/min/1.73m2 | [facility] | | | ERITREAN | RATE,ESTIMATED | | MEDICAL | | | | mL/min/1.18f7Sjgo than | | CENTER - | | [...] [address] | [place] | [phone] | | [facility] | | [address] | | | - LABORATORY | | [...] + | [facility] | [address] | [place] | [phone] | | [facility] | | [address] | | | - LABORATORY | | [...]
--- OUTSIDE RECORDS SUMMARY | ~2019-08-01 | XMS | Encounter Summary ---
Demographics + + + | Address | [address] | | | [place] [address] | + + + | Home Phone [...] | Author | [facility] | | | and Izaiahana | + + + | Organization | [facility] | | | and [...] Team Providers + +------+ + | Care Felting Machine Operator Helper Name | Role | Phone | + [...] + + | 02/26/ | Hospital | [facility] | Rasheed Bello DO | Malignant neoplasm | | 2019 | Encounter | [facility] | [address] | of head of pancreas | | | | ONCOLOGY CLINIC [address] | [place], [place] | (HCC) (Primary Dx) | | | | [address] [place] | [address] | | | | | [place] [address] | | | | | | [phone] | | | +--------+ + + + [...] | | | or equivalent | | 7145-2778 | + + +---------+ + + + [...]
--- OUTSIDE RECORDS SUMMARY | ~2019-08-01 | XMS | Clinical Summary ---
Demographics + + + | Address | [address] | | | [place] [address] | + + + | Home Phone | | + + + | Preferred Language | Unknown | + + + | Marital Status | | + + + | Taoist Affiliation | Unknown | + + + | Race | Unknown | + + + | Ethnic Group | Unknown | + + + Author + + + | Author | [facility] | | | and Izaiahana | + + + | Organization | [facility] | | | and [...] Team Providers + +------+ + | Care Independent Contractor Name | Role | Phone | + [...] automatically from request for surgery | | [id number] | + + + + + | Migration of biliary stent, subsequent encounter | 01/26/2019 | + + + + + | Overview: Added automatically from request for surgery | | [id number] | + + + + + | [...] on | | June 27, 2018 at [place] demonstrated 5 cm | | pancreatic mass in the uncinate process associated with a 12 mm | | retrocaval lymph node. CA 19-9 is 816.5 (ULN 37).3. Surgical | | Consultation with Thai Mcneil ([facility]) July 03 | | 2017.4. CT chest/abdomen/pelvis with contrast [place]: | | 3.3 cm x 3.7 [...] and biopsy July 25, 2018 (Leonel Song, [facility], | | [facility]). Pancreatic/uncinate mass, 4.5 cm close but not | | touching major vessels, without endoscopic evidence ro regional | | lymphadenopathy, pT3, pN0, M0. Specimen # [id number] ([facility] | | [facility], [place], [place]). Fine needle aspiration; | | adenocarcinoma. [...] | | contrast June 27, 2018 at [facility] in [place] | | [place] demonstrated a 5 cm pancreatic mass in the uncinate | | process associated with a 12 mm retro-caval lymph node. Tumor | | marker CA 19-9 was 816.5 units per milliliter (upper limits of | | normal 37 units per milliliter).Surgical consultation with . | | Mami Mcnamara ([facility]) on July 03, 2018.CT of the | | chest/abdomen/pelvis with contrast at [facility] | [facility] onJuly 10, 2018 demonstrated a 3.3 [...] 25 | | 2017 (Dr. Leonel Song, [place], [place]): | | Pancreatic/uncinate mass, 4.5 cm close to but not touching major | | vessels, without endoscopic evidence of regional lymphadenopathy, | | PT3, PN0, M0 stage IIA. Biopsy specimen # [id number] ([facility] | | [facility], [facility]). Fine-needle | | aspiration; adenocarcinoma. Biliary brushings; | | adenocarcinoma.Neoadjuvant therapy with Abraxane/Gemcitabine on | | August 15, 2018 through October 24, 2018.Deleterious germline | | PALB2 mutation revealed October 09, 2018.Repeat CT abdomen/pelvis | | on October 31, 2018 demonstrated a 60% volumetric reduction in | | pancreatic head mass.Consultation with Dr. Mami Mcnamara, | | [facility] on November 06, 2018; disease remains unresectable, [...] | branches. Consultation with Dr. Mami Mcnamara, [facility], | | who determined that the disease [...] 17, 2019 including laboratory evaluation at the [facility] cancer clinic in [facility].In 2 to 3 months we | | [...] | 2018 | Orders | | MD aRmona | (Primary Dx) | +--------+ + + [...] | | | or equivalent | | [id number] | + + +---------+ + + + [...] | | [place] | | 08/08/ | [id number] | | [id number] - | | | SCIENTIFIC | | 2019 | 640 / | | [id number]: Qty: 1 | | | RAFY - BSCI | | | /[id number] | | on 01/29/2019 by Renny, | | | | | | 280 | | Joaquin Ayala MD at [facility] | | | | | | | | [facility] | | | | | [...] + + | Performing | Address | City/State/[facility] Cent[facility]ode | Phone Number | | Organization [...] + | [facility] | [address] | [place] | [phone] | | [facility] | | [address] | | | - LABORATORY | | [...] not | >60Comment: GLOMERULAR | >=60 | [place] | | | | FILTRATION | mL/min/1.73m2 | [facility] | | | [place]AN | RATE,ESTIMATED | | MEDICAL | | | | mL/min/1.49t3Lklb than | | CENTER - | | [...] [address] | [place] | [phone] | | [facility] | | [address] | | | - LABORATORY | | [...] +--------+ +---------+--------+ | MEDICARE | MEDICA | [id number] | | [phone] | | Medica | [...] angel | | | 4 (Home) | [address] | + +--------+ +--------+ + + Advance Directives + + + + + | Type | Date Recorded | Patient | Explanation | | | | Etl Developer | | + + + + + | Power of | | | | | | | | | + + + + + | Advance | 01/29/2019 8:08 | | | | Directive | AM | | | + + + + +"
--- OUTSIDE RECORDS SUMMARY | ~2019-08-01 | XMS | Encounter Summary ---
Demographics + + + | Address | [address] | | | [place] [address] | + + + | Home Phone | | + + + | Preferred Language | Unknown | + + + | Marital Status | | + + + | Amish Affiliation | Unknown | + + + | Race | Unknown | + + + | Ethnic Group | Unknown | + + + Author + + + | Author | [facility] | | | and Izaiahana | + + + | Organization | [facility] | | | and Izaiahana [...] Team Providers + +------+ + | Care Game Technician Name | Role | Phone | + +------+ + | Garland Caputo MD | PCP | | + +------+ + Encounter Details +--------+ + + + + | Date | Type | Department | Care Team | Description | +--------+ + + + + | 12/19/ | Imaging | [facility]NG[facility]URAND | Provider, | | | 2019 | Exam | [facility] EX[facility] | [address] | | | | | IMAGING | [place] | | | | | [phone] | [place] [address] | | +--------+ + + + + [...] + + + | CT CHEST W CONTRAST | Routin | 07/10/2018 | | Results for this | | | e | 11:25 AM | | procedure are in the | | | | PDT | | results section. | + +--------+ + + + documented in this encounter Results CT Chest w Contrast (07/10/2018 11:25 AM PDT) + + | Specimen | [...]
--- OUTSIDE RECORDS SUMMARY | ~2019-08-01 | XMS | Encounter Summary ---
Demographics + + + | Address | [address] | | | [place] [address] | + + + | Home Phone | | + + + | Preferred Language | Unknown | + + + | Marital Status | | + + + | Quaker Affiliation | Unknown | + + + | Race | Unknown | + + + | Ethnic Group | Unknown | + + + Author + + + | Author | [facility] | | | and Izaiahana | + + + | Organization | [facility] | | [...] Team Providers + +------+ + | Care Steamblaster Name | Role | Phone | + +------+ + | Garland Caputo MD | PCP | | + +------+ + Encounter Details +--------+ + + + + | Date | Type | Department | Care Team | Description | +--------+ + + + + | 02/17/ | Emergency | [facility] | Alejandro Sandoval | Chronic generalized | | 2016 - | | MEDICAL CENTER | MD Jose Nolen | abdominal pain; | | | | EMERGENCY CENTER | [place] | Chronic pain in | | 02/18/ | | [address] | [address] | testicle | | 2015 | | [place], [place] | [phone] | | | | | [address] | | | | | | [phone] | | | +--------+ + + + [...] EXTERNAL | | | | performed at [facility];[address] | | LAB | | | | [address];[place] | | | | | | [address] | | | | + + + + + + | Chlamydia | Not DetectedComment: | | EXTERNAL | | | Trachomatis | Testing performed at | | LAB | | | Naat | TCL, [address] | | | | | | [place] | | | | | | [address] | | | | + + + + + + | Result | Not DetectedComment: | | EXTERNAL | | | | Testing performed at | | LAB | | | | TCL, [address] | | | | | | [place] | | | | | | [address] | | | | + + + [...] EXTERNAL | | | | performed at [facility];[address] | | LAB | | | | [address];[place] | | | | | | [address] | | | | + + + + + + | Clarity | CLEARComment: Testing | | EXTERNAL | | | | performed at [facility];[address] | | LAB | | | | [address];[place] | | | | | | [address] | | | | + + + + + + | Specific | 1.016Comment: Testing | 1.002 - 1.030 | EXTERNAL | | | [place] | performed at [facility];[address] | | LAB | | | | [address];[place] | | | | | | [address] | | | | + + + + + + | Leukocyte | NEGATIVEComment: Testing | | EXTERNAL | | | Esterase, | performed at [facility];[address] | | LAB | | | Urine | [address];[place] | | | | | | [address] | | | | + + + + + + | Nitrite, | NEGATIVEComment: Testing | | EXTERNAL | | | Urine | performed at [facility];[address] | | LAB | | | | [address];[place] | | | | | | [address] | | | | + + + + + + | Urobilinoge | NORMALComment: Testing | mg/dL | EXTERNAL | | | n, Urine | performed at [facility];[address] | | LAB | | | | [address];[place] | | | | | | [address] | | | | + + + + + + | Protein, | NEGATIVEComment: Testing | mg/dL | EXTERNAL | | | Urine | performed at [facility];[address] | | LAB | | | | [address];[place] | | | | | | [address] | | | | + + + + + + | pH, Urine | 7.0Comment: Testing | 5.0 - 8.0 | EXTERNAL | | | | performed at [facility];[address] | | LAB | | | | [address];[place] | | | | | | [address] | | | | + + + + + + | Blood, | NEGATIVEComment: Testing | | EXTERNAL | | | Urine | performed at [facility];[address] | | LAB | | | | [address];[place] | | | | | | [address] | | | | + + + + + + | Ketones | NEGATIVEComment: Testing | mg/dL | EXTERNAL | | | | performed at [facility];[address] | | LAB | | | | [address];[place] | | | | | | [address] | | | | + + + + + + | Bilirubin, | NEGATIVEComment: Testing | | EXTERNAL | | | Urine | performed at [facility];[address] | | LAB | | | | [address];[place] | | | | | | [address] | | | | + + + + + + | Glucose, | NEGATIVEComment: Testing | mg/dL | EXTERNAL | | | Urine | performed at [facility];[address] | | LAB | | | | [address];[place] | | | | | | [address] | | | | + + + [...] EXTERNAL | | | | performed at [facility];888 | K/uL | LAB | | | | [address];[place] | | | | | | [address] | | | | + + + + + + | RED CELL | 4.93Comment: Testing | 4.20 - 5.70 | EXTERNAL | | | COUNT | performed at [facility];888 | M/uL | LAB | | | | [address];[place] | | | | | | [address] | | | | + + + + + + | Hgb | 15.0Comment: Testing | 13.2 - 17.0 | EXTERNAL | | | | performed at [facility];888 | g/dL | LAB | | | | [address];[place] | | | | | | [address] | | | | + + + + + + | Hematocrit, | 44.8Comment: Testing | 39.0 - 50.0 % | EXTERNAL | | | POC | performed at [facility];[address] | | LAB | | | | [address];[place] | | | | | | [address] | | | | + + + + + + | MCV | 90.9Comment: Testing | 80.0 - 100.0 fl | EXTERNAL | | | | performed at [facility];[address] | | LAB | | | | [address];[place] | | | | | | [address] | | | | + + + + + + | MCH | 30.4Comment: Testing | 27.0 - 34.0 pg | EXTERNAL | | | | performed at [facility];[address] | | LAB | | | | [address];[place] | | | | | | [address] | | | | + + + + + + | MCHC | 33.5Comment: Testing | 32.0 - 35.5 | EXTERNAL | | | | performed at [facility];888 | g/dL | LAB | | | | [address];[place] | | | | | | [address] | | | | + + + + + + | RDW-CV | 42.9Comment: Testing | 37 - 53 fl | EXTERNAL | | | | performed at [facility];[address] | | LAB | | | | [address];[place] | | | | | | [address] | | | | + + + + + + | Platelet | 219Comment: Testing | 150 - 400 K/uL | EXTERNAL | | | Count | performed at [facility];[address] | | LAB | | | Plasma | [address];[place] | | | | | | [address] | | | | + + + + + + | MPV | 8.3Comment: Testing | fl | EXTERNAL | | | | performed at [facility];[address] | | LAB | | | | [address];[place] | | | | | | [address] | | | | + + + + + + | Differentia | AUTOMATEDComment: | | EXTERNAL | | | l Type | Testing performed at | | LAB | | | | [facility];[address] | | [address];[place] [address] | | | | + + + + + + | % Segmented | 49.93Comment: Testing | % | EXTERNAL | | | | performed at [facility];[address] | | LAB | | | Neutrophils | [address];[place] | | | | | | [address] | | | | + + + + + + | % | 39.72Comment: Testing | % | EXTERNAL | | | Lymphocytes | performed at [facility];[address] | | LAB | | | | [address];[place] | | | | | | [address] | | | | + + + + + + | % Monocytes | 9.25Comment: Testing | % | EXTERNAL | | | | performed at [facility];[address] | | LAB | | | | [address];[place] | | | | | | [address] | | | | + + + + + + | % | 0.72Comment: Testing | % | EXTERNAL | | | Eosinophils | performed at [facility];[address] | | LAB | | | | [address];[place] | | | | | | [address] | | | | + + + + + + | % Basophils | 0.38Comment: Testing | % | EXTERNAL | | | | performed at [facility];[address] | | LAB | | | | [address];[place] | | | | | | [address] | | | | + + + + + + | Absolute | 3.32Comment: Testing | 1.90 - 7.40 | EXTERNAL | | | Segmented | performed at [facility];[address] | K/uL | LAB | | | Neutrophils | [address];[place] | | | | | | [address] | | | | + + + + + + | Absolute | 2.64Comment: Testing | 1.00 - 3.90 | EXTERNAL | | | Lymphocytes | performed at [facility];[address] | K/uL | LAB | | | | [address];[place] | | | | | | [address] | | | | + + + + + + | Absolute | 0.62Comment: Testing | 0.00 - 0.80 | EXTERNAL | | | Monocytes | performed at [facility];[address] | K/uL | LAB | | | | [address];[place] | | | | | | [address] | | | | + + + + + + | Absolute | 0.05Comment: Testing | 0.00 - 0.50 | EXTERNAL | | | Eosinophils | performed at [facility];[address] | K/uL | LAB | | | | [address];[place] | | | | | | [address] | | | | + + + + + + | Absolute | 0.03Comment: Testing | 0.00 - 0.10 | EXTERNAL | | | Basophils | performed at [facility];[address] | K/uL | LAB | | | | [address];[place] | | | | | | [address] | | | | + + + [...] EXTERNAL | | | | performed at [facility];8 | | LAB | | | | [address];[place], [place] | | | | | | [address] | | | | + + + [...] EXTERNAL | | | | performed at [facility];[address] | | LAB | | | | [address];[place] | | | | | | [address] | | | | + + + [...] EXTERNAL | | | | performed at [facility];[address] | mmol/L | LAB | | | | [address];[place] | | | | | | [address] | | | | + + + + + + | K | 3.9Comment: Testing | 3.5 - 4.9 | EXTERNAL | | | | performed at [facility];888 | mmol/L | LAB | | | | [address];[place] | | | | | | [address] | | | | + + + + + + | Cl | 106Comment: Testing | 99 - 109 mmol/L | EXTERNAL | | | | performed at [facility];[address] | | LAB | | | | [address];[place] | | | | | | [address] | | | | + + + + + + | CO2 | 29Comment: Testing | 23 - 32 mmol/L | EXTERNAL | | | | performed at [facility];[address] | | LAB | | | | [address];[place] | | | | | | [address] | | | | + + + + + + | Anion Gap | 8Comment: Testing | 5 - 20 mmol/L | EXTERNAL | | | | performed at [facility];[address] | | LAB | | | | [address];[place] | | | | | | [address] | | | | + + + + + + | Glucose, | 109 (H)Comment: Testing | 65 - 99 mg/dL | EXTERNAL | | | Fasting | performed at [facility];[address] | | LAB | | | | [address];[place] | | | | | | [address] | | | | + + + + + + | BUN | 16Comment: Testing | 8 - 25 mg/dL | EXTERNAL | | | | performed at [facility];[address] | | LAB | | | | [address];[place] | | | | | | [address] | | | | + + + + + + | Creatinine | 0.98Comment: Testing | 0.70 - 1.30 | EXTERNAL | | | | performed at [facility];888 | mg/dL | LAB | | | | [address];[place] | | | | | | [address] | | | | + + + + + + | BUN/Creatin | 16Comment: Testing | | EXTERNAL | | | ine Ratio | performed at [facility];888 | | LAB | | | | [address];[place] | | | | | | [address] | | | | + + + + + + | Calcium | 8.4 (L)Comment: Testing | 8.5 - 10.5 | EXTERNAL | | | | performed at [facility];888 | mg/dL | LAB | | | | [address];[place] | | | | | | [address] | | | | + + + + + + | Protein, | 6.9Comment: Testing | 6.3 - 8.2 g/dL | EXTERNAL | | | Total | performed at [facility];[address] | | LAB | | | | [address];[place] | | | | | | [address] | | | | + + + + + + | Albumin | 3.5Comment: Testing | 3.3 - 4.8 g/dL | EXTERNAL | | | | performed at [facility];[address] | | LAB | | | | [address];[place] | | | | | | [address] | | | | + + + + + + | Globulin | 3.4Comment: Testing | 1.3 - 4.9 g/dL | EXTERNAL | | | | performed at [facility];[address] | | LAB | | | | [address];[place] | | | | | | [address] | | | | + + + + + + | A/G Ratio | 1.0Comment: Testing | 1.0 - 2.4 | EXTERNAL | | | | performed at [facility];[address] | | LAB | | | | [address];[place] | | | | | | [address] | | | | + + + + + + | Bilirubin | 0.4Comment: Testing | 0.1 - 1.5 mg/dL | EXTERNAL | | | Total | performed at [facility];[address] | | LAB | | | | [address];[place] | | | | | | [address] | | | | + + + + + + | ALP, | 61Comment: Testing | 35 - 115 U/L | EXTERNAL | | | External | performed at [facility];[address] | | LAB | | | | [address];[place] | | | | | | [address] | | | | + + + + + + | AST | 14Comment: Testing | 10 - 45 U/L | EXTERNAL | | | | performed at [facility];[address] | | LAB | | | | [address];[place] | | | | | | [address] | | | | + + + + + + | ALT | 23Comment: Testing | 10 - 65 U/L | EXTERNAL | | | | performed at [facility];8 | | LAB | | | | [facility] | | | | | | [address] | | | | + + + [...] | | | | | | at [facility];[address] [place] [address] | | | | | | [place] [address] | | | | + + + [...]
--- OUTSIDE RECORDS SUMMARY | ~2019-08-01 | XMS | Encounter Summary ---
Demographics + + + | Address | [address] | | | [place] [address] | + + + | Home Phone | | + + + | Preferred Language | Unknown | + + + | Marital Status | | + + + | Sabianist Affiliation | Unknown | + + + | Race | Unknown | + + + | Ethnic Group | Unknown | + + + Author + + + | Author | [facility] | | | and [place] | + + + | Organization | [facility] [...] Team Providers + +------+ + | Care Scaffolding Helper Name | Role | Phone | [...] [place] | | | | | [address] [place] | [place] [address] | | | | | [place] [address] | [phone] | | | | | [phone] | | | +--------+ + + + [...] | | | or equivalent | | 9745-6792 | + + +---------+ + + + [...]
--- OUTSIDE RECORDS SUMMARY | ~2019-08-01 | XMS | Encounter Summary ---
Demographics + + + | Address | [address] | | | [place] [address] | + + + | Home Phone [...] + | Organization | [facility] | | | and Izaiahana [...] Team Providers + +------+ + | Care Industrial Specialist Name | Role | Phone | + +------+ + | Garland Caputo MD | PCP | | + +------+ + Encounter Details +--------+ + + + + | Date | Type | Department | Care Team | Description | +--------+ + + + + | 12/22/ | Imaging | ÁNGEL DURAND | Provider, | | | 2019 | Exam | MED CTR EXTERNAL | [address] | | | | | IMAGING | [place] | | | | | [phone] | [place] [address] | | +--------+ + + + + [...] | | | or equivalent | | [phone] | + + +---------+ + + + [...] +--------+ + + + | CT ABDOMEN W WO | Routin | 10/31/2018 | | Results for this | | CONTRAST | e | 9:30 AM | | procedure are in the | | | | PST | | results section. | + +--------+ + + + documented in this encounter Results CT Abdomen w wo Contrast (10/31/2018 9:30 AM PST) + + | Specimen | + [...]
--- OUTSIDE RECORDS SUMMARY | ~2019-08-01 | XMS | Encounter Summary ---
Demographics + + + | Address | [address] | | | [place] [address] | + + + | Home Phone | | + + + | Preferred Language | Unknown | + + + | Marital Status | | + + + | Tenriism Affiliation | Unknown | + + + | Race | Unknown | + + + | Ethnic Group | Unknown | + + + Author + + + | Author | [facility] | | | and Izaiahana | + + + | Organization | [facility] [...] Team Providers + +------+ + | Care Marketing Content Specialist Name | Role | Phone | [...] 2015 | | GASTROENTEROLOGY | [address] [place] | | | | | [address] [place] | [address] [place] | | | | | [address] [place], [place] | [address] | | | | | [address] | | | | | | [phone] | | | +--------+ + + + [...] [address] | [place] | [phone] | | [facility] | | [address] | | | - LABORATORY | | [...] | | [facility] | | | | [id number] | | [facility] | | | [...] [address] | [place] | [phone] | | [facility] | | [address] | | | - LABORATORY | | [...] | | Gliadin Ab, | | | [facility] | | | IgA | | | MEDICAL | | | | | | CENTER - | | | | | | LABORATORY | | + +-------+ + + + | Anti | 1.1 | 0 - 7 | [facility] | | | Gliadin Ab, | | | [facility] | | | IgG | | | MEDICAL | | | | | | CENTER - | | | | | | LABORATORY | | + +-------+ + + + | Tissue | 0.4 | 0 - 7 | [facility] | | | Transglutam | | | [facility] | | | inase IgA | | [...] [address] | [place] | [phone] | | [facility] | | [address] | | | - LABORATORY | | | | + + + + + documented in this encounter Visit Diagnoses Not on filedocumented in this encounter"
--- OUTSIDE RECORDS SUMMARY | ~2019-08-01 | XMS | Encounter Summary ---
Demographics + + + | Address | [address] | | | [place] [address] | + + + | Home Phone | | + + + | Preferred Language | Unknown | + + + | Marital Status | | + + + | Sabianism Affiliation | Unknown | + + + | Race | Unknown | + + + | Ethnic Group | Unknown | + + + Author + + + | Author | [facility] | | | and [place]zaiahana | + + + | Organization | [facility] | | | and Izaiahana [...] Team Providers + +------+ + | Care Memory Care Program Director Name | Role | Phone | [...] [place] | | | | | [phone] | [place] [address] | | +--------+ + + + + [...]
--- OUTSIDE RECORDS SUMMARY | ~2019-08-01 | XMS | Encounter Summary ---
Demographics + + + | Address | [address] | | | [place] [address] | + + + | Home Phone | | + + + | Preferred Language | Unknown | + + + | Marital Status | | + + + | Sabianism Affiliation | Unknown | + + + | Race | Unknown | + + + | Ethnic Group | Unknown | + + + Author + + + | Author | [facility] | | | and Izaiahana | + + + | Organization | [facility] | | | and Izaiahana [...] Team Providers + +------+ + | Care Autocad Designer Name | Role | Phone | + [...] Austin CONNELLY | | | | | [phone] | [place] [id number] | | +--------+ + + + + [...] + +--------+ + + + | [place] UGI | Routin | 01/16/2016 | | Results for this | | | e | 10:00 AM | | procedure are in the | | | | PDT | | results section. | + +--------+ + + + documented in this encounter Results MARYLIN LOMAS (01/16/2016 10:00 AM PDT) + + | Specimen | [...]
--- OUTSIDE RECORDS SUMMARY | ~2019-08-01 | XMS | Encounter Summary ---
Demographics + + + | Address | [address] | | | [place] [address] | + + + | Home Phone [...] | [facility] | | | and [...] Team Providers + +------+ + | Care Scrap Iron Cutter Name | Role | Phone | [...] | location of | [address] | [place] | | | | | malignancy | [place], [place] | [place], | | | | | (HCC) | [address] | [place] [address] | | | | | Procedures | Phone: | Phone: | | | | | CT Chest w | [phone] | [phone] | | | | | Abdomen w wo | Fax: | Fax: | | | | | Pelvis w | [phone] | [phone] | | | | | Cont | [...] | location of | [address] | [place] | | | | | malignancy | [place], [place] | [place], | | | | | (HCC) | [address] | [place] [address] | | | | | Procedures | Phone: | Phone: | | | | | CT Chest w | [phone] | [phone] | | | | | Abdomen w wo | Fax: | Fax: | | | | | Pelvis w | [phone] | [phone] | | | | | Cont | | | + +--------+ + + + + Encounter Details +--------+ + + + + | Date | Type | Department | Care Team | Description | +--------+ + + + + | 06/25/ | Hospital | [facility] | Thai Mcnamara | 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
--- OUTSIDE RECORDS SUMMARY | ~2019-08-01 | XMS | Encounter Summary ---
Demographics + + + | Address | [address] | | | [place] [address] | + + + | Home Phone [...] + + | Organization | [facility] | | | and [...] Team Providers + +------+ + | Care Leaf Conditioner Helper Name | Role | Phone | [...] neoplasm of | [place], | [address] | | | | | head of | MD [address] | [place], | | | | | pancreas | [address], | [place] [address] | | | | | (HCC) | [address] | Phone: | | | | | Procedures | [place], | [phone] | | | | | [place] | [place] [address] | Fax: | | | | | DEXAMETHASON | | [phone] | | | | | E SODIUM | | | | | | | PHOS, 1 MG | | | | | | | [place] | | | | | | | DIPHENHYDRAM | | | | | | | INE HCL | | | | | | | INJECTIO, 50 | | | | | | | MG [place] | | | | | | | PACLITAXEL | | | | | | | PROTEIN | | | | | | | BOUND, 1 MG | | | | | | | VT | | | | | | | GEMCITABINE | | | | | | | HCL | | | | | | | INJECTION, | | | | | | | 200 MG [place] | | | | | | | NORMAL | | | | | | | SALINE | | | | | | | SOLUTION | | | | | | | INFUS, 500 | | | | | | | ML [place] | | | | | | | NORMAL | | | | | | | SALINE | | | | | | | SOLUTION | | | | | | | INFUS, 250 | | | | | | | ML [place] | | | | | | | STERILE | | | | | | | WATER/SALINE | | | | | | | , 10 ML [place] | | | | | | | CHEMOTHER, | | | | | | | IV PUSH,EA | | | | | | | ADD DRUG VT | | | | | | | CHEMOTHER, | | | | | | | IV INFUSION, | | | | | | | 1 HR VT | | | | | | | CHEMOTHER, | | | | | | | IV INFUSION, | | | | | | | EA HR VT | | | | | | | CHEMOTHER,NO | | | | | | | N-HORMONE | | | | | | | ANTI-NEOPL, | | | | | | | SUB-Q/IM VT | | | | | | | CHEMOTHER | | | | | | | HORMON | | | | | | | ANTINEOPL | | | | | | | SUB-Q/IM VT | | | | | | | ADRENALIN | | | | | | | EPINEPHRINE | | | | | | | INJECT, .1 | | | | | | | MG VT | | | | | | | METHYLPREDNI | | | | | | | SOLONE | | | | | | | INJECTION, | | | | | | | 125 MG VT | | | | | | | ALBUTEROL | | | | | | | COMP CON, 1 | | | | | | | MG [place] | | | | | | | ALBUTEROL | | | | | | | NON-COMP | | | | | | | CON, 1 MG | | | | | | | VT | | | | | | | INJECTION, | | | | | | | FAMOTIDINE, | | | | | | | 20 MG | | | + +--------+ + + + + Encounter Details +--------+ + + + + | Date | Type | Department | Care Team | Description | +--------+ + + + + | 12/25/ | Hospital | [facility] | Gloria, | Malignant neoplasm | | 2019 | Encounter | MED CTR CHEMO | Logan Madrid MD [address] | of head of pancreas | | | | INFUSION [address] | [address] [place] | (HCC) (Primary Dx) | | | | [place], | [place] [address] | | | | | [place] [address] | [phone] | | | | | [phone] | | | +--------+ + + + [...] | | | or equivalent | | 9064-2446 | + + +---------+ + + + [...] | | | | | Oral, ONCE, [facility] 12/25/18 at 0945, | | AM [...] | | | | | Minutes, ONCE, [facility] 12/25/18 at | | | | | | | 1000, For 1 dose, Chemotherapy: | | | | | | | Use appropriate handling | | | | | | | precautions. Do not filter., | | | | | | + +---------+ +--------+ +---+ +---+---+ | | | +---+---+ documented in this encounter"
--- OUTSIDE RECORDS SUMMARY | ~2019-08-01 | XMS | Encounter Summary ---
Demographics + + + | Address | [address] | | | [place] [address] | + + + | Home Phone | | + + + | Preferred Language | Unknown | + + + | Marital Status | | + + + | Uatsdin Affiliation | Unknown | + + + | Race | Unknown | + + + | Ethnic Group | Unknown | + + + Author + + + | Author | [facility] | | | and [place] | + + + | Organization | [facility] | | | and [...] Team Providers + +------+ + | Care Sales Planning Analyst Name | Role | Phone | + [...] | | | ONCOLOGY CLINIC [address] | [place], [place] | | | | | [address] [place] | [address] | | | | | [place] [address] | | | | | | [phone] | | | +--------+ + + + [...] | | | or equivalent | | 9747-4994 | + + +---------+ + + + [...]
--- OUTSIDE RECORDS SUMMARY | ~2019-08-01 | XMS | Encounter Summary ---
Demographics + + + | Address | [address] | | | [place] [address] | + + + | Home Phone | | + + + | Preferred Language | Unknown | + + + | Marital Status | | + + + | Christianity Affiliation | Unknown | + + + | Race | Unknown | + + + | Ethnic Group | Unknown | + + + Author + + + | Author | [facility] | | | and Izaiahana | + + + | Organization | [facility] | | | and Izaiahana [...] Team Providers + +------+ + | Care Printmaker Name | Role | Phone | + [...] | | | [address] | [address] | | | | | [place] [address] | | | | | | [phone] | | | +--------+ + + + [...] | | | or equivalent | | 3275-3081 | + + +---------+ + + + [...] DO Radiation Oncologist Department of Radiation Oncology [facility] documented in this enco unter Plan of Treatment Not on filedocumented as of this encounter Visit Diagnoses Not on filedocumented in this encounter"
--- OUTSIDE RECORDS SUMMARY | ~2019-08-01 | XMS | Encounter Summary ---
Demographics + + + | Address | [address] | | | [place] [address] | + + + | Home Phone [...] | Organization | [facility] [...] Team Providers + +------+ + | Care Bottle House Cleaners Supervisor Name | Role | Phone | [...] + + | 03/05/ | Hospital | [facility] | Rasheed Bello DO | Malignant neoplasm | | 2019 | Encounter | MED CTR RADIATION | [address] | of head of pancreas | | | | ONCOLOGY CLINIC [address] | [place], [place] | (HCC) (Primary Dx) | | | | [address] [place] | [address] | | | | | [place] [address] | | | | | | [phone] | | | +--------+ + + + [...] | | | or equivalent | | 6089-8730 | + + +---------+ + + + [...]
--- OUTSIDE RECORDS SUMMARY | ~2019-08-01 | XMS | Encounter Summary ---
Demographics + + + | Address | [address] | | | [place] [address] | + + + | Home Phone [...] Organization | [facility] | | | and [place]za[place] [...] Team Providers + +------+ + | Care Furniture Restorer Name | Role | Phone | + [...] | | | abdominal | [place] | [address] | | | | | pain | [address] | Phone: | | | | | Abnormal | Phone: | [phone] | | | | | weight loss | [phone] | Fax: | | | | | | Fax: | [phone] | | | | | | [phone] | | +--------+--------+ + + + + Encounter Details +--------+---------+ + + + | Date | Type | Department | Care Team | Description | +--------+---------+ + + + | 04/16/ | Office | [facility] [place] | Dirk Saldivar MD | Chronic abdominal | | 2016 | Visit | GASTROENTEROLOGY | [address], [place] | pain (Primary Dx); | | | | [address] [place] | [address] [place], [place] | Irritable bowel | | | | [address] [place], [place] | [address] | syndrome without | | | | [address] | | diarrhea; Weight | | | | [phone] | | loss, | | | | [...] the testicular area. Apparently evaluation by urologist [facility] ultrasounds have been negative. The patient cannot report any precipitating cause of his pain except he moved to wash her in September and there was pressure on his lower chest area. The patient denies any blood or mucus in the stool denies any alternation between constipa tion or diarrhea has been on an acid clinical applications manager and Carafate for presumed reflux. Workup has [...] 02/26 when he was ho spitalized in [place]. Patient recently underwent laparoscopy with appendectomy with [...] made to ensure accuracy; however, inadvertent computerized universal worker assisted living errors may be pre sent. documented in [...]
--- OUTSIDE RECORDS SUMMARY | ~2019-08-01 | XMS | Encounter Summary ---
Demographics + + + | Address | [address] | | | [place] [address] | + + + | Home Phone | | + + + | Preferred Language | Unknown | + + + | Marital Status | | + + + | Mosque Affiliation | Unknown | + + + | Race | Unknown | + + + | Ethnic Group | Unknown | + + + Author + + + | Author | [facility] | | | and Izaiahana | + + + | Organization | [facility] | | | [...] Team Providers + +------+ + | Care Cuffer Name | Role | Phone | + [...] + + | 02/26/ | Hospital | [facility] | Gloria, | Malignant neoplasm | | 2019 | Encounter | MED CTR MEDICAL | Logan Madrid MD [address] | of head of pancreas | | | | ONCOLOGY CLINIC [address] | [address] [place] | (HCC) | | | | [address] [place] | [place] [address] | | | | | [place] [address] | [phone] | | | | | [phone] | | | +--------+ + + + [...] | | | or equivalent | | 2518-4018 | + + +---------+ + + + [...] nt from the original. Hematology/Oncology Progress Note [facility] [place] Pt. Name/Age/: Anastacio Galvez 68 y.o. 1950 [facility]. Record Number: [id number] Date of admission: 02/26/2019 The patient's primary care provider is Garland Caputo MD. Identifying Statement: Anastacio Galvez is a 68 y.o. male from [address] [place] [address] with Stage IIA Pancreatic Cancer. The patient [...] abdomen/pelvis without contrast June 27, 2018 at [facility] in [facility] demonstrated a 5 cm pancreatic mass in the uncinate process associated with a 12 mm retro-caval lymph node. Tumor marker CA 19-9 was 816.5 units per milliliter (upper limits of normal 37 units per milliliter). Surgical consultation with Dr. Mami Mcnamara ([facility]) on July 03, 2018. CT of the chest/abdomen/pelvis with contrast at [facility] on July 10, 2018 demonstrated a 3.3 cm x 3.7 cm x 5.17 m mass in the pancreatic head/uncina te process. The mass encases a few branches of the superior mesenteric artery arising certified professional controller iorly and demonstrates slightly less than 180 of encasement of the superior mesenteric art daniel proper. Enlarged 1.1 cm lymph node inferior to the mass. Endoscopic ultrasound with biopsy and stent (10 mm x 40 mm metal ) placement July 25 (Dr. Leonel Song, [place], [place]): Pancreatic/uncinate mass, 4.5 cm close to but n ot touching major vessels, without endoscopic evidence of regional lymphadenopathy, PT3, PN0 , M0 stage IIA. Biopsy specimen # [id number] ([facility], [facility]). Fine-needle aspiration; adenocarcinoma. Biliary brushings; adenocarcinoma. Neoadjuvant therapy with Abraxane/Gemcitabine on August 15, 2018 through October 24, 2018 . 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 Repeat CT abdomen/pelvis on October 31, 2018 demonstrated a 60% volumetric reduction in pa ncreatic head mass. Consultation with Dr. Mami Mcnamara, [facility] on November 06, 2018; disease [...] branche s. Consultation with Dr. Mami Mcnamara, [facility], who determined that the disease st ill remains unresectable, cross over to combined modality radiation + chemotherapy. Cross over to capecitabine 1500 mg orally twice a day, continuous, with daily radiation [facility], Saturday-Saturday, on February 12, 2019. Current Assessment & Plan Anastacio Galvez returned to clinic on 02/26/2019 with his , Jamila for follow up and treatment of locally advanced pancreatic cancer. Interval history is notable for the fact lukasz Anastacio crossed over to continuous capecitabine with [...] Date APPENDECTOMY CATARACT REMOVAL Bilateral 2007 at [facility] CHOLECYSTECTOMY EGD AND COLONOSCOPY ERCP N/A 01/29/2019 Procedure: ERCP; Surgeon: Joaquin Lawson MD; Location: [facility] OR HERNIA REPAIR inguinal LAPAROSCOPY NASAL SEPTUM SURGERY TONSILLECTOMY torn cartilage Right [facility] Social History Socioeconomic History Marital status: Spouse [...] 0.0 oz Comment: Drank 12 pk/wk from [id number] Drug use: No Comment: Has used marijauna [...] this chart may have been created with [employer] voice recognition software. Occasi onal wrong-word or [...] the | | | | PDT | ([facility]) | results section. | + +--------+ + + + | CA 19-9, QUANT | STAT | 02/26/2019 | Malignant neoplasm | Results for this | | | | 2:48 PM | of head of pancreas | procedure are in the | | | | PDT | ([facility]) | results section. | + +--------+ + + + | LACTATE | STAT | 02/26/2019 | Malignant neoplasm | Results for this | | DEHYDROGENASE | | 2:48 PM | of head of pancreas | procedure are in the | | | | PDT | ([facility]) | results section. | + +--------+ + + + | COMPREHENSIVE | STAT | 02/26/2019 | Malignant neoplasm | Results for this | | METABOLIC PANEL | | 2:48 PM | of head of pancreas | procedure are in the | | | | PDT | ([facility]) | results section. | + +--------+ + [...] + | Performed at: 01 - [facility] [place] [address], | REFERENCE LAB | | [place], [place] [id number] Head Wrestling Coach: Evert Scanlon MD, Phone: | [facility] | | [phone] | | + + + + + + + + | Performing | Address | City/State/Zipcode | Phone Number | | Organization | | | | + + + + + | REFERENCE LAB | [address] | [place] [address] | [phone] | | [facility] | [address] [...] [address] | [place] | [phone] | | [facility] | | [address] | | | - LABORATORY | | [...] not | >60Comment: GLOMERULAR | >=60 | [facility] | | | | FILTRATION | mL/min/1.73m2 | [facility] | | | [place] | RATE,ESTIMATED | | MEDICAL | | | | mL/min/1.49a5Kdaa than | | CENTER - | | [...] + | [address] | [address] | [place] | [phone] | | [facility] | | [address] | | | - LABORATORY | | [...] + | [address] | [address] | [place] | [phone] | | [facility] | | [address] | | | - LABORATORY | | [...] [address] | [place] | [phone] | | [facility] | | [address] | | | - LABORATORY | | [...] | 0.76 | 0.70 - 1.30 | [place] | | | | | mg/dL | [facility] | | | | | | MEDICAL | | | | | | CENTER - | | | | | | LABORATORY | | + + + + + + | eGFR if not | >60Comment: GLOMERULAR | >=60 | [facility] | | | | FILTRATION | mL/min/1.73m2 | [facility] | | | [place] | RATE,ESTIMATED | | MEDICAL | | | | mL/min/1.12u7Wiyf than | | CENTER - | | [...] [address] | [place] | [phone] | | [facility] | | [address] | | | - LABORATORY | | [...] [address] | [place] | [phone] | | [facility] | | [address] | | | - LABORATORY | | [...] + | Performed at: 01 - [facility] [place] [address], | REFERENCE LAB | | [place], [place] [id number] Head Wrestling Coach: Evert Scanlon MD, Phone: | [facility] [place] | | [phone] | | + + + + + + + + | Performing | Address | City/State/Zipcode | Phone Number | | Organization | | | | + + + + + | REFERENCE LAB | [address] | [place] [address] | [phone] | | [facility] | [address] | | | + + + + + documented in this encounter Visit Diagnoses + + | Diagnosis | + + | Malignant neoplasm of head of pancreas (HCC) Malignant neoplasm of head of pancreas | + + documented in this encounter
--- OUTSIDE RECORDS SUMMARY | ~2019-08-01 | XMS | Encounter Summary ---
Demographics + + + | Address | [address] | | | [place] [address] | + + + | Home Phone | | + + + | Preferred Language | Unknown | + + + | Marital Status | | + + + | Restorationist Affiliation | Unknown | + + + | Race | Unknown | + + + | Ethnic Group | Unknown | + + + Author + + + | Author | [facility] | | | and Izaiahana | + + + | Organization | [facility] | | | and Izaiahana | [...] Team Providers + +------+ + | Care Formstone Fitter Name | Role | Phone | + [...] [place] | | | | | [phone] | [place] [address] | | +--------+ + + + + [...] CT ABDOMEN W WO | Routin | 07/10/2018 | | Results for this | | CONTRAST | e | 11:25 AM | | procedure are in the | | | | PDT | | results section. | + +--------+ + + + documented in this encounter Results CT Abdomen w wo Contrast (07/10/2018 11:25 AM PDT) + + [...]
--- OUTSIDE RECORDS SUMMARY | ~2019-08-01 | XMS | Encounter Summary ---
Demographics + + + | Address | [address] | | | [place] [address] | + + + | Home Phone | | + + + | Preferred Language | Unknown | + + + | Marital Status | | + + + | Buddhist Affiliation | Unknown | + + + | Race | Unknown | + + + | Ethnic Group | Unknown | + + + Author + + + | Author | [facility] | | | and Izaiahana | + + + | Organization | [facility] | | | and [...] Team Providers + +------+ + | Care Feed Miller Name | Role | Phone | + [...] | | | stent, | | [place] [address] | | | | | subsequent | | Phone: | | | | | encounter | | [phone] | | | | | Procedures | | Fax: | | | | | [place] | | [phone] | | | | | ESOPHAGOSCOP | | | | | | | Y FLEXIBLE | | | | | | | GUIDE WIRE | | | | | | | DILATION [place] | | | | | | | ERCP DX | | | | | | | COLLECTION | | | | | | | SPECIMEN | | | | | | | BRUSHING/WAS | | | | | | | GERI [place] | | | | | | | [...] + + + + | 01/29/ | Anesthesia | [facility] | Alec Waldron | | | 2019 | Event | MED CTR OR INTRA OP | DO Shawn [address] | | | | | [address] | [place]I [place] | | | | | [place] | [place] [address] | | | | | [address] | | | | | | [phone] | | | +--------+ + + + + Anesthesia Record + + + + + | Procedure Name | Responsible | Anesthesia Start | Anesthesia Stop Time | | | Anesthesiologist | Time | | + + + + + | ERCP (N/A Mouth) | Alec Waldron, | 01/29/19 0939 | 01/29/19 1032 | | | DO | | | + + + + + +----+---+ + + | Da | T | Event | Comment | | te | i | | | | | m | | | | | e | | | +----+---+ + + | 05 | 0 | | | | /1 | 8 | | | | 6/ | 5 | | | | 20 | 5 | | | | 19 | | | | +----+---+ + + | | 0 | An Checkout | Pre-use anesthesia machine/equipment checkout. | | | 8 | | | | | 5 | | | | | 7 | | | +----+---+ + + | | 0 | An Start | Reassessment prior to anesthesia induction/procedure. | | | 9 | | | | | 3 | | | | | 9 | | | +----+---+ + + | | 0 | AN | Per surgeon request | | | 9 | Antibiotic | | | | 4 | declined | | | | 3 | | | +----+---+ + + | | 0 | Preoxygenat | | | | 9 | ed | | | | 4 | | | | | 3 | | | +----+---+ + + | | 0 | An RSI | | | | 9 | | | | | 4 | | | | | 4 | | | +----+---+ + + | | 0 | An | | | | 9 | Induction | | | | 4 | | | | | 4 | | | +----+---+ + + | | 0 | An | | | | 9 | Intubation | | | | 4 | | | | | 4 | | | +----+---+ + + | | 0 | First | | | | 9 | Inc/Proc St | | | | 4 | | | | | 6 | | | +----+---+ + + | | 1 | Oropharynx | | | | 0 | Suctioned | | | | 2 | | | | | 7 | | | +----+---+ + + | | 1 | AN No | TOF 4/4 with sustained tetanus. | | | 0 | Residual | | | | 2 | NMB | | | | 7 | | | +----+---+ + + | | 1 | Extubation/ | | | | 0 | Airway LDA | | | | 2 | Removal | | | | 7 | | | +----+---+ + + | | 1 | an stop | | | | 0 | data | | | | 2 | | | | | 7 | | | +----+---+ + + | | 1 | An Stop | Patient handed off to recovery nurse. | | | 3 | | | | | 2 | | | +----+---+ + + +------+ | Meds | +------+ + +---------+ | Name | Total | + +---------+ | fentaNYL injection (2 mL) | 25 mcg | + +---------+ | lidocaine 2% | 100 mg | + +---------+ | propofol (DIPRIVAN) injection | 140 mg | | (bolus) (20 mL) | | + +---------+ | succinylcholine | 80 mg | + +---------+ | rocuronium | 20 mg | + +---------+ | ondansetron | 4 mg | + +---------+ | dexamethasone | 10 mg | + +---------+ | ePHEDrine (AKOVAZ) injection 50 | 10 mg | | mg/mL | | + +---------+ | phenylephrine (Injection) | 200 mcg | + +---------+ | sugammadex (BRIDION) injection (2 | 200 mg | | mL vial) | | + +---------+ | lactated ringers (LR) infusion | 600 mL | + +---------+ + + | Name | + + | N2O Flow Rate (L/Min) | + + | O2 Flow Rate (L/Min) | + + | Insp O2 | + + | Exp SEV | + + | Air Flow Rate (L/Min) | + + + + | No blood administrations on file. | + + +--------+ + + + | Type | Details | Placement | Removal | +--------+ + + + | Periph | 01/29/19; 0832; Right; Hand; | 01/29/19 08 by | 01/29/19 123 by | | eral | [id number] catheter system; | Julia Moreno RN | Maria D Jc RN | | IV | 20 gauge; Hematology, Chemistry, | | | | | Coagulation; distraction, | | | | | intradermal injection; | | | | | catheter/device intact, removed | | | | | per policy/procedure, no longer | | | | | indicated, site care per | | | | | policy/procedure; short term use; | | | | | 01/29/19; 1235 | | | +--------+ + + + | Airway | Placement Date: 01/29/19; | 01/29/19943 by | 01/29/19 102 by | | | Placement Time: 943 (created via | Alec Waldron, | Alec Waldron, | | | procedure documentation); Mask | DO | DO | | | Ventilation: EZ; Airway Grade: 1; | | | | | Successful Technique: video | | | | | scope; Laryngoscope Blade Size: | | | | | 3; Attempts: 1; Airway Type: | | | | | endotracheal; Size: 7.5; Airway | | | | | Tube Secured At: 23; Trauma: | | | | | none; Other Equipment: stylette; | | | | | Placement Check: exhaled CO2 | | | | | detection device; Removal Date: | | | | | 01/29/19; Removal Time: 1027 | | | +--------+ + + + documented in this encounter Social History + +-------+ +--------+ + | [...] | | | or equivalent | | 2273-3800 | + + +---------+ + + + [...] | + +--------+ + + + | ANE AIRWAY NOTE | Routin | 01/29/2019 | | Results for this | | | e | 10:06 AM | | procedure are in the | | | | PDT | | results section. | + +--------+ + + + documented in this encounter Results Anesthesia Airway Note (01/29/2019 10:06 AM PDT) + + + | Narrative | Performed At | + + + | Alec Waldron DO 01/29/2019 10:06 Anesthesia Airway | | | Placement 01/29/2019 9:44 Preprocedure check: patient identified, | | | oxygen, airway assessed, patient reassessment prior to induction, | | | airway equipment checked and suction Rapid Sequence Induction: no | | | Mask ventilation: easy Successful technique: videoscope | | | Laryngoscope blade size: 3 Airway grade: 1 (Full view of glottis) | | | Other equipment: stylette Attempts: 1 Airway type: endotracheal | | | Size: 7.5 Cuffed: cuffed Route, reference point: right side of mouth | | | Tube depth: 23 cm Tube secured with: adhesive tape Trauma: none | | | Tube placement verification: carbon dioxide detection Performing | | | provider: Alec Waldron DO Please see intraoperative | | | grid for any additional medication documentation. | | + + + + + | Procedure Note | + + | Alec Waldron DO - 01/29/2019 10:06 AM PDT Anesthesia Airway | | Placement01/29/2019 9:44Preprocedure check: patient identified, oxygen, airway assessed, | | patient reassessment prior to induction, airway equipment checked and suctionRapid | | Sequence Induction: noMask ventilation: easySuccessful technique: | | videoscopeLaryngoscope blade size: 3 Airway grade: 1 (Full view of glottis)Other | | equipment: styletteAttempts: 1Airway type: endotrachealSize: 7.5Cuffed: cuffedRoute, | | reference point: right side of mouthTube depth: 23 cmTube secured with: adhesive | | tapeTrauma: noneTube placement verification: carbon dioxide detectionPerforming | | provider: Blu Angeles see intraoperative grid for any additional | | medication documentation. | |Attempts: 1 | |Airway type: endotracheal | |Size: 7.5 | |Cuffed: cuffed | |Route, reference point: right side of mouth | |Tube depth: 23 cm | |Tube secured with: adhesive tape | |Trauma: none | |Tube placement verification: carbon dioxide detection | |Performing provider: Alec Waldron DO | | | | | | | |Please see intraoperative grid for any additional medication documentation. | + + documented in this encounter Visit Diagnoses Not on filedocumented in this encounter Administered Medications + +--------+ +-------+------+------+ | Medication Order | MAR | Action | Dose | Rate | Site | | | Action | Date | | | | + +--------+ +-------+------+------+ | dexamethasone (PF) 10 mg/mL | Given | 01/30/20 | 10 mg | | | | injection Intravenous, PRN, | | 19 9:50 | | | | | Starting Alana 01/29/19 at 0950, | | AM PDT | | | | | Anesthesia Intra-op | | | | | | + +--------+ +-------+------+------+ +---+---+ | | | +---+---+ + +-------+ +-------+---+---+ | ePHEDrine (AKOVAZ) 50 mg/mL | Given | 01/30/20 | 10 mg | | | | injection Intravenous, PRN, | | 19 10:11 | | | | | Starting [place] 01/29/19 at 1011, | | AM PDT | | | | | Anesthesia Intra-op | | | | | | + +-------+ +-------+---+---+ +---+---+ | | | +---+---+ + +-------+ +--------+---+---+ | fentaNYL (PF) injection | Given | 01/30/20 | 25 mcg | | | | Intravenous, PRN, Starting Alana | | 19 9:43 | | | | | 01/29/19 at 0943, Anesthesia | | AM PDT | | | | | Intra-op | | | | | | + +-------+ +--------+---+---+ +---+---+ | | | +---+---+ + +---------+ +---+---+---+ | lactated ringers (LR) [...] | | | | + +---------+ +---+---+---+ +---+---+ | | | +---+---+ + +-------+ +--------+---+---+ | lidocaine (PF) 2% injection | Given | 01/30/20 | 100 mg | | | | Intravenous, PRN, Starting Alana | | 19 9:43 | | | | | 01/29/19 at 0943, Anesthesia | | AM PDT | | | | | Intra-op | | | | | | + +-------+ +--------+---+---+ +---+---+ | | | +---+---+ + +-------+ +------+---+---+ | ondansetron (ZOFRAN) injection | Given | 01/30/20 | 4 mg | | | | Intravenous, PRN, Starting [place] | | 19 10:08 | | | | | 01/29/19 at 1008, Anesthesia | | AM PDT | | | | | Intra-op | | | | | | + +-------+ +------+---+---+ +---+---+ | | | +---+---+ + +-------+ +---------+---+---+ | phenylephrine (JAMSHID-SYNEPHRINE) | Given | 01/30/20 | 100 mcg | | | | 100 mcg/mL injection | | 19 10:04 | | | | | Intravenous, PRN, Starting [place]ana | | AM PDT | | | | | 01/29/19 at 0949, Anesthesia | | | | | | | Intra-op | | | | | | + +-------+ +---------+---+---+ +-------+ +---------+---+---+ | Given | 01/30/20 | 100 mcg | | | | | 19 9:49 | | | | | | AM PDT | | | | +-------+ +---------+---+---+ +---+---+ | | | +---+---+ + +-------+ +--------+---+---+ | propofol (DIPRIVAN) injection | Given | 01/30/20 | 140 mg | | | | Intravenous, PRN, Starting [place]ana | | 19 9:44 | | | | | 01/29/19 at 0944, Anesthesia | | AM PDT | | | | | Intra-op | | | | | | + +-------+ +--------+---+---+ +---+---+ | | | +---+---+ + +-------+ +-------+---+---+ | rocuronium (ZEMURON) injection | Given | 01/30/20 | 20 mg | | | | Intravenous, PRN, Starting [place]ana | | 19 10:02 | | | | | 01/29/19 at 1002, Anesthesia | | AM PDT | | | | | Intra-op | | | | | | + +-------+ +-------+---+---+ +---+---+ | | | +---+---+ + +-------+ +-------+---+---+ | succinylcholine (ANECTINE) | Given | 01/30/20 | 80 mg | | | | injection Intravenous, PRN, | | 19 9:44 | | | | | Starting [place] 01/29/19 at 0944, | | AM PDT | | | | | Anesthesia Intra-op | | | | | | + +-------+ +-------+---+---+ +---+---+ | | | +---+---+ + +-------+ +--------+---+---+ | sugammadex (BRIDION) injection | Given | 01/30/20 | 200 mg | | | | Intravenous, PRN, Starting [place]ana | | 19 10:19 | | | | | 01/29/19 at 1019, Anesthesia | | AM PDT | | | | | Intra-op | | | | | | + +-------+ +--------+---+---+ +---+---+ | | | +---+---+ documented in this encounter"
--- OUTSIDE RECORDS SUMMARY | ~2019-08-01 | XMS | Encounter Summary ---
Demographics + + + | Address | [address] | | | [place] [address] | + + + | Home Phone | | + + + | Preferred Language | Unknown | + + + | Marital Status | | + + + | Anabaptist Affiliation | Unknown | + + + | Race | Unknown | + + + | Ethnic Group | Unknown | + + + Author + + + | Author | [facility] | | | and Izaiahana | + + + | Organization | [facility] | | | and Izaiahana | + [...] Team Providers + +------+ + | Care Electroencephalograph Technologist Name | Role | Phone | [...] [place] | | | | | [phone] | [place] [address] | | +--------+ + + + + [...] | + +--------+ + + + | NM GASTRIC EMPTYING | Routin | 02/28/2016 | | Results for this | | | e | 7:40 AM | | procedure are in the | | | | PDT | | results section. | + +--------+ + + + documented in this encounter Results NM Gastric Emptying (02/28/2016 7:40 AM PDT) + + | Specimen | [...]
--- OUTSIDE RECORDS SUMMARY | ~2019-08-01 | XMS | Encounter Summary ---
Demographics + + + | Address | [address] | | | [place] [address] | + + + | Home Phone | | + + + | Preferred Language | Unknown | + + + | Marital Status | | + + + | Restorationism Affiliation | Unknown | + + + | Race | Unknown | + + + | Ethnic Group | Unknown | + + + Author + + + | Author | [facility] | | | and Izaiahana | + + + | Organization | [facility] | | | and Izaiahana | [...] Team Providers + +------+ + | Care Oracle Wms Consultant Name | Role | Phone | + +------+ + | Garland Caputo MD | PCP | | + +------+ + Encounter Details +--------+ + + + + | Date | Type | Department | Care Team | Description | +--------+ + + + + | 01/19/ | [facility] | [facility] | Rasheed Bello DO | | | 2019 | Encounter | MED CTR RADIATION | [address] | | | | | ONCOLOGY [address] | [place] | | | | | [place], | [address] | | | | | [place] [address] | | | | | | [phone] | | | +--------+ + + + [...] | | | or equivalent | | 4936-5059 | + + +---------+ + + + [...]
--- OUTSIDE RECORDS SUMMARY | ~2019-08-01 | XMS | Encounter Summary ---
Demographics + + + | Address | [address] | | | [place] [address] | + + + | Home Phone [...] Team Providers + +------+ + | Care Manager Application Name | Role | Phone | + [...] Malignant | Rasheed Madrid DO | [place] | | | | | neoplasm of | [address] | [place], | | | | | head of | [address] | [place] [address] | | | | | pancreas | [place], | Phone: | | | | | (HCC) | [place] [address] | [phone] | | | | | Procedures | Phone: | Fax: | | | | | CT Treatment | [phone] | [phone] | | | | | Plan | Fax: | | | | | | Complex CT | [phone] | | | | | | [place] PLAN | | | +--------+--------+ + + + + Encounter Details +--------+ + + + + | Date | Type | Department | Care Team | Description | +--------+ + + + + | 01/29/ | Orders Only | [facility] | Rasheed Bello DO | 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
--- OUTSIDE RECORDS SUMMARY | ~2019-08-01 | XMS | Encounter Summary ---
Demographics + + + | Address | [address] | | | [place] [address] | + + + | Home Phone | | + + + | Preferred Language | Unknown | + + + | Marital Status | | + + + | Oriental Orthodox Affiliation | Unknown | + + + | Race | Unknown | + + + | Ethnic Group | Unknown | + + + Author + + + | Author | [facility] | | | and Izaiahana | + + + | Organization | [facility] | | | and [...] Team Providers + +------+ + | Care Payroll Accounting Clerk Name | Role | Phone | + +------+ + | Garland Caputo MD | PCP | | + +------+ + Encounter Details +--------+ + + + + | Date | Type | Department | Care Team | Description | +--------+ + + + + | 12/25/ | [facility] | [facility] | Rasheed Bello DO | | | 2019 | Encounter | MED CTR RADIATION | [address] | | | | | ONCOLOGY [address] | [place] | | | | | [place], | [address] | | | | | [place] [address] | | | | | | [phone] | | | +--------+ + + + [...] | | | or equivalent | | 1886-1287 | + + +---------+ + + + [...]
--- OUTSIDE RECORDS SUMMARY | ~2019-08-01 | XMS | Encounter Summary ---
Demographics + + + | Address | [address] | | | [place] [address] | + + + | Home Phone | | + + + | Preferred Language | Unknown | + + + | Marital Status | | + + + | Judaism Affiliation | Unknown | + + + | Race | Unknown | + + + | Ethnic Group | Unknown | + + + Author + + + | Author | [facility] | | | and Izaiahana | + + + | Organization | [facility] | | | and Izaiahana [...] Team Providers + +------+ + | Care Reed Polisher Name | Role | Phone | + [...] | +--------+ + + + + | 02/12/ | Hospital | [facility] | Gloria, | Malignant neoplasm | | 2019 | Encounter | [facility] | Logan Madrid MD [address] | of head of pancreas | | | | [facility] [address] [place] | (HCC); Chronic | | | | [address] [place] | [place] [address] | anxiety; | | | | [place] [address] | [phone] | Gastroesophageal | | | | [phone] | | reflux disease, | | | | | | esophagitis presence | | | | | | not specified; | | | | | | Migration of biliary | | | [...] | | | or equivalent | | 6119-9401 | + + +---------+ + + + [...] + + + | Blood Pressure | 128/69 | 02/12/2019 12:13 PM | | | | | PDT | | + + + + + | Pulse | 78 | 02/12/2019 12:13 PM | | | | | PDT | | + + + + + | Temperature | 37.2 C (99 F) | 02/12/2019 12:13 PM | | | | | PDT | | + + + + + | Respiratory Rate | 18 | 02/12/2019 12:13 PM | | | | | PDT | | + + + + + | Oxygen Saturation | 97% | 02/12/2019 12:13 PM | | | | | PDT | | + + + + + | Inhaled Oxygen | - | - | | | Concentration | | | | + + + + + | Weight | 74.1 kg (163 lb 5.8 | 02/12/2019 12:13 PM | | | | oz) | PDT | | + + + + + | Height | - | - | | + + + + + | Body Mass Index | 22.16 | 01/29/2019 8:03 AM | | | [...] | 240 | 0 | 02/13/20 | 03/05/ | | TABS | hours as needed for | tablet | | 19 | 9 | | | pain | | | | | + + + +---------+ + + documented as of this encounter Progress Notes Logan Castro MD - 02/12/2019 12:14 PM PDTFormatting of this note might be differe nt from the original. Hematology/Oncology Progress Note [place], [place] Pt. Name/Age/: Anastacio Galvez 68 y.o. 1950 Med. Record Number: [id number] Date of admission: 02/12/2019 The patient's primary care provider is Garland Caputo MD. Identifying Statement: Anastacio Galvez is a 68 y.o. male from [address] [facility] [place] [facility] with Stage IIA Pancreatic Cancer. The patient chart and medications were reviewed in detail and the patient was seen and exam ined. History of Present Illnesses, their Current Assessments and Plans: Problem List Chronic anxiety Gastroesophageal reflux disease Malignant neoplasm of head of pancreas Overview ACTIVE DIAGNOSIS: Endoscopic stage IIA Pancreatic Cancer, deleterious germline PALB2 muta tion positive. The patient presented with upper abdominal pain which radiated to the upper back in a bandl lady distribution, jaundice and 40 pound weight loss in June 2018. CT scan of the abdomen/pelvis without contrast June 27, 2018 at [facility] in [facility] demonstrated a 5 cm pancreatic mass in the uncinate process associated with a 12 mm retro-caval lymph node. Tumor marker CA 19-9 was 816.5 units per milliliter (upper limits of normal 37 units per milliliter). Surgical consultation with Dr. Mami Mcnamara ([facility]) on July 03, 2018. CT of the chest/abdomen/pelvis with contrast at [facility] on July 10, 2018 demonstrated a 3.3 cm x 3.7 cm x 5.17 m mass in the pancreatic head/uncina te process. The mass encases a few branches of the superior mesenteric artery arising pantry chef iorly and demonstrates slightly less than 180 of encasement of the superior mesenteric art daniel proper. Enlarged 1.1 cm lymph node inferior to the mass. Endoscopic ultrasound with biopsy and stent (10 mm x 40 mm metal ) placement July 25 (Dr. Leonel Song, [place], [place]): Pancreatic/uncinate mass, 4.5 cm close to but n ot touching major vessels, without endoscopic evidence of regional lymphadenopathy, PT3, PN0 , M0 stage IIA. Biopsy specimen # [id number] ([facility], [facility]). Fine-needle aspiration; adenocarcinoma. Biliary brushings; adenocarcinoma. Neoadjuvant therapy with Abraxane/Gemcitabine on August 15, 2018 through October 24, 2018 . 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 Repeat CT abdomen/pelvis on October 31, 2018 demonstrated a 60% volumetric reduction in pa ncreatic head mass. Consultation with Dr. Mami Mcnamara, [facility] on November 06, 2018; disease remains [...] branche s. Consultation with Dr. Mami Mcnamara, [facility], who determined that the disease st ill remains unresectable, cross over to combined modality radiation + chemotherapy. Current Assessment & Plan Anastacio Gregory Galvez returned to clinic on 02/12/2019 with his , Jamila, for follow up and management of locally advanced pancreatic cancer. Interval history is notable for the fact that Anastacio started external beam radiation today. Review of systems is notable for progressive upper abdominal pain which radiates to the leyda k in a band-like distribution. Clinical exam is negative for jaundice. Laboratory exam is notable for decreasing bilirubin and tumor marker CA 19-9 following ERCP with stenting. Assessment; locally advanced pancreatic cancer. Malignant neoplasm related pain. Plan; Anastacio will begin capecitabine 1500 mg orally twice a day today. Since he has some Duragesic 25 mcg patches at home, he will add one to his current 100 mcg patch for 125 mcg/hour, change every 72 hours. Continue oxycodone 20 mg IR as needed for breakthrough pain relief. Clinical and laboratory follow up in one week. Migration of biliary stent, subsequent encounter Overview Added automatically from request for surgery [id number] Osteoarthritis of spine with myelopathy, thoracic region Sensory neuropathy Review of Systems: Constitutional: Denies high fevers, shaking chills, anorexia, nausea, vomiting, weight los s, or night sweats. Appetite without changes. States energy remains low. Weight dec'd appro ximately 3 lbs since 02/05/2019. Continues to have low appetite. Ear, Nose, Mouth, Throat: Denies odynophagia or [...] concerns. Pain: Mid back pain at a 3-4/10, abd pain at a 2/10. Pt is currently on regiment for pain b oth fentanyl abd oxycodone, states this is tolerable. Note: Here for tx and labs * Shahida noted a new lump above the cephalic vein. My chart: Declined Review of systems as [...] 2007 at [facility] CHOLECYSTECTOMY EGD AND COLONOSCOPY ERCP N/A 01/29/2019 Procedure: ERCP; Surgeon: Joaquin Lawson MD; Location: [facility] MAIN OR HERNIA REPAIR inguinal LAPAROSCOPY NASAL SEPTUM SURGERY TONSILLECTOMY torn cartilage Right [facility] Social History Socioeconomic History Marital status: [...] 0.0 oz Comment: Drank 12 pk/wk from [id number] Drug use: No Comment: Has used marijauna [...] Objectives: Temp: 37.2 C (99 F) BP: 128/69 Pulse: 78 Resp: 18 SpO2: 97 % on Min/Max Temp past 24 hours:No data recorded No intake or output data in the 24 hours ending 02/17/19 2240 Wt. Admission: Weight: 74.1 kg (163 lb 5.8 oz) Wt. Current: Weight: 74.1 kg (163 lb 5.8 oz) Wt Readings from Last 3 Encounters: 02/17/19 71.7 kg (158 lb 1.1 oz) 02/12/19 73.9 kg (162 lb 14.7 oz) 02/12/19 74.1 kg (163 lb 5.8 oz) Body mass index is 22.16 kg/m. Physical Exam: General: The patient is [...] Am. J. Clin. Oncol.: Meryl Montero., Yonny, R.H., Partha Guido., Patricio Brizuela., Michoacano, TNaga., Bill, ERaheemT., Yaquelin, P .P.: Toxicity And Response [...] for ANASTACIO GALVEZ ( ) as of 02/17/2019 22:29 Ref. Range 02/12/2019 11:59 WBC Latest Ref Range: 4.0 - 11.0 K/uL 5.9 RBC COUNT Latest Ref Range: 4.30 - 5.70 M/uL 3.65 (L) Hemoglobin Latest Ref Range: 13.5 - 18.0 g/dL 11.1 (L) Hematocrit Latest Ref Range: 40.0 - 51.0 % 34.7 (L) MCV Latest Ref Range: 83.0 - 101.0 fL 95.1 MCH Latest Ref Range: 28.0 - 35.0 pg 30.4 MCHC Latest Ref Range: 32.0 - 36.0 g/dL 32.0 RDW-CV Latest Ref Range: <15.0 % 18.2 (H) RDW-SD Latest Ref Range: 35.1 - 46.3 fL 63.5 (H) Platelet Count Latest Ref Range: 140 - 440 K/uL 230 MPV Latest Ref Range: 6.5 - 12.4 fL 10.5 % nRBC Latest Ref Range: 0 - 2 per 100 WBCs 0 Absolute nRBC Latest Ref Range: 0.00 - 0.01 K/uL 0.00 Absolute Neutrophils Latest Ref Range: 1.80 - 8.50 K/uL 2.96 Absolute Lymphocytes Latest Ref Range: 0.60 - 3.20 K/uL 2.23 Absolute Monocytes Latest Ref Range: 0.00 - 1.00 K/uL 0.53 Absolute Eosinophils Latest Ref Range: 0.00 - 0.40 K/uL 0.12 Absolute Basophils Latest Ref Range: 0.00 - 0.10 K/uL 0.02 Absolute Immature Granulocytes Latest Ref Range: 0.00 - 0.03 K/uL 0.02 % Neutrophils Latest Ref Range: 45.0 - 82.0 % 50.5 % Lymphocytes Latest Ref Range: 20.0 - 45.0 % 37.9 % Monocytes Latest Ref Range: 4.0 - 12.0 % 9.0 % Eosinophils Latest Ref Range: 0.0 - 5.0 % 2.0 % Basophils Latest Ref Range: 0.0 - 1.0 % 0.3 % Immature Granulocytes Latest Ref Range: 0.0 - 0.4 % 0.3 Na Latest Ref Range: 136 - 145 mmol/L 139 K Latest Ref Range: 3.4 - 5.1 mmol/L 3.8 Chloride Latest Ref Range: 98 - 107 mmol/L 105 Carbon dioxide Latest Ref Range: 20 - 31 mmol/L 28 Anion Gap Latest Ref Range: 3 - 16 mmol/L 6 Glucose Latest Ref Range: 60 - 106 mg/dL 164 (H) BUN Latest Ref Range: 9 - 23 mg/dL 22 Creatinine Latest Ref Range: 0.70 - 1.30 mg/dL 0.79 BUN/Creatinine Ratio Unknown 27.8 Albumin Latest Ref Range: 3.2 - 4.8 g/dL 3.5 Albumin/Globulin Ratio Latest Ref Range: 0.8 - 1.9 1.3 Total Protein Latest Ref Range: 5.7 - 8.2 g/dL 6.2 EGFR IF NOT Latest Ref Range: >=60 mL/min/1.73m2 >60 Calcium Latest Ref Range: 8.7 - 10.4 mg/dL 9.1 ALK PHOS Latest Ref Range: 46 - 116 U/L 447 (H) ALT (SGPT) (REF) Latest Ref Range: 10 - 49 U/L 65 (H) AST (SGOT) (REF) Latest Ref Range: 0 - 34 U/L 74 (H) LDH TOTAL Latest Ref Range: 120 - 246 U/L 169 Bilirubin Total (Calculated) Latest Ref Range: 0.3 - 1.2 mg/dL 3.2 (H) Globulin Latest Ref Range: 2.1 - 3.8 g/dL 2.7 CA 19-9 Latest Ref Range: 0 - 35 U/mL 290 (H) Pharmacovigilance: Palliative Care: Patient's Medications New Prescriptions No medications on file Modified Medications Modified Medication Previous Medication OXYCODONE 20 MG TABS oxyCODONE 20 MG TABS 1-2 tabs every four hours as needed for pain 1-2 tabs every four hours as needed for pain Discontinued Medications No medications on file Procedure: Logan Castro MD Portions of this chart may have been created with [employer] voice recognition software. Occasi onal wrong-word or [...] + | CBC W/AUTO | STAT | 02/12/2019 | Malignant neoplasm | Results for this | | DIFFERENTIAL | | 11:59 AM | of head of pancreas | procedure are in the | | | | PDT | ([facility]) | results section. | + +--------+ + + + | CA 19-9, QUANT | STAT | 02/12/2019 | Malignant neoplasm | Results for this | | | | 11:59 AM | of head of pancreas | procedure are in the | | | | PDT | ([facility]) | results section. | + +--------+ + + + | LACTATE | STAT | 02/12/2019 | Malignant neoplasm | Results for this | | DEHYDROGENASE | | 11:59 AM | of head of pancreas | procedure are in the | | | | PDT | ([facility]) | results section. | + +--------+ + + + | COMPREHENSIVE | STAT | 02/12/2019 | Malignant neoplasm | Results for this | | METABOLIC PANEL | | 11:59 AM | of head of pancreas | procedure are in the | | | | PDT | ([facility]) | results section. | + +--------+ + + + | IMAGING REPORT - | | 01/14/2019 | | Results for this | | EXTERNAL SCAN | | 12:00 AM | | procedure are in the | | | | PDT | | results section. | + +--------+ + + + documented in this encounter Results CBC w/ Auto Differential (02/18/2019 1:24 PM PDT) + + + + + + | Component | Value | Ref Range | Performed | Pathologist | | | | | At | Signature | + + + + + + | WBC | 4.6 | 4.0 - 11.0 K/uL | [facility] | | [facility] | | | | | | [facility] | | | | | | [facility] - | | | | | | LABORATORY | | + + + + + + | RBC | 3.82 (L) | 4.30 - 5.70 | [facility] | | | | | M/uL | [facility] | | | | | | [facility] | | | | | | CENTER - | | | | | | LABORATORY | | + + + + + + | Hemoglobin | 11.8 (L) | 13.5 - 18.0 | [facility] | | | | | g/dL | [facility] | | | | | | [facility]ICAL | | | | | | CENTER - | | | | | | LABORATORY | | + + + + + + | Hematocrit | 36.2 (L) | 40.0 - 51.0 % | [facility] | | | | | | [facility] | | | | | | [facility]ICAL | | | | | | C[facility] - | | | | | | LABORATORY | | + + + + + + | MCV | 94.8 | 83.0 - 101.0 fL | [facility] [...] + + + + | MCHC | 32.6 | 32.0 - 36.0 | [facility] | [...] + + + + | RDW-SD | 57.7 (H) | 35.1 - 46.3 fL | [facility] | | | | | [facility] | | | | | | MEDICAL | | | | | | CENTER - | | | | | | LABORATORY | | + + + + + + | Platelet | 279 | 140 - 440 K/uL | [facility] | | | Count | | | [facility] | | | | | | [facility]ICAL | | | | | | CENTER - | | | | | | LABORATORY | | + + + + + + | MPV | 10.7 | 6.5 - 12.4 fL | [facility] | | | | | | [facility] | | | | | | [facility]ICAL | | | | | | CENTER - | | | | | | LABORATORY | | + + + + + + | % | 54.1 | 45.0 - 82.0 % | [facility] | | | Neutrophils | | | [facility] | | | | | | MEDICAL | | | | | | CENTER - | | | | | | LABORATORY | | + + + + + + | % | 30.0 | 20.0 - 45.0 % | [facility] | | | Lymphocytes | | | [facility] | | | | | | MEDICAL | | | | | | CENTER - | | | | | | LABORATORY | | + + + + + + | % Monocytes | 12.2 (H) | 4.0 - 12.0 % | [facility] | | | | | | [facility] | | | | | | [facility]ICAL | | | | | | CENTER - | | | | | | LABORATORY | | + + + + + + | % | 3.3 | 0.0 - 5.0 % | [facility] [...] + + + | % Immature | 0.2 | 0.0 - 0.4 % | [facility] | | | Granulocyte | | | [facility] | | | s | | | MEDICAL | | | | | | CENTER - | | | | | | LABORATORY | | + + + + + + | Absolute | 2.49 | 1.80 - 8.50 | [facility] | | | Neutrophils | | K/uL | [facility] | | | | | | MEDICAL | | | | | | CENTER - | | | | | | LABORATORY | | + + + + + + | Absolute | 1.38 | 0.60 - 3.20 | [facility] | | | Lymphocytes | | K/uL | [facility] | | | | | | MEDICAL | | | | | | CENTER - | | | | | | LABORATORY | | + + + + + + | Absolute | 0.56 | 0.00 - 1.00 | [facility] | | | Monocytes | | K/uL | [facility] | | | | | | MEDICAL | | | | | | CENTER - | | | | | | LABORATORY | | + + + + + + | Absolute | 0.15 | 0.00 - 0.40 | [facility] | [...] + | [facility] | [address] | [place] | [phone] | | [facility] | | [address] | | | - LABORATORY | | | | + + + + + Lactate Dehydrogenase (02/18/2019 1:24 PM PDT) + +-------+ + + + | Component | Value | Ref Range | Performed | Pathologist | | | | | At | Signature | + +-------+ + + + | LDH TOTAL | 171 | 120 - 246 U/L | [facility] [...] + | [facility] | [address] | [place] | [phone] | | [facility] | | [address] | | | - LABORATORY | | | | + + + + + Comprehensive Metabolic Panel (02/18/2019 1:24 PM PDT) + + + + + [...] + + + + | Glucose | 236 (H) | 60 - 106 mg/dL | [facility] | | | | | | [facility] | | | | | | MEDICAL | | | | | | CENTER - | | | | | | LABORATORY | | + + + + + + | BUN | 11 [...] | | | FILTRATION | mL/min/1.73m2 | [facility] | | | [facility] | RATE,ESTIMATED | | MEDICAL | | | | mL/min/1.00k4Gqsn than | | CENTER - | | [...] + + + + | Bilirubin | 2.4 (H) | 0.3 - 1.2 mg/dL | [...] + + + + | AST | 34 | 0 - 34 U/L | [facility] | | | | | | [facility] | | | | | | MEDICAL | | | | | | CENTER - | | | | | | LABORATORY | | + + + + + + | ALT | 36 | 10 - 49 U/L | [facility] | | | | | | [facility] | | | | | | MEDICAL | | | | | | CENTER - | | | | | | LABORATORY | | + + + + + + | Alkaline | 312 (H) | 46 - 116 U/L | [...] + + + + | BUN/Creatin | 13.9 | | [facility] | | | ine [...] | + + + + + | [facility] | [address] | [place] | [phone] | | [facility] | | [address] | | | - LABORATORY | | | | + + + + + CA 19-9, Quant (02/18/2019 1:24 PM PDT) + + + + + + | Component | Value | Ref Range | Performed | Pathologist | | | | | At | Signature | + + + + + + | CA 19-9 | 236 (H)Comment: Vik | 0 - 35 U/mL [...] + + + | Performed at: - [facility] [place] [address], | REFERENCE LAB | | [place], [place] [id number] Green Meat Grader: Evert Scanlon MD, Phone: | [facility] | | [phone] | | + + + + + + + + | Performing | Address | City/State/Zipcode | Phone Number | | Organization | | | | + + + + + | REFERENCE LAB | [address] | [place] [address] | [phone] | | [facility] | Drive [...] | | | | mg/dL | [facility] | | | | | | MEDICAL | | | | | | CENTER - | | | | | | LABORATORY | | + + + + + + | eGFR if not | >60Comment: GLOMERULAR | >=60 | [facility] | | | | FILTRATION | mL/min/1.73m2 | [facility] | | | [facility] | RATE,ESTIMATED | | MEDICAL | | | | mL/min/1.53k4Dlfa than | | CENTER - | | [...] 3.5 | 3.2 - 4.8 g/dL | [facility] [...] [address] | [place] | [phone] | | [facility] | | [address] | | | - LABORATORY | | | | + + + + + Lactate Dehydrogenase (02/12/2019 11:59 AM PDT) + +-------+ + + + | Component | Value | Ref Range | Performed | Pathologist | | | | | At | Signature | + +-------+ + + + | LDH TOTAL | 169 | 120 - 246 U/L | [facility] [...] + | [facility] | [address] | [place] | [phone] | | [facility] | | [address] | | | - LABORATORY | | [...] 5.9 | 4.0 - 11.0 K/uL | [facility] [...] ST. | [address] | [place], [place] | [phone] | | [facility] | | [address] | | | - LABORATORY | | | | + + + + + CA -, Quant (02/12/2019 11:59 AM PDT) + + [...] + + + | Performed at: - [facility] [address], | REFERENCE LAB | | [place], [place] [id number] Green Meat Grader: Evert Scanlon MD, Phone: | [facility] | | [phone] | | + + + + + + + + | Performing | Address | City/State/Zipcode | Phone Number | | Organization | | | | + + + + + | REFERENCE LAB | [address] | [place] [address] | [phone] | | [facility] | [address] | | | + + + + + IMAGING REPORT - EXTERNAL SCAN (01/14/2019 12:00 AM PDT) + + + | Narrative | Performed At | + + + | Ordered by an | | | unspecified provider. | | + + + documented in this encounter Visit Diagnoses + + | Diagnosis | + + | Malignant neoplasm of head of pancreas (HCC) Malignant neoplasm of head of pancreas | + + | Chronic anxiety Anxiety state, unspecified | + + | Gastroesophageal reflux disease, esophagitis presence not specified | + + | Migration of biliary stent, subsequent encounter | + + | Osteoarthritis of spine with myelopathy, thoracic region | + + | Sensory neuropathy Unspecified hereditary and idiopathic peripheral neuropathy | + + documented in this encounter"
--- OUTSIDE RECORDS SUMMARY | ~2019-08-01 | XMS | Encounter Summary ---
Demographics + + + | Address | [address] | | | [place] [address] | + + + | Home Phone | | + + + | Preferred Language | Unknown | + + + | Marital Status | | + + + | Christian Affiliation | Unknown | + + + | Race | Unknown | + + + | Ethnic Group | Unknown | + + + Author + + + | Author | [facility] | | | and Izaiahana | + + + | Organization | [facility] | | [...] Team Providers + +------+ + | Care Certified Anesthesiologist Assistant Name | Role | Phone | + +------+ + | Garland Caputo MD | PCP | | + +------+ + Encounter Details +--------+ + + + + | Date | Type | Department | Care Team | Description | +--------+ + + + + | 02/17/ | Abstract | [facility] | Rasheed Bello DO | | | 2019 | | [facility] | [address] | | | | | ONCOLOGY CLINIC [address] | [place] | | | | | [place] | [address] | | | | | [place] [address] | | | | | | [phone] | | | +--------+ + + + [...] | | | or equivalent | | 5180-7734 | + + +---------+ + + + [...] + + + | Blood Pressure | - | - | | + + + + + | Pulse | - | - | | + + + + + | Temperature | - | - | | + + + + + | Respiratory Rate | - | - | | + + + + + | Oxygen Saturation | - | - | | + + + + + | Inhaled Oxygen | - | - | | | Concentration | | | | + + + + + | Weight | 71.7 kg (158 lb 1.1 | 02/17/2019 2:08 PM | | | | oz) | PDT | | + + + + + | Height | - | - | | + + + + + | Body Mass Index | 21.44 | 01/29/2019 8:03 AM | | | | | PDT | | + + + + + documented in this encounter Plan of Treatment Not on filedocumented as of this encounter Visit Diagnoses Not on filedocumented in this encounter"
--- OUTSIDE RECORDS SUMMARY | ~2019-08-01 | XMS | Encounter Summary ---
Demographics + + + | Address | [address] | | | [place] [address] | + + + | Home Phone [...] | Organization | [facility] | | | and Izaiahana [...] Team Providers + +------+ + | Care Communications Department Head Name | Role | Phone | + [...] + + | 02/12/ | Hospital [facility] | Rasheed Bello DO | Malignant neoplasm | | 2019 | Encounter | [facility] | [address] | of head of pancreas | | | | ONCOLOGY CLINIC [address] | [place] | (HCC) (Primary Dx) | | | | [address] [place] | [address] | | | | | [place] [address] | | | | | | [phone] | | | +--------+ + + + [...] | | | or equivalent | | 7069-4854 | + + +---------+ + + + [...] + + + | Blood Pressure | 144/77 | 02/12/2019 2:08 PM | | | | | PDT | | + + + + + | Pulse | 60 | 02/12/2019 2:08 PM | | | | | PDT | | + + + + + | Temperature | 37 C (98.6 F) | 02/12/2019 2:08 PM | | | | | PDT | | + + + + + | Respiratory Rate | 16 | 02/12/2019 2:08 PM | | | | | PDT | | + + + + + | Oxygen Saturation | 97% | 02/12/2019 2:08 PM | | | | | PDT | | + + + + + | Inhaled Oxygen | - | - | | | Concentration | | | | + + + + + | Weight | 73.9 kg (162 lb 14.7 | 02/12/2019 2:08 PM | | | | oz) | PDT | | + + + + + | Height | - | - | | + + + + + | Body Mass Index | 22.1 | 01/29/2019 8:03 AM | | | [...] as of this encounter Progress Notes Rasheed Bello, DO - 02/12/2019 2:12 PM PDT Radiation Oncology Weekly On Treatment Note Diagnosis: ICD-10-CM ICD-9-CM 1. Malignant neoplasm of head of pancreas (HCC) C25.0 157.0 Reason for visit: On treatment evaluation Radiation technical factors: Dose Delivered Dose Planned Fractions Delivered 180 cGy 0 cGy 4500 cGy 540 cGy 10/10 Images were reviewed this week and results [...] file prior to encounter. Pain assessment: Location: Abdomen Pain Level: PAIN PROG PAIN LEVEL: 2 Pain Quality: Throbbing Current pain regimen: fentanyl patch Wt Readings from Last 3 Encounters: 02/12/19 73.9 kg (162 lb 14.7 oz) 02/12/19 74.1 kg (163 lb 5.8 oz) 02/05/19 75.5 kg (166 lb 7.2 oz) Vitals: 02/12/19 1408 BP: 144/77 Pulse: 60 Resp: 16 Temp: 37 C (98.6 F) TempSrc: Temporal SpO2: 97% Weight: 73.9 kg (162 lb 14.7 oz) Physical Exam Constitutional: He is oriented [...] Nursing note and vitals reviewed. Physician Assessment: New start today. Tolerating treatment well. Toxicities explained in detail including time to development. Anti-emetic timing discussed. He will continue combined modality treatmen t as planned. Toxicities reviewed in nursing note. Disposition: Continue radiation treatment as planned. Rasheed Bello DO Radiation Oncologist Yumiko Foster RN - 02/12/2019 2:12 PM PDT 02/12/19 1410 Gastrointestinal Constipation 0 - Grade 0 Diarrhea 0 - Grade 0 Nausea 1 - Grade 1 General Disorders and Administration Site Conditions Fatigue 2 - Grade 2 Performance Status Karnofsky Performance Score 60% Yumiko Foster RN - 02/12/2019 2:09 PM PDTMet with patient today for nurse education. Verbal and written education given to patient regarding general radiation therapy side effects as well as site specific side effects. Reviewed process of day for their doctor, all questions at this time were answered. documented in this encounter Plan of Treatment Not on filedocumented as of this encounter Visit Diagnoses + + | Diagnosis | + + | Malignant neoplasm of head of pancreas (HCC) - Primary Malignant neoplasm of head of | | pancreas | + + documented in this encounter"
--- OUTSIDE RECORDS SUMMARY | ~2019-08-01 | XMS | Encounter Summary ---
Demographics + + + | Address | [address] | | | [place] [address] | + + + | Home Phone | | + + + | Preferred Language | Unknown | + + + | Marital Status | | + + + | Lutheran Affiliation | Unknown | + + + | Race | Unknown | + + + | Ethnic Group | Unknown | + + + Author + + + | Author | [facility] | | | and Izaiahana | + + + | Organization | [facility] | | [...] Team Providers + +------+ + | Care Aqueduct And Reservoir Keeper Name | Role | Phone | + [...] Austin CONNELLY | | | | | [phone] | [place] [address] | | +--------+ + + + + [...]
--- OUTSIDE RECORDS SUMMARY | ~2019-08-01 | XMS | Encounter Summary ---
Demographics + + + | Address | [address] | | | [place] [address] | + + + | Home Phone [...] + + | Author | [facility] | | | and Izaiahana | + + + | Organization | [facility] | | | and [...] Team Providers + +------+ + | Care Plastics Design Engineer Name | Role | Phone | [...] Description | +--------+--------+ + + + | 03/17/ | Refill | [facility] | Gloria, | Medication Refill | | 2019 | | [facility] | Logan Madrid MD [address] | | | | | [facility]OGY CLIN[facility] [address] | [address] [place] | | | | | [address] [place] | [place] [address] | | | | | [place] [address] | [phone] | | | | | [phone] | | | +--------+--------+ + + + [...] | | | or equivalent | | 2730-3576 | + + +---------+ + + + [...]
--- OUTSIDE RECORDS SUMMARY | ~2019-08-01 | XMS | Encounter Summary ---
Demographics + + + | Address | [address] | | | [place] [address] | + + + | Home Phone [...] + | Organization | [facility] | | | and Izaiahana [...] Team Providers + +------+ + | Care Director Of Strategic Programs Name | Role | Phone | + [...] Austin CONNELLY | | | | | [phone] | [place] [address] | | +--------+ + + + + [...]
--- OUTSIDE RECORDS SUMMARY | ~2019-08-01 | XMS | Encounter Summary ---
Demographics + + + | Address | [address] | | | [place] [address] | + + + | Home Phone [...] | [facility] | | [...] Team Providers + +------+ + | Care Dining Car Steward Name | Role | Phone | + [...] Austin CONNELLY | | | | | [phone] | [place] [address] | | +--------+ + + + + [...] | | | or equivalent | | 1807-9186 | + + +---------+ + + + [...]
--- OUTSIDE RECORDS SUMMARY | ~2019-08-01 | XMS | Encounter Summary ---
Demographics + + + | Address | [address] | | | [place] [address] | + + + | Home Phone | | + + + | Preferred Language | Unknown | + + + | Marital Status | | + + + | Druze Affiliation | Unknown | + + + | Race | Unknown | + + + | Ethnic Group | Unknown | + + + Author + + + | Author | [facility] | | | and Izaiahana | + + + | Organization | [facility] [...] Team Providers + +------+ + | Care Change Release Manager Name | Role | Phone | + +------+ + | Garland Caputo MD | PCP | | + +------+ + Encounter Details +--------+ + + + + | Date | Type | Department | Care Team | Description | +--------+ + + + + | 02/26/ | [facility] | [facility] | Stephenie Hurtado | Cancer (HCC) | | 2019 | Encounter | MED CTR MEDICAL | MD Jessica [address] | (Primary Dx) | | | | ONCOLOGY CLINIC [address] | [facility] | | | | | [address] | [address] | | | | | [place] [address] | | | | | | [phone] | | | +--------+ + + + [...]
--- OUTSIDE RECORDS SUMMARY | ~2019-08-01 | XMS | Encounter Summary ---
Demographics + + + | Address | [address] | | | [place] [address] | + + + | Home Phone | | + + + | Preferred Language | Unknown | + + + | Marital Status | | + + + | Christian Affiliation | Unknown | + + + | Race | Unknown | + + + | Ethnic Group | Unknown | + + + Author + + + | Author | and [facility] | | | and Izaiahana | + + + | Organization | [facility] | [...] Team Providers + +------+ + | Care Family Dentist Name | Role | Phone | + +------+ + | Garland Caputo MD | PCP | | + +------+ + Reason for Visit + + + | Reason | Comments | + + + | Nutrition Education | | + + + Evaluate & Treat (Routine) +--------+ + + + + + | Status | Reason | Specialty | Diagnoses / | Referred By | Referred To | | | | | Procedures | Contact | Contact | +--------+ + + + + + | Closed | Specialty | Dietitian / | Diagnoses | , | Brendan, | | | Services | Nutrition | Malignant | Rasheed Madrid DO | Geraldine M, | | | Required | | neoplasm of | [address] | | | | | head of | [address] | | | | | | pancreas | [place], | | | | | | ([facility]) | [place] [address] | | | | | | | Phone: | | | | | | | [phone] | | | | | | | Fax: | | | | | | | [phone] | | +--------+ + + + + + Encounter Details +--------+ + + + + | Date | Type | Department | Care Team | Description | +--------+ + + + + | 02/26/ | Hospital | [facility] | Rasheed Bello DO | Malignant neoplasm | | 2019 | Encounter | MED CTR NUTRITION | [address] | of head of pancreas | | | | SERVICES [address] | [place], [place] | ([facility]) | | | | [place], | [address] | | | | | [place] [address] | | | | | | [phone] | Geraldine Cardona, | | | | | | RDN | | +--------+ + + + + [...] | | | or equivalent | | 3650-3123 | + + +---------+ + + + [...] documented as of this encounter Progress Notes Geraldine Cardona, DEBBIE - 02/27/2019 7:40 AM PDTFormatting of this note might be different f rom the original. Medical Nutrition Note SUBJECTIVE: Meet with the pt before his radiation appt for pancreatic cancer. He has lost from 184# (08/11/2018 and at that time EMR states a 30# weight loss) to current weight of 16 7#. He is slowly gaining weight. His lowest weight was 158#. Provided him and his brent alejandro MNT handouts from [facility] [employer] [facility], MNT for ways to increase calories and protein, smoothie recipes and samples of CIB. He does not like boost or ensure but will drink CIB. He does not want to switch from fat free milk to 2% or even whole. took t he information but pt was reluctant to change his eating habits, He is eating a banana spli t every day after radiation but besides that his oral intake is hit and miss. OBJECTIVE: Diet: high protein high calorie Wt Readings from Last 3 Encounters: 02/26/19 76 kg (167 lb 8.8 oz) 02/26/19 76 kg (167 lb 8.8 oz) 02/19/19 74 kg (163 lb 2.3 oz) Ht Readings from Last 1 Encounters: 01/29/19 1.829 m (6') Estimated needs (wt. 76kg) 4931-2060 kcals/day 76-91 gm pro/day Medications: reviewed ASSESSMENT/PLAN: Nutrition Diagnosis: Not ready for lifestyle change related to pancreatic cancer and nutri iton as evidenced by verbalization from the pt. Interventions: 1. Provided and discussed written handout from the [facility] and ways to increase calories and protein 2. Provided samples of CIB and smoothie recipes Nutrition Goals: 1. To follow above guidelines 2. Drink 1-2 CIB per day Monitor: 1. Nutritional parameters 2. Follow up as pt desires Time spent: 30 minutes Thank you for the referral, Geraldine Cardona RDN 02/27/2019 7:41 documented in this encounter Plan of Treatment + + +--------+ + + | Name | Type | Priori | Associated Diagnoses | Order Schedule | | | | ty | | | + + +--------+ + + | [facility]B Referral to [facility] | Outpatient | Routin | Malignant neoplasm | Ordered: 02/18/2019 | | Nutrition Services | Referral | e | of head of pancreas | | | | | | (HCC) | | + + +--------+ + + documented as of this encounter Visit Diagnoses + + | Diagnosis | + + | Malignant neoplasm of head of pancreas (HCC) Malignant neoplasm of head of pancreas | + + documented in this encounter"
--- OUTSIDE RECORDS SUMMARY | ~2019-08-01 | XMS | Encounter Summary ---
Demographics + + + | Address | [address] | | | [place] [address] | + + + | Home Phone | | + + + | Preferred Language | Unknown | + + + | Marital Status | | + + + | Anglican Affiliation | Unknown | + + + | Race | Unknown | + + + | Ethnic Group | Unknown | + + + Author + + + | Author | [facility] | | | and Izaiahana | + + + | Organization | [facility] [...] Team Providers + +------+ + | Care Qa Auditor Name | Role | Phone | + +------+ + | Garland Caputo MD | PCP | | + +------+ + Encounter Details +--------+ + + + + | Date | Type | Department | Care Team | Description | +--------+ + + + + | 02/17/ | Documentati | [facility] | Rasheed Bello DO | | | 2019 | on | MED CTR RADIATION | [address] | | | | | ONCOLOGY CLINIC [address] | [place] | | | | | [address] | [address] | | | | | [place] [address] | | | | | | [phone] | | | +--------+ + + + [...] | | | or equivalent | | 3695-2431 | + + +---------+ + + + [...] encounter Progress Notes Alayna Strickland RN - 02/17/2019 2:06 PM PDTPatient weight check done today per request of Dr. Bello. Patent reports not being able to keep anything down yesterday and feeling light headed. He states he took his nausea medicine today and feels much better. He is down 5 pounds since 02/12/19. Dr. Bello also checked in with him today and encouraged him to use his nausea medicine routinely. documented in this encounter Plan of Treatment Not on filedocumented as of this encounter Visit Diagnoses Not on filedocumented in this encounter"
--- OUTSIDE RECORDS SUMMARY | ~2019-08-01 | XMS | Encounter Summary ---
Demographics + + + | Address | [address] | | | [place] [address] | + + + | Home Phone [...] + | Organization | [facility] | | | and [...] Team Providers + +------+ + | Care Linter Tender Name | Role | Phone | + +------+ + | Garland Caputo MD | PCP | | + +------+ + Encounter Details +--------+ + + + + | Date | Type | Department | Care Team | Description | +--------+ + + + + | 06/19/ | Transcribed | [facility] | Thai Mcnamara | Mass of pancreas | | 2019 | Orders | MED CTR LABORATORY | MD [address] | (Primary Dx) | | | | [address] [place] | [address] | | | | | [place] | [place], [place] | | | | | [address] | [address] | | | | | [phone] | [phone] | | | | | | | [...] | | | or equivalent | | 0228-8882 | + + +---------+ + + + [...] mL/min/1.73m2 | [facility] | | | [place] | RATE,ESTIMATED | | MEDICAL | | | | mL/min/1.70p4Ufqg than | | CENTER - | | [...] + | [facility] [facility] | [address] | [place] | [phone] | | [facility] | | [address] | | | - LABORATORY | | [...] [address] | [place] | [phone] | | [facility] | | [address] | | | - LABORATORY | | | | + + + + + documented in this encounter Visit Diagnoses + + | Diagnosis | + + | Mass of pancreas - Primary Unspecified disease of pancreas | + + documented in this encounter"
--- OUTSIDE RECORDS SUMMARY | ~2019-08-01 | XMS | Encounter Summary ---
Demographics + + + | Address | [address] | | | [place] [address] | + + + | Home Phone | | + + + | Preferred Language | Unknown | + + + | Marital Status | | + + + | Buddhist Affiliation | Unknown | + + + | Race | Unknown | + + + | Ethnic Group | Unknown | + + + Author + + + | Author | [facility] | | | and Izaiahana | + + + | Organization | [facility] | | | and [...] Team Providers + +------+ + | Care Locomotive Firer Name | Role | Phone | + +------+ + | Garland Caputo MD | PCP | | + +------+ + Encounter Details +--------+ + + + + | Date | Type | Department | Care Team | Description | +--------+ + + + + | 12/07/ | Orders Only | [facility] | Gloria, | Malignant neoplasm | | 2019 | | MED CTR MEDICAL | Logan Madrid MD [address] | of head of pancreas | | | | ONCOLOGY CLINIC [address] | [address] [place] | ([facility]) | | | | [address] [place] | [place] [address] | | | | | [place] [address] | [phone] | | | | | [phone] | | | +--------+ + + + [...] | | | or equivalent | | 3104-2386 | + + +---------+ + + + [...]
--- OUTSIDE RECORDS SUMMARY | ~2019-08-01 | XMS | Encounter Summary ---
Demographics + + + | Address | [address] | | | [place] [address] | + + + | Home Phone | | + + + | Preferred Language | Unknown | + + + | Marital Status | | + + + | Mu-Ism Affiliation | Unknown | + + + | Race | Unknown | + + + | Ethnic Group | Unknown | + + + Author + + + | Author | [facility] | | | and Izaiahana | + + + | Organization | [facility] | | | and Izaiahana [...] Team Providers + +------+ + | Care Vending Route Servicer Name | Role | Phone | + [...] [place] | | | | | [phone] | [place] [address] | | +--------+ + + + + [...]
--- OUTSIDE RECORDS SUMMARY | ~2019-08-01 | XMS | Encounter Summary ---
Demographics + + + | Address | [address] | | | [place] [address] | + + + | Home Phone | | + + + | Preferred Language | Unknown | + + + | Marital Status | | + + + | Worship Affiliation | Unknown | + + + | Race | Unknown | + + + | Ethnic Group | Unknown | + + + Author + + + | Author | [facility] | | | and Izaiahana | + + + | Organization | [facility] [...] Providers + +------+ + | Care Senior Enlisted Advisor Name | Role | Phone | + [...] + + | 02/19/ | Hospital | [facility] | Rasheed Bello DO | Malignant neoplasm | | 2019 | Encounter | MED CTR RADIATION | [address] | of head of pancreas | | | | ONCOLOGY CLINIC [address] | [place], [place] | (HCC) (Primary Dx) | | | | [address] [place] | [address] | | | | | [place] [address] | | | | | | [phone] | | | +--------+ + + + [...] | | | or equivalent | | 1939-9263 | + + +---------+ + + + [...]
--- OUTSIDE RECORDS SUMMARY | ~2019-08-01 | XMS | Encounter Summary ---
Demographics + + + | Address | [address] | | | [place] [address] | + + + | Home Phone | | + + + | Preferred Language | Unknown | + + + | Marital Status | | + + + | Gnosticist Affiliation | Unknown | + + + | Race | Unknown | + + + | Ethnic Group | Unknown | + + + Author + + + | Author | [facility] | | | and Izaiahana | + + + | Organization | [facility] | | | and [...] Team Providers + +------+ + | Care Rn Critical Care Name | Role | Phone | [...] | | | stent, | | [place] [address] | | | | | subsequent | | Phone: | | | | | encounter | | [phone] | | | | | Procedures | | Fax: | | | | | CT | | [phone] | | | | | ESOPHAGOSCOP | | | | | | | Y FLEXIBLE | | | | | | | GUIDE WIRE | | | | | | | DILATION CT | | | | | | | ERCP DX | | | | | | | COLLECTION | | | | | | | SPECIMEN | | | | | | | BRUSHING/WAS | | | | | | | GERI CT | | | | | | | [...] + + | 01/29/ | Hospital | [facility] | Joaquin Alamo | Biliary obstruction; | | 2019 | Encounter | MED CTR OR INTRA OP | MD Jamie [address] | Migration of | | | | [address] | [address] [place] | biliary stent, | | | | [place], [place] | [place] [address] | subsequent | | | | [address] | [phone] | encounter; Malignant | | | | [phone] | | neoplasm of head of | [...] | | | or equivalent | | 5080-7054 | + + +---------+ + + + [...] You can't be awakened Date Last Reviewed: 07/03/201619990946-6172 [employer] [place] [address], [place] [id number]. All righ ts reserved. This information is [...] This includes: ? All prescription medicines ? Dgtq-sql-tmtcakg medicines that don t need a prescription [...] infection or torn bowel. Date Last Reviewed: 06/16/201719999543-7173 [email or web address]. [address] [place] [address]. All righ ts reserved. This information is [...] 01/29/2019 | PROVATION | | 9:39 AMMRN: [id number] #: [id number] of : | | | 1Admit Type: AmbulatoryAge: 68Room: [facility] 05Gender: MaleNote | | | Status: FinalizedAttending MD: EDY CHENrocedure: | | | ERCPIndications: Jaundice, Elevated bilirubin, | | | Malignant tumor of the head of pancreas, | | | dislodged biliary stentProviders: JOAQUIN ALAMO MD, | | | Aimee Reece RN, Beau Avila RN, | | | Olimpia Jimenez, Personal Investment Adviser, Alec | | | MD Chivo (Anesthesia Staff)Referring MD: Rasheed Bello | | | (Referring MD)Medicines: General Anesthesia, Indomethacin | | | [address] CT, Cipro 400 mg IVComplications: No immediate | [...] the procedure | | | well.Findings: A national basketball [employer] scout film of the abdomen was obtained. | | | Surgical clips, consistent with a previous cholecystectomy, | | | were seen in the area of the right upper quadrant of the | | | abdomen. There was no biliary stent on the national basketball [employer] scout film. The | | | esophagus was [...] AMScope Out: 10:20:59 | | | AM [facility], [address] [facility] | | | [place] [address] | | | - Return to referring [...] |Scope Out: 10:20:59 AM | | | [facility], [address] [facility], [place], [place] | | | [address] | | + + -+ + +---------+ + + | Performing | Address | City/State[facility] | Phone Number | | Organization [...] | Time | | seconds | [facility] | | | | [...] ST. | [address] | [place], [place] | [phone] | | [facility] | | [address] | | | - LABORATORY | | [...] | | | | | mg/dL | [facility] | | | | | | MEDICAL | | | | | | CENTER - | | | | | | LABORATORY | | + + + + + + | eGFR if not | >60Comment: GLOMERULAR | >=60 | [facility] | | | | FILTRATION | mL/min/1.73m2 | [facility] | | | [place] | RATE,ESTIMATED | | MEDICAL | | | | mL/min/1.86p7Iqxf than | | CENTER - | | [...] | | | | | mg/dL | [facility] | | | | | | [...] + | [facility] | [address] | [place] | [phone] | | [facility] | | [address] | | | - LABORATORY | | [...] ST. | [address] | [place] | [phone] | | [facility] | | [address] | | | - LABORATORY | | [...] ONCE PRN, | | | Wheezing, Starting [facility] 01/29/19 at | | | 0815, For 1 dose, Pre-op | | + +---+ | | | + +---+ | albuterol-ipratropium 2.5-0.5 | | | mg/3 mL nebulizer solution 3 mL | | | 3 mL, Nebulization, ONCE PRN, | | | Wheezing, Shortness of Breath, | | | Starting [facility] 01/29/19 at 1014, For | | [...] | | | | | Hours, ONCE, [facility] 01/29/19 at 1115, | | | [...] DBP > 100, | | | Starting [facility] 01/29/19 at 1014, | | | Hold if HR > 100. Maximum total | | | dose 40 mg. Use labetalol first | | | if available., Recovery/Phase I | | + +---+ | | | + +---+ | HYDROmorphone (DILAUDID) | | | injection 0.2-0.5 mg 0.2-0.5 mg, | | | Intravenous, EVERY 5 MIN PRN, | | | Pain, Starting [facility] 01/29/19 at | | | 1014, [...]
--- OUTSIDE RECORDS SUMMARY | ~2019-08-01 | XMS | Encounter Summary ---
Demographics + + + | Address | [address] | | | [place] [address] | + + + | Home Phone | | + + + | Preferred Language | Unknown | + + + | Marital Status | | + + + | Sikh Affiliation | Unknown | + + + | Race | Unknown | + + + | Ethnic Group | Unknown | + + + Author + + + | Author | [facility] | | | and Izaiahana | + + + | Organization | [facility] | | | and [...] Team Providers + +------+ + | Care Coil Winding Supervisor Name | Role | Phone | [...] | | ONCOLOGY CLINIC [address] | [place] | (HCC) (Primary Dx) | | | | [address] | [address] | | | | | [place] [address] | | | | | | [phone] | | | +--------+ + + + [...] | | | or equivalent | | 2763-5813 | + + +---------+ + + + [...] ST. | [address] | [place], [place] | [phone] | | [facility] | | [address] | | | - LABORATORY | | [...] 0.67 (L) | 0.70 - 1.30 | [facility] | | | | | mg/dL [...] mL/min/1.73m2 | [facility] | | | [place] | RATE,ESTIMATED | | MEDICAL | | | | mL/min/1.46q1Oeig than | | CENTER - | | [...] [facility] | | | | | | [facility] | | | | | | [...] ST. | [address] | [place], [place] | [phone] | | [facility] | | [address] | | | - LABORATORY | | | | + + + + + documented in this encounter Visit Diagnoses + + | Diagnosis | + + | Malignant neoplasm of head of pancreas (HCC) - Primary Malignant neoplasm of head of | | pancreas | + + documented in this encounter"
--- OUTSIDE RECORDS SUMMARY | ~2019-08-01 | XMS | Encounter Summary ---
Demographics + + + | Address | [address] | | | [place] [address] | + + + | Home Phone | | + + + | Preferred Language | Unknown | + + + | Marital Status | | + + + | Sikh Affiliation | Unknown | + + + | Race | Unknown | + + + | Ethnic Group | Unknown | + + + Author + + + | Author | [facility] | | | and Izaiahana | + + + | Organization | [facility] | | [...] Team Providers + +------+ + | Care Electrical Transmission Engineer Name | Role | Phone | + +------+ + | Garland Caputo MD | PCP | | + +------+ + Reason for Referral Evaluate & Treat (Routine) +--------+ + + [...] Malignant | Rasheed Madrid DO | Geraldine Lopez, | | | Required | | neoplasm of | [address] | | | | | head of | [address] | | | | | | pancreas | [place], | | | | | | (HCC) | [place] [address] | | | | | | | Phone: | | | | | | | [phone] | | | | | | | Fax: | | | | | | | [phone] | | +--------+ + + + + + Encounter Details +--------+ + + + + | Date | Type | Department | Care Team | Description | +--------+ + + + + | 02/18/ | Orders Only | [facility] | Rasheed Bello DO | Malignant neoplasm | | 2019 | | MED CTR RADIATION | [address] | of head of pancreas | | | | ONCOLOGY CLINIC [address] | [place], [place] | ([facility]) (Primary Dx) | | | | [address] [place] | [address] | | | | | [place] [address] | | | | | | [phone] | | | +--------+ + + + [...] | | | or equivalent | | 4465-1417 | + + +---------+ + + + [...] +--------+ + + | AMB Referral to [facility] | Outpatient | Routin | Malignant [...]
--- OUTSIDE RECORDS SUMMARY | ~2019-08-01 | XMS | Encounter Summary ---
Demographics + + + | Address | [address] | | | [place] [address] | + + + | Home Phone | | + + + | Preferred Language | Unknown | + + + | Marital Status | | + + + | Adventism Affiliation | Unknown | + + + | Race | Unknown | + + + | Ethnic Group | Unknown | + + + Author + + + | Author | [facility] | | | and Izaiahana | + + + | Organization | [facility] | | | and Izaiahana [...] Team Providers + +------+ + | Care Mine Inspector Name | Role | Phone | [...] + + + | | | | | | | +--------+--------+ + + + + Encounter Details +--------+ + + + + | Date | Type | Department | Care Team | Description | +--------+ + + + + | 01/23/ | Hospital | [facility] | Rasheed Bello DO | | | 2019 | Encounter | MED CTR [address] | [address] | | | | | [place], | [place], [place] | | | | | [place] [address] | [phone] | | | | | [phone] | | | +--------+ + + + [...] | | | or equivalent | | [phone] | + + +---------+ + + + [...] 0 | 07/24/20 | | | (YAW SOLOSTAR) | the skin Daily. | | [...] | CT TREATMENT PLAN | Routin | 01/23/2019 | Malignant neoplasm | Results for this | | COMPLEX | e | 3:57 PM | of head of pancreas | [...] iohexol (OMNIPAQUE 350) 350 | Given | 01/24/20 | 85 mLs | | | | mg/mL injection 85 mL 85 mL, | | 19 3:00 | | | | | Intravenous, ONCE PRN, Other, for | | PM PDT | | | | | imaging CT study, Starting Fri | | | | | | | 01/23/19 at 1559, For 1 dose, | | | | | | | Radiology | | | | | | + +--------+ +--------+------+------+ +---+---+ | | | +---+---+ documented in this encounter"
--- OUTSIDE RECORDS SUMMARY | ~2019-08-01 | XMS | Clinical Summary ---
Demographics + + + | Address | [address] | | | [place] [address] | + + + | Home Phone | | + + + | Preferred Language | Unknown | + + + | Marital Status | Unknown | + + + | Mandaeism Affiliation | Unknown | + + + | Race | Unknown | + + + | Ethnic Group | Unknown | + + + Author + + + | Author | [facility] | + + + | Organization | [facility] | + + + | Address | Unknown | + + + | Phone | Unavailable | + + + Care Team Providers + +------+ + | Care Latrine Cleaner Name | Role | Phone | + +------+ + PCP | Unavailable | + +------+ + Source Comments TAYLER is fully live on both [facility] Ambulatory and [facility] InPatient.[facility] Allergies Not on File Medications Not on [...]
--- OUTSIDE RECORDS SUMMARY | ~2019-08-01 | XMS | Encounter Summary ---
Demographics + + + | Address | [address] | | | [place] [address] | + + + | Home Phone [...] Organization | [facility] | [...] Team Providers + +------+ + | Care Tax Senior Associate Name | Role | Phone | + [...] + + | 01/23/ | Hospital | [facility] | Rasheed Bello DO | | | 2019 | Encounter | MED CTR [address] | [address] | | | | | [place], | [place], [place] | | | | | [place] [address] | [phone] | | | | | [phone] | | | +--------+ + + + [...] | | | or equivalent | | [phone] | + + +---------+ + + + [...]
--- OUTSIDE RECORDS SUMMARY | ~2019-08-01 | XMS | Encounter Summary ---
Demographics + + + | Address | [address] | | | [place] [address] | + + + | Home Phone | | + + + | Preferred Language | Unknown | + + + | Marital Status | | + + + | Caodaism Affiliation | Unknown | + + + | Race | Unknown | + + + | Ethnic Group | Unknown | + + + Author + + + | Author | [facility] | | | and Izaiahana | + + + | Organization | [facility] | | | and Izaiahana [...] Team Providers + +------+ + | Care Assistant Librarian Name | Role | Phone | + [...] | +--------+ + + + + | 03/23/ | Hospital | [facility] | Gloria, | Malignant neoplasm | | 2019 | Encounter | MED CTR MEDICAL | Logan Madrid MD [address] | of head of pancreas | | | | [facility] [address] [place] | (HCC); Chronic | | | | [address] [place] | [place] [address] | anxiety; Jaundice; | | | | [place] [address] | [phone] | Migration of biliary | | | | [phone] | | stent, subsequent | | | | | | encounter; Sensory | | | | | | [...] | | | or equivalent | | [phone] | + + +---------+ + + + [...] patch on | 10 | 0 | 03/23/20 | | | (DURAGESIC) 100 | skin [...] encounter Progress Notes Logan Castro MD - 03/23/2019 3:44 PM PDTFormatting of this note might be differe nt from the original. Hematology/Oncology Progress Note [facility] [place] Pt. Name/Age/: Anastacoi Galvez 68 y.o. 1950 [facility]. Record Number: [id number] Date of admission: 03/23/2019 The patient's primary care provider is Garland Caputo MD. Identifying Statement: Anastacio Galvez is a 68 y.o. male from [address] [facility] [address] with Stage IIA Pancreatic Cancer. The patient chart and medications were reviewed in detail and the patient was seen and exam ined. History of Present Illnesses, their Current Assessments and Plans: Problem List Chronic anxiety Jaundice Malignant neoplasm of head of pancreas [...] 2018 at [facility] in [facility] demonstrated a 5 cm pancreatic mass in the uncinate process associated with a 12 mm retro-caval lymph node. Tumor marker CA 19-9 was 816.5 units per milliliter (upper limits of normal 37 units per milliliter). Surgical consultation with Dr. Mami Mcnamara ([facility]) on July 03, 2018. CT of the chest/abdomen/pelvis with contrast at [facility] on July 10, 2018 demonstrated a 3.3 cm x 3.7 cm x 5.17 m mass in the pancreatic head/uncina te process. The mass encases a few branches of the superior mesenteric artery arising training systems officer iorly and demonstrates slightly less than 180 of encasement of the superior mesenteric art daniel proper. Enlarged 1.1 cm lymph node inferior to the mass. Endoscopic ultrasound with biopsy and stent (10 mm x 40 mm metal ) placement July 25 (Dr. Leonel Song, [place], [place]): Pancreatic/uncinate mass, 4.5 cm close to but n ot touching major vessels, without endoscopic evidence of regional lymphadenopathy, PT3, PN0 , M0 stage IIA. Biopsy specimen # [id number] ([facility]). Fine-needle aspiration; adenocarcinoma. Biliary brushings; adenocarcinoma. Neoadjuvant therapy with Abraxane/Gemcitabine on August 15, 2018 through October 24, 2018 . 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 Repeat CT abdomen/pelvis on October 31, 2018 demonstrated a 60% volumetric reduction in pa ncreatic head mass. Consultation with Dr. Mami Mcnamara, [facility] on November 06, 2018; disease remains unresectable, [...] branche s. Consultation with Dr. Mami Mcnamara, [facility], who determined that the disease st ill remains unresectable, cross over to combined modality radiation + chemotherapy. Cross over to capecitabine 1500 mg orally twice a day, continuous, with daily radiation the [facility], Saturday-Saturday, on February 12, 2019. Current Assessment & Plan Anastacio Galvez returned to clinic on 03/23/2019 with his Jamila, for follow u p of his locally advanced pancreatic cancer, currently at the end of his combined modality t reatment plan with continuous oral capecitabine and external beam radiation. Interval history is notable for the fact that Anastacio's last radiation therapy treatment will be tomorrow. Review of systems is notable for fatigue, nausea, night sweats, dyspnea on exertion, semi-f ormed stools, joint pain, and upper abdominal pain which is rated at 3/10 and relieved with a combination of topical fentanyl on a continuous basis and oxycodone IR on an as-needed bas is. Clinical exam is notable for an additional 3 pound weight loss in 1 week, cumulatively 7 po unds down in 2 weeks. Laboratory exam is notable for grade 2 leukopenia and neutropenia, grade 1 anemia and no th rombocytopenia. Both the alkaline phosphatase and the CA 19-9 are decreasing incrementally. Assessment: Endoscopic stage IIA pancreatic cancer, not amenable to surgery. Plan: Anastacio will continue on oral capecitabine 1500 mg twice a day for today and tomorrow, then discontinue therapy. He will follow-up with me on April 17, 2019 including laboratory evaluation at the [facility] cancer clinic in [facility]. In 2 to 3 months we will repeat his imaging and if favorable consult with Dr. Mcnamara again regarding Anastacio's suitability for surgical resection. Migration of biliary stent, subsequent encounter Overview Added automatically from request for surgery [id number] Sensory neuropathy Review of Systems: Constitutional: Reports intermittent nausea, taking prns. Reports poor activity tolerance , fatigue. Occasional night sweats. Denies high fevers, shaking chills, anorexia, vomiting or weight loss. Appetite without changes. Weight dec'd from 75.1 kg to 72.1 kg since 9. Ear, Nose, Mouth, Throat: Denies odynophagia or [...] Denies rash, wounds or other skin concerns. States developing a blister on h is penis, states looks like it popped. Pain: Reports ongoing knee joint pain. Reports occasional ABD pain. Reports adequate pain c ontrol "this week." Pain at a 3/10 today. Note: here for labs and follow-up w/ Dr Castro My chart: Declined Scheduled Medications: Current Outpatient Medications Medication Sig Dispense Refill capecitabine (XELODA) 500 mg tablet Take 3 tablets (1,500 mg total) by mouth 2 times da jose angel for 14 days. 84 tablet 0 fentaNYL (DURAGESIC) 100 mcg/hr Place one patch on skin with a 25 mcg patch for 125 mcg topically every 72 hrs. 10 patch 0 fentaNYL (DURAGESIC) 25 mcg/hr Apply skin patch [...] Bilateral 2007 at [facility] CHOLECYSTECTOMY EGD AND COLONOSCOPY ERCP N/A 01/29/2019 Procedure: ERCP; Surgeon: Joaquin Lawson MD; Location: [facility] MAIN OR HERNIA REPAIR inguinal LAPAROSCOPY NASAL SEPTUM SURGERY TONSILLECTOMY torn cartilage Right [place] [facility] Social History Socioeconomic History Marital status: [...] 0.0 oz Comment: Drank 12 pk/wk from [id number] Drug use: No Comment: Has used marijauna [...] breast cancer Cancer Sister breast cancer Objectives: Weight 75.1 kg, temperature 37.5 C, pulse 76 bpm, respiratory rate 16/min, saturation of oxygen 99% on room air, blood pressure 137/67 Temp: 37 C (98.6 F) BP: 107/70 Pulse: 88 Resp: 16 SpO2: 97 % on Min/Max Temp past 24 hours:Temp Av C (98.6 F) Min: 37 C (98.6 F) Max: 37 C (98.6 F) No intake or output data in the 24 hours ending 03/24/19 1014 Wt. Admission: Weight: 72.1 kg (158 lb 15.2 oz) Wt. Current: Weight: 72.1 kg (158 lb 15 .2 oz) Wt Readings from Last 3 Encounters: 03/23/19 72.1 kg (158 lb 15.2 oz) 03/18/19 73.3 kg (161 lb 9.6 oz) 03/12/19 75.1 kg (165 lb 9.1 oz) Body mass index is 21.56 kg/m. Physical Exam: General: The patient is [...] bony tenderness. No evidence of sarcopenia. Psychiatric: Normal affect. ECOG Performance Status [] 0 [x] [...] Montero., Yonny, RRaheemH., Partha Guido., Patricio Brizuela., Michoacano, TNaga., Bill, E.T., Yaquelin, P .P.: Toxicity [...] for ANASTACIO GALVEZ ( ) as of 03/24/2019 08:38 Ref. Range 03/23/2019 14:05 WBC Latest Ref Range: 4.0 - 11.0 K/uL 2.1 (LL) RBC COUNT Latest Ref Range: 4.30 - 5.70 M/uL 3.81 (L) Hemoglobin Latest Ref Range: 13.5 - 18.0 g/dL 12.2 (L) Hematocrit Latest Ref Range: 40.0 - 51.0 % 37.0 (L) MCV Latest Ref Range: 83.0 - 101.0 fL 97.1 MCH Latest Ref Range: 28.0 - 35.0 pg 32.0 MCHC Latest Ref Range: 32.0 - 36.0 g/dL 33.0 RDW-CV Latest Ref Range: <15.0 % 16.8 (H) RDW-SD Latest Ref Range: 35.1 - 46.3 fL 60.3 (H) Platelet Count Latest Ref Range: 140 - 440 K/uL 160 MPV Latest Ref Range: 6.5 - 12.4 fL 9.7 % nRBC Latest Ref Range: 0 - 2 per 100 WBCs 0 Absolute nRBC Latest Ref Range: 0.00 - 0.01 K/uL 0.00 Absolute Neutrophils Latest Ref Range: 1.80 - 8.50 K/uL 1.04 (L) Absolute Lymphocytes Latest Ref Range: 0.60 - 3.20 K/uL 0.57 (L) Absolute Monocytes Latest Ref Range: 0.00 - 1.00 K/uL 0.47 Absolute Eosinophils Latest Ref Range: 0.00 - 0.40 K/uL 0.04 Absolute Basophils Latest Ref Range: 0.00 - 0.10 K/uL 0.01 Absolute Immature Granulocytes Latest Ref Range: 0.00 - 0.03 K/uL 0.00 % Neutrophils Latest Ref Range: 45.0 - 82.0 % 48.7 % Lymphocytes Latest Ref Range: 20.0 - 45.0 % 26.8 % Monocytes Latest Ref Range: 4.0 - 12.0 % 22.1 (H) % Eosinophils Latest Ref Range: 0.0 - 5.0 % 1.9 % Basophils Latest Ref Range: 0.0 - 1.0 % 0.5 % Immature Granulocytes Latest Ref Range: 0.0 - 0.4 % 0.0 Na Latest Ref Range: 136 - 145 mmol/L 138 K Latest Ref Range: 3.4 - 5.1 mmol/L 4.0 Chloride Latest Ref Range: 98 - 107 mmol/L 103 Carbon dioxide Latest Ref Range: 20 - 31 mmol/L 31 Anion Gap Latest Ref Range: 3 - 16 mmol/L 4 Glucose Latest Ref Range: 60 - 106 mg/dL 164 (H) BUN Latest Ref Range: 9 - 23 mg/dL 11 Creatinine Latest Ref Range: 0.70 - 1.30 mg/dL 0.82 BUN/Creatinine Ratio Unknown 13.4 Albumin Latest Ref Range: 3.2 - 4.8 g/dL 3.5 Albumin/Globulin Ratio Latest Ref Range: 0.8 - 1.9 1.4 Total Protein Latest Ref Range: 5.7 - 8.2 g/dL 6.0 EGFR IF NOT Latest Ref Range: >=60 mL/min/1.73m2 >60 Calcium Latest Ref Range: 8.7 - 10.4 mg/dL 8.9 ALK PHOS Latest Ref Range: 46 - 116 U/L 123 (H) ALT (SGPT) (REF) Latest Ref Range: 10 - 49 U/L 15 AST (SGOT) (REF) Latest Ref Range: 0 - 34 U/L 30 LDH TOTAL Latest Ref Range: 120 - 246 U/L 216 Bilirubin Total (Calculated) Latest Ref Range: 0.3 - 1.2 mg/dL 0.8 Globulin Latest Ref Range: 2.1 - 3.8 g/dL 2.5 CA 19-9 Latest Ref Range: 0 - 35 U/mL 107 (H) Pharmacovigilance: Palliative Care: Patient's Medications New Prescriptions No medications on file Modified Medications Modified Medication Previous Medication FENTANYL (DURAGESIC) 100 MCG/HR fentaNYL (DURAGESIC) 100 mcg/hr Place one patch on skin with a 25 mcg patch for 125 mcg topically every 72 hrs. Plac e 1 patch onto the skin every 72 hours. FENTANYL (DURAGESIC) 25 MCG/HR fentaNYL (DURAGESIC) 25 mcg/hr Apply skin patch every three days with a 100 mcg/hr patch for 125 mcg/hour Apply ski n patch every three days with a 100 mcg/hr patch for 125 mcg/hour LORAZEPAM (ATIVAN) 1 MG TABLET LORazepam (ATIVAN) 1 mg tablet One tablet orally ever four hours as needed for nausea, anxiety or restlessness One tablet orally ever four hours as needed for nausea, anxiety or restlessness Discontinued Medications No medications on file Procedure: Logan Castro MD Portions of this chart may have been created with [employer] voice recognition software. Occasi onal wrong-word or [...] + | CBC W/AUTO | STAT | 03/23/2019 | Malignant neoplasm | Results for this | | DIFFERENTIAL | | 2:05 PM | of head of pancreas | procedure are in the | | | | PDT | ([facility]) | results section. | + +--------+ + + + | CA 19-9, QUANT | STAT | 03/23/2019 | Malignant neoplasm | Results for this | | | | 2:05 PM | of head of pancreas | procedure are in the | | | | PDT | ([facility]) | results section. | + +--------+ + + + | LACTATE | STAT | 03/23/2019 | Malignant neoplasm | Results for this | | DEHYDROGENASE | | 2:05 PM | of head of pancreas | procedure are in the | | | | PDT | ([facility]) | results section. | + +--------+ + + + | COMPREHENSIVE | STAT | 03/23/2019 | Malignant neoplasm | Results for this | | METABOLIC PANEL | | 2:05 PM | of head of pancreas | procedure are in the | | | | PDT | ([facility]) | results section. | + +--------+ + + + documented in this encounter Results IMAGING REPORT - EXTERNAL SCAN (05/08/2019 12:00 AM PDT) + + + | Narrative | Performed At | + + + | Ordered by an | | | unspecified provider. | | + + + Lactate Dehydrogenase (03/23/2019 2:05 PM PDT) + + + + + + | Component | Value | Ref Range | Performed | Pathologist | | | | | At | Signature | + + + + + + | LDH TOTAL | 216Comment: New method | 120 - 246 U/L [...] + | [address] | [address] | [place] | [phone] | | [facility] | | [address] | | | - LABORATORY | | | | + + + + + Comprehensive Metabolic Panel (03/23/2019 2:05 PM PDT) + + + + + [...] + + + + | K | 4.0 | 3.4 - 5.1 | [facility] | | | | | mmol/L | [facility] | | | | [...] + + + + | CO2 | 31 | 20 - 31 mmol/L | [facility] | | | | | | [facility] | | | | | | MEDICAL | | | | | | CENTER - | | | | | | LABORATORY | | + + + + + + | Anion Gap | 4 | 3 - 16 mmol/L | [facility] [...] + + + + | Creatinine | 0.82 | 0.70 - 1.30 | [facility] | | | | | mg/dL | [facility] | | | | | | MEDICAL | | | | | | CENTER - | | | | | | LABORATORY | | + + + + + + | eGFR if not | >60Comment: GLOMERULAR | >=60 | [facility] | | | | FILTRATION | mL/min/1.73m2 | [facility] | | | PERUVIAN | RATE,ESTIMATED | | MEDICAL | | | | mL/min/1.54p5Pnak than | | CENTER - | | [...] + + + + | Bilirubin | 0.8 | 0.3 - 1.2 mg/dL | [facility] | | | Total | | | [facility] | | | | | | MEDICAL | | | | | | CENTER - | | | | | | LABORATORY | | + + + + + + | Total | 6.0 | 5.7 - 8.2 g/dL | [facility] | | | Protein | | | [facility] | | | | | | MEDICAL | | | | | | CENTER - | | | | | | LABORATORY | | + + + + + + | AST | 30 | 0 - 34 U/L | [facility] | | | | | | [facility] | | | | | | MEDICAL | | | | | | CENTER - | | | | | | LABORATORY | | + + + + + + | ALT | 15 | 10 - 49 U/L | [facility] | | | | | | [facility] | | | | | | MEDICAL | | | | | | CENTER - | | | | | | LABORATORY | | + + + + + + | Alkaline | 123 (H) | 46 - 116 U/L | [facility] | | | Phosphatase | | | [facility] | | | | | | MEDICAL | | | | | | CENTER - | | | | | | LABORATORY | | + + + + + + | Globulin | 2.5 | 2.1 - 3.8 g/dL | [facility] | | | | | | [facility] | | | | | | MEDICAL | | | | | | CENTER - | | | | | | LABORATORY | | + + + + + + | Albumin/Sonia | 1.4 | 0.8 - 1.9 | [facility] | | | bulin Ratio | | | [facility] | | | | | | MEDICAL | | | | | | CENTER - | | | | | | LABORATORY | | + + + + + + | BUN/Creatin | 13.4 | | [facility] | | | ine [...] [address] | [place] | [phone] | | [facility] | | [address] | | | - LABORATORY | | | | + + + + + CBC w/ Auto Differential (03/23/2019 2:05 PM PDT) + + + + + + | Component | Value | Ref Range | Performed | Pathologist | | | | | At | Signature | + + + + + + | WBC | 2.1 (LL)Comment: Cancer | 4.0 - 11.0 K/uL | [facility] | | | | center patient-not | | [facility] | | | | called | | MEDICAL | | | | | | CENTER - | | | | | | LABORATORY | | + + + + + + | RBC | 3.81 (L) | 4.30 - 5.70 | [facility] [...] + + + + | Hematocrit | 37.0 (L) | 40.0 - 51.0 % | [facility] | | | | | | [facility] | | | | | | MEDICAL | | | | | | CENTER - | | | | | | LABORATORY | | + + + + + + | MCV | 97.1 | 83.0 - 101.0 fL | [facility] | | | | | | [facility] | | | | | | MEDICAL | | | | | | CENTER - | | | | | | LABORATORY | | + + + + + + | MCH | 32.0 | 28.0 - 35.0 pg | [facility] [...] + + + + | RDW-CV | 16.8 (H) | <15.0 % | [facility] | | | | | | [facility] | | | | | | MEDICAL | | | | | | CENTER - | | | | | | LABORATORY | | + + + + + + | RDW-SD | 60.3 (H) | 35.1 - 46.3 fL | [facility] | | | | | | [facility] | | | | | | MEDICAL | | | | | | CENTER - | | | | | | LABORATORY | | + + + + + + | Platelet | 160 | 140 - 440 K/uL | [facility] | | | Count | | | [facility] | | | | | | MEDICAL | | | | | | CENTER - | | | | | | LABORATORY | | + + + + + + | MPV | 9.7 | 6.5 - 12.4 fL | [facility] | | | | | | [facility] | | | | | | MEDICAL | | | | | | CENTER - | | | | | | LABORATORY | | + + + + + + | % | 48.7 | 45.0 - 82.0 % | [facility] | | | Neutrophils | | | [facility] | | | | | | MEDICAL | | | | | | CENTER - | | | | | | LABORATORY | | + + + + + + | % | 26.8 | 20.0 - 45.0 % | [facility] | | | Lymphocytes | | | [facility] | | | | | | MEDICAL | | | | | | CENTER - | | | | | | LABORATORY | | + + + + + + | % Monocytes | 22.1 (H) | 4.0 - 12.0 % | [facility] | | | | | | [facility] | | | | | | MEDICAL | | | | | | CENTER - | | | | | | LABORATORY | | + + + + + + | % | 1.9 | 0.0 - 5.0 % | [facility] | | | Eosinophils | | | [facility] | | | | | | MEDICAL | | | | | | CENTER - | | | | | | LABORATORY | | + + + + + + | % Basophils | 0.5 | 0.0 - 1.0 % | [facility] | | | | | | [facility] | | | | | | MEDICAL | | | | | | CENTER - | | | | | | LABORATORY | | + + + + + + | % Immature | 0.0 | 0.0 - 0.4 % | [facility] | | | Granulocyte | | | [facility] | | | s | | | MEDICAL | | | | | | CENTER - | | | | | | LABORATORY | | + + + + + + | Absolute | 1.04 (L) | 1.80 - 8.50 | [facility] | | | Neutrophils | | K/uL | [facility] | | | | | | MEDICAL | | | | | | CENTER - | | | | | | LABORATORY | | + + + + + + | Absolute | 0.57 (L) | 0.60 - 3.20 | [facility] | | | Lymphocytes | | K/uL | [facility] | | | | | | MEDICAL | | | | | | CENTER - | | | | | | LABORATORY | | + + + + + + | Absolute | 0.47 | 0.00 - 1.00 | [facility] | | | Monocytes | | K/uL | [facility] | | | | | | MEDICAL | | | | | | CENTER - | | | | | | LABORATORY | | + + + + + + | Absolute | 0.04 | 0.00 - 0.40 | [facility] | [...] | Absolute | 0.00 | 0.00 - 0.03 | [facility] | [...] [address] | [place] | [phone] | | [facility] | | [address] | | | - LABORATORY | | | | + + + + + CA 19-9, Quant (03/23/2019 2:05 PM PDT) + + + + + + | Component | Value | Ref Range | Performed | Pathologist | | | | | At | Signature | + + + + + + | CA 19-9 | 107 (H)Comment: Vik | 0 - 35 U/mL [...] + + + | Performed at: - [facility] [place] [address], | REFERENCE LAB | | [place], [place] [id number] [employer]acing [employer] Jumpb[employer]: Evert Scanlon MD, Phone: | VIJAY - JUAN | | [phone] | | + + + + + + + + | Performing | Address | City/State/Zipcode | Phone Number | | Organization | | | | + + + + + | REFERENCE LAB | [address] | [place] [address] | [phone] | | [facility] | [place] [address] | | | + + + + + documented in this encounter Visit Diagnoses + + | Diagnosis | + + | Malignant neoplasm of head of pancreas (HCC) Malignant neoplasm of head of pancreas | + + | Chronic anxiety Anxiety state, unspecified | + + | Jaundice Jaundice, unspecified, not of | + + | Migration of biliary stent, subsequent encounter | + + | Sensory neuropathy Unspecified hereditary and idiopathic peripheral neuropathy | + + documented in this encounter
--- OUTSIDE RECORDS SUMMARY | ~2019-08-01 | XMS | Encounter Summary ---
Demographics + + + | Address | [address] | | | [place] [address] | + + + | Home Phone [...] Organization | [facility] | | [...] Team Providers + +------+ + | Care Foot Specialist Name | Role | Phone | [...] | [address] | [place] [address] | | | | | [address] | [phone] | | | | | [phone] | | | +--------+ + + + [...] | | | or equivalent | | [phone] | + + +---------+ + + + [...]
--- OUTSIDE RECORDS SUMMARY | ~2019-08-01 | XMS | Encounter Summary ---
Demographics + + + | Address | [address] | | | [place] [address] | + + + | Home Phone | | + + + | Preferred Language | Unknown | + + + | Marital Status | | + + + | Islam Affiliation | Unknown | + + + | Race | Unknown | + + + | Ethnic Group | Unknown | + + + Author + + + | Author | [facility] | | | and Izaiahana | + + + | Organization | [facility] | | | and [...] Team Providers + +------+ + | Care Leak Hunter Name | Role | Phone | + [...] | | | stent, | | [place] [address] | | | | | subsequent | | Phone: | | | | | encounter | | [phone] | | | | | Procedures | | Fax: | | | | | [place] | | [phone] | | | | | ESOPHAGOSCOP | | | | | | | Y FLEXIBLE | | | | | | | GUIDE WIRE | | | | | | | DILATION [place] | | | | | | | ERCP DX | | | | | | | COLLECTION | | | | | | | SPECIMEN | | | | | | | BRUSHING/WAS | | | | | | | GERI [place] | | | | | | | [...] + + | 01/29/ | Anesthesia | [facility] | Alec Waldron | | | 2019 | Event | MED CTR OR INTRA OP | DO Shawn [address] | | | | | [address] | JESSI [place]SON | | | | | [place] | [place] [address] | | | | | [address] | | | | | | [phone] | | | +--------+ + + + [...] 01/29/19 123 by | | eral | [id number] catheter system; | Julia Moreno RN | [...] | | | or equivalent | | [phone] | + + +---------+ + + + [...]
--- OUTSIDE RECORDS SUMMARY | ~2019-08-01 | XMS | Encounter Summary ---
Demographics + + + | Address | [address] | | | [place] [address] | + + + | Home Phone [...] Organization | [facility] | | | and Izaiahana [...] Team Providers + +------+ + | Care Lead Front End Developer Name | Role | Phone | [...] [place] CONNELLY | | | | | [phone] | [place] [address] | | +--------+ + + + + [...]
--- OUTSIDE RECORDS SUMMARY | ~2019-08-01 | XMS | Encounter Summary ---
Demographics + + + | Address | [address] | | | [place] [address] | + + + | Home Phone [...] | [facility] | | | and Izaiahana | [...] Team Providers + +------+ + | Care Yarn Handler Name | Role | Phone | + [...] | | | | | | [place] [address] | | | | | | [phone] | | | +--------+ + + + [...] | | | or equivalent | | 0860-3605 | + + +---------+ + + + [...]
--- OUTSIDE RECORDS SUMMARY | ~2019-08-01 | XMS | Encounter Summary ---
Demographics + + + | Address | [address] | | | [place] [address] | + + + | Home Phone | | + + + | Preferred Language | Unknown | + + + | Marital Status | | + + + | Protestant Affiliation | Unknown | + + + | Race | Unknown | + + + | Ethnic Group | Unknown | + + + Author + + + | Author | [facility] | | | and Izaiahana | + + + | Organization | [facility] | | | and Izaiahana [...] Team Providers + +------+ + | Care Aircraft Accessories Mechanic Name | Role | Phone | + +------+ + | Garland Caputo MD | PCP | | + +------+ + Encounter Details +--------+ + + + + | Date | Type | Department | Care Team | Description | +--------+ + + + + | 02/18/ | Hospital | [facility] | [place], | Malignant neoplasm | | 2019 | Encounter | MED CTR MEDICAL | Logan Madrid MD [address] | of head of pancreas | | | | [facility] [address] | [address] [place] | ([facility]); Migration of | | | | [address] [place] | [place] [address] | biliary stent, | | | | [place] [address] | [phone] | subsequent encounter | | | | [phone] | | | +--------+ + + + [...] | | | or equivalent | | 7505-9149 | + + +---------+ + + + [...] + | CBC W/AUTO | STAT | 02/18/2019 | Malignant neoplasm | Results for this | | DIFFERENTIAL | | 1:24 PM | of head of pancreas | procedure are in the | | | | PDT | (HCC) | results section. | + +--------+ + + + | CA 19-9, QUANT | STAT | 02/18/2019 | Malignant neoplasm | Results for this | | | | 1:24 PM | of head of pancreas | procedure are in the | | | | PDT | (HCC) | results section. | + +--------+ + + + | LACTATE | STAT | 02/18/2019 | Malignant neoplasm | Results for this | | DEHYDROGENASE | | 1:24 PM | of head of pancreas | procedure are in the | | | | PDT | (HCC) | results section. | + +--------+ + + + | COMPREHENSIVE | STAT | 02/18/2019 | Malignant neoplasm | Results for this | | METABOLIC PANEL | | 1:24 PM | of head of pancreas | procedure are in the | | | | PDT | (HCC) | results section. | + +--------+ + + + documented in this encounter Results Lactate Dehydrogenase (02/18/2019 1:24 PM PDT) + +-------+ + + + | Component | Value | Ref Range | Performed | Pathologist | | | | | At | Signature | + +-------+ + + + | LDH TOTAL | 171 | 120 - 246 U/L | [facility] | | | | | | [facility] | | | | | | MEDICAL | | | | | | [facility]DA - | | | | | | [...] [address] | [place] | [phone] | | [facility] | | [address] | | | - LABORATORY | | [...] 0.79 | 0.70 - 1.30 | [facility] | | | | | mg/dL | [facility] | | | | | | MEDICAL | | | | | | CENTER - | | | | | | LABORATORY | | + + + + + + | eGFR if not | >60Comment: GLOMERULAR | >=60 | [facility] | | | | [facility]TRATION | mL/min/1.73m2 | [facility] | | | [place] | RATE,ESTIMATED | | MEDICAL | | | | mL/min/1.44o5Otop than | | CENTER - | | [...] [address] | [place] | [phone] | | [facility] | | [address] | | | - LABORATORY | | | | + + + + + CBC w/ Auto Differential (02/18/2019 1:24 PM PDT) + + + + + + | Component | Value | Ref Range | Performed | Pathologist | | | | | At | Signature | + + + + + + | WBC | 4.6 | 4.0 - 11.0 K/uL | [facility] | | | | | [...] | | nRBC | | K/uL | [facility] | | | | | [...] [address] | [place] | [phone] | | [facility] | | [address] | | | - LABORATORY | | [...] + + | Performed at: [address] [address], | REFERENCE LAB | | [place], [place] [id number] Patrol Agent: Evert Scanlon MD, Phone: | [facility] | | [phone] | | + + + + + + + + | Performing | Address | City/State/Zipcode | Phone Number | | Organization | | | | + + + + + | REFERENCE LAB | [address] | [place] [address] | [phone] | | [facility] | Drive [facility] | | | + + + + + documented in this encounter Visit Diagnoses + + | Diagnosis | + + | Malignant neoplasm of head of pancreas (HCC) Malignant neoplasm of head of pancreas | + + | Migration of biliary stent, subsequent encounter | + + documented in this encounter"
--- OUTSIDE RECORDS SUMMARY | ~2019-08-01 | XMS | Encounter Summary ---
Demographics + + + | Address | [address] | | | [place] [address] | + + + | Home Phone | | + + + | Preferred Language | Unknown | + + + | Marital Status | | + + + | Nondenominational Affiliation | Unknown | + + + | Race | Unknown | + + + | Ethnic Group | Unknown | + + + Author + + + | Author | [facility] | | | and Izaiahana | + + + | Organization | [facility] | | | and [...] Team Providers + +------+ + | Care Supervisor Assembly And Packing Name | Role | Phone | + [...] + + | 12/25/ | Hospital | [facility] | [place], | Malignant neoplasm | | 2019 | Encounter | MED CTR MEDICAL | Logan Madrid MD [address] | of head of pancreas | | | | [facility] [address] | [address] [place] | (HCC) (Primary Dx) | | | | [address] [place] | [place] [address] | | | | | [place] [address] | [phone] | | | | | [phone] | | | +--------+ + + + [...] | | | or equivalent | | 0632-3994 | + + +---------+ + + + [...] nt from the original. Hematology/Oncology Progress Note [facility] [place] Pt. Name/Age/: Anastacio Galvez 68 y.o. 1950 [facility] [place]. Record Number: [id number] Date of admission: 12/25/2018 The patient's primary care provider is Garland Caputo MD. Identifying Statement: Anastacio Galvez is a 68 y.o. male from [address] [place] [address] with Stage IIA Pancreatic Cancer. The patient [...] abdomen/pelvis without contrast June 27, 2018 at [facility] in [facility] demonstrated a 5 cm pancreatic mass in the uncinate process associated with a 12 mm retro-caval lymph node. Tumor marker CA 19-9 was 816.5 units per milliliter (upper limits of normal 37 units per milliliter). Surgical consultation with Dr. Mami Mcnamara ([facility]) on July 03, 2018. CT of the chest/abdomen/pelvis with contrast at [facility] on July 10, 2018 demonstrated a 3.3 cm x 3.7 cm x 5.17 m mass in the pancreatic head/uncina te process. The mass encases a few branches of the superior mesenteric artery arising guest relations receptionist iorly and demonstrates slightly less than 180 of encasement of the superior mesenteric art daniel proper. Enlarged 1.1 cm lymph node inferior to the mass. Endoscopic ultrasound with biopsy and stent (10 mm x 40 mm metal ) placement July 25 (Dr. Leonel Song, [place], [place]): Pancreatic/uncinate mass, 4.5 cm close to but n ot touching major vessels, without endoscopic evidence of regional lymphadenopathy, PT3, PN0 , M0 stage IIA. Biopsy specimen # [id number] ([facility]). Fine-needle aspiration; adenocarcinoma. Biliary brushings; adenocarcinoma. Neoadjuvant therapy with Abraxane/Gemcitabine on August 15, 2018 through October 24, 2018 . 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 Repeat CT abdomen/pelvis on October 31, 2018 demonstrated a 60% volumetric reduction in pa ncreatic head mass. Consultation with Dr. Mami Mcnamara, [facility] on November 06, 2018; disease remains [...] oxycodone for malignant-neoplasm related pain. Return to [facility] in [place] on December 31, 2018 for cycle #5 [...] [facility] CHOLECYSTECTOMY EGD AND COLONOSCOPY HERNIA REPAIR inguinal LAPAROSCOPY NASAL SEPTUM SURGERY TONSILLECTOMY torn cartilage Right [facility] Social History Socioeconomic History [...] 0.0 oz Comment: Drank 12 pk/wk from [id number] Drug use: No Comment: Has used marijauna [...] this chart may have been created with Soundsupply recognition software. Occasi onal wrong-word or sound-alike [...] | | | PDT | ([facility]) | results section. | + +--------+ + + + | LACTATE | Routin | 12/25/2018 | Malignant neoplasm | Results for this | | DEHYDROGENASE | e | 8:22 AM | of head of pancreas | procedure are in the | | | | PDT | ([facility]) | results section. | + +--------+ + + + | COMPREHENSIVE | STAT | 12/25/2018 | Malignant neoplasm | Results for this | | METABOLIC PANEL | | 8:22 AM | of head of pancreas | procedure are in the | | | | PDT | ([facility]) | results section. | + +--------+ + [...] mL/min/1.73m2 | [facility] | | | [place] [place] | | | MEDICAL | | | [...] | | | | | | [facility] | | | | | | MEDICAL [...] + | [facility] | [address] | [place] | [phone] | | [facility] | | [address] | | | - LABORATORY | | [...] [address] | [place] | [phone] | | [facility] | | [address] | | | - LABORATORY | | [...] [facility] | | | | | | [facility] | | | | | | MEDICAL | | | | | | MARIS[facility] - | | | | | | [...] [address] | [place] | [phone] | | [facility] | | [address] | | | - LABORATORY | | [...] + + | Performed at: [address] [address], | REFERENCE LAB | | [place], [place] [address] Rn Bone Marrow Transplant: Evert Scanlon MD, Phone: | [facility] | | [phone] | | + + + + + + + + | Performing | Address | City/State/Zipcode | Phone Number | | Organization | | | | + + + + + | REFERENCE LAB | [address] | [place] [address] | [phone] | | [facility] | [address] | | | + + + + + documented in this encounter Visit Diagnoses + + | Diagnosis | + + | Malignant neoplasm of head of pancreas (HCC) - Primary Malignant neoplasm of head of | | pancreas | + + documented in this encounter"
--- OUTSIDE RECORDS SUMMARY | ~2019-08-01 | XMS | Encounter Summary ---
Demographics + + + | Address | [address] | | | [place] [address] | + + + | Home Phone | | + + + | Preferred Language | Unknown | + + + | Marital Status | | + + + | Denominational Affiliation | Unknown | + + + | Race | Unknown | + + + | Ethnic Group | Unknown | + + + Author + + + | Author | [facility] | | | and Izaiahana | + + + | Organization | [facility] | | | and [...] Team Providers + +------+ + | Care Mobility Manager Name | Role | Phone | [...] | | | stent, | | [place] [address] | | | | | subsequent | | Phone: | | | | | encounter | | [phone] | | | | | Procedures | | Fax: | | | | | [place] | | [phone] | | | | | ESOPHAGOSCOP | | | | | | | Y FLEXIBLE | | | | | | | GUIDE WIRE | | | | | | | DILATION [place] | | | | | | | ERCP DX | | | | | | | COLLECTION | | | | | | | SPECIMEN | | | | | | | BRUSHING/WAS | | | | | | | GERI [place] | | | | | | [...] + + | 01/29/ | Hospital | [facility] | Joaquin Lawson | | | 2019 | Encounter | MED CTR XRAY [address] | MD Jamie [address] | | | | | [address] | [address] [place] | | | | | [place] [address] | [place] [address] | | | | | [phone] | [phone] | | | | | | | [...]
--- OUTSIDE RECORDS SUMMARY | ~2019-08-01 | XMS | Encounter Summary ---
Demographics + + + | Address | [address] | | | [place] [address] | + + + | Home Phone | | + + + | Preferred Language | Unknown | + + + | Marital Status | | + + + | Moravian Affiliation | Unknown | + + + | Race | Unknown | + + + | Ethnic Group | Unknown | + + + Author + + + | Author | [facility] | | | and Izaiahana | + + + | Organization | [facility] | | [...] Team Providers + +------+ + | Care Credit Rating Inspector Name | Role | Phone | [...] | | | [address] | [address] | | | | | [place] [address] | | | | | | [phone] | | | +--------+ + + + [...] | | | or equivalent | | 7260-0372 | + + +---------+ + + + [...]
--- OUTSIDE RECORDS SUMMARY | ~2019-08-01 | XMS | Encounter Summary ---
Demographics + + + | Address | [address] | | | [place] [address] | + + + | Home Phone | | + + + | Preferred Language | Unknown | + + + | Marital Status | | + + + | Sabianist Affiliation | Unknown | + + + | Race | Unknown | + + + | Ethnic Group | Unknown | + + + Author + + + | Author | [facility] | | | and Izaiahana | + + + | Organization | [facility] | | | and [...] Team Providers + +------+ + | Care Skiving Machine Operator Name | Role | Phone [...] [place] | | | | | [phone] | [place] [address] | | +--------+ + + + + [...] | + +--------+ + + + | MRI THORACIC SPINE | Routin | 06/06/2018 | | Results for this | | WO CONTRAST | e | 9:00 AM | | procedure are in the | | | | PDT | | results section. | + +--------+ + + + documented in this encounter Results MRI Thoracic Spine wo Contrast (06/06/2018 9:00 AM PDT) + + | Specimen | [...]
--- OUTSIDE RECORDS SUMMARY | ~2019-08-01 | XMS | Encounter Summary ---
Demographics + + + | Address | [address] | | | [place] [address] | + + + | Home Phone [...] Organization | [facility] | | | and [...] Team Providers + +------+ + | Care Cdl Service Technician Name | Role | Phone | [...] | | | | | (HCC) | [place] [address] | | | | | | | Phone: | | | | | | | [phone] | | | | | | | Fax: | | | | | | | [phone] | | +--------+ + + + + [...] | | | ONCOLOGY CLINIC [address] | [place], [place] | ([facility]) (Primary Dx) | | | | [address] [place] | [address] | | | | | [place] [address] | | | | | | [phone] | | | +--------+ + + + [...] | | | or equivalent | | 7828-9763 | + + +---------+ + + + [...] +--------+ + + | AMB Referral to [facility] | Outpatient | Routin | [...]
--- OUTSIDE RECORDS SUMMARY | ~2019-08-01 | XMS | Encounter Summary ---
Demographics + + + | Address | [address] | | | [place] [address] | + + + | Home Phone [...] Organization | [facility] [...] Team Providers + +------+ + | Care Blocklayer Name | Role | Phone | + [...] Malignant | Rasheed Madrid DO | [address] | | | | | neoplasm of | [address] | [place], | | | | | head of | [address] | [place] [address] | | | | | pancreas | [place], | Phone: | | | | | ([facility]) | [place] [address] | [phone] | | | | | Procedures | Phone: | Fax: | | | | | CT Treatment | [phone] | [phone] | | | | | Plan | Fax: | | | | | | Complex CT | [phone] | | | | | | [place] PLAN | | | +--------+--------+ + + + + Encounter Details +--------+ + + + + | Date | Type | Department | Care Team | Description | +--------+ + + + + | 01/20/ | Hospital | [facility] | Rasheed Bello DO | Malignant neoplasm | | 2019 | Encounter | [facility] | [address] | of head of pancreas | | | | ONCOLOGY CLINIC [address] | [place], [place] | ([facility]) | | | | [address] [place] | [address] | | | | | [place] [address] | | | | | | [phone] | | | +--------+ + + + [...] | | | or equivalent | | 7552-9362 | + + +---------+ + + + [...] + + + | Blood Pressure | 154/89 | 01/20/2019 9:56 AM | | | | | PDT | | + + + + + | Pulse | 83 | 01/20/2019 9:56 AM | | | | | PDT | | + + + + + | Temperature | 37.4 C (99.3 F) | 01/20/2019 9:56 AM | | | | | PDT | | + + + + + | Respiratory Rate | 18 | 01/20/2019 9:56 AM | | | | | PDT | | + + + + + | Oxygen Saturation | 96% | 01/20/2019 9:56 AM | | | | | PDT | | + + + + + | Inhaled Oxygen | - | - | | | Concentration | | | | + + + + + | Weight | 79.6 kg (175 lb 7.8 | 01/20/2019 9:56 AM | | | | oz) | PDT | | + + + + + | Height | - | - | | + + + + + | Body Mass Index | 23.8 | 08/11/2018 3:28 PM | | | [...] | 0 | 07/24/20 | | | (TOUPACHECOO SOLOSTAR) | the skin Daily. | | [...] encounter Progress Notes Rasheed Bello DO - 01/20/2019 9:40 AM PDT Follow-up Clinic Note Chief Complaint/ICD10 ICD-10-CM ICD-9-CM 1. Malignant neoplasm of head of pancreas (HCC) C25.0 157.0 History of Present Illness: Anastacio Hernández was seen today to review radiotherapeutic management for a locally a dvanced pancreatic cancer. He was previously seen in consultation on December 25, 2018 pending 2 additional cycles of chemotherapy before consideration for surgery. He was previously st aged as IIa (pT3,pN0,M0) disease with FNA at the time of EUS confirming adenocarcinoma. He began neoadjuvant chemotherapy July 19, 2018 with Abraxane/gemcitabine under the directio n of Dr. Castro that completed on October 24, 2018. He underwent restaging CT abdomen and pelvis on October 31, 2018. This study demonstrated up to 60% volumetric reduction of the pancreatic head mass with a surgical recommendation to continue chemotherapy. He resume d systemic therapy on November 26, 2018 receiving cycle #5 day #1 today. He was unable to comp lete his last cycle of chemotherapy due to poor tolerance. He has state that he underw ent repeat CT imaging last week at [facility] noting no further reduction in shar or. His understanding is that he is no longer a surgical candidate for resection. I do not have these images for review today and they have been requested for personal review. He pr esents today to discuss radiotherapeutic treatment of his locally advanced, medically inoper able pancreatic cancer. ROS REVIEW OF SYSTEMS Constitutional: Weight decreased to 79.6kg from 85.8kg on 12/25/18. Appetite is decreased to "about 3/4" from what it was. Energy reported as very low. Reports vomit x1 last week. Mickey es fatigue. Denies high fevers, shaking chills, anorexia, nausea, vomiting, weight loss, or night sweats. Appetite without changes. Ear, Nose, Mouth, Throat: Denies odynophagia, dysphagia, or tinnitus. Cardiovascular: Reports SOB and occasional midsternal pain which radiates to back. Denies s hortness of breath, dyspnea on exertion, chest pain, palpitations or orthopnea. Respiratory: Denies cough, hemoptysis, or sputum production. Gastrointestinal: Reports being bloated and intermittent abdominal pain. Denies abdominal p ain, constipation, diarrhea, melena, or bright red blood per rectum. Genitourinary: Denies hematuria or dysuria. Musculoskeletal: Back pain reported as intermittent. Denies joint pain or tenderness. Neurologic: R leg and foot numbness with tingling. Denies headache, visual changes, or numb ness/tingling of the extremities. Endocrine: Denies peripheral edema or heat/cold intolerance. Hematologic: Denies spontaneous bruising or bleeding. Integumentary: Denies rash, wounds or other skin concerns. Pain: Mild back pain today, 2/10; medications taken. Note: F/U with Dr. Bello; SIM at 1030 My chart: Pending Current Outpatient Medications Medication Sig Dispense Refill [...] No current facility-administered medications for this encounter. Allergies Allergen Reactions Penicillins Other (See Comments) unknown Intolerance No active intolerances/contraindications BP 154/89 | Pulse 83 | Temp 37.4 C (99.3 F) | Resp 18 | Wt 79.6 kg (175 lb 7.8 oz) | SpO2 96% | BMI 23.80 kg/m Physical Exam Constitutional: He is oriented to person, place, and time. Vital signs are normal. He appea rs lethargic. He appears ill. No distress. HENT: Head: Normocephalic and atraumatic. Eyes: Conjunctivae and EOM are normal. No scleral icterus. Neck: Trachea normal. Cardiovascular: Normal rate. Pulmonary/Chest: Effort normal and breath sounds normal. No accessory muscle usage. No resp iratory distress. Musculoskeletal: Normal range of motion. Neurological: He is oriented to person, place, and time. He has normal strength. He appears lethargic. No cranial nerve deficit. Coordination normal. Psychiatric: He has a normal mood and affect. His behavior is normal. Nursing note and vitals reviewed. Labs: Lab Results Component Value Date WBC 8.3 12/25/2018 HGB 10.4 (L) 12/25/2018 HCT 31.4 (L) 12/25/2018 MCV 93.7 12/25/2018 PLT 382 12/25/2018 Lab Results Component Value Date CREA 0.70 12/25/2018 BUN 11 12/25/2018 NA 140 12/25/2018 K 3.4 12/25/2018 CL 108 (H) 12/25/2018 CO2 29 12/25/2018 Lab Results Component Value Date ALT 153 (H) 12/25/2018 AST 128 (H) 12/25/2018 ALKPHOS 693 (H) 12/25/2018 BILITOT 0.4 12/25/2018 Impression with Recommendation/Plan: 1. Malignant neoplasm of head of pancreas (HCC) - CT Treatment Plan Complex Anastacio Hernández was seen today after completing neoadjuvant chemotherapy prior to pl anned Whipple resection. At this time imaging demonstrates no further response from chemoth erapy alone and it is the patient's understanding that he is no longer a surgical candidate moving forward. We discussed the role of radiotherapy in the management of pancreatic cance r with a recommendation for concurrent chemoradiotherapy to improve local regional control o f his disease. I will plan for simulation within the next week with a 4D CT motion study to minimize target volume as appropriate. Treatment will be delivered using a VMAT based plan to minimize adjacent critical structure dosing while maximizing target dosing. He is curre ntly awaiting preapproval for his oral Xeloda. I will coordinate with Dr. Castro on hi s start date moving forward. He was encouraged to call our clinic with any further question s or concerns. Thank you for allowing me to participate in the care of Anastacio. If you should have any quest ions regarding this evaluation, please do not hesitate to contact me. Rasheed Bello D.O., JULIANN Radiation Oncologist Department of Radiation Oncology [facility] This note was transcribed using Dragon speech recognition software. As a result, there may be unintended for medical and/or spelling errors. Every attempt is made to correct dictati on. If there are any questions or errors please contact our office. documented in this enco unter Plan of [...] | PDT | ([facility]) | results section. | + +--------+ + + + documented in this encounter Results CT Treatment Plan Complex (01/23/2019 3:57 PM PDT) + + | Specimen | [...]
--- OUTSIDE RECORDS SUMMARY | ~2019-08-01 | XMS | Encounter Summary ---
Demographics + + + | Address | [address] | | | [place] [address] | + + + | Home Phone | | + + + | Preferred Language | Unknown | + + + | Marital Status | | + + + | Quaker Affiliation | Unknown | + + + | Race | Unknown | + + + | Ethnic Group | Unknown | + + + Author + + + | Author | [facility] | | | and [place] | + + + | Organization | [facility] | | | and [place]za[place]ana [...] Team Providers + +------+ + | Care Retail Account Executive Name | Role | Phone | [...] | | | [address] | [address] | | | | | [place] [address] | | | | | | [phone] | | | +--------+ + + + [...] | | | or equivalent | | 9062-5926 | + + +---------+ + + + [...]
--- OUTSIDE RECORDS SUMMARY | ~2019-08-01 | XMS | Encounter Summary ---
Demographics + + + | Address | [address] | | | [place] [address] | + + + | Home Phone | | + + + | Preferred Language | Unknown | + + + | Marital Status | | + + + | Latter Day Affiliation | Unknown | + + + | Race | Unknown | + + + | Ethnic Group | Unknown | + + + Author + + + | Author | [facility] | | | and [place] | + + + | Organization | [facility] | | | and [...] Team Providers + +------+ + | Care Warrant Server Name | Role | Phone | + [...] [place] | | | | | [address] [place] | [place] [address] | | | | | [place] [address] | [phone] | | | | | [phone] | | | +--------+--------+ + + + [...] | | | or equivalent | | 3172-5306 | + + +---------+ + + + [...]
--- OUTSIDE RECORDS SUMMARY | ~2019-08-01 | XMS | Encounter Summary ---
Demographics + + + | Address | [address] | | | [place] [address] | + + + | Home Phone | | + + + | Preferred Language | Unknown | + + + | Marital Status | | + + + | Spiritism Affiliation | Unknown | + + + | Race | Unknown | + + + | Ethnic Group | Unknown | + + + Author + + + | Author | [facility] | | | and [place] | + + + | Organization | [facility] | | | and [...] Team Providers + +------+ + | Care Paper Feeder Name | Role | Phone | + [...] + + | 02/19/ | Hospital | [facility] | [place], | Malignant neoplasm | | 2019 | Encounter | [facility] | Logan Madrid MD [address] | of head of pancreas | | | | ONCOLOGY CLINIC [address] | [address] [place] | (HCC) (Primary Dx) | | | | [address] [place] | [place] [address] | | | | | [place] [address] | [phone] | | | | | [phone] | | | +--------+ + + + [...] | | | or equivalent | | 2638-1134 | + + +---------+ + + + [...] nt from the original. Hematology/Oncology Progress Note [place], [place] Pt. Name/Age/: nAastacio Galvez 68 y.o. 1950 Med. Record Number: [id number] Date of admission: 02/19/2019 The patient's primary care provider is Garland Caputo MD. Identifying Statement: Ansatacio Galvez is a 68 y.o. male from [address] [place] [address] with Stage IIA Pancreatic Cancer. The patient [...] without contrast on June 27, 2018 at [place] demonstrate d 5 cm pancreatic mass in the uncinate process associated with a 12 mm retrocaval lymph node . CA 19-9 is 816.5 (ULN 37). 3. Surgical Consultation with Thai Mcneil ([facility]) July 03, 2018. 4. CT chest/abdomen/pelvis with contrast [place]: 3.3 cm x 3.7 cm x [...] and biopsy July 25, 2018 (Leonel Song, [facility]). Pancreatic/uncinate mass, 4.5 cm close but not touching major vessels, without end oscopic evidence ro regional lymphadenopathy, pT3, pN0, M0. Specimen # [id number] ([facility], [place], [place]). Fine needle aspiration; adenocarcinoma. Biliary brushing [...] 2018 at [facility] demonstrated a 5 cm pancreatic mass in the uncinate process associated with a 12 mm retro-caval lymph node. Tumor marker CA 19-9 was 816.5 units per milliliter (upper limits of normal 37 units per milliliter). Surgical consultation with Dr. Mami Mcnamara ([facility]) on July 03, 2018. CT of the chest/abdomen/pelvis with contrast at [facility] on July 10, 2018 demonstrated a 3.3 cm x 3.7 cm x 5.17 m mass in the pancreatic head/uncina te process. The mass encases a few branches of the superior mesenteric artery arising morning show producer iorly and demonstrates slightly less than 180 of encasement of the superior mesenteric art daniel proper. Enlarged 1.1 cm lymph node inferior to the mass. Endoscopic ultrasound with biopsy and stent (10 mm x 40 mm metal ) placement July 25 (Dr. Leonel Song, [place], [place]): Pancreatic/uncinate mass, 4.5 cm close to but n ot touching major vessels, without endoscopic evidence of regional lymphadenopathy, PT3, PN0 , M0 stage IIA. Biopsy specimen # [id number] ([facility]). Fine-needle aspiration; adenocarcinoma. Biliary brushings; adenocarcinoma. Neoadjuvant therapy with Abraxane/Gemcitabine on August 15, 2018 through October 24, 2018 . 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 Repeat CT abdomen/pelvis on October 31, 2018 demonstrated a 60% volumetric reduction in pa ncreatic head mass. Consultation with Dr. Mami Mcnamara, [facility] on November 06, 2018; disease remains [...] branche s. Consultation with Dr. Mami Mcnamara, [facility], who determined that the disease st ill remains unresectable, cross over to combined modality radiation + chemotherapy. Cross over to capecitabine 1500 mg orally twice a day, continuous, [facility], on February 12, 2019. Current [...] Date APPENDECTOMY CATARACT REMOVAL Bilateral [address] [facility] CHOLECYSTECTOMY EGD AND COLONOSCOPY ERCP N/A 01/29/2019 Procedure: ERCP; Surgeon: Joaquin Lawson MD; Location: [facility] MAIN OR HERNIA REPAIR inguinal LAPAROSCOPY NASAL SEPTUM SURGERY TONSILLECTOMY torn cartilage Right [facility] Social History Socioeconomic History [...] 0.0 oz Comment: Drank 12 pk/wk from [id number] Drug use: No Comment: Has used marijauna [...] this chart may have been created with gamigo voice recognition software. Occasi onal wrong-word or [...] + + | Performed at: 01 - [facility] [address], | REFERENCE LAB | | [place], [place] [id number] Classification Officer: Evert Scanlon MD, Phone: | [facility] | | [phone] | | + + + + + + + + | Performing | Address | City/State/Zipcode | Phone Number | | Organization | | | | + + + + + | REFERENCE LAB | [address] | [place] [address] | [phone] | | [facility] | Drive [...] [address] | [place] | [phone] | | [facility] | | [address] | | | - LABORATORY | | [...] | 0.76 | 0.70 - 1.30 | [facility] | | | | | mg/dL | [facility] | | | | | | MEDICAL | | | | | | CENTER - | | | | | | LABORATORY | | + + + + + + | eGFR if not | >60Comment: GLOMERULAR | >=60 | [facility] | | | | FILTRATION | mL/min/1.73m2 | [facility] | | | EMIRATI | RATE,ESTIMATED | | MEDICAL | | | | mL/min/1.45s9Mxws than | | CENTER - | | [...] + | [address] | [address] | [place] | [phone] | | [facility] | | [address] | | | - LABORATORY | | [...] [address] | [place] | [phone] | | [facility] | | [address] | | | - LABORATORY | | | | + + + + + documented in this encounter Visit Diagnoses + + | Diagnosis | + + | Malignant neoplasm of head of pancreas (HCC) - Primary Malignant neoplasm of head of | | pancreas | + + documented in this encounter"
--- OUTSIDE RECORDS SUMMARY | ~2019-08-01 | XMS | Encounter Summary ---
Demographics + + + | Address | [address] | | | [place] [address] | + + + | Home Phone [...] | Organization | [facility] [...] Providers + +------+ + | Care Manager Biostatistics Name | Role | Phone | + [...] (Primary Dx) | | | | [address] [place] | [place] [address] | | | | | [place] [address] | [phone] | | | | | [phone] | | | +--------+ + + + [...] | | | or equivalent | | 2773-5241 | + + +---------+ + + + [...]
--- OUTSIDE RECORDS SUMMARY | ~2019-08-01 | XMS | Encounter Summary ---
Demographics + + + | Address | [address] | | | [place] [address] | + + + | Home Phone | | + + + | Preferred Language | Unknown | + + + | Marital Status | | + + + | Mormonism Affiliation | Unknown | + + + | Race | Unknown | + + + | Ethnic Group | Unknown | + + + Author + + + | Author | [facility] | | | and [place]ana | + + + | Organization | [facility] | | | and [place]zaiahana [...] Team Providers + +------+ + | Care Roll On Worker Name | Role | Phone | + +------+ + | Garland Caputo MD | PCP | | + +------+ + Encounter Details +--------+ + + + + | Date | Type | Department | Care Team | Description | +--------+ + + + + | 03/21/ | [facility] | [facility] | Rasheed Bello DO | | | 2019 | Encounter | MED CTR RAD[facility]ATION | [address] | | | | | ONCOLOGY [address] | [place] | | | | | [place], | [address] | | | | | [place] [address] | | | | | | [phone] | | | +--------+ + + + [...] | | | or equivalent | | 9926-6445 | + + +---------+ + + + [...]
--- OUTSIDE RECORDS SUMMARY | ~2019-08-01 | XMS | Encounter Summary ---
Demographics + + + | Address | [address] | | | [place] [address] | + + + | Home Phone [...] + + + | Author | [facility] | | | and [place]za[place]ana | + + + | Organization | [facility] | | | and [place]zaiahana [...] Providers + +------+ + | Care Assistant Mechanic Name | Role | Phone | + +------+ + | Galrand Caputo MD | PCP | | + +------+ + Reason for Visit + + + | Reason | Comments | + + + | Under Treatment | | + + + Encounter Details +--------+ + + + + | Date | Type | Department | Care Team | Description | +--------+ + + + + | 03/18/ | Hospital | [facility] | Rasheed Bello DO | Malignant neoplasm | | 2019 | Encounter | MED [facility] RAD[facility]ATION | [address] | of head of pancreas | | | | ONCOLOGY CLINIC [address] | [place], [place] | (HCC) (Primary Dx) | | | | [address] [place] | [address] | | | | | [place] [address] | | | | | | [phone] | | | +--------+ + + + [...] | | | or equivalent | | 7168-0805 | + + +---------+ + + + [...]
--- OUTSIDE RECORDS SUMMARY | ~2019-08-01 | XMS | Encounter Summary ---
Demographics + + + | Address | [address] | | | [place] [address] | + + + | Home Phone | | + + + | Preferred Language | Unknown | + + + | Marital Status | | + + + | Advent Affiliation | Unknown | + + + | Race | Unknown | + + + | Ethnic Group | Unknown | + + + Author + + + | Author | and [facility] | | | and Izaiahana | + + + | Organization | [facility] [...] Team Providers + +------+ + | Care Air And Missile Defense Crewmember Name | Role | Phone | + [...] [place] | | | | | [phone] | [place] [address] | | +--------+ + + + + [...]
--- OUTSIDE RECORDS SUMMARY | ~2019-08-01 | XMS | Encounter Summary ---
Demographics + + + | Address | [address] | | | [place] [address] | + + + | Home Phone [...] | Organization | [facility] | | | and [place]za[place]ana [...] Team Providers + +------+ + | Care Production Service Manager Name | Role | Phone | [...] [place] | | | | | [phone] | [place] [address] | | +--------+ + + + + [...]
--- OUTSIDE RECORDS SUMMARY | ~2019-08-01 | XMS | Encounter Summary ---
Demographics + + + | Address | [address] | | | [place] [address] | + + + | Home Phone | | + + + | Preferred Language | Unknown | + + + | Marital Status | | + + + | Rastafari Affiliation | Unknown | + + + | Race | Unknown | + + + | Ethnic Group | Unknown | + + + Author + + + | Author | [facility] | | | and [place] | + + + | Organization | [facility] | | | and [place]ana [...] Team Providers + +------+ + | Care Squeezer Operator Name | Role | Phone | + +------+ + | Garland Caputo MD | PCP | | + +------+ + Encounter Details +--------+ + + + + | Date | Type | Department | Care Team | Description | +--------+ + + + + | 01/23/ | [facility] | [facility] | Stephenie Hurtado | Malignant neoplasm | | 2019 | Encounter | MED CTR MED[facility] | MD Jessica [address] | of head of pancreas | | | | ONCOLOGY CLINIC [address] | [place], [place] | ([facility]) (Primary Dx) | | | | [address] [place] | [address] | | | | | [place] [address] | | | | | | [phone] | | | +--------+ + + + [...] | | | or equivalent | | 1608-2112 | + + +---------+ + + + [...]
--- OUTSIDE RECORDS SUMMARY | ~2019-08-01 | XMS | Encounter Summary ---
Demographics + + + | Address | [address] | | | [place] [address] | + + + | Home Phone | | + + + | Preferred Language | Unknown | + + + | Marital Status | | + + + | Faith Affiliation | Unknown | + + + | Race | Unknown | + + + | Ethnic Group | Unknown | + + + Author + + + | Author | [facility] | | | and Izaiahana | + + + | Organization | [facility] | | | and Izaiahana [...] Team Providers + +------+ + | Care Roving Tester Laboratory Name | Role | Phone | + +------+ + | Garland Caputo MD | PCP | | + +------+ + Encounter Details +--------+ + + + + | Date | Type | Department | Care Team | Description | +--------+ + + + + | 03/12/ | Hospital | [facility] | [place], | Malignant neoplasm | | 2019 | Encounter | [facility] | Logan Madrid MD [address] | of head of pancreas | | | | ONCOLOGY CLINIC [address] [place] | (HCC); Chronic | | | | [address] [place] | [place] [address] | anxiety; Migration | | | | [place] [address] | [phone] | of biliary stent, | | | | [phone] | | subsequent | | | | [...] | | | or equivalent | | 5697-3540 | + + +---------+ + + + [...] tablet by | 40 | 3 | 08/11/ | | | (ZOFRAN) 8 MG tablet [...] encounter Progress Notes Logan Castro MD - 03/12/2019 4:19 PM PDTFormatting of this note might be differe nt from the original. Hematology/Oncology Progress Note [place], [place] Pt. Name/Age/: Anastacio Galvez 68 y.o. 1950 Med. Record Number: [id number] Date of admission: 03/12/2019 The patient's primary care provider is Garland Caputo MD. Identifying Statement: Anastacio Galvez is a 68 y.o. male from [address] [place] [address] with Stage IIA Pancreatic Cancer. The patient chart and medications were reviewed in detail and the patient was seen and exam ined. History of Present Illnesses, their Current Assessments and Plans: Problem List Chronic anxiety Malignant neoplasm of head of pancreas Overview ACTIVE DIAGNOSIS: Endoscopic stage IIA Pancreatic Cancer, deleterious germline PALB2 muta tion positive. The patient presented with upper abdominal pain which radiated to the upper back in a bandl lady distribution, jaundice and 40 pound weight loss in June 2018. CT scan of the abdomen/pelvis without contrast June 27, 2018 at [facility] in [facility] demonstrated a 5 cm pancreatic mass in the uncinate process associated with a 12 mm retro-caval lymph node. Tumor marker CA 19-9 was 816.5 units per milliliter (upper limits of normal 37 units per milliliter). Surgical consultation with Dr. Mami Mcnamara ([facility]) on July 03, 2018. CT of the chest/abdomen/pelvis with contrast at [facility] on July 10, 2018 demonstrated a 3.3 cm x 3.7 cm x 5.17 m mass in the pancreatic head/uncina te process. The mass encases a few branches of the superior mesenteric artery arising educational psychology teacher iorly and demonstrates slightly less than 180 of encasement of the superior mesenteric art daniel proper. Enlarged 1.1 cm lymph node inferior to the mass. Endoscopic ultrasound with biopsy and stent (10 mm x 40 mm metal ) placement July 25 (Dr. Leonel Song, [place], [place]): Pancreatic/uncinate mass, 4.5 cm close to but n ot touching major vessels, without endoscopic evidence of regional lymphadenopathy, PT3, PN0 , M0 stage IIA. Biopsy specimen # [id number] ([facility]). Fine-needle aspiration; adenocarcinoma. Biliary brushings; adenocarcinoma. Neoadjuvant therapy with Abraxane/Gemcitabine on August 15, 2018 through October 24, 2018 . 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 Repeat CT abdomen/pelvis on October 31, 2018 demonstrated a 60% volumetric reduction in pa ncreatic head mass. Consultation with Dr. Mami Mcnamara, [facility] on November 06, 2018; disease [...] branche s. Consultation with Dr. Mami Mcnamara, [facility], who determined that the disease st ill remains unresectable, cross over to combined modality radiation + chemotherapy. Cross over to capecitabine 1500 mg orally twice a day, continuous, with daily radiation the rapy, Saturday-Saturday, on February 12, 2019. Current Assessment & Plan Anastacio Galvez returned to clinic on 03/12/2019 with his , Jamila, for follo w-up of locally advanced pancreatic cancer. Interval history: Anastacio continues on oral capecitabine at 1500 mg oral twice a day continuo us. Review of systems: Stools are loose, but no diarrhea or fecal incontinence. Physical exam: negative for signs of mucositis or palmarplantarerythrodysesthesia. Clinical Data: Grade 1 anemia, leukopenia or thrombocytopenia. Assessment: locally advanced pancreatic cancer, with associated malignant neoplasm related pain, improved. Plan: continue oral capecitabine 1500 mg orally twice a day for the duration of his radiati on therapy treatment plan. Anastacio has seven treatments left, but it may take two weeks to com plete because of the March 19 holiday. Clinical and laboratory follow-up in medical oncology in one week. Migration of biliary stent, subsequent encounter Overview Added automatically from request for surgery [id number] Sensory neuropathy Review of Systems: Constitutional: Reports intermittent nausea, taking prns. Reports poor activity tolerance , fatigue. Occasional night sweats. Denies high fevers, shaking chills, anorexia, vomiting or weight loss. Appetite without changes. Ear, Nose, Mouth, Throat: [...] c ontrol "this week." Pain at a /10 today. Note: here for labs and follow-up [...] 2007 at [facility] CHOLECYSTECTOMY EGD AND COLONOSCOPY ERCP N/A 01/29/2019 Procedure: ERCP; Surgeon: Joaquin Lawson MD; Location: [facility] MAIN OR HERNIA REPAIR inguinal LAPAROSCOPY NASAL SEPTUM SURGERY TONSILLECTOMY [facility] Social History Socioeconomic History Marital status: Spouse [...] Last attempt to quit: 2008 Years since quittin.5 Smokeless tobacco: Never Used Substance and Sexual Activity Alcohol use: No Alcohol/week: 0.0 oz Comment: Drank 12 pk/wk from [id number] Drug use: No Comment: Has used marijauna [...] 99% on room air, blood pressure 137/67 on Min/Max Temp past 24 hours:No data recorded No intake or output data in the 24 hours ending 03/17/19 0826 Wt. Admission: Wt. Current: Wt Readings from Last 3 Encounters: 03/12/19 75.1 kg (165 lb 9.1 oz) 03/05/19 75 kg (165 lb 5.5 oz) 03/05/19 75.6 kg (166 lb 10.7 oz) There is no height or weight [...] published in Am. J. Clin. Oncol.: Meryl Monteor., Yonny, RRaheemH., Partha Guido., Patricio Brizuela., [place]oacano, T.E., Bill, E.T., Yaquelin, P .P.: Toxicity And [...] ANASTACIO GALVEZ ( ) as of 03/17/2019 08:17 Ref. Range 03/12/2019 15:02 WBC Latest Ref Range: 4.0 - 11.0 K/uL 2.8 (L) RBC COUNT Latest Ref Range: 4.30 - 5.70 M/uL 3.58 (L) Hemoglobin Latest Ref Range: 13.5 - 18.0 g/dL 11.5 (L) Hematocrit Latest Ref Range: 40.0 - 51.0 % 34.7 (L) MCV Latest Ref Range: 83.0 - 101.0 fL 96.9 MCH Latest Ref Range: 28.0 - 35.0 pg 32.1 MCHC Latest Ref Range: 32.0 - 36.0 g/dL 33.1 RDW-CV Latest Ref Range: <15.0 % 16.7 (H) RDW-SD Latest Ref Range: 35.1 - 46.3 fL 59.4 (H) Platelet Count Latest Ref Range: 140 - 440 K/uL 150 MPV Latest Ref Range: 6.5 - 12.4 fL 9.5 % nRBC Latest Ref Range: 0 - 2 per 100 WBCs 0 Absolute nRBC Latest Ref Range: 0.00 - 0.01 K/uL 0.00 Absolute Neutrophils Latest Ref Range: 1.80 - 8.50 K/uL 1.67 (L) Absolute Lymphocytes Latest Ref Range: 0.60 - 3.20 K/uL 0.41 (L) Absolute Monocytes Latest Ref Range: 0.00 - 1.00 K/uL 0.54 Absolute Eosinophils Latest Ref Range: 0.00 - 0.40 K/uL 0.11 Absolute Basophils Latest Ref Range: 0.00 - 0.10 K/uL 0.01 Absolute Immature Granulocytes Latest Ref Range: 0.00 - 0.03 K/uL 0.01 % Neutrophils Latest Ref Range: 45.0 - 82.0 % 60.7 % Lymphocytes Latest Ref Range: 20.0 - 45.0 % 14.9 (L) % Monocytes Latest Ref Range: 4.0 - 12.0 % 19.6 (H) % Eosinophils Latest Ref Range: 0.0 - 5.0 % 4.0 % Basophils Latest Ref Range: 0.0 - 1.0 % 0.4 % Immature Granulocytes Latest Ref Range: 0.0 - 0.4 % 0.4 Na Latest Ref Range: 136 - 145 mmol/L 139 K Latest Ref Range: 3.4 - 5.1 mmol/L 4.3 Chloride Latest Ref Range: 98 - 107 mmol/L 103 Carbon dioxide Latest Ref Range: 20 - 31 mmol/L 30 Anion Gap Latest Ref Range: 3 - 16 mmol/L 6 Glucose Latest Ref Range: 60 - 106 mg/dL 256 (H) BUN Latest Ref Range: 9 - 23 mg/dL 8 (L) Creatinine Latest Ref Range: 0.70 - 1.30 mg/dL 0.78 BUN/Creatinine Ratio Unknown 10.3 Albumin Latest Ref Range: 3.2 - 4.8 g/dL 3.3 Albumin/Globulin Ratio Latest Ref Range: 0.8 - 1.9 1.6 Total Protein Latest Ref Range: 5.7 - 8.2 g/dL 5.4 (L) EGFR IF NOT Latest Ref Range: >=60 mL/min/1.73m2 >60 Calcium Latest Ref Range: 8.7 - 10.4 mg/dL 8.7 ALK PHOS Latest Ref Range: 46 - 116 U/L 116 ALT (SGPT) (REF) Latest Ref Range: 10 - 49 U/L 17 AST (SGOT) (REF) Latest Ref Range: 0 - 34 U/L 31 LDH TOTAL Latest Ref Range: 120 - 246 U/L 200 Bilirubin Total (Calculated) Latest Ref Range: 0.3 - 1.2 mg/dL 1.0 Globulin Latest Ref Range: 2.1 - 3.8 g/dL 2.1 CA 19-9 Latest Ref Range: 0 - 35 U/mL 129 (H) Pharmacovigilance: Palliative Care: Patient's Medications New Prescriptions No medications on file Modified Medications No medications on file Discontinued Medications No medications on file Procedure: Logan Castro MD Portions of this chart may have been created with Mobile Active Defense voice recognition software. Occasi onal wrong-word or [...] + | CBC W/AUTO | STAT | 03/12/2019 | Malignant neoplasm | Results for this | | DIFFERENTIAL | | 3:02 PM | of head of pancreas | procedure are in the | | | | PDT | (HCC) | results section. | + +--------+ + + + | CA 19-9, QUANT | STAT | 03/12/2019 | Malignant neoplasm | Results for this | | | | 3:02 PM | of head of pancreas | procedure are in the | | | | PDT | (HCC) | results section. | + +--------+ + + + | LACTATE | STAT | 03/12/2019 | Malignant neoplasm | Results for this | | DEHYDROGENASE | | 3:02 PM | of head of pancreas | procedure are in the | | | | PDT | ([facility] | results section. | + +--------+ + + + | COMPREHENSIVE | STAT | 03/12/2019 | Malignant neoplasm | Results for this | | METABOLIC PANEL | | 3:02 PM | of head of pancreas | procedure are in the | | | | PDT | ([facility]) | results section. | + +--------+ + + + documented in this encounter Results CA 19-9, Quant (03/23/2019 2:05 PM PDT) [...] + + | Performed at: 01 - [address], | REFERENCE LAB | | [place], [place] [id number] Roll Off Driver: Evert Scanlon MD, Phone: | [facility] | | [phone] | | + + + + + + + + | Performing | Address | City/State/Zipcode | Phone Number | | Organization | | | | + + + + + | [facility] | [address] | [place] [address] | [phone] | | [place] [place] | [place] | | | + + + + + Lactate Dehydrogenase (03/23/2019 2:05 PM PDT) + + + + + + | Component | Value | Ref Range | Performed | Pathologist | | | | | At | Signature | + + + + + + | LDH TOTAL | 216Comment: New method | 120 - 246 U/L | [facility] | | | | in use as of October | | . [facility]IRK | | | | 2018. Check | [...] + | [facility] | [address] | [place] | [phone] | | [facility] | | [address] | | | - LABORATORY | | [...] | 4.0 | 3.4 - 5.1 | [facility] | [...] mL/min/1.73m2 | [facility] | | | [place] | RATE,ESTIMATED | | MEDICAL | | | | mL/min/1.00m7Rzoi than | | CENTER - | | [...] | 8.9 | 8.7 - 10.4 | [facility] | | | | | mg/dL | [...] | ine Ratio | | | [facility] | [...] [address] | [place] | [phone] | | [facility] | | [address] | | | - LABORATORY | | [...] Cancer | 4.0 - 11.0 K/uL | [facility] | | | | center patient-not | [...] | | Basophils | | K/uL | [facility] | [...] + | [facility] | [address] | [place] | [phone] | | [facility] | | [address] | | | - LABORATORY | | [...] in use as of October | | [facility] | | | | 2018. Check | [...] + + | Performing | Address | City/State/[facility] | Phone Number | | Organization | | | | + + + + + | [address] | [address] | [place] | [phone] | | [facility] | | [address] | | | - LABORATORY | | [...] (L) | 9 - 23 mg/dL | [facility] | | | | | | [facility] | | | | | | MEDICAL | | | | | | CENTER - | | | | | | LABORATORY | | + + + + + + | Creatinine | 0.78 | 0.70 - 1.30 | [facility] | | | | | mg/dL | [facility] | | | | | | MEDICAL | | | | | | CENTER - | | | | | | LABORATORY | | + + + + + + | eGFR if not | >60Comment: GLOMERULAR | >=60 | [facility] | | | | FILTRATION | mL/min/1.73m2 | [facility] | | | [place] | RATE,ESTIMATED | | MEDICAL | | | | mL/min/1.22j7Qteg than | | CENTER - | | [...] 3.3 | 3.2 - 4.8 g/dL | [facility] [...] [address] | [place] | [phone] | | [facility] | | [address] | | | - LABORATORY | | [...] | 0.00 | 0.00 - 0.01 | [facility] | | | nRBC | | K/uL [...] [address] | [place] | [phone] | | [facility] | | [address] | | | - LABORATORY | | | | + + + + + CA 19-9, Quant (03/12/2019 3:02 PM PDT) [...] + + | Performed at: - [address] [place] [address], | REFERENCE LAB | | [place], [place] [id number] Roll Off Driver: Evert Scanlon MD, Phone: | [facility] | | [phone] | | + + + + + + + + | Performing | Address | City/State/Zipcode | Phone Number | | Organization | | | | + + + + + | [facility] | [address] | [place] [address] | [phone] | | [facility] | [address] | | | + + + + + documented in this encounter Visit Diagnoses + + | Diagnosis | + + | Malignant neoplasm of head of pancreas (HCC) Malignant neoplasm of head of pancreas | + + | Chronic anxiety Anxiety state, unspecified | + + | Migration of biliary stent, subsequent encounter | + + | Sensory neuropathy Unspecified hereditary and idiopathic peripheral neuropathy | + + documented in this encounter
--- OUTSIDE RECORDS SUMMARY | ~2019-08-01 | XMS | Encounter Summary ---
Demographics + + + | Address | [address] | | | [place] [address] | + + + | Home Phone [...] | Organization | [facility] | | | and Izaiahana [...] Team Providers + +------+ + | Care Motion Picture Set Worker Name | Role | Phone | [...] Austin CONNELLY | | | | | [phone] | [place] [address] | | +--------+ + + + + [...]
--- OUTSIDE RECORDS SUMMARY | ~2019-08-01 | XMS | Encounter Summary ---
Demographics + + + | Address | [address] | | | [place] [address] | + + + | Home Phone [...] | Organization | [facility] | | | and [...] Team Providers + +------+ + | Care Cannery Worker Name | Role | Phone | [...] + | 01/26/ | Telephone | [facility] | Joaquin Lawson | Procedure (Urgent | | 2019 | | GASTROENTEROLOGY | MD Jamie [address] | ERCP) | | | | [address] [place] | [address] [place] | | | | | [address] [place], [place] | [place] [address] | | | | | [address] | [phone] | | | | | [phone] | | | +--------+ + + + [...] | | | or equivalent | | 3403-3021 | + + +---------+ + + + [...]
--- OUTSIDE RECORDS SUMMARY | ~2019-08-01 | XMS | Encounter Summary ---
Demographics + + + | Address | [address] | | | [place] [address] | + + + | Home Phone | | + + + | Preferred Language | Unknown | + + + | Marital Status | | + + + | Yazidi Affiliation | Unknown | + + + | Race | Unknown | + + + | Ethnic Group | Unknown | + + + Author + + + | Author | [facility] | | | and Izaiahana | + + + | Organization | [facility] | | | and [...] Team Providers + +------+ + | Care Insole Toe Snipping Machine Operator Name | Role | Phone [...] + + | 02/05/ | Hospital | [facility] | [place], | Malignant neoplasm | | 2019 | Encounter | [facility] | Logan Madrid MD [address] | of head of pancreas | | | | ONCOLOGY CLINIC [address] [place] | (HCC); | | | | [address] [place] | [place] [address] | 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 Hematology/Oncology Progress Note [facility] [place] Pt. Name/Age/: Anastacio Galvez 68 y.o. 1950 Med. Record Number: [id number] Date of admission: 02/05/2019 The patient's primary care provider is Garland Caputo MD. Identifying Statement: Anastacio Galvez is a 68 y.o. male from [address] [place] [address] with Stage IIA Pancreatic Cancer. The patient [...] abdomen/pelvis without contrast June 27, 2018 at [facility] in [facility] demonstrated a 5 cm pancreatic mass in the uncinate process associated with a 12 mm retro-caval lymph node. Tumor marker CA 19-9 was 816.5 units per milliliter (upper limits of normal 37 units per milliliter). Surgical consultation with Dr. Mami Mcnamara ([facility]) on July 03, 2018. CT of the chest/abdomen/pelvis with contrast at [facility] on July 10, 2018 demonstrated a 3.3 cm x 3.7 cm x 5.17 m mass in the pancreatic head/uncina te process. The mass encases a few branches of the superior mesenteric artery arising housing assistant iorly and demonstrates slightly less than 180 of encasement of the superior mesenteric art daniel proper. Enlarged 1.1 cm lymph node inferior to the mass. Endoscopic ultrasound with biopsy and stent (10 mm x 40 mm metal ) placement July 25 (Dr. Leonel Song, [place], [place]): Pancreatic/uncinate mass, 4.5 cm close to but n ot touching major vessels, without endoscopic evidence of regional lymphadenopathy, PT3, PN0 , M0 stage IIA. Biopsy specimen # [id number] ([facility]). Fine-needle aspiration; adenocarcinoma. Biliary brushings; adenocarcinoma. Neoadjuvant therapy with Abraxane/Gemcitabine on August 15, 2018 through October 24, 2018 . 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 Repeat CT abdomen/pelvis on October 31, 2018 demonstrated a 60% volumetric reduction in pa ncreatic head mass. Consultation with Dr. Mami Mcnamara, [facility] on November 06, 2018; [...] branche s. Consultation with Dr. Mami Mcnamara, [facility], who determined that the disease st ill remains unresectable, cross over to combined modality radiation + chemotherapy. Current Assessment & Plan Anastacio Galvez returned to clinic on 02/05/2019 with his , Jamila, for follow up and management of locally advanced pancreatic cancer, deemed to be unresectable by his s urgical oncologist, Dr. Mami Mcnamara at the [facility]. Interval history is notable for [...] at 1500 mg twice daily, continuous, once glass beveler al beam radiation is initiated. I will [...] Date APPENDECTOMY CATARACT REMOVAL Bilateral 2007 at [facility] CHOLECYSTECTOMY EGD AND COLONOSCOPY ERCP N/A 01/29/2019 Procedure: ERCP; Surgeon: Joaquin Lawson MD; Location: [facility] MAIN OR HERNIA REPAIR inguinal LAPAROSCOPY NASAL SEPTUM SURGERY TONSILLECTOMY torn cartilage Right [facility] Social History Socioeconomic History Marital status: [...] 0.0 oz Comment: Drank 12 pk/wk from 0217-2727 Drug use: No Comment: Has used marijauna [...] this chart may have been created with Silver Push voice recognition software. Occasi onal wrong-word or [...] the | | | | PDT | ([facility]) | results section. | + +--------+ + + + | CBC WITH | Routin | 02/05/2019 | Malignant neoplasm | Results for this | | DIFFERENTIAL | e | 12:05 PM | of head of pancreas | procedure are in the | | | | PDT | ([facility]) | results section. | + +--------+ + + + | LACTATE | STAT | 02/05/2019 | Malignant neoplasm | Results for this | | DEHYDROGENASE | | 12:05 PM | of head of pancreas | procedure are in the | | | | PDT | ([facility]) | results section. | + +--------+ + + + | COMPREHENSIVE | STAT | 02/05/2019 | Malignant neoplasm | Results for this | | METABOLIC PANEL | | 12:05 PM | of head of pancreas | procedure are in the | | | | PDT | ([facility]) | results section. | [...] + + | Performed at: 01 - [place] [address] [address], | REFERENCE LAB | | [place], [place] [id number] Tomography Technologist: Evert Scanlon MD, Phone: | [facility] | | [phone] | | + + + + + + + + | Performing | Address | City/State/Zipcode | Phone Number | | Organization | | | | + + + + + | REFERENCE LAB | [address] | [place] [address] | [phone] | | [facility] | [address] | [place] | [phone] | | [facility] | | [address] | | | - LABORATORY | | [...] mL/min/1.73m2 | [facility] | | | FINNISH | RATE,ESTIMATED | | MEDICAL | | | | mL/min/1.93i8Xzvi than | | CENTER - | | [...] + | [facility] | [address] | [place] | [phone] | | [facility] | | [address] | | | - LABORATORY | | [...] + | [address] | [address] | [place] | [phone] | | [facility] | | [address] | | | - LABORATORY | | [...] [address] | [place] | [phone] | | [facility] | | [address] | | | - LABORATORY | | [...] 14 | 9 - 23 mg/dL | [facility] | | | | | | [facility] | | | | | | MEDICAL | | | | | | CENTER - | | | | | | LABORATORY | | + + + + + + | Creatinine | 0.69 (L) | 0.70 - 1.30 | [facility] | | | | | mg/dL | [facility] | | | | | | MEDICAL | | | | | | CENTER - | | | | | | LABORATORY | | + + + + + + | eGFR if not | >60Comment: GLOMERULAR | >=60 | [facility] | | | | FILTRATION | mL/min/1.73m2 | [facility] | | | FINNISH | RATE,ESTIMATED | | MEDICAL | | | | mL/min/1.13s8Dccj than | | CENTER - | | [...] ST. | [address] | [place] | [phone] | | [facility] | | [address] | | | - LABORATORY | | [...] [address] | [place] | [phone] | | [facility] | | [address] | | | - LABORATORY | | [...] + | Performed at: 01 - [facility] [place] [address], | REFERENCE LAB | | [place], [place] [id number] Tomography Technologist: Evert Scanlon MD, Phone: | [facility] | | [phone] | | + + + + + + + + | Performing | Address | City/State/Zipcode | Phone Number | | Organization | | | | + + + + + | [facility]IT[facility]LSON | [address] | [place] [address] | [phone] | | [facility] | [address] [...]
--- OUTSIDE RECORDS SUMMARY | ~2019-08-01 | XMS | Encounter Summary ---
Demographics + + + | Address | [address] | | | [place] [address] | + + + | Home Phone | | + + + | Preferred Language | Unknown | + + + | Marital Status | | + + + | Orthodox Affiliation | Unknown | + + + | Race | Unknown | + + + | Ethnic Group | Unknown | + + + Author + + + | Author | [facility] | | | and Izaiahana | + + + | Organization | [facility] | | [...] Team Providers + +------+ + | Care Juice Standardizer Name | Role | Phone | + +------+ + | Garland Caputo MD | PCP | | + +------+ + Encounter Details +--------+ + + + + | Date | Type | Department | Care Team | Description | +--------+ + + + + | 03/12/ | Hospital | [facility] | Gloria, | Malignant neoplasm | | 2019 | Encounter | MED CTR MEDICAL | Logan Madrid MD [address] | of head of pancreas | | | | [facility]Y CLINIC [address] | [address] [place] | (HCC); Chronic | | | | [address] [place] | [place] [address] | anxiety; Migration | | | | [place] [address] | [phone] | of biliary stent, | | | | [phone] | | subsequent | | | | [...] | | | or equivalent | | 1165-4139 | + + +---------+ + + + [...] nt from the original. Hematology/Oncology Progress Note [place], [place] Pt. Name/Age/: Anastacio Galvez 68 y.o. 1950 Med. Record Number: [id number] Date of admission: 03/12/2019 The patient's primary care provider is Garland Caputo MD. Identifying Statement: Anastacio Galvez is a 68 y.o. male [place] [address] [place] [address] with Stage IIA Pancreatic Cancer. The patient [...] abdomen/pelvis without contrast June 27, 2018 at [facility] in [facility] demonstrated a 5 cm pancreatic [...] branches of the superior mesenteric artery arising architectural job captain iorly and demonstrates slightly less than 180 of encasement of the superior mesenteric art daniel proper. Enlarged 1.1 cm lymph node inferior to the mass. Endoscopic ultrasound with biopsy and stent (10 mm x 40 mm metal ) placement July 25 (Dr. Leonel Song, [place], [place]): Pancreatic/uncinate mass, 4.5 cm close to but n ot touching major vessels, without endoscopic evidence of regional lymphadenopathy, PT3, PN0 , M0 stage IIA. Biopsy specimen # [id number] ([facility], [facility]). Fine-needle aspiration; adenocarcinoma. Biliary brushings; adenocarcinoma. [...] Overview Added automatically from request for surgery [id number] Sensory neuropathy Review of Systems: Constitutional: Reports [...] Date APPENDECTOMY CATARACT REMOVAL Bilateral 2007 at [facility] Surgical [facility] CHOLECYSTECTOMY EGD AND COLONOSCOPY ERCP N/A 01/29/2019 Procedure: ERCP; Surgeon: Joaquin Lawson MD; Location: [facility] MAIN OR HERNIA REPAIR inguinal LAPAROSCOPY NASAL SEPTUM SURGERY TONSILLECTOMY torn cartilage Right [facility] Social History Socioeconomic History Marital [...] 0.0 oz Comment: Drank 12 pk/wk from 5164-5376 Drug use: No Comment: Has used marijauna [...] this chart may have been created with [employer] voice recognition software. Occasi onal wrong-word or [...] the | | | | PDT | ([facility]) | results section. | + +--------+ + + + | COMPREHENSIVE | STAT | 03/12/2019 | Malignant neoplasm | Results for this | | METABOLIC PANEL | | 3:02 PM | of head of pancreas | procedure are in the | | | | PDT | ([facility]) | results section. | + +--------+ [...] + + | Performed at: 01 - [address], | REFERENCE LAB | | [place], [place] [id number] Customer Relations Consultant: Evert Scanlon MD, Phone: | [facility] | | [phone] | | + + + + + + + + | Performing | Address | City/State/Zipcode | Phone Number | | Organization | | | | + + + + + | VERITO OLSON | [address] | [place] [address] | [phone] | | VIJAY M[place]INE[place] | Jorge Luis [...] + | [facility] | [address] | [place] | [phone] | | [facility] | | [address] | | | - LABORATORY | | [...] mL/min/1.73m2 | [facility] | | | [place] | RATE,ESTIMATED | | MEDICAL | | | | mL/min/1.41e3Ypmi than | | CENTER - | | [...] | 8.9 | 8.7 - 10.4 | [facility] | | | | | mg/dL | [...] | | ine Ratio | | | [facility] | | | | | | [...] [address] | [place] | [phone] | | [facility] | | [address] | | | - LABORATORY | | [...] Cancer | 4.0 - 11.0 K/uL | [facility] | | | | center patient-not | [...] + | [facility] | [address] | [place] | [phone] | | [facility] | | [address] | | | - LABORATORY | | [...] in use as of October | | [facility] | | | | 2018. Check [...] + + | Performing | Address | City/State/[facility] | Phone Number | | Organization | | | | + + + + + | [facility] | [address] | [place] | [phone] | | [facility] | | [address] | | | - LABORATORY | | [...] (L) | 9 - 23 mg/dL | [facility] | | | | | | [facility] | | | | | | MEDICAL | | | | | | CENTER - | | | | | | LABORATORY | | + + + + + + | Creatinine | 0.78 | 0.70 - 1.30 | [facility] | | | | | mg/dL | [facility] | | | | | | MEDICAL | | | | | | CENTER - | | | | | | LABORATORY | | + + + + + + | eGFR if not | >60Comment: GLOMERULAR | >=60 | [facility] | | | | FILTRATION | mL/min/1.73m2 | [facility] | | | [place] | RATE,ESTIMATED | | MEDICAL | | | | mL/min/1.13e4Wngp than | | CENTER - | | [...] [address] | [place] | [phone] | | [facility] | | [address] | | | - LABORATORY | | [...] | | | | | | [facility] | | [...] [address] | [place] | [phone] | | [facility] | | [address] | | | - LABORATORY | | [...] + + | Performed at: - [address] [place] [address], | REFERENCE LAB | | [place], [place] [id number] Customer Relations Consultant: Evert Scanlon MD, Phone: | [facility] | | [phone] | | + + + + + + + + | Performing | Address | City/State/Zipcode | Phone Number | | Organization | | | | + + + + + | VERITO OLSON | [address] | [place] [address] | [phone] | | [facility] | Drive [...]
--- OUTSIDE RECORDS SUMMARY | ~2019-08-01 | XMS | Encounter Summary ---
Demographics + + + | Address | [address] | | | [place] [address] | + + + | Home Phone | | + + + | Preferred Language | Unknown | + + + | Marital Status | | + + + | Mandaeism Affiliation | Unknown | + + + | Race | Unknown | + + + | Ethnic Group | Unknown | + + + Author + + + | Author | [facility] | | | and Izaiahana | + + + | Organization | [facility] | | | and [...] Team Providers + +------+ + | Care Machine Pan Greaser Name | Role | Phone | + [...] + + | 02/12/ | Hospital | [facility] | Gloria, | Malignant neoplasm | | 2019 | Encounter | MED CTR MEDICAL | Logan Madrid MD [address] | of head of pancreas | | | | ONCOLOGY CLINIC [address] | [address] [place] | (HCC); Chronic | | | | [address] [place] | [place] [address] | anxiety; | | | | [place] [address] | [phone] | Gastroesophageal | | | | [phone] | | reflux disease, | | | [...] | | | or equivalent | | 7057-2259 | + + +---------+ + + + [...] nt from the original. Hematology/Oncology Progress Note [place], [place] Pt. Name/Age/: Anastacio Galvez 68 y.o. 1950 Med. Record Number: [id number] Date of admission: 02/12/2019 The patient's primary care provider is Garland Caputo MD. Identifying Statement: Anastacio Galvez is a 68 y.o. male from [address] [facility] [place] [facility] with Stage IIA Pancreatic Cancer. The patient [...] abdomen/pelvis without contrast June 27, 2018 at [facility] in [place] [facility] demonstrated a 5 cm pancreatic mass in the uncinate process associated with a 12 mm retro-caval lymph node. Tumor marker CA 19-9 was 816.5 units per milliliter (upper limits of normal 37 units per milliliter). Surgical consultation with Dr. Mami Mcnamara ([facility]) on July 03, 2018. CT of the chest/abdomen/pelvis with contrast at [facility] on July 10, 2018 demonstrated a 3.3 cm x 3.7 cm x 5.17 m mass in the pancreatic head/uncina te process. The mass encases a few branches of the superior mesenteric artery arising mental hygiene consultant iorly and demonstrates slightly less than 180 of encasement of the superior mesenteric art daniel proper. Enlarged 1.1 cm lymph node inferior to the mass. Endoscopic ultrasound with biopsy and stent (10 mm x 40 mm metal ) placement July 25 (Dr. Leonel Song, [place], [place]): Pancreatic/uncinate mass, 4.5 cm close to but n ot touching major vessels, without endoscopic evidence of regional lymphadenopathy, PT3, PN0 , M0 stage IIA. Biopsy specimen # [id number] ([facility] laboratory, [facility]). Fine-needle aspiration; adenocarcinoma. Biliary brushings; adenocarcinoma. Neoadjuvant therapy with Abraxane/Gemcitabine on August 15, 2018 through October 24, 2018 . 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 Repeat CT abdomen/pelvis on October 31, 2018 demonstrated a 60% volumetric reduction in pa ncreatic head mass. Consultation with Dr. Mami Mcnamara, [facility] on November 06, 2018; disease remains [...] s. Consultation with Dr. Mami Mcnamara, [facility], who determined that the disease st [...] Overview Added automatically from request for surgery [id number] Osteoarthritis of spine with myelopathy, thoracic region [...] APPENDECTOMY CATARACT REMOVAL Bilateral 2007 at [facility] Surgical [facility] CHOLECYSTECTOMY EGD AND COLONOSCOPY ERCP N/A 01/29/2019 Procedure: ERCP; Surgeon: Joaquin Lawson MD; Location: [facility] MAIN OR HERNIA REPAIR inguinal LAPAROSCOPY NASAL SEPTUM SURGERY TONSILLECTOMY torn cartilage Right [facility] Social History Socioeconomic History [...] 0.0 oz Comment: Drank 12 pk/wk from 3912-6796 Drug use: No Comment: Has used marijauna [...] this chart may have been created with [employer] voice recognition software. Occasi onal wrong-word or [...] | | | PDT | ([facility]) | results section. | + +--------+ + + + | CA 19-9, QUANT | STAT | 02/12/2019 | Malignant neoplasm | Results for this | | | | 11:59 AM | of head of pancreas | procedure are in the | | | | PDT | ([facility]) | results section. | + +--------+ + + + | LACTATE | STAT | 02/12/2019 | Malignant neoplasm | Results for this | | DEHYDROGENASE | | 11:59 AM | of head of pancreas | procedure are in the | | | | PDT | ([facility]) | results section. | + +--------+ + + + | COMPREHENSIVE | STAT | 02/12/2019 | Malignant neoplasm | Results for this | | METABOLIC PANEL | | 11:59 AM | of head of pancreas | procedure are in the | | | | PDT | ([facility]) | results section. | + [...] + | [facility] | [address] | [place] | [phone] | | [facility] | | [address] | | | - LABORATORY | | [...] + | [facility] | [address] | [place] | [phone] | | [facility] | | [address] | | | - LABORATORY | | [...] | | | | | | [facility] | | | | | | MEDICAL [...] | mL/min/1.73m2 | [facility] | | | [place] | RATE,ESTIMATED | | MEDICAL | | | | mL/min/1.93r3Blti than | | CENTER - | | [...] [address] | [place] | [phone] | | [facility] | | [address] | | | - LABORATORY | | [...] + + | Performed at: - [facility] [place] [address], | REFERENCE LAB | | [place], [place] [id number] Train Gate Attendant: Evert Scanlon MD, Phone: | [facility] | | [phone] | | + + + + + + + + | Performing | Address | City/State/Zipcode | Phone Number | | Organization | | | | + + + + + | REFERENCE LAB | [address] | [place] [address] | [phone] | | [facility] | Drive [...] mL/min/1.73m2 | [facility] | | | [place] | RATE,ESTIMATED | | MEDICAL | | | | mL/min/1.36h8Udxk than | | CENTER - | | [...] [address] | [place] | [phone] | | [facility] | | [address] | | | - LABORATORY | | [...] + | [facility] | [address] | [place] | [phone] | | [facility] | | [address] | | | - LABORATORY | | [...] ST. | [address] | [place], [place] | [phone] | | [facility] | | [address] | | | - LABORATORY | | [...] + + + | Performed at: - [facility] [address], | REFERENCE LAB | | [place], [place] [id number] Train Gate Attendant: Evert Scanlon MD, Phone: | [facility] | | [phone] | | + + + + + + + + | Performing | Address | City/State/Zipcode | Phone Number | | Organization | | | | + + + + + | REFERENCE LAB | [address] | [place] [address] | [phone] | | [facility] | Drive [...]
--- OUTSIDE RECORDS SUMMARY | ~2019-08-01 | XMS | Encounter Summary ---
Demographics + + + | Address | [address] | | | [place] [address] | + + + | Home Phone [...] Organization | [facility] | | | and Izaiahana [...] Team Providers + +------+ + | Care Child Nutrition Assistant Name | Role | Phone | + +------+ + | Garland Caputo MD | PCP | | + +------+ + Encounter Details +--------+ + + + + | Date | Type | Department | Care Team | Description | +--------+ + + + + | 02/18/ | Hospital | [facility] | Gloria, | Malignant neoplasm | | 2019 | Encounter | MED CTR MEDICAL | Logan Madrid MD [address] | of head of pancreas | | | | ONCOLOGY CLINIC [address] | [address] [place] | ([facility]); Migration of | | | | [address] [place] | [place] [address] | biliary stent, | | | | [place] [address] | [phone] | subsequent encounter | | | | [phone] | | | +--------+ + + + [...] | | | or equivalent | | 0014-0320 | + + +---------+ + + + [...] 171 | 120 - 246 U/L | [facility] | | | | | | [facility] | | | | | | MEDICAL | | | | | | CUT OFF - | | | | | | [...] [address] | [place] | [phone] | | [facility] | | [address] | | | - LABORATORY | | [...] | 0.79 | 0.70 - 1.30 | [facility] | | | | | mg/dL [...] [facility] | | | [place] | RATE,ESTIMATED | | MEDICAL | | | | mL/min/1.62r2Afix than | | CENTER - | | [...] [address] | [place] | [phone] | | [facility] | | [address] | | | - LABORATORY | | [...] | nRBC | | K/uL | [facility] | | | | | [...] [address] | [place] | [phone] | | [facility] | | [address] | | | - LABORATORY | | [...] | Performed at: 01 - [address] [place] [address], | REFERENCE LAB | | [place], [place] [id number] Typing Bookkeeper: Evert Scanlon MD, Phone: | [facility] | | [phone] | | + + + + + + + + | Performing | Address | City/State/Zipcode | Phone Number | | Organization | | | | + + + + + | REFERENCE LAB | [address] | [place] [address] | [phone] | | [facility] | Drive [facility] | | | + + + + + documented in this encounter Visit Diagnoses + + | Diagnosis | + + | Malignant neoplasm of head of pancreas (HCC) Malignant neoplasm of head of pancreas | + + | Migration of biliary stent, subsequent encounter | + + documented in this encounter"
--- OUTSIDE RECORDS SUMMARY | ~2019-08-01 | XMS | Encounter Summary ---
Demographics + + + | Address | [address] | | | [place] [address] | + + + | Home Phone | | + + + | Preferred Language | Unknown | + + + | Marital Status | Unknown | + + + | Church Affiliation | Unknown | + + + | Race | Unknown | + + + | Ethnic Group | Unknown | + + + Author + + + | Author | [facility] | + + + | Organization | [facility] | + + + | Address | Unknown | + + + | Phone | Unavailable | + + + Care Team Providers + +------+ + | Care Maintenance Craftsman Name | Role | Phone | + +------+ + PCP | Unavailable | + +------+ + Encounter Details +--------+ + + + + | Date | Type | Department | Care Team | Description | +--------+ + + + + | 06/16/ | Abstract | Digestive Health | Clinic, | | | 2017 | | [facility] [address] | Gastroenterology | | | | | [address] | | | | | | Mailcode: [facility] | | | | | | [facility] and | | | | | | [facility] [address] | | | | | | [place], [place] | | | | | | [address] | | | | | | [phone] | | | +--------+ + + + [...]
--- OUTSIDE RECORDS SUMMARY | ~2019-08-01 | XMS | Encounter Summary ---
Demographics + + + | Address | [address] | | | [place] [address] | + + + | Home Phone | | + + + | Preferred Language | Unknown | + + + | Marital Status | | + + + | Yarsanism Affiliation | Unknown | + + + | Race | Unknown | + + + | Ethnic Group | Unknown | + + + Author + + + | Author | [facility] | | | and Izaiahana | + + + | Organization | [facility] | [...] Team Providers + +------+ + | Care Nurse Staff Community Health Name | Role | Phone | + [...] 2016 | | GASTROENTEROLOGY | [address] [place] | | | | | [address] [place] | [address] [place], [place] | | | | | [address] [place], [place] | [address] | | | | | [address] | | | | | | [phone] | | | +--------+ + + + [...]
--- OUTSIDE RECORDS SUMMARY | ~2019-08-01 | XMS | Encounter Summary ---
Demographics + + + | Address | [address] | | | [place] [address] | + + + | Home Phone [...] + | Organization | [facility] | | | and [...] Team Providers + +------+ + | Care Instrument Maker Apprentice Name | Role | Phone | [...] | | | stent, | | [place] [address] | | | | | subsequent | | Phone: | | | | | encounter | | [phone] | | | | | Procedures | | Fax: | | | | | [place] | | [phone] | | | | | ESOPHAGOSCOP | [...] | | | | | [address] | [place] [facility] | | | | | [place] | [place] [address] | | | | | [address] | [phone] | | | | | [phone] | | | +--------+---------+ + + + [...] | | | or equivalent | | 0332-9896 | + + +---------+ + + + [...] You can't be awakened Date Last Reviewed: 07/03/201619999664-3278 The Triage[address] [place] [address], [place] [address]. All righ ts reserved. This information is [...] This includes: ? All prescription medicines ? Slwd-lrk-xndpgos medicines that don t need a prescription [...] infection or torn bowel. Date Last Reviewed: 06/16/201719998120-6873 The Triage. [address] [place] [address]. All righ ts reserved. This information is [...] 01/29/2019 | PROVATION | | 9:39 AMMRN: [id number] #: [id number] of : | | | 1Admit Type: AmbulatoryAge: 68[facility]: [facility] 05Gender: MaleNote | | | Status: FinalizedAttending MD: JOAQUIN ALAMO [facility]rocedure: | | | ERCPIndications: Jaundice, Elevated bilirubin, | | | Malignant tumor of the head of pancreas, | | | dislodged biliary stentProviders: JOAQUIN ALAMO MD, | | | Aimee Reece RN, Beau Avila RN, | | | Olimpia Jimenez, Hydraulic Dredge Operator, Alec | | | MD Chivo (Anesthesia [...] the procedure | | | well.Findings: A sweeper driver film of the abdomen was obtained. | | | Surgical clips, consistent with a previous cholecystectomy, | | | were seen in the area of the right upper quadrant of the | | | abdomen. There was no biliary stent on the sweeper driver film. The | | | esophagus was [...] AMScope Out: 10:20:59 | | | AM [facility], [address] [facility] | | | [place] [address] | | | - Return to referring [...] Out: 10:20:59 AM | | | [facility], [address] [facility], [place] | | | [address] | | + + -+ + +---------+ [...] ST. | [address] | [place], [place] | [phone] | | [facility] | | [address] | | | - LABORATORY | | [...] mL/min/1.73m2 | [facility] | | | [place] | RATE,ESTIMATED | | MEDICAL | | | | mL/min/1.35f9Hleb than | | CENTER - | | [...] [address] | [place] | [phone] | | [facility] | | [address] | | | - LABORATORY | | [...] + | [facility] | [address] | [place], [place] | [phone] | | [facility] | | [address] | | | - LABORATORY | | [...] Shortness of Breath, | | | Starting [facility] 01/29/19 at 1014, For | | [...]
--- OUTSIDE RECORDS SUMMARY | ~2019-08-01 | XMS | Encounter Summary ---
Demographics + + + | Address | [address] | | | [place] [address] | + + + | Home Phone [...] Organization | [facility] | | | and Izaiahana [...] Team Providers + +------+ + | Care Armature Tester Name | Role | Phone | + [...] [place] | | | | | [address] [place] | [place] [address] | | | | | [place] [address] | [phone] | | | | | [phone] | | | +--------+--------+ + + + [...] | | | or equivalent | | 3955-0355 | + + +---------+ + + + [...]
--- OUTSIDE RECORDS SUMMARY | ~2019-08-01 | XMS | Encounter Summary ---
Demographics + + + | Address | [address] | | | [place] [address] | + + + | Home Phone | | + + + | Preferred Language | Unknown | + + + | Marital Status | | + + + | Pentecostal Affiliation | Unknown | + + + | Race | Unknown | + + + | Ethnic Group | Unknown | + + + Author + + + | Author | [facility] | | | and Izaiahana | + + + | Organization | [facility] | [...] Team Providers + +------+ + | Care Healthcare Manager Name | Role | Phone | [...] + + | 03/23/ | Hospital | [facility] | Gloria, | Malignant neoplasm | | 2019 | Encounter | MED CTR MEDICAL | Logan Madrid MD [address] | of head of pancreas | | | | ONCOLOGY CLINIC [address] | [address] [place] | (HCC); Chronic | | | | [address] [place] | [place] [address] | anxiety; Jaundice; | | | | [place] [address] | [phone] | Migration of biliary | | | | [phone] | | stent, subsequent | | | [...] | | | or equivalent | | 3085-0523 | + + +---------+ + + + [...] nt from the original. Hematology/Oncology Progress Note [facility] [place] Pt. Name/Age/: Anastacio Galvez 68 y.o. 1950 [facility]. Record Number: [id number] Date of admission: 03/23/2019 The patient's primary care provider is Garland Caputo MD. Identifying Statement: Anastacio Galvez is a 68 y.o. male from [address] [facility] [address] with Stage IIA Pancreatic Cancer. The patient [...] abdomen/pelvis without contrast June 27, 2018 at [facility] in [facility] demonstrated a 5 cm pancreatic mass in the uncinate process associated with a 12 mm retro-caval lymph node. Tumor marker CA 19-9 was 816.5 units per milliliter (upper limits of normal 37 units per milliliter). Surgical consultation with Dr. Mami Mcnamara ([facility]) on July 03, 2018. CT of the chest/abdomen/pelvis with contrast at [facility] on July 10, 2018 demonstrated a 3.3 cm x 3.7 cm x 5.17 m mass in the pancreatic head/uncina te process. The mass encases a few branches of the superior mesenteric artery arising newspaper inserter iorly and demonstrates slightly less than 180 of encasement of the superior mesenteric art daniel proper. Enlarged 1.1 cm lymph node inferior to the mass. Endoscopic ultrasound with biopsy and stent (10 mm x 40 mm metal ) placement July 25 (Dr. Leonel Song, [place], [place]): Pancreatic/uncinate mass, 4.5 cm close to but n ot touching major vessels, without endoscopic evidence of regional lymphadenopathy, PT3, PN0 , M0 stage IIA. Biopsy specimen # [id number] ([facility], [facility]). Fine-needle aspiration; adenocarcinoma. Biliary brushings; adenocarcinoma. Neoadjuvant therapy with Abraxane/Gemcitabine on August 15, 2018 through October 24, 2018 . 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 Repeat CT abdomen/pelvis on October 31, 2018 demonstrated a 60% volumetric reduction in pa ncreatic head mass. Consultation with Dr. Mami Mcnamara, [facility] on November 06, 2018; disease remains [...] s. Consultation with Dr. Mami Mcnamara, [facility], who determined that the disease st ill remains unresectable, cross over to combined modality radiation + chemotherapy. Cross over to capecitabine 1500 mg orally twice a day, continuous, with daily radiation the [facility], Saturday-Saturday, on February 12, 2019. Current Assessment & Plan Anastacio Galvez returned to clinic on 03/23/2019 with his Jamila, for follow u p of his locally advanced pancreatic cancer, currently at the end of his combined modality t reatment plan with continuous oral capecitabine and external beam radiation. Interval history is notable for the fact that Anatsacio's last radiation therapy treatment will be tomorrow. [...] 17, 2019 including laboratory evaluation at the [facility] cancer clinic in [place] [facility]. In 2 to 3 months we will repeat his imaging and if favorable consult with Dr. Mcnamara again regarding Anastacio's suitability for surgical resection. Migration of biliary stent, subsequent encounter Overview Added automatically from request for surgery [id number] Sensory neuropathy Review of Systems: Constitutional: Reports [...] Date APPENDECTOMY CATARACT REMOVAL Bilateral 2007 at [facility] CHOLECYSTECTOMY EGD AND COLONOSCOPY ERCP N/A 01/29/2019 Procedure: ERCP; Surgeon: Joaquin Lawson MD; Location: [facility] MAIN OR HERNIA REPAIR inguinal LAPAROSCOPY NASAL SEPTUM SURGERY TONSILLECTOMY torn cartilage Right [place] [facility] Social History Socioeconomic History Marital status: Spouse [...] 0.0 oz Comment: Drank 12 pk/wk from 7129-9476 Drug use: No Comment: Has used marijauna [...] this chart may have been created with [employer] voice recognition software. Occasi onal wrong-word or [...] | | | | PDT | ([facility]) | results section. | + +--------+ + + + | CA 19-9, QUANT | STAT | 03/23/2019 | Malignant neoplasm | Results for this | | | | 2:05 PM | of head of pancreas | procedure are in the | | | | PDT | ([facility]) | results section. | + +--------+ + + + | LACTATE | STAT | 03/23/2019 | Malignant neoplasm | Results for this | | DEHYDROGENASE | | 2:05 PM | of head of pancreas | procedure are in the | | | | PDT | ([facility]) | results section. | + +--------+ + + + | COMPREHENSIVE | STAT | 03/23/2019 | Malignant neoplasm | Results for this | | METABOLIC PANEL | | 2:05 PM | of head of pancreas | procedure are in the | | | | PDT | ([facility]) | results section. | + +--------+ + [...] + | [address] | [address] | [place] | [phone] | | [facility] | | [address] | | | - LABORATORY | | [...] mL/min/1.73m2 | [facility] | | | [facility] | RATE,ESTIMATED | | MEDICAL | | | | mL/min/1.03l8Vkby than | | CENTER - | | [...] | bulin Ratio | | | [facility] | | [...] [address] | [place] | [phone] | | [facility] | | [address] | | | - LABORATORY | | [...] + + | [address] | [address] | [place] | [phone] | | [facility] | | [address] | | | - LABORATORY | | [...] + + | Performed at: - [facility] [place] [address], | REFERENCE LAB | | [place], [place] [id number] Motor Bike Mechanic: Evert Scanlon MD, Phone: | VIJ[facility] - JUAN | | [phone] | | + + + + + + + + | Performing | Address | City/State/Zipcode | Phone Number | | Organization | | | | + + + + + | REFERENCE LAB | [address] | [place] [address] | [phone] | | [facility] | Jorge [...]
--- OUTSIDE RECORDS SUMMARY | ~2019-08-01 | XMS | Encounter Summary ---
Demographics + + + | Address | [address] | | | [place] [address] | + + + | Home Phone [...] | Organization | [facility] [...] Team Providers + +------+ + | Care Tobacco Stripper Hand Name | Role | Phone | + [...] | | | | | ([facility]) | [place] [address] | | | | | | | Phone: | | | | | | | [phone] | | | | | | | Fax: | | | | | | | [phone] | | +--------+ + + + + + Encounter Details +--------+ + + + + | Date | Type | Department | Care Team | Description | +--------+ + + + + | 02/26/ | Hospital | [facility] | Rasheed Bello DO | Malignant neoplasm | | 2019 | Encounter | MED CTR NUTRITION | [address] | of head of pancreas | | | | SERVICES [address] | [place], [place] | ([facility]) | | | | [place], | [address] | | | | | [place] [address] | | | | | | [phone] | Geraldine Cardona, | | | | [...] | | | or equivalent | | 4174-2053 | + + +---------+ + + + [...] 1.829 m (6') Estimated needs (wt. 76kg) 6232-5853 kcals/day 76-91 gm pro/day Medications: reviewed ASSESSMENT/PLAN: [...] +--------+ + + | AMB Referral to [facility] | Outpatient | Routin | Malignant neoplasm [...]
--- OUTSIDE RECORDS SUMMARY | ~2019-08-01 | XMS | Encounter Summary ---
Demographics + + + | Address | [address] | | | [place] [address] | + + + | Home Phone | | + + + | Preferred Language | Unknown | + + + | Marital Status | | + + + | Taoism Affiliation | Unknown | + + + | Race | Unknown | + + + | Ethnic Group | Unknown | + + + Author + + + | Author | [facility] | | | and Izaiahana | + + + | Organization | [facility] | | [...] Team Providers + +------+ + | Care Salvage Grinder Name | Role | Phone | + [...] Austin CONNELLY | | | | | [phone] | [place] [address] | | +--------+ + + + + [...] | + +--------+ + + + | XR CHEST 2 VIEWS | Routin | 02/26/2016 | | Results for this | | | e | 5:45 AM | | procedure are in the | | | | PDT | | results section. | + +--------+ + + + documented in this encounter Results XR Chest 2 Vws (02/26/2016 5:45 AM PDT) + + | Specimen | [...]
--- OUTSIDE RECORDS SUMMARY | ~2019-08-01 | XMS | Encounter Summary ---
Demographics + + + | Address | [address] | | | [place] [address] | + + + | Home Phone [...] + | Organization | [facility] | | | and [...] Providers + +------+ + | Care Assistant Buyer Name | Role | Phone | + [...] [place] | | | | | [phone] | [place] [address] | | +--------+ + + + + [...]
--- OUTSIDE RECORDS SUMMARY | ~2019-08-01 | XMS | Encounter Summary ---
Demographics + + + | Address | [address] | | | [place] [address] | + + + | Home Phone | | + + + | Preferred Language | Unknown | + + + | Marital Status | | + + + | Sikh Affiliation | Unknown | + + + | Race | Unknown | + + + | Ethnic Group | Unknown | + + + Author + + + | Author | [facility] | | | and Izaiahana | + + + | Organization | [facility] | | | and Izaiahana [...] Team Providers + +------+ + | Care Porter Used Car Lot Name | Role | Phone | + [...] + + | 02/12/ | Hospital | [facility] | Rasheed Bello DO | Malignant neoplasm | | 2019 | Encounter | MED CTR RADIATION | [address] | of head of pancreas | | | | ONCOLOGY CLINIC [address] | [place], [place] | (HCC) (Primary Dx) | | | | [address] [place] | [address] | | | | | [place] [address] | | | | | | [phone] | | | +--------+ + + + [...] | | | or equivalent | | 5425-5126 | + + +---------+ + + + [...]
--- OUTSIDE RECORDS SUMMARY | ~2019-08-01 | XMS | Encounter Summary ---
Demographics + + + | Address | [address] | | | [place] [address] | + + + | Home Phone [...] Organization | [facility] [...] Team Providers + +------+ + | Care Engine Wiper Name | Role | Phone | + +------+ + | Garland Caputo MD | PCP | | + +------+ + Encounter Details +--------+ + + + + | Date | Type | Department | Care Team | Description | +--------+ + + + + | 01/23/ | [facility] | [facility] | Stephenie Hurtado | Malignant neoplasm | | 2019 | Encounter | MED CTR MEDICAL | MD Jessica [address] | of head of pancreas | | | | ONCOLOGY CLINIC [address] | [place], [place] | ([facility]) (Primary Dx) | | | | [address] [place] | [address] | | | | | [place] [address] | | | | | | [phone] | | | +--------+ + + + [...] | | | or equivalent | | 9297-8582 | + + +---------+ + + + [...]
--- OUTSIDE RECORDS SUMMARY | ~2019-08-01 | XMS | Encounter Summary ---
Demographics + + + | Address | [address] | | | [place] [address] | + + + | Home Phone [...] | Organization | [facility] | | | and Izaiahana [...] Team Providers + +------+ + | Care Side Laster Name | Role | Phone | + [...] | | Consult/Panc | [address] | [place] [address] | | | | | reas/Quacken | [place], | Phone: | | | | | [place] | [place] [address] | [phone] | | | | | (dates/time | Phone: | Fax: | | | | | ok'd by | [phone] | [phone] | | | | | ) | Fax: | | | | | | Procedures | [phone] | | | | | | ID OFFICE | | | | | | [...] + + | 12/25/ | Hospital | [facility] | Rasheed Bello DO | Malignant neoplasm | | 2019 | Encounter | MED CTR RADIATION | [address] | of head of pancreas | | | | ONCOLOGY CLINIC [address] | [place], [place] | (HCC) (Primary Dx) | | | | [address] [place] | [address] | | | | | [facility] [place] [address] | | | | | | [phone] | | | +--------+ + + + [...] | | | or equivalent | | 2911-9638 | + + +---------+ + + + [...] your other healthcare providers. Radiation physicist and marketing traffic coordinator. These people assist with the technical aspects [...] bell ch as social workers, patient navigators, dietitians/security shift supervisor, dentists, and physical t herapists. Date Last Reviewed: 01/15/201619991431-0454 [employer]. [address] [place] [address], [place] [address]. All righ ts reserved. This information is [...] such as 3-D conformal radiation the rapy (3D-RIGGER THIRD), intensity modulated radiation therapy (IMRT). Stereotactic radiation [...] the cancer cell s. Date Last Reviewed: 01/15/201619997123-5473 [employer] [place] [address]. All righ ts reserved. This information is [...] help you manage them. Date Last Reviewed: 02/14/201819998902-6521 [employer] [address] [place] [address], [place] [address]. All righ ts reserved. This information is [...]
--- OUTSIDE RECORDS SUMMARY | ~2019-08-01 | XMS | Encounter Summary ---
Demographics + + + | Address | [address] | | | [place] [address] | + + + | Home Phone [...] Organization | [facility] | | | and Izaiahana [...] Team Providers + +------+ + | Care Pickle Pumper Name | Role | Phone | [...] Malignant | Rasheed Madrid DO | [address] | | | | | neoplasm of | [address] | [place], | | | | | head of | [address] | [place] [address] | | | | | pancreas | [place], | Phone: | | | | | ([facility]) | [place] [address] | [phone] | | | | | Procedures | Phone: | Fax: | | | | | CT Treatment | [phone] | [phone] | | | | | Plan | Fax: | | | | | | Complex CT | [phone] | | | | | | [place] PLAN | | | +--------+--------+ + + + + Encounter Details +--------+ + + + + | Date | Type | Department | Care Team | Description | +--------+ + + + + | 01/20/ | Hospital | [facility] | Rasheed Bello DO | Malignant neoplasm | | 2019 | Encounter | MED CTR RADIATION | [address] | of head of pancreas | | | | ONCOLOGY CLINIC [address] | [place], [place] | ([facility]) | | | | [address] [place] | [address] | | | | | [place] [address] | | | | | | [phone] | | | +--------+ + + + [...] | | | or equivalent | | 4891-1873 | + + +---------+ + + + [...] ent repeat CT imaging last week at [facility] noting no further reduction in shar or. [...] JULIANN Radiation Oncologist Department of Radiation Oncology [facility] This note was transcribed using Dragon speech [...] the | | | | PDT | ([facility]) | results section. | + +--------+ + [...]
--- OUTSIDE RECORDS SUMMARY | ~2019-08-01 | XMS | Encounter Summary ---
Demographics + + + | Address | [address] | | | [place] [address] | + + + | Home Phone | | + + + | Preferred Language | Unknown | + + + | Marital Status | | + + + | Synagogue Affiliation | Unknown | + + + | Race | Unknown | + + + | Ethnic Group | Unknown | + + + Author + + + | Author | [facility] | | | and Izaiahana | + + + | Organization | [facility] [...] Team Providers + +------+ + | Care Timber Spotter Name | Role | Phone | + [...] + + | 03/05/ | Hospital | [facility] | Gloria, | Malignant neoplasm | | 2019 | Encounter | MED CTR MEDICAL | Logan Madrid MD [address] | of head of pancreas | | | | ONCOLOGY CLINIC [address] | [address] [place] | (HCC); Biliary | | | | [address] [place] | [place] [address] | obstruction; | | | | [place] [address] | [phone] | Gastroesophageal | | | | [phone] | | reflux disease, | | | [...] | | | or equivalent | | 4835-6639 | + + +---------+ + + + [...] original. Hematology/Oncology Progress Note [facility] [place] Pt. Name/Age/: Anastacio Galvez 68 y.o. 1950 Med. Record Number: [id number] Date of admission: 03/05/2019 The patient's primary care provider is Garland Caputo MD. Identifying Statement: Anastacio Galvez is a 68 y.o. male [place] [address] [place] [address] with Stage IIA Pancreatic Cancer. The patient chart and medications were reviewed in detail and the patient was seen and exam ined. History of Present Illnesses, their Current Assessments and Plans: Problem List Biliary obstruction Overview Added automatically from request for surgery [id number] Gastroesophageal reflux disease Jaundice Malignant neoplasm of head of pancreas Overview ACTIVE DIAGNOSIS: Endoscopic stage IIA Pancreatic Cancer, deleterious germline PALB2 muta tion positive. The patient presented with upper abdominal pain which radiated to the upper back in a bandl lady distribution, jaundice and 40 pound weight loss in June 2018. CT scan of the abdomen/pelvis without contrast June 27, 2018 at [facility] demonstrated a 5 cm pancreatic mass in the uncinate process associated with a 12 mm retro-caval lymph node. Tumor marker CA 19-9 was 816.5 units per milliliter (upper limits of normal 37 units per milliliter). Surgical consultation with Dr. Mami Mcnamara ([facility]) on July 03, 2018. CT of the chest/abdomen/pelvis with contrast at [facility] on July 10, 2018 demonstrated a 3.3 cm x 3.7 cm x 5.17 m mass in the pancreatic head/uncina te process. The mass encases a few branches of the superior mesenteric artery arising revenue liaison iorly and demonstrates slightly less than 180 of encasement of the superior mesenteric art daniel proper. Enlarged 1.1 cm lymph node inferior to the mass. Endoscopic ultrasound with biopsy and stent (10 mm x 40 mm metal ) placement July 25 (Dr. Leonel Song, [place], [place]): Pancreatic/uncinate mass, 4.5 cm close to but n ot touching major vessels, without endoscopic evidence of regional lymphadenopathy, PT3, PN0 , M0 stage IIA. Biopsy specimen # [id number] ([facility]). Fine-needle aspiration; adenocarcinoma. Biliary brushings; adenocarcinoma. Neoadjuvant therapy with Abraxane/Gemcitabine on August 15, 2018 through October 24, 2018 . 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 Repeat CT abdomen/pelvis on October 31, 2018 demonstrated a 60% volumetric reduction in pa ncreatic head mass. Consultation with Dr. Mami Mcnamara, [facility] on November 06, 2018; disease remains unresectable, [...] branche s. Consultation with Dr. Mami Mcnamara, [facility], who determined that the disease st ill remains unresectable, cross over to combined modality radiation + chemotherapy. Cross over to capecitabine 1500 mg orally twice a day, continuous, with daily radiation the [facility], Saturday-Saturday, on February 12, 2019. [...] Overview Added automatically from request for surgery [id number] Osteoarthritis of spine with myelopathy, thoracic region [...] Procedure: ERCP; Surgeon: Joaquin Lawson MD; Location: [facility] MAIN OR HERNIA REPAIR inguinal LAPAROSCOPY NASAL SEPTUM SURGERY TONSILLECTOMY torn cartilage Right [facility] Social History Socioeconomic History Marital [...] 0.0 oz Comment: Drank 12 pk/wk from 6747-6404 Drug use: No Comment: Has used marijauna [...] Oncol.: Meryl Montero., Yonny, R.Michael., Partha Guido., Patricio Brizuela., Michoacano TNaga., Bill, [...] this chart may have been created with [employer] voice recognition software. Occasi onal wrong-word or [...] + + + | Performed at: - [place] [address], | REFERENCE LAB | | [place], [place] [id number] Pipe Cleaning Machine Operator: Evert Scanlon MD, Phone: | [facility] | | [phone] | | + + + + + + + + | Performing | Address | City/State/Zipcode | Phone Number | | Organization | | | | + + + + + | REFERENCE LAB | [address] | [place] [address] | [phone] | | [facility] | Drive [...] + | [facility] | [address] | [place] | [phone] | | [facility] | | [address] | | | - LABORATORY | | [...] | [facility] | | | [facility] | RATE,ESTIMATED | | MEDICAL | | | | mL/min/1.39n2Lfee than | | CENTER - | | [...] | | Protein | | | [facility] | | [...] [address] | [place] | [phone] | | [facility] | | [address] | | | - LABORATORY | | [...] [address] | [place] | [phone] | | [facility] | | [address] | | | - LABORATORY | | [...] [address] | [place] | [phone] | | [facility] | | [address] | | | - LABORATORY | | [...] + | [facility] | [address] | [place] | [phone] | | [facility] | | [address] | | | - LABORATORY | | [...] + | Performed at: 01 - [facility] [place] [address], | REFERENCE LAB | | [place], [place] [id number] Pipe Cleaning Machine Operator: Evert Scanlon MD, Phone: | [facility] | | [phone] | | + + + + + + + + | Performing | Address | City/State/Zipcode | Phone Number | | Organization | | | | + + + + + | REFERENCE LAB | [address] | [place] [address] | [phone] | | [facility] | Drive [...] | [facility] | | | [facility] | RATE,ESTIMATED | | MEDICAL | | | | mL/min/1.93a4Fnxj than | | CENTER - | | [...] [address] | [place] | [phone] | | [facility] | | [address] | | | - LABORATORY | | [...]
--- OUTSIDE RECORDS SUMMARY | ~2019-08-01 | XMS | Encounter Summary ---
Demographics + + + | Address | [address] | | | [place] [address] | + + + | Home Phone | | + + + | Preferred Language | Unknown | + + + | Marital Status | | + + + | Shinto Affiliation | Unknown | + + + | Race | Unknown | + + + | Ethnic Group | Unknown | + + + Author + + + | Author | [facility] | | | and Izaiahana | + + + | Organization | [facility] [...] Providers + +------+ + | Care Lead Massage Therapist Name | Role | Phone | + +------+ + | Garland Caputo MD | PCP | | + +------+ + Encounter Details +--------+ + + + + | Date | Type | Department | Care Team | Description | +--------+ + + + + | 12/07/ | Orders Only | [facility] | [place], | 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
--- OUTSIDE RECORDS SUMMARY | ~2019-08-01 | XMS | Encounter Summary ---
Demographics + + + | Address | [address] | | | [place] [address] | + + + | Home Phone [...] + | Organization | [facility] | | | and Izaiahana [...] Team Providers + +------+ + | Care Hotel Office Manager Name | Role | Phone | [...] [place] | | | | | [address] [place] | [place] [address] | | | | | [place] [address] | [phone] | | | | | [phone] | | | +--------+ + + + [...] | | | or equivalent | | [phone] | + + +---------+ + + + [...]
[~2019-08-01 14:54] MED LIST: ABRAXANE100 MG IV; AMITIZA24 MCG PO; ASPIRIN EC81 MG PO; B COMPLETE1 EACH PO; DOCUSATE SODIU100 MG PO; DOXYCYCLINE HY100 MG PO; DURAGESIC1 EAC2 TD; DURAGESIC1 EAC3 TD; FENTANYL1 EACH TD; FLOMAX0.4 MG PO; GABAPENTIN100 MG PO; GLUCOPHAGE500 MG PO; HYDROXYZINE PAM50 MG PO; LORAZEPAM1 MG PO; NEURONTIN300 MG PO; OLANZAPINE5 MG PO; ONDANSETRO8 MG/50 M2 IV; OXYCODON-ACETA1 EAC2 PO; OXYCODONE HCL20 M1 PO; PANTOPRAZOLE SO40 MG PO; REGLAN5 MG PO; SENNOSIDES8.6 MG PO; SUCRALFATE1 GM PO; TOUJEO MAX300 UNIT/1; ZENPEP DR 25,01 EAC1 PO; ZOFRAN ODT8 MG PO; [UNRECOGNIZED DRUG - OTHER] IV
--- OUTSIDE RECORDS SUMMARY | 2019-08-01 14:58 | XMS ---
PreManage Notification: JANE GALVEZ Security [place] Debe[employer] Events No recent Security Events currently on file [facility] There are no care providers on record at this time. Nathaniel has no Care Guidelines for this patient. Kim VISIT COUNT (12 MO.) 1 MARK Chew TOTAL 1 NOTE: Visits indicate total known visits. ED/UCC VISIT TRACKING (12 MO.) 08/01/2019 14:54 MARK Cook [place] TYPE: Emergency COMPLAINT: - CONSTIPATION- CANCER PT INPATIENT VISIT TRACKING (12 MO.) No inpatient visits to display in this time frame [id number]
[2019-09-18] MEDS ORDERED: NEURONTIN300 MG PO (15:22)
[2019-09-18] MEDS ORDERED: ADVIL200 M1 PO (15:23)
[2019-10-07] MEDS ORDERED: AMITIZA8 MCG (08:18)
[2019-10-14] MEDS ORDERED: PROMETHAZINE HC25 M1 PO (10:14)
== END 2019-08-01 17:34 | disposition home or self-care (01) ==
LOC: ED 14:54
DX: K59.00 Constipation, unspecified (principal); Z87.891 Personal history of nicotine dependence; Z88.0 Allergy status to penicillin; Z79.899 Other long term (current) drug therapy; Z79.84 Long term (current) use of oral hypoglycemic drugs; Z79.891 Long term (current) use of opiate analgesic; Z85.07 Personal history of malignant neoplasm of pancreas
CPT/HCPCS: 74018; 99283-25